=== PATIENT | female | born 1960 | race Caucasian/White ===

== ENCOUNTER → 2017-05-06 | Outpatient (CLI) | payer BC ==
[~2017-05-06] MED LIST: ACHD5005 PO; AGM875T PO; CEPH500C PO; [UNRECOGNIZED DRUG - OTHER]
--- NOTE | 2017-05-06 12:24 | Diagnostic Imaging Report ---
INDICATION: Digital mammogram bilateral screening. This study was compared to the prior exam of 08/07/15 and 08/09/12. At this time, there are no current complaints. The current study was also evaluated with a Computer Aided Detection (CAD) system. FINDINGS: There are scattered fibroglandular densities in both breasts which could obscure a lesion. Overall, there does not appear to have been any significant change when compared to the prior exam. No primary or secondary sign of malignancy is noted. IMPRESSION: There is no radiographic evidence for malignancy. ACR BI-RADS Category 1: Negative. Result letter will be mailed to the patient. Note: At least 10% of breast cancer is not imaged by mammography. Dictated by: Dictated on workstation # [id number]
== END ==
LOC: RAD 09:51
PROVIDERS: ATTEND Family Medicine
DX: Z12.31 Encounter for screening mammogram for malignant neoplasm of breast (principal)
CPT/HCPCS: 77067

== ENCOUNTER 2017-08-15 09:30 | Outpatient (CLI) | payer BC ==
[~2017-08-15] VITALS: Ht 160 cm; Wt 88.9 kg
[2017-08-15] MEDS ORDERED: PARO20TA5 PO (09:32)
[2017-08-15] MEDS ORDERED: NADO40TA PO (09:32)
[2017-08-15] MEDS ORDERED: HYDR25TA4 PO (09:32)
== END 2017-08-15 09:46 ==
LOC: PREOP 09:30
PROVIDERS: ATTEND Surgery
DX: Z01.818 Encounter for other preprocedural examination (principal); Z12.11 Encounter for screening for malignant neoplasm of colon

== ENCOUNTER 2017-08-17 11:49 | Day surgery (SDC) | payer BC ==
[~2017-08-17] VITALS: Ht 160 cm; Wt 88.9 kg
[~2017-08-17 11:49] MED LIST changes: +HYDR25TA4 PO; +NADO40TA PO; +PARO20TA5 PO
--- OUTSIDE RECORDS SUMMARY | 2017-08-17 11:52 | XMS REPORT ---
Author Author GINNA OLGUIN [facility] eClinicalWorks Address Unknown Phone Unavailable Care Team Providers Care Video Arcade Manager Name Role Phone GINNA OLGUIN CP Unavailable Allergies, Adverse Reactions, Alerts Substance Reaction Event Type N.K.D.A. Info Not Available Non Drug Allergy Problems Problem Type Condition Code Onset Dates Condition Status Problem Essential hypertension I10 Active Problem Postmenopausal HRT (hormone replacement therapy) Z79.890 Active Problem Major depressive disorder with single episode, remission status unspecified F32.9 Active Assessment Major depressive disorder with single episode, remission status unspecified F32.9 Active Assessment Essential hypertension I10 Active Assessment Postmenopausal HRT (hormone replacement therapy) Z79.890 Active Medications Medication Code System Code Instructions Start Date End Date Status Dosage Hydrochlorothiazide [facility] [address]-99 25 MG Orally Once a day 1 tablet Nadolol [facility] [address]-04 40 mg 1 tablet Once a day Orally Vagifem [facility] [address]-97 10 MCG Vaginal 1 tablet Paroxetine HCl [facility] [address]-84 20 mg 1 tablet in the morning Once a day Orally Procedures Procedure Coding System Code Date Office Visit, Est Pt., Level 4 CPT-4 30701 Feb 11, 2016 Vital Signs Date/Time: Feb 11, 2016 Cardiac Monitoring Heart Rate 70 bpm Weight 192.5 lbs Height 62 in BMI 35.20 Index Blood Pressure Diastolic 82 mmHg Blood Pressure Systolic 128 mmHg Results No Known Results Summary Purpose eClinicalWorks Submission
[2017-08-17] MEDS ORDERED: LACTATED RINGERS 1,000 ML IV ONE (11:53)
--- OUTSIDE RECORDS SUMMARY | 2017-08-17 11:53 | XMS REPORT ---
Author Author GINNA OLGUIN Organization [facility] Address [address] [place] [address] Care Team Providers Care Business Banking Officer Name Role Phone GINNA OLGUIN Unavailable PROBLEMS Type Condition ICD9-CM Code [id number] Code Onset Dates Condition Status SNOMED Code Problem Major depressive disorder with single episode, remission status unspecified F32.9 Active 78920804 Problem Essential hypertension I10 Active 87000064 Problem Postmenopausal HRT (hormone replacement therapy) Z79.890 Active 86160524 ALLERGIES No Known Allergies SOCIAL HISTORY Never Assessed PLAN OF CARE Activity Details Follow Up 3 Months, prn Reason: VITAL SIGNS Height 62 in 2016-06-09 Weight 189.4 lbs 2016-06-09 Temperature 97.9 degrees Fahrenheit 2016-06-09 Heart Rate 68 bpm 2016-06-09 Respiratory Rate 18 2016-06-09 BMI 34.64 kg/m2 2016-06-09 Blood pressure systolic 118 mmHg 2016-06-09 Blood pressure diastolic 70 mmHg 2016-06-09 MEDICATIONS Medication Instructions Dosage Frequency Start Date End Date Duration Status Paroxetine HCl 20 mg Orally Once a day 1 tablet in the morning Once a day Orally 24h 30 Active Vagifem 10 MCG 1 tablet Active Nadolol 40 mg 1 tablet Once a day Orally 30 Active Hydrochlorothiazide 25 MG Orally Once a day 1 tablet 24h Active RESULTS No Results PROCEDURES No Known procedures IMMUNIZATIONS No Known Immunizations MEDICAL (GENERAL) HISTORY Type Description Date Medical History Hypertension Medical History Depression Surgical History Cholecystectomy 2006 Surgical History tonsillectomy and adenoidectomy Surgical History Ear surgery to add a piece of tissue to ear drum Hospitalization History childbirth
--- OUTSIDE RECORDS SUMMARY | 2017-08-17 11:53 | XMS REPORT ---
Author Author ELAINE VANEGAS [facility] Address [address] [place] [address] Care Team Providers Care Distance Learning Program Coordinator Name Role Phone ROMINA ELAINE Unavailable PROBLEMS Type Condition ICD9-CM Code [id number] Code Onset Dates Condition Status SNOMED Code Problem Major depressive disorder with single episode, remission status unspecified F32.9 Active 64165992 Problem Essential hypertension I10 Active 62163143 Problem Postmenopausal HRT (hormone replacement therapy) Z79.890 Active 02063928 ALLERGIES No Known Allergies SOCIAL HISTORY Never Assessed PLAN OF CARE VITAL SIGNS Height 62 in 2016-09-29 Weight 187.8 lbs 2016-09-29 Temperature 97.6 degrees Fahrenheit 2016-09-29 Heart Rate 62 bpm 2016-09-29 Respiratory Rate 20 2016-09-29 BMI 34.35 kg/m2 2016-09-29 Blood pressure systolic 120 mmHg 2016-09-29 Blood pressure diastolic 80 mmHg 2016-09-29 MEDICATIONS Medication Instructions Dosage Frequency Start Date End Date Duration Status Hydrochlorothiazide 25 MG Orally Once a day 1 tablet 24h Active Vagifem 10 MCG 1 tablet Active Hydrochlorothiazide 25MG TAKE ONE TABLET BY MOUTH ONCE DAILY 30 Active Paroxetine HCl 20MG TAKE ONE TABLET BY MOUTH ONCE DAILY IN THE MORNING 30 Active Nadolol 40 mg 1 tablet Once a day Orally 30 Active Paroxetine HCl 20 mg Orally Once a day 1 tablet in the morning Once a day Orally 24h 30 Active RESULTS No Results PROCEDURES No Known procedures IMMUNIZATIONS No Known Immunizations MEDICAL (GENERAL) HISTORY Type Description Date Medical History Hypertension Medical History Depression Surgical History Cholecystectomy 2006 Surgical History tonsillectomy and adenoidectomy Surgical History Ear surgery to add a piece of tissue to ear drum Hospitalization History childbirth
--- OUTSIDE RECORDS SUMMARY | 2017-08-17 11:53 | XMS REPORT | Continuity of Care Document ---
Author Author [facility] Organization [facility] Address Unknown Phone Unavailable Allergies Active Description Code Type Severity Reaction Onset Reported/Identified Relationship to Patient Clinical Status Yes NKANo Known Allergies NKA Miscellaneous Allergy Mild N/A 11/12/2008 Medications There is no data. Problems Date Dx Coded Attending Type Code Diagnosis Diagnosed By 07/25/2013 ELI TORRES MD Ot 473.9 CHRONIC SINUSITIS NOS 07/25/2013 ELI TORRES MD Ot 910.0 ABRASION HEAD 07/25/2013 ELI TORRES MD Ot 959.09 INJURY OF FACE AND NECK 07/25/2013 ELI TORRES MD Ot E000.8 OTHER EXTERNAL CAUSE STATUS 07/25/2013 ELI TORRES MD Ot E849.0 ACCIDENT IN HOME 07/25/2013 ELI TORRES MD Ot E885.9 FALL FROM SLIPPING, TRIPPING, OR STUMBLI 07/25/2013 ELI TORRES MD Ot V06.1 GDOSASAQYN-ITUMNWO-GCLZNURGZ, COMBINED [ 08/07/2015 MULUGETA ANDREW Ot Z12.31 09/10/2015 MULUGETA ANDREW Ot Z12.31 ENCNTR SCREEN MAMMOGRAM FOR MALIGNANT NE 08/13/2016 MULUGETA ANDREW Ot Z12.31 ENCNTR SCREEN MAMMOGRAM FOR MALIGNANT NE 05/09/2017 ISABELL LOVE MD Ot Z12.31 ENCNTR SCREEN MAMMOGRAM FOR MALIGNANT NE 05/19/2017 ISABELL LOVE MD Ot Z12.31 ENCNTR SCREEN MAMMOGRAM FOR MALIGNANT NE 08/10/2017 MULUGETA ANDREW Ot Z12.31 ENCNTR SCREEN MAMMOGRAM FOR MALIGNANT NE 08/10/2017 ISABELL LOVE MD Ot Z12.31 ENCNTR SCREEN MAMMOGRAM FOR MALIGNANT NE 08/11/2017 JANETTE BECK DO Ot Z01.818 ENCOUNTER FOR OTHER PREPROCEDURAL EXAMIN 08/11/2017 JANETTE BECK DO Ot Z12.11 ENCOUNTER FOR SCREENING FOR MALIGNANT NE Procedures There is no data. Results Test Result Range CBC With Differential/Platelet - 10/08/16 08:35 WBC 5.5 x10E3/uL 3.4-10.8 RBC 4.66 x10E6/uL 3.77-5.28 Hemoglobin 13.2 g/dL 11.1-15.9 Hematocrit 39.6 % 34.0-46.6 MCV 85 fL 79-97 MCH 28.3 pg 26.6-33.0 MCHC 33.3 g/dL 31.5-35.7 RDW 14.1 % 12.3-15.4 Platelets 264 x10E3/uL 150-379 Neutrophils 63 % Lymphs 24 % Monocytes 10 % Eos 3 % Basos 0 % Neutrophils (Absolute) 3.5 x10E3/uL 1.4-7.0 Lymphs (Absolute) 1.3 x10E3/uL 0.7-3.1 Monocytes(Absolute) 0.5 x10E3/uL 0.1-0.9 Eos (Absolute) 0.1 x10E3/uL 0.0-0.4 Baso (Absolute) 0.0 x10E3/uL 0.0-0.2 Immature Granulocytes 0 % Immature Grans (Abs) 0.0 x10E3/uL 0.0-0.1 Comp. Metabolic Panel (14) - 10/08/16 08:35 Glucose, Serum 104 mg/dL 65-99 BUN 21 mg/dL 6-24 Creatinine, Serum 0.93 mg/dL 0.57-1.00 eGFR If NonAfricn Am 68 mL/min/1.73 >59 eGFR If Africn Am 78 mL/min/1.73 >59 BUN/Creatinine Ratio 23 9-23 Sodium, Serum 141 mmol/L 134-144 Potassium, Serum 3.7 mmol/L 3.5-5.2 Chloride, Serum 95 mmol/L 96-106 Carbon Dioxide, Total 27 mmol/L 18-29 Calcium, Serum 9.8 mg/dL 8.7-10.2 Protein, Total, Serum 7.1 g/dL 6.0-8.5 Albumin, Serum 4.3 g/dL 3.5-5.5 Globulin, Total 2.8 g/dL 1.5-4.5 A/G Ratio 1.5 1.2-2.2 Bilirubin, Total 0.4 mg/dL 0.0-1.2 Alkaline Phosphatase, S 77 IU/L 39-117 AST (SGOT) 17 IU/L 0-40 ALT (SGPT) 17 IU/L 0-32 Lipid Panel - 10/08/16 08:35 Cholesterol, Total 216 mg/dL 100-199 Triglycerides 100 mg/dL 0-149 HDL Cholesterol 61 mg/dL >39 VLDL Cholesterol Polo 20 mg/dL 5-40 LDL Cholesterol Calc 135 mg/dL 0-99 A1C - 07/12/17 09:55 HEMOGLOBIN A1c 5.8 % of total Hgb <5.7 Encounters ACCT No. Visit Date/Time Discharge Status Pt. Type Provider Facility Loc./Unit Complaint [id number] 08/10/2017 05:34:00 08/10/2017 23:59:59 CLS Outpatient JANETTE BECK DO [facility] PREOP COLONOSCOPY [id number] 05/06/2017 09:51:00 05/06/2017 23:59:59 CLS Outpatient ISABELL LOVE MD [facility] RAD SCREENING [id number] 08/07/2015 15:19:00 08/07/2015 23:59:59 CLS Outpatient MULUGETA ANDREW [facility] RAD SCREENING [id number] 07/24/2013 22:24:00 07/25/2013 00:13:00 DIS Emergency ELI TORRES MD [facility] ER FACIAL INJURY FROM FALL [id number] 08/17/2017 13:00:00 PEN Preadmit JANETTE BECK DO [facility] ENDO SCREENING [id number] 08/13/2016 08:40:00 Document Registration [id number] 08/13/2016 08:40:00 Document Registration [id number] 2017 09:40:00 2017 23:59:59 CLS Outpatient [facility] [id number] 2017 09:40:00 Document Registration [id number] 10/09/2016 08:36:00 Document Registration
--- OUTSIDE RECORDS SUMMARY | 2017-08-17 11:53 | XMS REPORT ---
Author Author GINNA King Organization [facility] Address [address] [place] [address] Care Team Providers Care Product Tester Name Role Phone eusebiaLELE GINNA Unavailable PROBLEMS Type Condition ICD9-CM Code [id number] Code Onset Dates Condition Status SNOMED Code Problem Major depressive disorder with single episode, remission status unspecified F32.9 Active 89184997 Problem Essential hypertension I10 Active 11714625 Problem Postmenopausal HRT (hormone replacement therapy) Z79.890 Active 50109195 ALLERGIES No Information ENCOUNTERS Encounter Location Date Diagnosis [place] [id number] [place] [id number] [place] [address] Jun, Essential hypertension I10 ; Screening for lipid disorders Z13.220 and Screening for diabetes mellitus (DM) Z13.1 [place] [address] [place] [id number] [place] [address] 97783- 6277 Jun, [facility] [address] [address] [id number] [place] [address] 90922- 5382 May, [place] [address] [address] [id number] [place] [address]16- 3030 May, [facility] [id number] [place] [address] 19497- 9662 Apr, Essential hypertension I10 ; Screening for diabetes mellitus (DM) Z13.1 ; Screening for lipid disorders Z13.220 ; Screening for breast cancer Z12.31 and Screening for colon cancer Z12.11 [place] [address] [place] [address] 93961- 3722 Jan, Essential hypertension I10 ; Major depressive disorder with single episode, remission status unspecified F32.9 and Postmenopausal HRT ( hormone replacement therapy) Z79.890 [place] [address] [address] Oct, Essential hypertension I10 ; Postmenopausal HRT (hormone replacement therapy) Z79.890 ; Major depressive disorder with single episode, remission status unspecified F32.9 and Contusion of right great toe with damage to nail, initial encounter S90.211A [place] [address] [address] [id number] [place] [address] 19261- 8679 15 Sep, 2016 Diabetes mellitus screening Z13.1 [place] [address] [address] [id number] [place] [address] 45135- 6662 14 Sep, 2016 Diabetes mellitus screening Z13.1 [place] [address] [address] [id number] [place] [address] 49188- 1451 14 Sep, 2016 [place] [address] [address] [id number] [place] [address] 75826- 8156 Sep, Essential hypertension I10 [facility]ALK [facility] [address] [id number] [place] [address]68 [address] August, Abrasion, face without infection S00.81XA ; Abrasion of palm of right hand, initial encounter S60.511A and Fall (on)(from) sidewalk curb , initial encounter W10.1XXA [place] [address] [place] [address] 69512- 1932 Jun, Essential hypertension I10 ; Postmenopausal HRT (hormone replacement therapy) Z79.890 ; Major depressive disorder with single episode, remission status unspecified F32.9 and Screening cholesterol level Z13.220 [place] [address] [place] [address] 63183- 6539 Jan, Essential hypertension I10 ; Postmenopausal HRT (hormone replacement therapy) Z79.890 and Major depressive disorder with single episode, remission status unspecified F32.9 [place] [address] [place] [address] 83254- 2793 17 Oct, 2015 Encounter for immunization Z23 [place] [address] [place] [address] [place] [address] 14 Oct, 2015 [facility] [address] [facility] [id number] [address] 08 Oct, 2015 Essential hypertension I10 and Postmenopausal HRT (hormone replacement therapy) Z79.890 [facility] [address] [facility] [id number] [address] August, Essential hypertension I10 [facility] [address] [facility] [id number] [address] August, Essential hypertension I10 ; Postmenopausal HRT (hormone replacement therapy) Z79.890 and Major depressive disorder with single episode, remission status unspecified F32.9 IMMUNIZATIONS No Known Immunizations SOCIAL HISTORY Never Assessed REASON FOR VISIT Lab (walk-in) PLAN OF CARE VITAL SIGNS MEDICATIONS Unknown Medications RESULTS Name Result Date Reference Range CBC 2016-10-08 WBC 5.5 3.4-10.8 RBC 4.66 3.77-5.28 Hemoglobin 13.2 11.1-15.9 Hematocrit 39.6 34.0-46.6 MCV 85 79-97 MCH 28.3 26.6-33.0 MCHC 33.3 31.5-35.7 RDW 14.1 12.3-15.4 Platelets 264 150-379 Neutrophils 63 Lymphs 24 Monocytes 10 Eos 3 Basos 0 Neutrophils (Absolute) 3.5 1.4-7.0 Lymphs (Absolute) 1.3 0.7-3.1 Monocytes(Absolute) 0.5 0.1-0.9 Eos (Absolute) 0.1 0.0-0.4 Baso (Absolute) 0.0 0.0-0.2 Immature Granulocytes 0 Immature Grans (Abs) 0.0 0.0-0.1 LIPID PANEL 2016-10-08 Cholesterol, Total 216 100-199 Triglycerides 100 0-149 HDL Cholesterol 61 >39 VLDL Cholesterol Polo 20 5-40 LDL Cholesterol Calc 135 0-99 Comment: CMP 2016-10-08 Glucose, Serum 104 65-99 BUN 21 6-24 Creatinine, Serum 0.93 0.57-1.00 eGFR If NonAfricn Am 68 >59 eGFR If Africn Am 78 >59 BUN/Creatinine Ratio 23 9-23 Sodium, Serum 141 134-144 Potassium, Serum 3.7 3.5-5.2 Chloride, Serum 95 96-106 Carbon Dioxide, Total 27 18-29 Calcium, Serum 9.8 8.7-10.2 Protein, Total, Serum 7.1 6.0-8.5 Albumin, Serum 4.3 3.5-5.5 Globulin, Total 2.8 1.5-4.5 A/G Ratio 1.5 1.2-2.2 Bilirubin, Total 0.4 0.0-1.2 Alkaline Phosphatase, S 77 39-117 AST (SGOT) 17 0-40 ALT (SGPT) 17 0-32 PROCEDURES Procedure Date Ordered Result Body Site COMPLETE CBC W/AUTO DIFF WBC October 08, 2016 LIPID PANEL October 08, 2016 VENIPUNCT, ROUTINE* October 08, 2016 COMPREHEN METABOLIC PANEL October 08, 2016 INSTRUCTIONS MEDICATIONS ADMINISTERED No Known Medications MEDICAL (GENERAL) HISTORY Type Description Date Medical History Hypertension Surgical History Cholecystectomy 2006 Surgical History tonsillectomy and adenoidectomy Surgical History Ear surgery to add a piece of tissue to ear drum Hospitalization History childbirth
--- OUTSIDE RECORDS SUMMARY | 2017-08-17 11:53 | XMS REPORT ---
Author Author GINNA King Organization [facility] Address [address] [place] [address] Care Team Providers Care Marketing Development Specialist Name Role Phone eusebiaLELE GINNA Unavailable PROBLEMS Type Condition ICD9-CM Code [id number] Code Onset Dates Condition Status SNOMED Code Problem Major depressive disorder with single episode, remission status unspecified F32.9 Active 91759899 Problem Essential hypertension I10 Active 86989388 Problem Postmenopausal HRT (hormone replacement therapy) Z79.890 Active 61555837 ALLERGIES No Known Allergies ENCOUNTERS Encounter Location Date Diagnosis [place] [address] [place] [id number] [place] [address] 14224- [address]258 Jun, [place] [address] [place] [id number] [place] [address] 04802- 3097 Jun, Essential hypertension I10 ; Screening for lipid disorders Z13.220 and Screening for diabetes mellitus (DM) Z13.1 [place] [address] [place] [id number] [place] [address] 96451- 2147 Jun, [place] [address] [place] [address] 81811- 0908 May, [place] [address] [place] [id number] [place] [address] 55684- 0907 May, [place] [address] [place] [id number] [place] [address] 74587- 3998 Apr, Essential hypertension I10 ; Screening for diabetes mellitus (DM) Z13.1 ; Screening for lipid disorders Z13.220 ; Screening for breast cancer Z12.31 and Screening for colon cancer Z12.11 [place] [address] [address] [id number] [place] [address] 93933- 7790 Jan, Essential hypertension I10 ; Major depressive disorder with single episode, remission status unspecified F32.9 and Postmenopausal HRT ( hormone replacement therapy) Z79.890 [place] [address] [place] [address] [id number] [place] [address] 41740- [address] Oct, Essential hypertension I10 ; Postmenopausal HRT (hormone replacement therapy) Z79.890 ; Major depressive disorder with single episode, remission status unspecified F32.9 and Contusion of right great toe with damage to nail, initial encounter S90.211A [place] [address] [address]- [address] 15 Sep, 2016 Diabetes mellitus screening Z13.1 [place] [address] 41499- 1746 14 Sep, 2016 Diabetes mellitus screening Z13.1 [place] [address] 57824- 3085 14 Sep, 2016 [place] [address] 5[address]84- [address]36 Sep, Essential hypertension I10 [facility] IN [facility] [address] [place] [id number] [place] [address]14 -[address] August, Abrasion, face without infection S00.81XA ; Abrasion of palm of right hand, initial encounter S60.511A and Fall (on)(from) sidewalk curb , initial encounter W10.1XXA [place] [address] [place] [id number] [place] [address] 25485- 7435 08 Jun, 2016 Essential hypertension I10 ; Postmenopausal HRT (hormone replacement therapy) Z79.890 ; Major depressive disorder with single episode, remission status unspecified F32.9 and Screening cholesterol level Z13.220 [place] [address] [place] [address] [id number] [place] [address] 69439- 3518 Jan, Essential hypertension I10 ; Postmenopausal HRT (hormone replacement therapy) Z79.890 and Major depressive disorder with single episode, remission status unspecified F32.9 [place] [address] [place] [address]- 6982 17 Oct, 2015 Encounter for immunization Z23 [facility] [address] [address] 14 Oct, 2015 [facility] [address] [place] [address] 4765 08 Oct, 2015 Essential hypertension I10 and Postmenopausal HRT (hormone replacement therapy) Z79.890 [facility] [address] [place] [address] 93362- 7076 13 Aug, 2015 Essential hypertension I10 [place] [address] [address]- [address] 11 Aug, 2015 Essential hypertension I10 ; Postmenopausal HRT (hormone replacement therapy) Z79.890 and Major depressive disorder with single episode, remission status unspecified F32.9 IMMUNIZATIONS No Known Immunizations SOCIAL HISTORY Never Assessed REASON FOR VISIT lab f/u - Pt states she is here for her 3 month check up. No concerns today. - Art RIDDLE, Right great toe she just wants it looked at she stubbed it yesterday. PLAN OF CARE Activity Details Follow Up 3 Months Reason:htn VITAL SIGNS Height 62 in 2016-11-18 Weight 187.0 lbs 2016-11-18 Temperature 98.3 degrees Fahrenheit 2016-11-18 Heart Rate 68 bpm 2016-11-18 Respiratory Rate 18 2016-11-18 BMI 34.20 kg/m2 2016-11-18 Blood pressure systolic 123 mmHg 2016-11-18 Blood pressure diastolic 85 mmHg 2016-11-18 MEDICATIONS Medication Instructions Dosage Frequency Start Date End Date Duration Status Hydrochlorothiazide 25 MG Orally Once a day 1 tablet 24h Active Cephalexin 500 mg Orally every 12 hrs 1 capsule 12h Oct, Oct, 10 day(s) Active Nadolol 40 mg 1 tablet Once a day Orally 30 Active Paroxetine HCl 20 mg Orally Once a day 1 tablet in the morning Once a day Orally 24h 30 Active Vagifem 10 MCG 1 tablet Active RESULTS No Results PROCEDURES No Known procedures INSTRUCTIONS MEDICATIONS ADMINISTERED No Known Medications MEDICAL (GENERAL) HISTORY Type Description Date Medical History Hypertension Surgical History Cholecystectomy 2006 Surgical History tonsillectomy and adenoidectomy Surgical History Ear surgery to add a piece of tissue to ear drum Hospitalization History childbirth
[2017-08-17] MEDS ORDERED: LACTATED RINGERS 1,000 ML IV STA (11:56)
[2017-08-17 12:10] VITALS: BP 131/73
[2017-08-17] MEDS ORDERED: MIDAZOLAM 2 MG/2 ML (VERSED) VIAL ONE (12:32)
[2017-08-17] MEDS ORDERED: PROPOFOL INJECTION 50 ML IV ONE (12:32)
--- NOTE | 2017-08-17 12:56 | Progress Note-Pre Operative ---
Pre-Operative Progress Note H&P Reviewed The H&P was reviewed, patient examined and no changes noted. Time Seen by Provider: 12:49 Date H&P Reviewed: Aug 17, 2017 Time H&P Reviewed: 12:50 Pre-Operative Diagnosis: screening colonoscopy JANETTE BECK DO Aug 17, 2017 12:56
--- NOTE | 2017-08-17 13:25 | Progress Note-Post Operative ---
Post-Operative Progess Note Surgeon (s)/Culinary Director (s) Surgeon JANETTE BECK DO Culinary Director: none Pre-Operative Diagnosis screening colonoscopy Post-Operative Diagnosis Polyps Diverticula Int Hemorrhoids Procedure & Operative Findings Date of Procedure 08/17/17 Procedure Performed/Findings Colon with snare Anesthesia Type IV sedation by CURB BUILDER Estimated Blood Loss Estimated blood loss (mL): scant Specimens/Packing Specimens Removed Ascending colon polyp Descending colon polyp JANETTE BECK DO Aug 17, 2017 13:25
--- NOTE | 2017-08-17 13:27 | Endoscopy Discharge Instruct ---
Endo Procedure/Findings Findings 1.: Polyp 2.: Diverticulosis 3.: Internal Hemorrhoids Discharge Instructions - Activity: You might feel a little sleepy until tomorrow. This is due to the medicine you received to relax you. Until tomorrow, you should: NOT drive a car, operate machinery or power tools. NOT drink any alcoholic beverages. NOT make any important decisions or sign importortant papers. Do not return to work until tomorrow, unless otherwise instructed. Resume previous activities tomorrow. Diet: Start by taking liquids. If you tolerate liquids, advance to solid food. Make appointment for one week. Notify Physician - If you experience excessive bleeding, unusual abdominal pain, fever, or chest pain, contact your doctor immediately. Follow-Up: - I have received and understand the above instructions and will call my doctor if I have any further questions. Patient Signature Date Nurse Signature Other (Relationship) JANETTE BECK DO Aug 17, 2017 13:27
[2017-08-17 13:55] VITALS: BP 148/89
[2017-08-17 14:25] VITALS: BP 123/69
[2017-08-17 14:30] VITALS: BP 123/69
--- NOTE | 2017-08-19 19:55 | OPERATIVE REPORT ---
DATE OF SERVICE: 08/17/2017 PREOPERATIVE DIAGNOSIS: Screening colonoscopy. POSTOPERATIVE DIAGNOSES: 1. Colon polyp. 2. Diverticula. 3. Internal hemorrhoids. PROCEDURE: Colonoscopy with snare polypectomy. SURGEON: Baljinder Lopez DO MORGUE LIBRARIAN: None. ANESTHESIA: IV sedation by the BOTTLE CLEANER. SPECIMEN: Polyp from ascending colon as well as descending colon. BLOOD LOSS: Scant. FLUIDS: Per anesthesia. POSTOPERATIVE CONDITION: Stable. INDICATION FOR PROCEDURE: The patient is a 57-year-old female, who never had a colonoscopy and needs one for screening. FINDINGS: The patient had some diverticula seen throughout the descending and sigmoid colon. She also had a polyp in the ascending colon, 1 polyp in the descending colon and she had some internal hemorrhoids. Pictures were taken. PROCEDURE NOTE: After informed consent was obtained, the patient was brought to the endoscopy suite, placed in the bed in left lateral decubitus position. She was administered IV sedation by the BOTTLE CLEANER, who then monitored her vitals the entire time heart rate, blood pressure and pulse ox and the scope was then inserted, pushing all the way into the cecum. On the way, I noted some diverticula, took a picture of this. Pushed in about 140 cm, able to get to the cecum, took a picture appendiceal orifice and then able to get into the terminal ileum, took a picture of the terminal ileum and then slowly withdrew the scope insufflating looked circumferentially caceres looking the cecum, up the ascending colon and then the ascending colon noted a polyp, did a snare polypectomy and then continued up to the hepatic flexure, then down the transverse colon, the splenic flexure, then down in the descending colon saw another polyp, did another snare polypectomy and then continued down into the rectum, retroflexed in the rectal vault, saw some internal hemorrhoids, took a picture of this and then removed the scope. The patient tolerated the procedure well and she was recovered in endoscopy suite. Job ID: [id number] DocumentID: [id number] Dictated Date: 08/19/2017 11:38:35 Credit Representative Date: 08/19/2017 19:55:00 Dictated By: BALJINDER LOPEZ DO
== END 2017-08-17 14:35 | disposition home or self-care (01) ==
LOC: ENDO 11:49
PROVIDERS: ATTEND Surgery
DX: Z12.11 Encounter for screening for malignant neoplasm of colon (principal); D12.2 Benign neoplasm of ascending colon; K63.5 Polyp of colon; I10 Essential (primary) hypertension; K21.9 Gastro-esophageal reflux disease without esophagitis; Z79.899 Other long term (current) drug therapy
CPT/HCPCS: 88305

== ENCOUNTER → 2021-08-06 | Outpatient (CLI) | payer BC ==
[~2021-08-06] VITALS: Ht 157.5 cm; Wt 59.9 kg
[~2021-08-06] MED LIST changes: -NADO40TA PO; +NADO40TA2 PO
== END | disposition home or self-care (01) ==
LOC: PREOP 05:43
PROVIDERS: ATTEND Surgery
DX: Z01.818 Encounter for other preprocedural examination (principal)

== ENCOUNTER 2021-08-17 10:21 | Day surgery (SDC) | payer BC ==
[~2021-08-17] VITALS: Ht 157.5 cm; Wt 60.2 kg
[2021-08-17] MEDS ORDERED: LACTATED RINGERS 1,000 ML IV ONE (10:40)
[2021-08-17 10:45] VITALS: BP 117/74
[2021-08-17] MEDS ORDERED: LACTATED RINGERS 1,000 ML IV STA (10:53)
[2021-08-17] MEDS ORDERED: HURRICAINE EXT TUBE (BENZOCAINE) XX PRN (11:00)
--- NOTE | 2021-08-17 11:19 | Progress Note-Pre Operative ---
Pre-Operative Progress Note H&P Reviewed The H&P was reviewed, patient examined and no changes noted. Time Seen by Provider: 11:18 Date H&P Reviewed: Aug 17, 2021 Time H&P Reviewed: 11:18 Pre-Operative Diagnosis: Dysphagia, Chronic Gastritis JANETTE BECK DO Aug 17, 2021 11:19
[2021-08-17] MEDS ORDERED: proPOfol 200 MG/20 ML (DIPRIVAN) VIAL IV ONE (11:30)
[2021-08-17] MEDS ORDERED: MIDAZOLAM 2 MG/2 ML (VERSED) VIAL ONE (11:30)
[2021-08-17 11:50] VITALS: BP 105/57
[2021-08-17 11:55] VITALS: BP 101/57
--- NOTE | 2021-08-17 11:55 | Progress Note-Post Operative ---
Post-Operative Progess Note Surgeon (s)/Clinical Operations Leader (s) Surgeon JANETTE BECK DO Clinical Operations Leader: none Pre-Operative Diagnosis Dysphagia, Chronic Gastritis Post-Operative Diagnosis Gastric and Pyloric ulcers Large hiatal hernia posterior mass, pushing into stomach esophagitis Procedure & Operative Findings Date of Procedure 08/17/21 Procedure Performed/Findings EGD with bx PROCEDURE NOTE: After informed consent was obtained, the patient was brought to the endoscopy suite, placed in bed in left lateral decubitus position. She was administered IV sedation by the FORMING MACHINE ADJUSTER who then monitored vitals the entire time, heart rate, blood pressure and pulse ox and the scope was inserted down the mouth through the esophagus into the stomach. On the way down, noted some mild esophagitis, took a picture, pushed into the stomach and into the antrum. Noted some gastritis and ulcers in the antrum as well as one in the pyloric channel. The duodenum appeared to have flattened villi, did not see inflammation or ulcers. Pulled back and did a biopsy of the antrum and the pyloric channel ulcer. Then retroflexed the scope and saw a large hiatal hernia, took a picture of this and then pulled the scope into the GE junction, took another picture of the hiatal hernia and then did a biopsy of the GE junction. Pushed the scope back into the stomach and noted a large protrusion into the stomach; which must be some retroperitoneal structure. I think she will need a CT to define this. Finally, suctioned all the air out of the stomach. At this point pulled the scope up the esophagus and out the mouth. The patient tolerated the procedure, and she recovered in endoscopy suite. Anesthesia Type IV sedation by anesthesia Estimated Blood Loss Estimated blood loss (mL): scant Specimens/Packing Specimens Removed antral bx duodenal bx pyloric channel bx GE jxn bx JANETTE BECK DO Aug 17, 2021 11:55
[2021-08-17 11:57] VITALS: BP 101/57
--- NOTE | 2021-08-17 11:57 | Endoscopy Discharge Instruct ---
Endo Procedure/Findings Findings 1.: Gastric Ulcer 2.: Hiatal Hernia 3.: Gastritis 4.: Other Findings (esophagitis) Discharge Instructions - Activity: You might feel a little sleepy until tomorrow. This is due to the medicine you received to relax you. Until tomorrow, you should: NOT drive a car, operate machinery or power tools. NOT drink any alcoholic beverages. NOT make any important decisions or sign importortant papers. Do not return to work until tomorrow, unless otherwise instructed. Resume previous activities tomorrow. Diet: Start by taking liquids. If you tolerate liquids, advance to solid food. 1.: EGD in 1 year Notify Physician - If you experience excessive bleeding, unusual abdominal pain, fever, or chest pain, contact your doctor immediately. JANETTE BECK DO Aug 17, 2021 11:56
[2021-08-17 12:27] VITALS: BP 117/76
--- NOTE | 2021-08-17 14:18 | Anesthesia-General Post-Op ---
MAC Patient Condition Mental Status/LOC: Same as Preop Cardiovascular: Satisfactory Nausea/Vomiting: Absent Respiratory: Satisfactory Pain: Controlled Complications: Absent Post Op Complications Complications None Follow Up Care/Instructions Patient Instructions None needed. Anesthesiology Discharge Order Discharge Order Patient was doing well after the procedure with no complaints, stable vital signs, no apparent adverse anesthesia problems. BRYCE SUH DO Aug 17, 2021 14:18
== END 2021-08-17 12:32 | disposition home or self-care (01) ==
LOC: ENDO 10:21
PROVIDERS: ATTEND Surgery
DX: K29.50 Unspecified chronic gastritis without bleeding (principal); K31.89 Other diseases of stomach and duodenum; K44.9 Diaphragmatic hernia without obstruction or gangrene; K20.90 Esophagitis, unspecified without bleeding; K25.9 Gastric ulcer, unspecified as acute or chronic, without hemorrhage or perforation; B96.81 Helicobacter pylori [H. pylori] as the cause of diseases classified elsewhere

== ENCOUNTER → 2021-08-28 | Outpatient (CLI) | payer BC ==
[2021-08-28 08:25] LABS: CREATININE SERUM 0.8 MG/DL (0.60-1.30)
--- NOTE | 2021-08-28 09:46 | Diagnostic Imaging Report ---
PROCEDURE: CT abdomen and pelvis with contrast. TECHNIQUE: Multiple contiguous axial images were obtained through the abdomen and pelvis after administration of intravenous contrast. Auto Exposure Controls were utilized during the CT exam to meet ALARA standards for radiation dose reduction. All CT scans use one or more of the following dose optimizing techniques: automated exposure control, MA and/or KvP adjustment based on patient size and exam type or iterative reconstruction. INDICATION: Abdominal mass and swelling. There is a 6 cm calcified splenic cyst in the left upper abdomen. There are 2 small simple cysts in the inferior aspect of the spleen. Adrenals appear normal. Kidneys appear normal. Small bowel is not dilated. There is a moderate amount of stool in the colon. Uterus is present. Adnexa unremarkable. There is no intraperitoneal free air or free fluid. IMPRESSION: Large calcified splenic cyst Dictated by: Dictated on workstation # [id number]
== END ==
LOC: RAD 07:46
PROVIDERS: ATTEND Nurse Practitioner
DX: D73.4 Cyst of spleen (principal)
CPT/HCPCS: 36415; 74177; 82565; 84520

== ENCOUNTER 2022-01-14 20:45 | Emergency (ER) | payer BC | END 2022-01-14 21:17 | disposition left against medical advice (07) | LOC: EDUNIT# 20:45 → ER 20:46 | DX: T18.128A Food in esophagus causing other injury, initial encounter (principal); X58.XXXA Exposure to other specified factors, initial encounter ==

== ENCOUNTER 2023-02-07 16:20 | Inpatient (IN) | payer BC ==
[~2023-02-07] VITALS: Ht 157.5 cm; Wt 68.6 kg
[2023-02-07] MEDS ORDERED: CEFEPIME INJECTION 1,000 MG in NS (IVPB) 50 ML 50 ML IV ONE (16:45)
[2023-02-07] MEDS ORDERED: ACETAMINOPHEN 500 MG TABLET PO PRN (16:45)
[2023-02-07] MEDS ORDERED: NS IV ONE (16:45)
[2023-02-07] MEDS ORDERED: LIDOCAINE UROJET 2% GEL 10 ML PKG TOP ONE (16:45)
[2023-02-07 16:47] LABS: BASOPHILS % (AUTO) 0 % (0-10); EOSINOPHILS # (AUTO) 0.1 10^3/uL (0.0-0.3); EOSINOPHILS % (AUTO) 1 % (0-10); HEMATOCRIT 31 % (35-52); HEMOGLOBIN 9.4 g/dL (11.5-16.0); LYMPHOCYTES # (AUTO) 0.5 10^3/uL (1.0-4.0); LYMPHOCYTES % (AUTO) 4 % (12-44); MEAN CORPUSCULAR HEMOGLOBIN 23 pg (25-34); MEAN CORPUSCULAR HGB CONC 30 g/dL (32-36); MEAN CORPUSCULAR VOLUME 76 fL (80-99); MEAN PLATELET VOLUME 8.8 fL (9.0-12.2); MONOCYTES # (AUTO) 0.1 10^3/uL (0.0-1.0); MONOCYTES % (AUTO) 1 % (0-12); NEUTROPHILS # (AUTO) 11.2 10^3/uL (1.8-7.8); NEUTROPHILS % (AUTO) 91 % (42-75); PLATELET COUNT 514 10^3/uL (130-400); WHITE BLOOD COUNT 12.3 10^3/uL (4.3-11.0)
--- NOTE | 2023-02-07 16:56 | ED General ---
General Chief Complaint: Fever-Adult/Adol Stated Complaint: WEAKNESS, DEHYDRATION Nursing Triage Note: PT ARRIVED PER EMS, PT HAS TEMP AND AMS. CALLED BY Source of Information: Patient Exam Limitations: Language Barrier (patient is in and out of being able to communicate and follow commands. ) (AUSTIN GUERRA) History of Present Illness Date Seen by Provider: Feb 07, 2023 Time Seen by Provider: 16:45 Initial Comments Patient presents from EMS. EMS states that they were called by her because she has not been able to get out of bed and has not been eating or drinking. They are unaware of how long she has been like this and she is unable to give more history at this time. She has had a temperature and AMS upon arrival. Timing/Duration: Other (unsure of timeframe at this time. ) Severity: Mild (AUSTIN GUERRA) Allergies and Home Medications Allergies Coded Allergies: NKANo Known Allergies (Verified Allergy, Mild, 08/17/17) mushroom (Unverified Allergy, Unknown, 08/06/21) Patient Home Medication List Home Medication List Reviewed: Yes (AUSTIN GUERRA) Home Medication List Reviewed: Yes (LEONIDES PRIETO MD) Hydrochlorothiazide (Hydrochlorothiazide) 25 Mg Tablet, 25 MG PO DAILY, (Reported) Entered as Reported by: KWASI SHAH on 08/15/17931 Nadolol (Nadolol) 40 Mg Tablet, 40 MG PO DAILY, (Reported) Entered as Reported by: KWASI SHAH on 08/15/17931 Paroxetine HCl (Paroxetine HCl) 20 Mg Tablet, 20 MG PO DAILY, (Reported) Entered as Reported by: KWASI SHAH on 08/15/17 0932 Review of Systems Review of Systems Constitutional: fever, weight loss EENTM: no symptoms reported Respiratory: no symptoms reported Cardiovascular: no symptoms reported (AUSTIN GUERRA) All Other Systems Reviewed Negative Unless Noted: Yes (AUSTIN GUERRA) Past Qmkeewj-Xfnrzv-Ykzqlz Hx Patient Social History Tobacco Use?: No Substance use?: No Alcohol Use?: No Pt feels they are or have been: No (AUSTIN GUERRA) Immunizations Up To Date Tetanus Booster (TDap): More than 5yrs First/Initial COVID19 Vaccinat: JULY 2020 Second COVID19 Vaccination [place]: AUGUST 2020 Third COVID19 Vaccination Date: NO (AUSTIN GUERRA) Seasonal Allergies Seasonal Allergies: Yes (mild) (AUSTIN GUERRA) Past Medical History Surgery/Hospitalization HX: HTN, ARTHRITIS Surgeries: Yes Ear Surgery, Gallbladder Respiratory: No Cardiac: Yes Hypertension Neurological: No Gastrointestinal: No Musculoskeletal: Yes Arthritis Endocrine: No Cancer: No Psychosocial: No Integumentary: No Blood Disorders: No (AUSTIN GUERRA) Physical Exam-Suspected Sepsis Physical Exam Vital Signs Vital Signs - First Documented 02/07/23 02/07/23 16:20 22:36 Temp 38.6 Pulse 111 Resp 18 B/P (MAP) 100/74 (83) Pulse Ox 92 O2 Delivery Nasal Cannula O2 Flow Rate 4.00 FiO2 92 (LEONIDES PRIETO MD) Vital Signs Capillary Refill : Less Than 3 Seconds (AUSTIN GUERRA) Blood Pressure Mean: 83 Height, Weight, BMI Height: 5'3.00" Weight: 196lbs. 0.0oz. 88.019339kg; 24.26 BMI Method: General Appearance: Cachetic, Mild Distress, Thin HEENT: Pale Conjunctivae (L), Pale Conjunctivae (R), Other (pale lips, and oral mucosa) Respiratory: Lungs Clear, Normal Breath Sounds, No Accessory Muscle Use, No Respiratory Distress Cardiovascular: Regular Rate, Rhythm, No Murmur Rectal: Other (stool sample was obtained on rectal exam, rectal vault was full, dried excrement on her bilateral legs. ) Extremity: Slow Capillary Refill Neurologic/Psychiatric: Disoriented (AUSTIN GUERRA) General Appearance: No Apparent Distress, Chronically ill, Cachetic, Thin Eyes: Bilateral Eye Other (significant conjunctival pallor - white) HEENT: Other (dry oral mucosa and teeth) Neck: Normal Inspection Respiratory: Other (diminished BS right base with crackles) Cardiovascular: Regular Rate, Rhythm Gastrointestinal: Non Tender, Soft Extremity: Normal Inspection, Normal Range of Motion, No Pedal Edema, Slow Capillary Refill Neurologic/Psychiatric: Alert, No Motor/Sensory Deficits, Depressed Affect (flat and depressed affect), Disoriented Skin: warm/dry, pallor, other (LE covered in fecal material bilaterally; poor skin turgor) (LEONIDES PRIETO MD) Focused Exam Sepsis Stage: Septic Shock Possible Source: Pulmonary Lactate Level 02/07/23 16:30: Lactic Acid Level 2.72*H 02/07/23 18:51: Lactic Acid Level 2.62*H 02/07/23 21:30: Lactic Acid Level 2.79*H (LEONIDES PRIETO MD) Time of Focused Exam: 18:35 Respiratory: No Accessory Muscle Use, No Respiratory Distress, Crackles (right posterior with diminished BS) Cardiovascular: Regular Rate, Rhythm Capillary Refill: Greater Than 3 Seconds Peripheral Pulses: 1+ Radial Pulses (R), 1+ Radial Pulses (L) Skin: warm/dry, pallor Lactic Acid Level Laboratory Tests Test 02/07/23 21:30 Lactic Acid Level 2.79 MMOL/L (0.50-2.00) *H (LEONIDES PRIETO MD) Within 3hrs of presentation: Admin 30ml/kg IBW due to BMI>30, Admin ABX, Blood cultures prior to ABX's, Focus exam, Lactate level (LEONIDES PRIETO MD) Procedures/Interventions Lumen: triple Central Line Procedure: betadine prep, sterile drapes applied, sterile dressing applied Position: internal jugular (R), femoral (R) Anesthesia: Lidocaine Volume Anesthetic (ccs): 4 Complications: initial right IJ failed x2 Post Position: sutured, good blood return initial attempt at right IJ failed x2; converted to right femoral, 2 attempts - 2nd successful. good blood return. sutured in place. (LEONIDES PRIETO MD) Progress/Results/Core Measures Suspected Sepsis Recent Fever Within 48 Hours: Yes SIRS Temperature: Pulse: 111 Respiratory Rate: 18 Laboratory Tests 02/07/23 16:30: White Blood Count 12.3H Blood Pressure 100 /74 Mean: 83 02/07/23 16:30: Laboratory Tests 02/07/23 16:30: Platelet Count 514H (AUSTIN GUERRA) Results/Orders Lab Results Laboratory Tests Test 02/07/23 16:30 02/07/23 16:33 02/07/23 16:50 02/07/23 17:57 Range/Units White Blood Count 12.3 H 4.3-11.0 10^3/uL Red Blood Count 4.09 3.80-5.11 10^6/uL Hemoglobin 9.4 L 11.5-16.0 g/dL Hematocrit 31 L 35-52 % Mean Corpuscular Volume 76 L 80-99 fL Mean Corpuscular Hemoglobin 23 L 25-34 pg Mean Corpuscular Hemoglobin Concent 30 L 32-36 g/dL Red Cell Distribution Width 26.0 H 10.0-14.5 % Platelet Count 514 H 130-400 10^3/uL Mean Platelet Volume 8.8 L 9.0-12.2 fL Immature Granulocyte % (Auto) 3 % Neutrophils (%) (Auto) 91 H 42-75 % Lymphocytes (%) (Auto) 4 L 12-44 % Monocytes (%) (Auto) 1 0-12 % Eosinophils (%) (Auto) 1 0-10 % Basophils (%) (Auto) 0 0-10 % Neutrophils # (Auto) 11.2 H 1.8-7.8 10^3/uL Lymphocytes # (Auto) 0.5 L 1.0-4.0 10^3/uL Monocytes # (Auto) 0.1 0.0-1.0 10^3/uL Eosinophils # (Auto) 0.1 0.0-0.3 10^3/uL Basophils # (Auto) 0.0 0.0-0.1 10^3/uL Immature Granulocyte # (Auto) 0.3 H 0.0-0.1 10^3/uL Neutrophils % (Manual) 21 % Lymphocytes % (Manual) 5 % Monocytes % (Manual) 1 % Band Neutrophils 23 % Hypochromasia SLIGHT Poikilocytosis MODERATE Anisocytosis SLIGHT Prothrombin Time 18.1 H 12.2-14.7 SEC INR Comment 1.5 H 0.8-1.4 Activated Partial Thromboplast Time 31 24-35 SEC Sodium Level 134 L 135-145 MMOL/L Potassium Level 3.0 L 3.6-5.0 MMOL/L Chloride Level 97 L 98-107 MMOL/L Carbon Dioxide Level 20 L 21-32 MMOL/L Anion Gap 17 H 5-14 MMOL/L Blood Urea Nitrogen 15 7-18 MG/DL Creatinine 0.70 0.60-1.30 MG/DL Estimat Glomerular Filtration Rate 97 BUN/Creatinine Ratio 21 Glucose Level 80 70-105 MG/DL Lactic Acid Level 2.72 *H 0.50-2.00 MMOL/L Calcium Level 8.6 8.5-10.1 MG/DL Corrected Calcium 9.5 8.5-10.1 MG/DL Total Bilirubin 1.8 H 0.1-1.0 MG/DL Aspartate Amino Transf (AST/SGOT) 24 5-34 U/L Alanine Aminotransferase (ALT/SGPT) 9 0-55 U/L Alkaline Phosphatase 75 40-136 U/L Troponin I < 0.028 <0.028 NG/ML Total Protein 6.0 L 6.4-8.2 GM/DL Albumin 2.9 L 3.2-4.5 GM/DL Glucometer 86 70-110 MG/DL Influenza Type A (RT-PCR) Not Detected Not Detecte Influenza Type B (RT-PCR) Not Detected Not Detecte SARS-CoV-2 RNA (RT-PCR) Not Detected Not Detecte Blood Gas Puncture Site LEFT WRIST Blood Gas Patient Temperature 37.1 Arterial Blood pH 7.37 7.37-7.43 Arterial Blood Partial Pressure CO2 37 35-45 MMHG Arterial Blood Partial Pressure O2 48 L 79-93 MMHG Arterial Blood HCO3 21 L 23-27 MMOL/L Arterial Blood Total CO2 22.0 21.0-31.0 MMOL/L Arterial Blood Oxygen Saturation 68 L 94-100 % Arterial Blood Base Excess -3.5 L -2.5-2.5 MMOL/L Berhane Test YES-POS Blood Gas Ventilator Setting NO Blood Gas Inspired Oxygen 4L Test 02/07/23 18:51 02/07/23 20:49 02/07/23 21:30 Range/Units Lactic Acid Level 2.62 *H 2.79 *H 0.50-2.00 MMOL/L Glucometer 58 *L 70-110 MG/DL (LEONIDES PRIETO MD) My Orders Orders - LEONIDES PRIETO MD Ns Iv 500 Ml (Ns Iv 500 Ml) (02/07/23 19:03) Ns Iv 500 Ml (Ns Iv 500 Ml) (02/07/23 19:08) Norepinephrine 8 Mg/250 Ml (Norepinephri (02/07/23 19:55) Vancomycin Injection (Vancomycin Injecti (02/07/23 20:00) Ekg Tracing (02/07/23 20:00) Red Cells Leukocytes Reduced (02/07/23 20:01) Accucheck Stat ONCE (02/07/23 20:50) (LEONIDES PRIETO MD) Medications Given in ED Current Medications Medications Dose Ordered Sig/Sae Route Start Time Stop Time Status Last Admin Dose Admin Acetaminophen 1,000 mg ONCE PRN PO 02/07/23 16:45 02/07/23 17:12 DC 02/07/23 16:52 1,000 MG Cefepime HCl 1000 mg/Sodium Chloride 50 ml @ 100 mls/hr ONCE ONCE IV 02/07/23 16:45 02/07/23 17:14 DC 02/07/23 16:52 100 MLS/HR Iohexol 100 ml ONCE ONCE IV 02/07/23 17:30 02/07/23 17:31 DC 02/07/23 17:38 58 ML Norepinephrine Bitartrate 250 ml @ ud STK-MED ONCE IV 02/07/23 19:55 02/07/23 19:59 DC 02/07/23 21:32 9.6 MLS/HR Sodium Chloride 100 ml ONCE ONCE IV 02/07/23 17:30 02/07/23 17:31 DC 02/07/23 17:38 80 ML Sodium Chloride 1,530 ml @ 1,530 mls/hr ONCE ONCE IV 02/07/23 16:45 02/07/23 17:44 DC 02/07/23 16:52 1,530 MLS/HR Vancomycin HCl 1000 mg/Sodium Chloride 250 ml @ 250 mls/hr ONCE ONCE IV 02/07/23 20:00 02/07/23 20:59 DC 02/07/23 21:37 250 MLS/HR (LEONIDES PRIETO MD) Vital Signs/I&O 02/07/23 02/07/23 02/07/23 02/07/23 16:20 16:20 18:16 21:32 Temp 38.6 Pulse 111 76 Resp 18 B/P (MAP) 100/74 (83) 80/59 Pulse Ox 92 O2 Delivery Nasal Cannula Nasal Cannula O2 Flow Rate 4.00 4.00 02/07/23 02/07/23 02/07/23 02/07/23 22:11 22:15 22:25 22:30 Pulse 74 72 74 68 Resp 19 29 18 B/P (MAP) 110/68 (80) 113/67 (82) 104/66 (75) Pulse Ox 92 92 91 O2 Delivery OxyMask OxyMask OxyMask O2 Flow Rate 6.00 6.00 6.00 10/9/23 10/9/23 10/9/23 10/9/23 22:36 22:45 23:00 23:15 Temp 38.6 Pulse 111 67 65 64 Resp 15 18 18 B/P (MAP) 110/68 (85) 113/66 (83) 115/69 (85) Pulse Ox 94 94 91 O2 Delivery OxyMask OxyMask OxyMask O2 Flow Rate 6.00 6.00 6.00 FiO2 92 02/07/23 02/07/23 02/08/23 23:30 23:45 00:00 Pulse 65 62 63 Resp 15 15 10 B/P (MAP) 108/70 (83) 114/73 (87) 116/77 (88) Pulse Ox 89 95 94 O2 Delivery OxyMask OxyMask OxyMask O2 Flow Rate 6.00 6.00 6.00 02/08/23 00:00 Intake Total 1680 ml Balance 1680 ml (LEONIDES PRIETO MD) Vital Signs/I&O Capillary Refill : Less Than 3 Seconds (AUSTIN GUERRA) Blood Pressure Mean: 83 Point of Care Testing Finger Stick Blood Glucose: 86 Blood Glucose Action Taken: REPORTED TO Fecal Occult: Positive (AUSTIN GUERRA) Progress Note : Time: 16:45 Progress Note Patient is noted to have very dry conjuctiva bilaterally as well as dry oral mucosa and crustiness around her lips. The patient appears very thin, EMS states that she seems to have been bedridden for an extended period of time. She does not currently have any ulcerations on her body that would speak to being stationary in bed for an extended time. A rectal exam was done and a sample was taken, her rectal vault was full of excrement, as well as noted in her pull up and on her legs bilaterally. A canales cathetor was placed with no urine output at this time. Lungs are clear at this point, she has a mildly elevated temperature at 101 Fahrenheit currently. Plan is to rehydrate her, give her Tyenol PO, and get septic workup labs at this point. (AUSTIN GUERRA) Progress Note : Time: 21:54 Progress Note Patient care assumed at shift change (1830) from Dr Kim. Patient resting comfortably. Hypotensive in the mid 80's with HR around 100. Low sats 89/90 on 3L. She is oriented to herself and children but not the year or day of the week. Her daughter provides independent history for me. Apparently she has been "ill" for 3-4 days, cough, poor appetite, not eating and drinking and not getting out of bed. The patient's found her confused and could not get her up this afternoon so finally call the ambulance. Apparently EMS says the house was filthy and is very poor condition. Patient was covered in urine and feces. She has a histoy of depression and Rheumatoid arthritis. She is not a smoker, but her is and they have been 45y - he smokes in the house. SHe is denying any complaints at this time. Seems pleasantly unaware of the seriousness of her medical condition. Per report of Dr Kim the patient had hemoccult positive stools. Daughter states up until about a week ago her mother took both Ibuprofen and aspirin 2-3 times daily for her pain due to rheumatoid. While assessing the patient and considering central line, the patient went into Afib with RVR. HR 130. Pressure to the 70's. I attempted a central line twice right IJ - unsuccessful. Transitioned to right femoral. This was placed successfully, all 3 ports aspirated and flushed. Repeat CBC ordered after 2500ml NS pending at this time. Suspect after fluid resuscitation her HGb will drop dramatically - as clinically she has white conjunctivae. Labs independently reviewed and interpreted by me - CBC shows a total white blood cell count of 12.3 with 91% segmented neutrophils. Hemoglobin is 9.4, hematocrit of 31 platelet count of 514. Her chemistry shows a sodium of 134 potassium of 3.0, chloride of 97 CO2 of 20, BUN of 15 creatinine 0.7 blood sugar 80. Her total bilirubin is elevated at 1.8. Coags a little elevated at 18.1 PT INR of 1.5, PTT of 31. ABG was ordered and obtained and shows a pH of 7.37, PaO2 is 48 I believe this was a venous specimen. Her lactic acid was elevated at 2.72. COVID and flu test were negative. Chest x-ray single view shows a large consolidative right lower lobe pneumonia. Her initial EKG was reviewed by me after shift change it was obtained at 1648. It does show atrial fibrillation rate of 107 occasional sinus beats are noted. Second EKG was obtained at 2005, she was definitely A-fib RVR at a rate of 130. The patient was noted at approximately 9 PM to spontaneously convert back into a normal sinus rhythm. After central line placement right femoral Levophed was started. She has had cefepime and vancomycin. Repeat CBC ordered. Case was discussed with Dr. Coles on for [facility], also [facility] as he will need to replace her central line to right IJ tomorrow. Consult also needed to eICU. family was updated on her condition and plan of care. (LEONIDES PRIETO MD) ECG EKG : EKG Time: 20:06 Rate: 130 Rhythm: A Fib/Flutter ECG Comparisson: Changed ECG Impression: Atrial Fibrillation w/RVR (LEONIDES PRIETO MD) Diagnostic Imaging Diagonstic Imaging: Xray Plain Films/CT/US/NM/MRI: chest Comments [facility], [place] NAME: JAMESPARESH [facility] REC#: [id number] PT STATUS: REG ER : 1960 PHYSICIAN: SEBASTIÁN KIM DO ADMIT DATE: 02/07/23/ER Signed Date of Exam:02/07/23 CHEST 1 VIEW, AP/PA ONLY EXAM: CHEST 1 VIEW, AP/PA ONLY INDICATION: Fever. Altered mental status. COMPARISON: None. FINDINGS: Normal heart size and central pulmonary vascularity. Dense consolidation in the right lung base. No pneumothorax. No definite pleural effusion. No acute osseous findings. IMPRESSION: Dense consolidation in the right lung base suspicious for pneumonitis. Recommend follow-up to resolution. Dictated by: Dictated on workstation # [id number] Dict: 02/07/23 1754 Trans: 02/07/232019 SKINNY [id number] Interpreted by: SOCORRO MCNEIL MD Electronically signed by: SOCORRO MCNEIL MD 02/07/232019 Diagonstic Imaging: CT Comments [facility], [place] NAME: JAMESPARESH [facility] REC#: [id number] PT STATUS: REG ER : 1960 PHYSICIAN: SEBASTIÁN KIM DO ADMIT DATE: 02/07/23/ER Signed Date of Exam:02/07/23 CT HEAD WO PROCEDURE: CT head without contrast. TECHNIQUE: Multiple contiguous axial images were obtained through the brain without the use of intravenous contrast. Auto Exposure Controls were utilized during the CT exam to meet ALARA standards for radiation dose reduction. INDICATION: Altered mental status. COMPARISON: CT head without contrast 07/24/2013. FINDINGS: Ohkgakat-bi-tymqwd generalized volume loss and leukoaraiosis. No intracranial hemorrhage, mass effect, hydrocephalus, or extra-axial fluid collections. No CT evidence of a territorial infarction. Complete opacification of the left maxillary sinus with mucosal thickening in the ethmoid and sphenoid. Bilateral mastoid effusions. IMPRESSION: 1. No acute intracranial CT findings. 2. Advanced paranasal sinus disease as above. 3. Nonspecific bilateral mastoid effusions. Dictated by: Dictated on workstation # [id number] Dict: 02/07/23 1737 Trans: 02/07/232018 [id number] Interpreted by: SOCORRO MCNEIL MD Electronically signed by: SOCORRO MCNEIL MD 02/07/232018 Diagonstic Imaging: CT Comments [facility] [place] NAME: PARESH RAMIREZ [facility] REC#: [id number] PT STATUS: REG ER : 1960 PHYSICIAN: SEBASTIÁN KIM DO ADMIT DATE: 02/07/23/ER Draft Date of Exam:02/07/23 CT ABDOMEN/PELVIS W CLINICAL INDICATION: Patient with history of gallbladder surgery. Patient has fever and altered mental status. EXAM: Axial CT scan of the abdomen and pelvis performed with 50 cc of Omnipaque 350 IV contrast. Sagittal and coronal reformatted images are created. Auto Exposure Controls were utilized during the CT exam to meet ALARA standards for radiation dose reduction. COMPARISON: CT scan of the abdomen and pelvis with contrast dated 08/28/2021. FINDINGS: There is a moderate-sized area of consolidation involving the right lower lobe which is incompletely imaged and concerning for pneumonia. There is no significant change to the 5.1 cm eggshell calcified hypodense lesion involving the medial upper aspect of the spleen. Spleen is otherwise unremarkable. The gallbladder is surgically absent which was also noted on the prior study. The liver is unremarkable. The pancreas is unremarkable. Adrenal glands are unremarkable. Both kidneys are unremarkable with no hydronephrosis, stone, or mass. The bladder is decompressed with wall thickening which is nonspecific. Canales catheter is seen within the decompressed bladder. There is a large amount of stool in the rectum. There is diverticulosis involving the sigmoid colon and descending colon. There is also moderate amount of stool involving the transverse colon and left colon. There is no evidence of intestinal obstruction. The stomach is decompressed. The small bowel showed no significant abnormality. There is no intra-abdominal free air or free fluid. There is no significant lymphadenopathy. The appendix is not definitively localized and may be surgically absent versus obscured by closely adjacent intestines. The abdominal aorta and common iliac arteries are nonaneurysmal without significant stenosis. The extra-abdominal and extrapelvic soft tissue structures show mild subcutaneous edema. IMPRESSION: 1: There is an incompletely visualized moderate amount of consolidation involving the right lower lobe concerning for pneumonia. 2: There is a large amount of stool in the rectum and moderate amount of stool involving the transverse colon and left colon which may be seen with constipation. There is no evidence of intestinal obstruction. 3: Stable eggshell calcified cystic structure involving the spleen. 4: Gallbladder is surgically absent. Dictated on workstation # [id number] Dict: 02/07/231745 Trans: 02/07/231757 AS6 [id number] Interpreted by: PIERCE KRUEGER MD Electronically signed by: (LEONIDES PRIETO MD) Departure Communication (Admissions) Time/Spoke to Admitting Phy: 19:[address] Coles ([facility] Hospitalist) Time/Spoke to Consulting Phy: 20:[address] Lopez (surgery re: afib) Discussed with eICU @ 2022 (LEONIDES PRIETO MD) Impression Primary Impression: Septic shock Additional Impressions: Pneumonia Qualified Codes: J18.9 - Pneumonia, unspecified organism Anemia Qualified Codes: D64.9 - Anemia, unspecified Atrial fibrillation with rapid ventricular response Disposition: ADMITTED INPATIENT Condition: Critical Admissions Decision to Admit Reason: Admit from ER (General) Decision to Admit/Date: Feb 07, 2023 Time/Decision to Admit Time: 20:17 (LEONIDES PRIETO MD) Departure-Patient Inst. Referrals: ISABELL LOVE MD (PCP/Family) Primary Care Physician Copy Copies To 1: ISABELL LOVE MDTORRESAUSTIN Feb 07, 2023 16:56 LEONIDES PRIETO MD Feb 07, 2023 20:22
[2023-02-07 16:59] LABS: ALBUMIN 2.9 GM/DL (3.2-4.5); CHLORIDE 97 MMOL/L (98-107); SODIUM 134 MMOL/L (135-145)
[2023-02-07 17:00] LABS: CALCIUM 8.6 MG/DL (8.5-10.1)
[2023-02-07 17:01] LABS: GLUCOSE 80 MG/DL (70-105); INR 1.5 (0.8-1.4); PROTHROMBIN TIME PATIENT 18.1 SEC (12.2-14.7)
[2023-02-07 17:02] LABS: CARBON DIOXIDE 20 MMOL/L (21-32)
[2023-02-07 17:03] LABS: BILIRUBIN,TOTAL 1.8 MG/DL (0.1-1.0)
[2023-02-07 17:05] LABS: ALKALINE PHOSPHATASE 75 U/L (40-136); GFR ESTIMATED 97
[2023-02-07 17:06] LABS: ANISOCYTOSIS SLIGHT; BAND NEUTROPHILS 23 %; BUN/CREATININE RATIO 21; HYPOCHROMASIA SLIGHT; LYMPHOCYTES % (MANUAL) 5 %; MONOCYTES % (MANUAL) 1 %; NEUTROPHILS % (MANUAL) 21 %; POIKILOCYTOSIS MODERATE
[2023-02-07 17:08] LABS: ALANINE AMINOTRANSFERASE 9 U/L (0-55)
[2023-02-07] MEDS ORDERED: NS 100 ML (IVPB) BAG IV ONE (17:30)
[2023-02-07] MEDS ORDERED: IOHEXOL 350 MG/ML 100 ML (OMNIPAQUE 350) VIAL IV ONE (17:30)
[2023-02-07] MEDS ORDERED: HOLD METFORMIN - RECEIVED CONTRAST 20 ML VIAL IV SCH (17:30)
--- NOTE | 2023-02-07 17:45 | Diagnostic Imaging Report ---
PROCEDURE: CT head without contrast. TECHNIQUE: Multiple contiguous axial images were obtained through the brain without the use of intravenous contrast. Auto Exposure Controls were utilized during the CT exam to meet ALARA standards for radiation dose reduction. INDICATION: Altered mental status. COMPARISON: CT head without contrast 07/24/2013. FINDINGS: Wbkmbrbl-yk-sqjywd generalized volume loss and leukoaraiosis. No intracranial hemorrhage, mass effect, hydrocephalus, or extra-axial fluid collections. No CT evidence of a territorial infarction. Complete opacification of the left maxillary sinus with mucosal thickening in the ethmoid and sphenoid. Bilateral mastoid effusions. IMPRESSION: 1. No acute intracranial CT findings. 2. Advanced paranasal sinus disease as above. 3. Nonspecific bilateral mastoid effusions. Dictated by: Dictated on workstation # [id number]
--- NOTE | 2023-02-07 17:58 | Diagnostic Imaging Report ---
EXAM: CHEST 1 VIEW, AP/PA ONLY INDICATION: Fever. Altered mental status. COMPARISON: None. FINDINGS: Normal heart size and central pulmonary vascularity. Dense consolidation in the right lung base. No pneumothorax. No definite pleural effusion. No acute osseous findings. IMPRESSION: Dense consolidation in the right lung base suspicious for pneumonitis. Recommend follow-up to resolution. Dictated by: Dictated on workstation # [id number]
--- NOTE | 2023-02-07 17:59 | Diagnostic Imaging Report ---
CLINICAL INDICATION: Patient with history of gallbladder surgery. Patient has fever and altered mental status. EXAM: Axial CT scan of the abdomen and pelvis performed with 50 cc of Omnipaque 350 IV contrast. Sagittal and coronal reformatted images are created. Auto Exposure Controls were utilized during the CT exam to meet ALARA standards for radiation dose reduction. COMPARISON: CT scan of the abdomen and pelvis with contrast dated 08/28/2021. FINDINGS: There is a moderate-sized area of consolidation involving the right lower lobe which is incompletely imaged and concerning for pneumonia. There is no significant change to the 5.1 cm eggshell calcified hypodense lesion involving the medial upper aspect of the spleen. Spleen is otherwise unremarkable. The gallbladder is surgically absent which was also noted on the prior study. The liver is unremarkable. The pancreas is unremarkable. Adrenal glands are unremarkable. Both kidneys are unremarkable with no hydronephrosis, stone, or mass. The bladder is decompressed with wall thickening which is nonspecific. Willard catheter is seen within the decompressed bladder. There is a large amount of stool in the rectum. There is diverticulosis involving the sigmoid colon and descending colon. There is also moderate amount of stool involving the transverse colon and left colon. There is no evidence of intestinal obstruction. The stomach is decompressed. The small bowel showed no significant abnormality. There is no intra-abdominal free air or free fluid. There is no significant lymphadenopathy. The appendix is not definitively localized and may be surgically absent versus obscured by closely adjacent intestines. The abdominal aorta and common iliac arteries are nonaneurysmal without significant stenosis. The extra-abdominal and extrapelvic soft tissue structures show mild subcutaneous edema. IMPRESSION: 1: There is an incompletely visualized moderate amount of consolidation involving the right lower lobe concerning for pneumonia. 2: There is a large amount of stool in the rectum and moderate amount of stool involving the transverse colon and left colon which may be seen with constipation. There is no evidence of intestinal obstruction. 3: Stable eggshell calcified cystic structure involving the spleen. 4: Gallbladder is surgically absent. Dictated by: Dictated on workstation # [id number]
[2023-02-07] MEDS: POTASSIUM CL 10MEQ/50ML IVPB 50 ML IV SCH ×2 (18:00→19:17)
[2023-02-07 18:08] LABS: ABG BASE EXCESS -3.5 MMOL/L (-2.5-2.5); ABG OXYGEN SATURATION 68 % (94-100); ABG PCO2 37 MMHG (35-45); ABG PH 7.37 (7.37-7.43); ABG PO2 48 MMHG (79-93)
[2023-02-07 18:09] LABS: ALLENS TEST YES-POS; INSPIRED O2 4L; VENTILATOR NO
[2023-02-07 18:10] LABS: PATIENT TEMP 37.1
[2023-02-07] MEDS ORDERED: NS IV 500 ML 500 ML IV STA (19:03)
[2023-02-07] MEDS ORDERED: NS IV 500 ML 500 ML ONE (19:08)
[2023-02-07] MEDS ORDERED: NOREPINEPHRINE 8 MG/250 ML 250 ML IV ONE (19:55)
[2023-02-07] MEDS ORDERED: VANCOMYCIN INJECTION 1,000 MG in NS (IVPB) 250 ML 250 ML IV ONE (20:00)
[2023-02-07 22:36] VITALS: BP 100/74
[2023-02-07] MEDS ORDERED: EPINEPHrine 1 MG INJECTION 4 MG in NS (IVPB) 250 ML 248 ML IV SCH (22:45)
[2023-02-07] MEDS ORDERED: RT-ALBUTEROL SULF 2.5 MG/3 ML PRE-MIX VIAL INH PRN (22:45)
[2023-02-07] MEDS ORDERED: ONDANSETRON INJECTION 4 MG/2 ML (SDV) IV PRN (22:45)
[2023-02-07] MEDS: NOREPINEPHRINE 8 MG/250 ML 250 ML IV SCH (22:45)
[2023-02-07] MEDS: VASOPRESSIN INJECTION 20 UNIT in NS (IVPB) 100 ML 100 ML IV SCH (22:45)
[2023-02-07] MEDS: LACTATED RINGERS 1,000 ML 1,000 ML IV SCH (23:16)
[2023-02-07] MEDS: CEFEPIME 1,000 MG/NS 50 ML IVPB IV SCH ×2 (23:17)
[2023-02-08] MEDS: LACTATED RINGERS 1,000 ML 1,000 ML IV SCH ×4 (05:25→22:40)
[2023-02-08 05:56] LABS: BASOPHILS # (AUTO) 0.1 10^3/uL (0.0-0.1); BASOPHILS % (AUTO) 1 % (0-10); EOSINOPHILS % (AUTO) 0 % (0-10); HEMATOCRIT 28 % (35-52); HEMOGLOBIN 8.6 g/dL (11.5-16.0); LYMPHOCYTES % (AUTO) 8 % (12-44); MEAN CORPUSCULAR HEMOGLOBIN 23 pg (25-34); MEAN CORPUSCULAR HGB CONC 31 g/dL (32-36); MEAN CORPUSCULAR VOLUME 75 fL (80-99); MEAN PLATELET VOLUME 8.9 fL (9.0-12.2); MONOCYTES # (AUTO) 0.1 10^3/uL (0.0-1.0); MONOCYTES % (AUTO) 1 % (0-12); NEUTROPHILS % (AUTO) 89 % (42-75); PLATELET COUNT 449 10^3/uL (130-400); WHITE BLOOD COUNT 13.6 10^3/uL (4.3-11.0)
[2023-02-08 06:17] LABS: ALBUMIN 2.6 GM/DL (3.2-4.5); POTASSIUM 2.9 MMOL/L (3.6-5.0)
[2023-02-08 06:19] LABS: CALCIUM 7.9 MG/DL (8.5-10.1)
[2023-02-08 06:20] LABS: TOTAL PROTEIN 5.3 GM/DL (6.4-8.2)
[2023-02-08 06:22] LABS: BILIRUBIN,TOTAL 1.7 MG/DL (0.1-1.0)
[2023-02-08 06:23] LABS: PHOSPHORUS 3.1 MG/DL (2.3-4.7)
[2023-02-08 06:24] LABS: CREATININE SERUM 0.74 MG/DL (0.60-1.30)
[2023-02-08 06:26] LABS: MAGNESIUM 1.2 MG/DL (1.6-2.4)
[2023-02-08] MEDS ORDERED: POTASSIUM CL 10MEQ/50ML IVPB 400 ML IV ONE (06:27)
[2023-02-08] MEDS: POTASSIUM CL 10MEQ/50ML IVPB 50 ML IV SCH ×7 (06:36→12:12)
[2023-02-08] MEDS: CEFEPIME 1,000 MG/NS 50 ML IVPB IV SCH ×8 (06:36→22:41)
[2023-02-08] MEDS ORDERED: MAGNESIUM 1 GM/100 ML IVPB 600 ML IV ONE (06:49)
[2023-02-08] MEDS: MAGNESIUM 1 GM/100 ML IVPB 100 ML IV SCH ×6 (06:53→12:11)
--- NOTE | 2023-02-08 08:07 | Tele-ICU Consult ---
History of Present Illness History of Present Illness Date Seen by Provider: Feb 08, 2023 Time Seen by Provider: 08:00 History of Present Illness (Tele-ICU Physician , Progress Note ) Service provided via interactive audio and video telecommunCartCrunch E-CARE system to a patient admitted to ICU bed in [facility]. Patient is seen today due to persistent need of ICU care Available chart/ vitals / labs / Images reviewed Video assessment done using teleICU camera, rest of exam as per RN 62 yo F admitted for AMS, not eating or drinking, In ED temp 38.6C, In ED pt was disoriented, looked cachetic and dehydrated. Has LA 2.7, now 2.14 WBC 13.6, T Bili 1.8, other LFT's normal, renal function normal. had right femoral central line inserted on 02/07, started on IV levo, Vancomycin and IV Cefepime, has 2/2 gnr in peripheral blood cultures. ABG in ED 7.37/37/48 On IV Levo @ 0.4, with BP 85/56, CT head showed no acute process, maxillary sinus opacification PMH HTN, arthritis Allergies and Home Medications Allergies Coded Allergies: NKANo Known Allergies (Verified Allergy, Mild, 08/17/17) mushroom (Unverified Allergy, Unknown, 08/06/21) Home Medications Buprenorphine 20 Mcg/Hour Patch.tdwk, 20 MCG TD WED, (Reported) Ergocalciferol (Vitamin D2) 1,250 Mcg (50752 Unit) Capsule, 1,250 MCG PO MON, (Reported) Folic Acid 1 Mg Tablet, 1 MG PO 1400, (Reported) Methotrexate Sodium 2.5 Mg Tablet, 17.5 MG PO SUN, (Reported) HAS BEEN TAKING 7 (2.5MG) TABS, BUT SHE IS TO INCREASE TO 8 TABS DAILY Nadolol 40 Mg Tablet, 40 MG PO 1400, (Reported) Paroxetine HCl 20 Mg Tablet, 20 MG PO DAILY, (Reported) Past Medical/Social/Family Hx Patient Social History Tobacco Use?: No Use of E-Cig and/or Vaping dev: No Substance use?: No Alcohol Use?: No Pt stated abuse/neglect: No Immunizations Up To Date Influenza Vaccine Up-to-Date: No; Not Current First/Initial COVID19 Vaccinat: JULY 2020 Second COVID19 Vaccination [place]: AUGUST 2020 Current Status status: No status: No Advance Directives: No Communicates: Verbally Primary Language: Cymro Preferred Spoken Language: Cymro Is interpretation needed?: No Sensory deficits: Vision impairment Implanted or Applied Medical D: None Review of Systems Constitutional: see HPI EENTM: see HPI Respiratory: see HPI Cardiovascular: see HPI Gastrointestinal: see HPI Genitourinary: see HPI Musculoskeletal: see HPI Skin: see HPI Psychiatric/Neurological: See HPI Focused Exam Lactate Level 02/08/23 01:00: Lactic Acid Level 2.37*H 02/08/23 05:30: Lactic Acid Level 2.36*H 02/08/23 07:32: Lactic Acid Level 2.14*H Height, Weight, BMI Height: 5'3.00" Weight: 196lbs. 0.0oz. 88.227235mc; 20.59 BMI Method: Time of Focused Exam: 18:35 Lactic Acid Level Laboratory Tests Test 02/08/23 05:30 02/08/23 07:32 Lactic Acid Level 2.36 MMOL/L (0.50-2.00) *H 2.14 MMOL/L (0.50-2.00) *H Exam Exam Patient acknowledged, consented, and participated in this virtual visit which was conducted using real time audio/video Vital Signs Date Time Temp Pulse Resp B/P (MAP) Pulse Ox O2 Delivery O2 Flow Rate FiO2 02/08/23 07:13 57 02/08/23 06:00 56 15 109/68 (82) 92 OxyMask 6.00 02/08/23 05:00 58 24 122/75 (91) 89 OxyMask 6.00 02/08/23 04:00 58 14 124/78 (93) 95 OxyMask 6.00 02/08/23 03:45 35.9 02/08/23 03:00 59 14 134/76 (95) 100 OxyMask 6.00 02/08/23 02:00 58 15 138/85 (102) 95 OxyMask 6.00 02/08/23 01:00 62 02/08/23 01:00 62 17 134/72 (92) 98 OxyMask 6.00 02/08/23 00:00 63 10 116/77 (88) 94 OxyMask 6.00 02/07/23 23:45 62 15 114/73 (87) 95 OxyMask 6.00 02/07/23 23:30 65 15 108/70 (83) 89 OxyMask 6.00 02/07/23 23:15 64 18 115/69 (85) 91 OxyMask 6.00 02/07/23 23:00 65 18 113/66 (83) 94 OxyMask 6.00 02/07/23 22:45 67 15 110/68 (85) 94 OxyMask 6.00 02/07/23 22:36 38.6 111 92 02/07/23 22:30 68 18 104/66 (75) 91 OxyMask 6.00 02/07/23 22:25 74 29 113/67 (82) 92 OxyMask 6.00 02/07/23 22:15 72 19 110/68 (80) 92 OxyMask 6.00 02/07/23 22:11 74 02/07/23 21:32 76 80/59 02/07/23 18:16 Nasal Cannula 4.00 02/07/23 16:20 38.6 111 18 100/74 (83) 02/07/23 16:20 92 Nasal Cannula 4.00 I & O 02/08/23 07:00 Intake Total 1680 ml Output Total 30 ml Balance 1650 ml Height & Weight Height: 5'3.00" Weight: 196lbs. 0.0oz. 88.685303yt; 20.59 BMI Method: General Appearance: No Apparent Distress, Chronically ill, Cachetic, Mild Distress, Thin, Other (mental status has improved) HEENT: Other (dry oral mucosa and teeth) Neck: Normal Inspection Respiratory: No Accessory Muscle Use, No Respiratory Distress, Crackles (right posterior with diminished BS) Cardiovascular: Regular Rate, Rhythm, Other (decreased BS on right, crackles on left) Capillary Refill: Greater Than 3 Seconds Peripheral Pulses: 1+ Radial Pulses (R), 1+ Radial Pulses (L) Gastrointestinal: normal bowel sounds, non tender, soft Extremity: Normal Inspection, Normal Range of Motion, No Pedal Edema, Pedal Edema (mild feet edema), Slow Capillary Refill, Other (right femoral central line site looks ok) Neurologic/Psychiatric: Alert, Oriented x3, No Motor/Sensory Deficits, Depressed Affect (flat and depressed affect), Disoriented Results Lab Laboratory Tests 02/07/23 16:30 10/10/23 05:30 Assessment/Plan Assessment/Plan Dehydration, possible septic shock, RLL PNA, has gnr in blood x 2, await ID Continue hydration and abx, try to wean off levophed, now on 0.04 mg/kg/min, not being tapered Critical Care: Critically Ill Patient Time spent with patient (mins): 25 MARIA DEL CARMEN JIANG MD Feb 08, 2023 08:07
[2023-02-08] MEDS ORDERED: VANCOMYCIN 1 GM/NS 250 ML IVPB IV SCH ×2 (09:30)
--- NOTE | 2023-02-08 09:41 | History & Physical ---
HPI History of Present Illness: 62 yo female brought to ER, she states because her called an ambulance because she couldn't get out of bed for 2-3 days. She reports just feeling weak in general, doesn't remember a lot. No known fever at home, denies coughing or feeling short of breath, denies chest pain. Denies nausea, vomiting, diarrhea. Admits occasional constipation. Source: patient Date seen by provider: Feb 08, 2023 Time Seen by Provider: 09:37 Attending Physician Lanette Vincent MD PCP Admitting Physician: Jenn Coles MD Attending Physician: Jenn Coles MD Consult Date of Admission Feb 07, 2023 at 22:01 Home Medications Home Medications Reviewed patient Home Medication Reconciliation performed by pharmacy medication reconciliations billing and quality technician and/or nursing. Patients Allergies have been reviewed. Allergies Coded Allergies: NKANo Known Allergies (Verified Allergy, Mild, 08/17/17) mushroom (Unverified Allergy, Unknown, 08/06/21) DEA-Hreawj-Uohbah Hx Patient Social History Smoking Status: Never a Smoker 2nd Hand Smoke Exposure: No Recent Hopitalizations: No Alcohol Use?: Yes (occasional, maybe once per year) Immunizations Up To Date Tetanus Booster (TDap): More than 5yrs Influenza Vaccine Up-to-Date: No; Not Current First/Initial COVID19 Vaccinat: JULY 2020 Second COVID19 Vaccination [place]: AUGUST 2020 Third COVID19 Vaccination Date: NO COVID19 Vaccine Marble Cleaner: UNKNOWN Past Medical History PMHx: HTN Rheumatoid arthritis Chronic pain SurgHx: Gall bladder resection Tonsillectomy Ear drum reconstruction Family Medical History Significant Family History: Cancer (father, stomach), Hypertension, Other Conditions/Hx (arthritis- mother) Review of Systems ([facility]) Constitutional: No fever Genitourinary: dysuria (sometimes) Skin: No rash Psychiatric/Neurological: Headache Reviewed Test Results Reviewed Test Results Lab Laboratory Tests Test 02/07/23 12:11 02/07/23 16:30 02/07/23 16:33 02/07/23 16:50 Range/Units White Blood Count 12.3 H 4.3-11.0 10^3/uL Red Blood Count 4.09 3.80-5.11 10^6/uL Hemoglobin 9.4 L 11.5-16.0 g/dL Hematocrit 31 L 35-52 % Mean Corpuscular Volume 76 L 80-99 fL Mean Corpuscular Hemoglobin 23 L 25-34 pg Mean Corpuscular Hemoglobin Concent 30 L 32-36 g/dL Red Cell Distribution Width 26.0 H 10.0-14.5 % Platelet Count 514 H 130-400 10^3/uL Mean Platelet Volume 8.8 L 9.0-12.2 fL Immature Granulocyte % (Auto) 3 % Neutrophils (%) (Auto) 91 H 42-75 % Lymphocytes (%) (Auto) 4 L 12-44 % Monocytes (%) (Auto) 1 0-12 % Eosinophils (%) (Auto) 1 0-10 % Basophils (%) (Auto) 0 0-10 % Neutrophils # (Auto) 11.2 H 1.8-7.8 10^3/uL Lymphocytes # (Auto) 0.5 L 1.0-4.0 10^3/uL Monocytes # (Auto) 0.1 0.0-1.0 10^3/uL Eosinophils # (Auto) 0.1 0.0-0.3 10^3/uL Basophils # (Auto) 0.0 0.0-0.1 10^3/uL Immature Granulocyte # (Auto) 0.3 H 0.0-0.1 10^3/uL Neutrophils % (Manual) 21 % Lymphocytes % (Manual) 5 % Monocytes % (Manual) 1 % Band Neutrophils 23 % Hypochromasia SLIGHT Poikilocytosis MODERATE Anisocytosis SLIGHT Prothrombin Time 18.1 H 12.2-14.7 SEC INR Comment 1.5 H 0.8-1.4 Activated Partial Thromboplast Time 31 24-35 SEC Sodium Level 134 L 135-145 MMOL/L Potassium Level 3.0 L 3.6-5.0 MMOL/L Chloride Level 97 L 98-107 MMOL/L Carbon Dioxide Level 20 L 21-32 MMOL/L Anion Gap 17 H 5-14 MMOL/L Blood Urea Nitrogen 15 7-18 MG/DL Creatinine 0.70 0.60-1.30 MG/DL Estimat Glomerular Filtration Rate 97 BUN/Creatinine Ratio 21 Glucose Level 80 70-105 MG/DL Lactic Acid Level 2.72 *H 0.50-2.00 MMOL/L Calcium Level 8.6 8.5-10.1 MG/DL Corrected Calcium 9.5 8.5-10.1 MG/DL Total Bilirubin 1.8 H 0.1-1.0 MG/DL Aspartate Amino Transf (AST/SGOT) 24 5-34 U/L Alanine Aminotransferase (ALT/SGPT) 9 0-55 U/L Alkaline Phosphatase 75 40-136 U/L Troponin I < 0.028 <0.028 NG/ML Total Protein 6.0 L 6.4-8.2 GM/DL Albumin 2.9 L 3.2-4.5 GM/DL Glucometer 86 70-110 MG/DL Influenza Type A (RT-PCR) Not Detected Not Detecte Influenza Type B (RT-PCR) Not Detected Not Detecte SARS-CoV-2 RNA (RT-PCR) Not Detected Not Detecte Test 02/07/23 17:57 02/07/23 18:51 02/07/23 20:49 02/07/23 21:30 Range/Units Blood Gas Puncture Site LEFT WRIST Blood Gas Patient Temperature 37.1 Arterial Blood pH 7.37 7.37-7.43 Arterial Blood Partial Pressure CO2 37 35-45 MMHG Arterial Blood Partial Pressure O2 48 L 79-93 MMHG Arterial Blood HCO3 21 L 23-27 MMOL/L Arterial Blood Total CO2 22.0 21.0-31.0 MMOL/L Arterial Blood Oxygen Saturation 68 L 94-100 % Arterial Blood Base Excess -3.5 L -2.5-2.5 MMOL/L Berhane Test YES-POS Blood Gas Ventilator Setting NO Blood Gas Inspired Oxygen 4L Lactic Acid Level 2.62 *H 2.79 *H 0.50-2.00 MMOL/L Glucometer 58 *L 70-110 MG/DL Test 02/08/23 01:00 02/08/23 05:30 02/08/23 07:32 02/08/23 09:53 Range/Units Lactic Acid Level 2.37 *H 2.36 *H 2.14 *H 2.15 *H 0.50-2.00 MMOL/L White Blood Count 13.6 H 4.3-11.0 10^3/uL Red Blood Count 3.71 L 3.80-5.11 10^6/uL Hemoglobin 8.6 L 11.5-16.0 g/dL Hematocrit 28 L 35-52 % Mean Corpuscular Volume 75 L 80-99 fL Mean Corpuscular Hemoglobin 23 L 25-34 pg Mean Corpuscular Hemoglobin Concent 31 L 32-36 g/dL Red Cell Distribution Width 25.6 H 10.0-14.5 % Platelet Count 449 H 130-400 10^3/uL Mean Platelet Volume 8.9 L 9.0-12.2 fL Immature Granulocyte % (Auto) 2 % Neutrophils (%) (Auto) 89 H 42-75 % Lymphocytes (%) (Auto) 8 L 12-44 % Monocytes (%) (Auto) 1 0-12 % Eosinophils (%) (Auto) 0 0-10 % Basophils (%) (Auto) 1 0-10 % Neutrophils # (Auto) 12.0 H 1.8-7.8 10^3/uL Lymphocytes # (Auto) 1.0 1.0-4.0 10^3/uL Monocytes # (Auto) 0.1 0.0-1.0 10^3/uL Eosinophils # (Auto) 0.0 0.0-0.3 10^3/uL Basophils # (Auto) 0.1 0.0-0.1 10^3/uL Immature Granulocyte # (Auto) 0.3 H 0.0-0.1 10^3/uL Sodium Level 135 135-145 MMOL/L Potassium Level 2.9 L 3.6-5.0 MMOL/L Chloride Level 104 98-107 MMOL/L Carbon Dioxide Level 19 L 21-32 MMOL/L Anion Gap 12 5-14 MMOL/L Blood Urea Nitrogen 19 H 7-18 MG/DL Creatinine 0.74 0.60-1.30 MG/DL Estimat Glomerular Filtration Rate 90 BUN/Creatinine Ratio 26 Glucose Level 99 70-105 MG/DL Calcium Level 7.9 L 8.5-10.1 MG/DL Corrected Calcium 9.0 8.5-10.1 MG/DL Phosphorus Level 3.1 2.3-4.7 MG/DL Magnesium Level 1.2 L 1.6-2.4 MG/DL Total Bilirubin 1.7 H 0.1-1.0 MG/DL Aspartate Amino Transf (AST/SGOT) 23 5-34 U/L Alanine Aminotransferase (ALT/SGPT) 9 0-55 U/L Alkaline Phosphatase 57 40-136 U/L Total Protein 5.3 L 6.4-8.2 GM/DL Albumin 2.6 L 3.2-4.5 GM/DL Test 02/08/23 11:22 Range/Units Glucometer 124 H 70-110 MG/DL Radiology CT abdomen/pelvis 02/07: IMPRESSION: 1: There is an incompletely visualized moderate amount of consolidation involving the right lower lobe concerning for pneumonia. 2: There is a large amount of stool in the rectum and moderate amount of stool involving the transverse colon and left colon which may be seen with constipation. There is no evidence of intestinal obstruction. 3: Stable eggshell calcified cystic structure involving the spleen. 4: Gallbladder is surgically absent. CT head 02/07: IMPRESSION: 1. No acute intracranial CT findings. 2. Advanced paranasal sinus disease as above. 3. Nonspecific bilateral mastoid effusions. CXR 02/07: IMPRESSION: Dense consolidation in the right lung base suspicious for pneumonitis. Recommend follow-up to resolution. Physical Exam-([facility]) Physical Exam Vital Signs VS - Last 72 Hours, by Label 02/07/23 02/07/23 02/07/23 02/07/23 16:20 16:20 18:16 21:32 Temp 38.6 Pulse 111 76 Resp 18 B/P (MAP) 100/74 (83) 80/59 Pulse Ox 92 O2 Delivery Nasal Cannula Nasal Cannula O2 Flow Rate 4.00 4.00 02/07/23 02/07/23 02/07/23 02/07/23 22:11 22:15 22:25 22:30 Pulse 74 72 74 68 Resp 19 29 18 B/P (MAP) 110/68 (80) 113/67 (82) 104/66 (75) Pulse Ox 92 92 91 O2 Delivery OxyMask OxyMask OxyMask O2 Flow Rate 6.00 6.00 6.00 02/07/23 02/07/23 02/07/23 02/07/23 22:30 22:36 22:45 23:00 Temp 38.6 Pulse 111 67 65 Resp 15 18 B/P (MAP) 110/68 (85) 113/66 (83) Pulse Ox 97 94 94 O2 Delivery OxyMask OxyMask OxyMask O2 Flow Rate 6.00 6.00 6.00 FiO2 92 02/07/23 02/07/23 02/07/23 02/08/23 23:15 23:30 23:45 00:00 Pulse 64 65 62 63 Resp 18 15 15 10 B/P (MAP) 115/69 (85) 108/70 (83) 114/73 (87) 116/77 (88) Pulse Ox 91 89 95 94 O2 Delivery OxyMask OxyMask OxyMask OxyMask O2 Flow Rate 6.00 6.00 6.00 6.00 02/08/23 02/08/23 02/08/23 02/08/23 00:00 01:00 01:00 02:00 Pulse 62 62 58 Resp 17 15 B/P (MAP) 134/72 (92) 138/85 (102) Pulse Ox 94 98 95 O2 Delivery OxyMask OxyMask OxyMask O2 Flow Rate 6.00 6.00 6.00 02/08/23 02/08/23 02/08/23 02/08/23 03:00 03:45 04:00 04:00 Temp 35.9 Pulse 59 58 Resp 14 14 B/P (MAP) 134/76 (95) 124/78 (93) Pulse Ox 100 98 95 O2 Delivery OxyMask OxyMask OxyMask O2 Flow Rate 6.00 6.00 6.00 02/08/23 02/08/23 02/08/23 02/08/23 05:00 06:00 07:00 07:13 Pulse 58 56 60 57 Resp 24 15 19 B/P (MAP) 122/75 (91) 109/68 (82) 115/69 (84) Pulse Ox 89 92 97 O2 Delivery OxyMask OxyMask OxyMask O2 Flow Rate 6.00 6.00 6.00 02/08/23 02/08/23 02/08/23 02/08/23 07:46 08:00 08:15 09:00 Temp 35.5 Pulse 54 54 Resp 15 19 B/P (MAP) 93/70 (78) 110/67 (81) Pulse Ox 99 99 O2 Delivery OxyMask OxyMask OxyMask O2 Flow Rate 6.00 6.00 6.00 02/08/23 02/08/23 02/08/23 02/08/23 10:00 10:06 10:45 11:00 Pulse 57 53 Resp 12 18 B/P (MAP) 85/56 (66) 92/60 (71) Pulse Ox 93 98 O2 Delivery OxyMask Nasal Cannula Nasal Cannula Nasal Cannula O2 Flow Rate 6.00 5.00 4.00 4.00 02/08/23 02/08/23 02/08/23 12:23 12:31 12:36 Temp 35.9 Pulse 53 B/P (MAP) O2 Delivery Nasal Cannula O2 Flow Rate 4.00 Capillary Refill : Greater Than 3 Seconds General Appearance: no apparent distress Respiratory: decreased breath sounds (right base to mid lung field) Cardiovascular: regular rate, rhythm, no murmur Gastrointestinal: normal bowel sounds, non tender, soft Extremities: no pedal edema Neurologic/Psychiatric: alert, normal mood/affect, other (oriented to self and location, year but not date, which she and state is typical for her) Skin: normal color, warm/dry Assessment/Plan Assessment/Plan Admission Status: Inpatient Order (span 2 midnights) Reason for Inpatient Admission: Septic shock (1) Septic shock Status: Resolved Assessment & Plan: Secondary to pneumonia. Did have low blood pressure and tachycardia, but was in a fib as well, so uncertain whether septic shock vs a fib related. This morning is not requiring norepinephrine. (2) Pneumonia Status: Acute Assessment & Plan: Started on cefepime and vancomycin on admit. New onset supplemental oxygen requirement. Qualifiers: Qualified Codes: J18.9 - Pneumonia, unspecified organism (3) Rheumatoid arthritis Status: Chronic Assessment & Plan: On methotrexate weekly at home and Butrans for chronic pain. (4) Atrial fibrillation with rapid ventricular response Status: Resolved Assessment & Plan: Had a fib with RVR in ER, converted and remains in sinus this morning. Suspect related to pneumonia. Check TSH and echo. Consult Cardiology. (5) Anemia Status: Acute Assessment & Plan: Hemoglobin in clinic October 2022 9.6 and she was referred for colonoscopy. Stable since then. Did have EGD 08/17/2021 with gastric and pyloric ulcers and 08/17/2017 colonoscopy with tubular adenoma and hyperplastic adenoma Qualifiers: Qualified Codes: D64.9 - Anemia, unspecified (6) Splenic cyst Status: Chronic Assessment & Plan: 07/2021 CT abdomen: There is a 6 cm calcified splenic cyst in the left upper abdomen. There are 2 small simple cysts in the inferior aspect of the spleen. 01/2023 CT abdomen: There is no significant change to the 5.1 cm eggshell calcified hypodense lesion involving the medial upper aspect of the spleen. Spleen is otherwise unremarkable. (7) DVT prophylaxis Status: Acute Assessment & Plan: Enoxaparin JENN COLES MD Feb 08, 2023 09:41
[2023-02-08] MEDS: VASOPRESSIN INJECTION 20 UNIT in NS (IVPB) 100 ML 100 ML IV SCH ×2 (10:03→20:42)
[2023-02-08] MEDS ORDERED: BUPR1PAT23 TD (11:09)
[2023-02-08] MEDS ORDERED: METH2.5T PO (11:09)
[2023-02-08] MEDS ORDERED: FOLI1TAB33 PO (11:09)
[2023-02-08] MEDS ORDERED: ERGO1250 PO (11:09)
[2023-02-08 13:03] LABS: BILIRUBIN,URINE 2+ (NEGATIVE); CLARITY,URINE SLIGHTLY CLOUDY; COLOR,URINE ORANGE; GLUCOSE, URINE (UA) TRACE (NEGATIVE); KETONES,URINE TRACE (NEGATIVE); NITRITE,URINE POSITIVE (NEGATIVE); PH,URINE 5.5 (5-9); PROTEIN,URINE 2+ (NEGATIVE)
[2023-02-08 13:04] LABS: LEUKOCYTE ESTERASE ,URINE NEGATIVE (NEGATIVE); WBC,URINE 0-2 /HPF
[2023-02-08 13:05] LABS: AMORPHOUS SEDIMENT,UR RARE AMOR URATES /LPF; BACTERIA,URINE FEW /HPF; GRANULAR CASTS,URINE RARE /LPF; SQUAMOUS EPITHELIAL CELL,UR RARE /HPF
[2023-02-08] MEDS ORDERED: ENOXAPARIN 40 MG/0.4 ML SYRINGE SQ SCH (13:30)
[2023-02-08] MEDS: FOLIC ACID 1 MG TAB PO SCH (14:28)
[2023-02-08] MEDS ORDERED: NS IV 500 ML 500 ML IV PRN (14:30)
--- NOTE | 2023-02-08 14:39 | Consultation - Surgery ---
History of Present Illness History of Present Illness Patient Consulted On(lashanda/time) 02/08/23 14:32 Time Seen by Provider: 08:29 History of Present Illness Surgery asked to consult regarding venous insufficiency. HPI per ED: Patient presents from EMS. EMS states that they were called by her because she has not been able to get out of bed and has not been eating or drinking. They are unaware of how long she has been like this and she is unable to give more history at this time. She has had a temperature and AMS upon arrival. Pt was admitted for sepsis and was on pressors. ED physician tried getting IJ, but could not and placed a femoral central line. When I spoke to the nurse this am, the pt was almost off pressor. In fact, pt was alert and able to answer questions. Allergies and Home Medications Allergies Coded Allergies: NKANo Known Allergies (Verified Allergy, Mild, 08/17/17) mushroom (Unverified Allergy, Unknown, 08/06/21) Patient Home Medication List Home Medication List Reviewed: Yes Buprenorphine (Buprenorphine) 20 Mcg/Hour Patch.tdwk, 20 MCG TD WED, (Reported) Entered as Reported by: REZA KRAFT on 02/08/231108 Last Action: Converted Ergocalciferol (Vitamin D2) (Vitamin D2) 1,250 Mcg ([id number] Unit) Capsule, 1,250 MCG PO MON, (Reported) Entered as Reported by: REZA KRAFT on 02/08/231108 Last Action: Held Folic Acid (Folic Acid) 1 Mg Tablet, 1 MG PO 1400, (Reported) Entered as Reported by: REZA KRAFT on 02/08/231108 Last Action: Continued Methotrexate Sodium (Methotrexate) 2.5 Mg Tablet, 17.5 MG PO SUN, (Reported) Entered as Reported by: REZA KRAFT on 02/08/231108 Last Action: Held Nadolol (Nadolol) 40 Mg Tablet, 40 MG PO 1400, (Reported) Entered as Reported by: KWASI SHAH on 08/15/17931 Last Action: Held Paroxetine HCl (Paroxetine HCl) 20 Mg Tablet, 20 MG PO DAILY, (Reported) Entered as Reported by: KWASI SHAH on 08/15/17931 Last Action: Continued Discontinued Medications Hydrochlorothiazide (Hydrochlorothiazide) 25 Mg Tablet, 25 MG PO DAILY, (Reported) Discontinued Reason: No Longer Taking Entered as Reported by: KWASI SHAH on 08/15/17 0932 Last Action: Discontinued Past Mbbtujo-Gvmdoo-Rtelfm Hx Patient Social History Smoking Status: Never a Smoker 2nd Hand Smoke Exposure: No Recent Hopitalizations: No Alcohol Use?: Yes (occasional, maybe once per year) Immunizations Up To Date Tetanus Booster (TDap): More than 5yrs Date of Influenza Vaccine: Feb 09, 2021 Seasonal Allergies Seasonal Allergies: Yes (mild) Surgeries History of Surgeries: Yes Surgeries: Ear Surgery, Gallbladder Respiratory History of Respiratory Disorde: No Cardiovascular History of Cardiac Disorders: Yes Cardiac Disorders: Hypertension Neurological History of Neurological Disord: No Gastrointestinal History of Gastrointestinal Di: No Musculoskeletal History of Musculoskeletal Dis: Yes Musculoskeletal Disorders: Arthritis Endocrine History of Endocrine Disorders: No Cancer History of Cancer: No Psychosocial History of Psychiatric Problem: No Integumentary History of Skin or Integumenta: No Blood Transfusions History of Blood Disorders: No Family Medical History Significant Family History: Cancer (father, stomach), Hypertension, Other Co nditions/Hx (arthritis- mother) Review of Systems-General Constitutional: malaise, weakness EENTM: No mouth pain, No mouth swelling, No epistaxis Respiratory: cough, dyspnea on exertion, short of breath Cardiovascular: No chest pain, No palpitations Gastrointestinal: No abdominal pain, No nausea, No vomiting Genitourinary: No dysuria, No frequency, No hematuria Psychiatric/Neurological: Denies Anxiety, Denies Depressed, Denies Seizure Physical Exam-General Problems Physical Exam Vital Signs Vital Signs - First Documented 02/07/23 02/07/23 16:20 22:36 Temp 38.6 Pulse 111 Resp 18 B/P (MAP) 100/74 (83) Pulse Ox 92 O2 Delivery Nasal Cannula O2 Flow Rate 4.00 FiO2 92 Capillary Refill : Greater Than 3 Seconds General Appearance: no apparent distress, thin Eyes: Bilateral Eye PERRL, Bilateral Eye EOMI HEENT: pharynx normal; No scleral icterus (R), No scleral icterus (L) Respiratory: no respiratory distress, no accessory muscle use, decreased breath sounds (right base with dullness to percussion) Cardiovascular: no murmur, tachycardia Gastrointestinal: non tender, soft, no organomegaly Extremities: no pedal edema, no calf tenderness, other (pt has contraction of right hand) Neurologic/Psychiatric: alert, normal mood/affect Data Review Labs Laboratory Tests 02/07/23 16:30: White Blood Count 12.3H, Red Blood Count 4.09, Hemoglobin 9.4L, Hematocrit 31L, Mean Corpuscular Volume 76L, Mean Corpuscular Hemoglobin 23L, Mean Corpuscular Hemoglobin Concent 30L, Red Cell Distribution Width 26.0H, Platelet Count 514H, Mean Platelet Volume 8.8L, Immature Granulocyte % (Auto) 3, Neutrophils (%) (Auto) 91H, Lymphocytes (%) (Auto) 4L, Monocytes (%) (Auto) 1, Eosinophils (%) (Auto) 1, Basophils (%) (Auto) 0, Neutrophils # (Auto) 11.2H, Lymphocytes # (Auto) 0.5L, Monocytes # (Auto) 0.1, Eosinophils # (Auto) 0.1, Basophils # (Auto) 0.0, Immature Granulocyte # (Auto) 0.3H, Neutrophils % (Manual) 21, Lymphocytes % (Manual) 5, Monocytes % (Manual) 1, Band Neutrophils 23, Hypochromasia SLIGHT, Poikilocytosis MODERATE, Anisocytosis SLIGHT, Prothrombin Time 18.1H, INR Comment 1.5H, Activated Partial Thromboplast Time 31, Sodium Level 134L, Potassium Level 3.0L, Chloride Level 97L, Carbon Dioxide Level 20L, Anion Gap 17H, Blood Urea Nitrogen 15, Creatinine 0.70, Estimat Glomerular Filtration Rate 97, BUN/Creatinine Ratio 21, Glucose Level 80, Lactic Acid Level 2.72*H, Calcium Level 8.6, Corrected Calcium 9.5, Total Bilirubin 1.8H, Aspartate Amino Transf (AST/SGOT) 24, Alanine Aminotransferase (ALT/SGPT) 9, Alkaline Phosphatase 75, Troponin I < 0.028, Total Protein 6.0L, Albumin 2.9L 02/07/23 16:33: Glucometer 86 02/07/23 16:50: Influenza Type A (RT-PCR) Not Detected, Influenza Type B (RT-PCR) Not Detected, SARS-CoV-2 RNA (RT-PCR) Not Detected 02/07/23 17:57: Blood Gas Puncture Site LEFT WRIST, Blood Gas Patient Temperature 37.1, Arterial Blood pH 7.37, Arterial Blood Partial Pressure CO2 37, Arterial Blood Partial Pressure O2 48L, Arterial Blood HCO3 21L, Arterial Blood Total CO2 22.0, Arterial Blood Oxygen Saturation 68L, Arterial Blood Base Excess -3.5L, Berhane Test YES-POS, Blood Gas Ventilator Setting NO, Blood Gas Inspired Oxygen 4L 02/07/23 18:51: Lactic Acid Level 2.62*H 02/07/23 20:49: Glucometer 58*L 02/07/23 21:30: Lactic Acid Level 2.79*H 02/08/23 01:00: Lactic Acid Level 2.37*H 02/08/23 05:30: White Blood Count 13.6H, Red Blood Count 3.71L, Hemoglobin 8.6L, Hematocrit 28L, Mean Corpuscular Volume 75L, Mean Corpuscular Hemoglobin 23L, Mean Corpuscular Hemoglobin Concent 31L, Red Cell Distribution Width 25.6H, Platelet Count 449H, Mean Platelet Volume 8.9L, Immature Granulocyte % (Auto) 2, Neutrophils (%) ( Auto) 89H, Lymphocytes (%) (Auto) 8L, Monocytes (%) (Auto) 1, Eosinophils (%) (Auto) 0, Basophils (%) (Auto) 1, Neutrophils # (Auto) 12.0H, Lymphocytes # (Auto) 1.0, Monocytes # (Auto) 0.1, Eosinophils # (Auto) 0.0, Basophils # (Auto) 0.1, Immature Granulocyte # (Auto) 0.3H, Sodium Level 135, Potassium Level 2.9L, Chloride Level 104, Carbon Dioxide Level 19L, Anion Gap 12, Blood Urea Nitrogen 19H, Creatinine 0.74, Estimat Glomerular Filtration Rate 90, BUN/Creatinine Ratio 26, Glucose Level 99, Lactic Acid Level 2.36*H, Calcium Level 7.9L, Corrected Calcium 9.0, Phosphorus Level 3.1, Magnesium Level 1.2L, Total Bilirubin 1.7H, Aspartate Amino Transf (AST/SGOT) 23, Alanine Aminotransferase (ALT/SGPT) 9, Alkaline Phosphatase 57, Total Protein 5.3L, Albumin 2.6L 02/08/23 07:32: Lactic Acid Level 2.14*H 02/08/23 09:53: Lactic Acid Level 2.15*H 02/08/23 11:22: Glucometer 124H 02/08/23 12:11: Urine Color ORANGE, Urine Clarity SLIGHTLY CLOUDY, Urine pH 5.5, Urine Specific [place] 1.010L, Urine Protein 2+H, Urine Glucose (UA) TRACEH, Urine Ketones TRACEH, Urine Nitrite POSITIVEH, Urine Bilirubin 2+H, Urine Urobilinogen 1.0, Urine Leukocyte Esterase NEGATIVE, Urine RBC (Auto) NEGATIVE, Urine RBC NONE, Urine WBC 0-2, Urine Squamous Epithelial Cells RARE, Urine Crystals PRESENTH, Urine Amorphous Sediment RARE SHAMAR URATESH, Urine Bacteria FEWH, Urine Casts PRESENT, Urine Hyaline Casts 2-5H, Urine Granular Casts RARE, Urine Mucus MODERATEH, Urine Culture Indicated CULTURE PENDING Microbiology 02/07/23 Blood Culture - Preliminary, Resulted Gram Negative Julio See Comments Radiology Date of Exam:02/07/23 CT ABDOMEN/PELVIS W CLINICAL INDICATION: Patient with history of gallbladder surgery. Patient has fever and altered mental status. EXAM: Axial CT scan of the abdomen and pelvis performed with 50 cc of Omnipaque 350 IV contrast. Sagittal and coronal reformatted images are created. Auto Exposure Controls were utilized during the CT exam to meet ALARA standards for radiation dose reduction. COMPARISON: CT scan of the abdomen and pelvis with contrast dated 08/28/2021. FINDINGS: There is a moderate-sized area of consolidation involving the right lower lobe which is incompletely imaged and concerning for pneumonia. There is no significant change to the 5.1 cm eggshell calcified hypodense lesion involving the medial upper aspect of the spleen. Spleen is otherwise unremarkable. The gallbladder is surgically absent which was also noted on the prior study. The liver is unremarkable. The pancreas is unremarkable. Adrenal glands are unremarkable. Both kidneys are unremarkable with no hydronephrosis, stone, or mass. The bladder is decompressed with wall thickening which is nonspecific. Willard catheter is seen within the decompressed bladder. There is a large amount of stool in the rectum. There is diverticulosis involving the sigmoid colon and descending colon. There is also moderate amount of stool involving the transverse colon and left colon. There is no evidence of intestinal obstruction. The stomach is decompressed. The small bowel showed no significant abnormality. There is no intra-abdominal free air or free fluid. There is no significant lymphadenopathy. The appendix is not definitively localized and may be surgically absent versus obscured by closely adjacent intestines. The abdominal aorta and common iliac arteries are nonaneurysmal without significant stenosis. The extra-abdominal and extrapelvic soft tissue structures show mild subcutaneous edema. IMPRESSION: 1: There is an incompletely visualized moderate amount of consolidation involving the right lower lobe concerning for pneumonia. 2: There is a large amount of stool in the rectum and moderate amount of stool involving the transverse colon and left colon which may be seen with constipation. There is no evidence of intestinal obstruction. 3: Stable eggshell calcified cystic structure involving the spleen. 4: Gallbladder is surgically absent. Dictated by: Dictated on workstation # [id number] Dict: 02/07/23 1746 Trans: 02/07/236 AS6 [id number] Interpreted by: PIERCE KRUEGER MD Electronically signed by: PIERCE KRUEGER MD 02/07/23 2216 Assessment/Plan Assessment/Plan Assessment/Plan Hypotension Venous Insufficiency Right Lower [place] Pneumonia with consolidation Pt appears improved, will probably do even better with treatment for pneumonia. I will hold off on IJ for now and would recommend PICC if needs something long- term. Pt can use femoral line for another 24 hours at least and may not need pressors; therefore, won't need central line. I am around if anything changes. JANETTE BECK DO Feb 08, 2023 14:39
[2023-02-08] MEDS ORDERED: PATIENT MAY USE OWN MED,SINGLE MED PO SCH (15:15)
--- NOTE | 2023-02-08 16:11 | Consultation-Cardiology ---
HPI-Cardiology Cardiology Consultation Date of Consultation 02/08/23 Date of Admission Time Seen by Provider: 16:06 Indication: Atrial fibrillation HPI 62-year-old lady with history of arthritis, maintained on methotrexate. Admitted for hypotension and sepsis with generalized weakness, has been in ICU receiving antibiotic and IV fluid. Had transient episode of atrial fibrillation converted back to sinus rhythm. On my evaluation she denied any previous history of atrial fibrillation, no palpitation, no chest pain. No syncope Home Medications & Allergies Allergies: Coded Allergies: NKANo Known Allergies (Verified Allergy, Mild, 08/17/17) mushroom (Unverified Allergy, Unknown, 08/06/21) Home Medication List Reviewed: Yes JGD-Yvgisx-Mwhqsv Hx Patient Social History Marital Status: Employed/Student: retired Smoking Status: Never a Smoker 2nd Hand Smoke Exposure: No Recent Hopitalizations: No Alcohol Use?: Yes (occasional, maybe once per year) Immunizations Up To Date Tetanus Booster (TDap): More than 5yrs Date of Influenza Vaccine: Feb 09, 2021 Past Medical History Discussed below Family Medical History Significant Family History: Cancer (father, stomach), Hypertension, Other Conditions/Hx (arthritis- mother) Review of Systems-General Review of Systems Constitutional: diaphoresis, malaise, weakness EENTM: No mouth pain, No mouth swelling, No epistaxis Respiratory: cough, dyspnea on exertion, short of breath Cardiovascular: No chest pain, No palpitations Gastrointestinal: see HPI; No abdominal pain, No nausea, No vomiting Genitourinary: see HPI; No dysuria, No frequency, No hematuria Musculoskeletal: see HPI Skin: No rash Psychiatric/Neurological: See HPI; Denies Anxiety, Denies Depressed, Denies Seizure All Other Systems Reviewed Negative Unless Noted: Yes Reviewed Test Results Reviewed Test Results Lab Laboratory Tests Test 02/07/23 16:30 02/07/23 16:33 02/07/23 16:50 02/07/23 17:57 Range/Units White Blood Count 12.3 H 4.3-11.0 10^3/uL Red Blood Count 4.09 3.80-5.11 10^6/uL Hemoglobin 9.4 L 11.5-16.0 g/dL Hematocrit 31 L 35-52 % Mean Corpuscular Volume 76 L 80-99 fL Mean Corpuscular Hemoglobin 23 L 25-34 pg Mean Corpuscular Hemoglobin Concent 30 L 32-36 g/dL Red Cell Distribution Width 26.0 H 10.0-14.5 % Platelet Count 514 H 130-400 10^3/uL Mean Platelet Volume 8.8 L 9.0-12.2 fL Immature Granulocyte % (Auto) 3 % Neutrophils (%) (Auto) 91 H 42-75 % Lymphocytes (%) (Auto) 4 L 12-44 % Monocytes (%) (Auto) 1 0-12 % Eosinophils (%) (Auto) 1 0-10 % Basophils (%) (Auto) 0 0-10 % Neutrophils # (Auto) 11.2 H 1.8-7.8 10^3/uL Lymphocytes # (Auto) 0.5 L 1.0-4.0 10^3/uL Monocytes # (Auto) 0.1 0.0-1.0 10^3/uL Eosinophils # (Auto) 0.1 0.0-0.3 10^3/uL Basophils # (Auto) 0.0 0.0-0.1 10^3/uL Immature Granulocyte # (Auto) 0.3 H 0.0-0.1 10^3/uL Neutrophils % (Manual) 21 % Lymphocytes % (Manual) 5 % Monocytes % (Manual) 1 % Band Neutrophils 23 % Hypochromasia SLIGHT Poikilocytosis MODERATE Anisocytosis SLIGHT Prothrombin Time 18.1 H 12.2-14.7 SEC INR Comment 1.5 H 0.8-1.4 Activated Partial Thromboplast Time 31 24-35 SEC Sodium Level 134 L 135-145 MMOL/L Potassium Level 3.0 L 3.6-5.0 MMOL/L Chloride Level 97 L 98-107 MMOL/L Carbon Dioxide Level 20 L 21-32 MMOL/L Anion Gap 17 H 5-14 MMOL/L Blood Urea Nitrogen 15 7-18 MG/DL Creatinine 0.70 0.60-1.30 MG/DL Estimat Glomerular Filtration Rate 97 BUN/Creatinine Ratio 21 Glucose Level 80 70-105 MG/DL Lactic Acid Level 2.72 *H 0.50-2.00 MMOL/L Calcium Level 8.6 8.5-10.1 MG/DL Corrected Calcium 9.5 8.5-10.1 MG/DL Total Bilirubin 1.8 H 0.1-1.0 MG/DL Aspartate Amino Transf (AST/SGOT) 24 5-34 U/L Alanine Aminotransferase (ALT/SGPT) 9 0-55 U/L Alkaline Phosphatase 75 40-136 U/L Troponin I < 0.028 <0.028 NG/ML Total Protein 6.0 L 6.4-8.2 GM/DL Albumin 2.9 L 3.2-4.5 GM/DL Glucometer 86 70-110 MG/DL Influenza Type A (RT-PCR) Not Detected Not Detecte Influenza Type B (RT-PCR) Not Detected Not Detecte SARS-CoV-2 RNA (RT-PCR) Not Detected Not Detecte Blood Gas Puncture Site LEFT WRIST Blood Gas Patient Temperature 37.1 Arterial Blood pH 7.37 7.37-7.43 Arterial Blood Partial Pressure CO2 37 35-45 MMHG Arterial Blood Partial Pressure O2 48 L 79-93 MMHG Arterial Blood HCO3 21 L 23-27 MMOL/L Arterial Blood Total CO2 22.0 21.0-31.0 MMOL/L Arterial Blood Oxygen Saturation 68 L 94-100 % Arterial Blood Base Excess -3.5 L -2.5-2.5 MMOL/L Berhane Test YES-POS Blood Gas Ventilator Setting NO Blood Gas Inspired Oxygen 4L Test 02/07/23 18:51 02/07/23 20:49 02/07/23 21:30 02/08/23 01:00 Range/Units Lactic Acid Level 2.62 *H 2.79 *H 2.37 *H 0.50-2.00 MMOL/L Glucometer 58 *L 70-110 MG/DL Test 02/08/23 05:30 02/08/23 07:32 02/08/23 09:53 02/08/23 11:22 Range/Units White Blood Count 13.6 H 4.3-11.0 10^3/uL Red Blood Count 3.71 L 3.80-5.11 10^6/uL Hemoglobin 8.6 L 11.5-16.0 g/dL Hematocrit 28 L 35-52 % Mean Corpuscular Volume 75 L 80-99 fL Mean Corpuscular Hemoglobin 23 L 25-34 pg Mean Corpuscular Hemoglobin Concent 31 L 32-36 g/dL Red Cell Distribution Width 25.6 H 10.0-14.5 % Platelet Count 449 H 130-400 10^3/uL Mean Platelet Volume 8.9 L 9.0-12.2 fL Immature Granulocyte % (Auto) 2 % Neutrophils (%) (Auto) 89 H 42-75 % Lymphocytes (%) (Auto) 8 L 12-44 % Monocytes (%) (Auto) 1 0-12 % Eosinophils (%) (Auto) 0 0-10 % Basophils (%) (Auto) 1 0-10 % Neutrophils # (Auto) 12.0 H 1.8-7.8 10^3/uL Lymphocytes # (Auto) 1.0 1.0-4.0 10^3/uL Monocytes # (Auto) 0.1 0.0-1.0 10^3/uL Eosinophils # (Auto) 0.0 0.0-0.3 10^3/uL Basophils # (Auto) 0.1 0.0-0.1 10^3/uL Immature Granulocyte # (Auto) 0.3 H 0.0-0.1 10^3/uL Sodium Level 135 135-145 MMOL/L Potassium Level 2.9 L 3.6-5.0 MMOL/L Chloride Level 104 98-107 MMOL/L Carbon Dioxide Level 19 L 21-32 MMOL/L Anion Gap 12 5-14 MMOL/L Blood Urea Nitrogen 19 H 7-18 MG/DL Creatinine 0.74 0.60-1.30 MG/DL Estimat Glomerular Filtration Rate 90 BUN/Creatinine Ratio 26 Glucose Level 99 70-105 MG/DL Lactic Acid Level 2.36 *H 2.14 *H 2.15 *H 0.50-2.00 MMOL/L Calcium Level 7.9 L 8.5-10.1 MG/DL Corrected Calcium 9.0 8.5-10.1 MG/DL Phosphorus Level 3.1 2.3-4.7 MG/DL Magnesium Level 1.2 L 1.6-2.4 MG/DL Total Bilirubin 1.7 H 0.1-1.0 MG/DL Aspartate Amino Transf (AST/SGOT) 23 5-34 U/L Alanine Aminotransferase (ALT/SGPT) 9 0-55 U/L Alkaline Phosphatase 57 40-136 U/L Total Protein 5.3 L 6.4-8.2 GM/DL Albumin 2.6 L 3.2-4.5 GM/DL Glucometer 124 H 70-110 MG/DL Test 02/08/23 12:11 Range/Units Urine Color ORANGE Urine Clarity SLIGHTLY CLOUDY Urine pH 5.5 5-9 Urine Specific [place] 1.010 L 1.016-1.022 Urine Protein 2+ H NEGATIVE Urine Glucose (UA) TRACE H NEGATIVE Urine Ketones TRACE H NEGATIVE Urine Nitrite POSITIVE H NEGATIVE Urine Bilirubin 2+ H NEGATIVE Urine Urobilinogen 1.0 < = 1.0 MG/DL Urine Leukocyte Esterase NEGATIVE NEGATIVE Urine RBC (Auto) NEGATIVE NEGATIVE Urine RBC NONE /HPF Urine WBC 0-2 /HPF Urine Squamous Epithelial Cells RARE /HPF Urine Crystals PRESENT H /LPF Urine Amorphous Sediment RARE SHAMAR URATES H /LPF Urine Bacteria FEW H /HPF Urine Casts PRESENT /LPF Urine Hyaline Casts 2-5 H /LPF Urine Granular Casts RARE /LPF Urine Mucus MODERATE H /LPF Urine Culture Indicated CULTURE PENDING Radiology Date of Exam:02/07/23 CT ABDOMEN/PELVIS W CLINICAL INDICATION: Patient with history of gallbladder surgery. Patient has fever and altered mental status. EXAM: Axial CT scan of the abdomen and pelvis performed with 50 cc of Omnipaque 350 IV contrast. Sagittal and coronal reformatted images are created. Auto Exposure Controls were utilized during the CT exam to meet ALARA standards for radiation dose reduction. COMPARISON: CT scan of the abdomen and pelvis with contrast dated 08/28/2021. FINDINGS: There is a moderate-sized area of consolidation involving the right lower lobe which is incompletely imaged and concerning for pneumonia. There is no significant change to the 5.1 cm eggshell calcified hypodense lesion involving the medial upper aspect of the spleen. Spleen is otherwise unremarkable. The gallbladder is surgically absent which was also noted on the prior study. The liver is unremarkable. The pancreas is unremarkable. Adrenal glands are unremarkable. Both kidneys are unremarkable with no hydronephrosis, stone, or mass. The bladder is decompressed with wall thickening which is nonspecific. Willard catheter is seen within the decompressed bladder. There is a large amount of stool in the rectum. There is diverticulosis involving the sigmoid colon and descending colon. There is also moderate amount of stool involving the transverse colon and left colon. There is no evidence of intestinal obstruction. The stomach is decompressed. The small bowel showed no significant abnormality. There is no intra-abdominal free air or free fluid. There is no significant lymphadenopathy. The appendix is not definitively localized and may be surgically absent versus obscured by closely adjacent intestines. The abdominal aorta and common iliac arteries are nonaneurysmal without significant stenosis. The extra-abdominal and extrapelvic soft tissue structures show mild subcutaneous edema. IMPRESSION: 1: There is an incompletely visualized moderate amount of consolidation involving the right lower lobe concerning for pneumonia. 2: There is a large amount of stool in the rectum and moderate amount of stool involving the transverse colon and left colon which may be seen with constipation. There is no evidence of intestinal obstruction. 3: Stable eggshell calcified cystic structure involving the spleen. 4: Gallbladder is surgically absent. Dictated by: Dictated on workstation # [id number] Dict: 02/07/23 1746 Trans: 02/07/232215 AS6 [id number] Interpreted by: PIERCE KRUEGER MD Electronically signed by: PIERCE KRUEGER MD 02/07/232215 Physical Exam Physical Exam Vital Signs Vital Signs - First Documented 02/07/23 02/07/23 16:20 22:36 Temp 38.6 Pulse 111 Resp 18 B/P (MAP) 100/74 (83) Pulse Ox 92 O2 Delivery Nasal Cannula O2 Flow Rate 4.00 FiO2 92 Capillary Refill : Greater Than 3 Seconds Height, Weight, BMI Height: 5'3.00" Weight: 196lbs. 0.0oz. 88.966569dm; 20.59 BMI Method: General Appearance: No Apparent Distress, Chronically ill, Cachetic, Mild Distress, Thin, Other (mental status has improved) Eyes: Bilateral Eye PERRL, Bilateral Eye EOMI, Bilateral Eye Other (significant conjunctival pallor - white) HEENT: Other (dry oral mucosa and teeth) Neck: Normal Inspection Respiratory: No Accessory Muscle Use, No Respiratory Distress, Crackles (right posterior with diminished BS) Cardiovascular: Regular Rate, Rhythm, Other (decreased BS on right, crackles on left) Gastrointestinal: Non Tender, Soft Rectal: Other (stool sample was obtained on rectal exam, rectal vault was full, dried excrement on her bilateral legs. ) Back: Normal Inspection, No CVA Tenderness, No Vertebral Tenderness Extremity: Normal Inspection, Normal Range of Motion, No Pedal Edema, Pedal Edema (mild feet edema), Slow Capillary Refill, Other (right femoral central line site looks ok) Neurologic/Psychiatric: Alert, Oriented x3, No Motor/Sensory Deficits, Depressed Affect (flat and depressed affect), Disoriented Skin: Normal Color, Warm/Dry Lymphatic: No Adenopathy A/P-Cardiology Admission Diagnosis Sepsis Septic shock Paroxysmal atrial fibrillation Hypotension Assessment/Plan Sepsis with septic shock Receiving IV fluid and antibiotics Managed by primary care physician Paroxysmal atrial fibrillation, transient episode of atrial fibrillation No previous history of atrial fibrillation 2D echo showed mild to moderate dilatation of the left atrium Continue to monitor telemetry and start anticoagulation Hypertension, currently borderline hypotensive. Holding antihypertensive medication and continue with IV fluid and pressors Lactic acidosis, secondary to sepsis, managed by medical team Generalized weakness, loss of energy secondary to above Rheumatoid arthritis, maintained on methotrexate Increasing risk of GI bleed, starting PPI OTILIO ESQUIVEL MD Feb 08, 2023 16:11
[2023-02-08] MEDS ORDERED: ENOXAPARIN 150 MG/ML SYRINGE SQ SCH (16:15)
[2023-02-08] MEDS ORDERED: ENOXAPARIN 300 MG/3 ML MULTI-DOSE VIAL SQ NR (16:45)
[2023-02-08] MEDS: PANTOPRAZOLE 40 MG TABLET PO SCH (17:51)
[2023-02-08] MEDS ORDERED: NS IV 1000 ML 1,000 ML ONE (22:23)
[2023-02-08] MEDS ORDERED: NS IV 1000 ML 1,000 ML IV SCH (22:30)
[2023-02-08] MEDS: NOREPINEPHRINE 8 MG/250 ML 250 ML IV SCH (22:50)
[2023-02-09] MEDS: ENOXAPARIN 60 MG/0.6 ML SYRINGE SC SCH ×2 (04:57→18:12)
[2023-02-09] MEDS: CEFEPIME 1,000 MG/NS 50 ML IVPB IV SCH ×2 (04:57)
[2023-02-09 05:01] LABS: BASOPHILS % (AUTO) 0 % (0-10); EOSINOPHILS % (AUTO) 0 % (0-10); HEMATOCRIT 30 % (35-52); HEMOGLOBIN 9.3 g/dL (11.5-16.0); LYMPHOCYTES % (AUTO) 6 % (12-44); MEAN CORPUSCULAR HEMOGLOBIN 23 pg (25-34); MEAN CORPUSCULAR HGB CONC 31 g/dL (32-36); MEAN CORPUSCULAR VOLUME 73 fL (80-99); MEAN PLATELET VOLUME 9.2 fL (9.0-12.2); MONOCYTES # (AUTO) 0.4 10^3/uL (0.0-1.0); MONOCYTES % (AUTO) 1 % (0-12); NEUTROPHILS # (AUTO) 28.2 10^3/uL (1.8-7.8); NEUTROPHILS % (AUTO) 92 % (42-75); PLATELET COUNT 548 10^3/uL (130-400)
[2023-02-09 05:10] LABS: ALBUMIN 2.2 GM/DL (3.2-4.5); POTASSIUM 4.3 MMOL/L (3.6-5.0)
[2023-02-09 05:12] LABS: CALCIUM 7.8 MG/DL (8.5-10.1)
[2023-02-09 05:13] LABS: TOTAL PROTEIN 4.5 GM/DL (6.4-8.2)
[2023-02-09 05:14] LABS: BILIRUBIN,TOTAL 0.9 MG/DL (0.1-1.0)
[2023-02-09 05:16] LABS: CREATININE SERUM 0.59 MG/DL (0.60-1.30); PHOSPHORUS 1.5 MG/DL (2.3-4.7)
[2023-02-09 05:17] LABS: WHITE BLOOD COUNT 30.8 10^3/uL (4.3-11.0)
[2023-02-09 05:19] LABS: MAGNESIUM 2.6 MG/DL (1.6-2.4)
[2023-02-09] MEDS: POTASSIUM CL 10MEQ/50ML IVPB 50 ML IV SCH (05:32)
[2023-02-09] MEDS: MAGNESIUM 1 GM/100 ML IVPB 100 ML IV SCH (05:32)
[2023-02-09] MEDS: POTASSIUM CHLORIDE 20 MEQ TABLET PO SCH (05:32)
[2023-02-09 05:41] LABS: ACANTHOCYTES SLIGHT; BAND NEUTROPHILS 8 %; BURR CELLS MARKED; ELLIPT/OVALOCYTES SLIGHT; LYMPHOCYTES % (MANUAL) 8 %; MICROCYTOSIS MODERATE; NEUTROPHILS % (MANUAL) 84 %
[2023-02-09] MEDS: LACTATED RINGERS 1,000 ML 1,000 ML IV SCH ×2 (06:19→18:04)
--- NOTE | 2023-02-09 07:51 | Progress Note ---
DEANDRE BARBOUR MD,RESIDENT 02/09/23 0750: Subjective Subjective/Events-last exam Pt was hypotensive overnight and was placed on levophed for BP support. This morning she is further altered from yesterday. She cannot say the date or where she is. She has no complaints today. Denies CP, SOB, chills, fever, headaches, N/V/D. Focused Exam Lactate Level 02/08/23 05:30: Lactic Acid Level 2.36*H 02/08/23 07:32: Lactic Acid Level 2.14*H 02/08/23 09:53: Lactic Acid Level 2.15*H Time of Focused Exam: 18:35 Objective Exam Last Set of Vital Signs Vital Signs Date Time Temp Pulse Resp B/P (MAP) Pulse Ox O2 Delivery O2 Flow Rate FiO2 02/09/23 07:44 36.4 02/09/23 07:32 50 02/09/23 06:00 20 98 Nasal Cannula 4.00 02/07/23 22:36 92 Capillary Refill : Less Than 3 Seconds I&O Intake and Output 02/09/23 00:00 Intake Total 5025 ml Output Total 415 ml Balance 4610 ml Intake Oral 625 ml IV Total 4400 ml Output Urine Total 415 ml # Urine Diapers 3 # Bowel Movements 3 General: Alert, Cooperative, No Acute Distress HEENT: Atraumatic Lungs: Clear to Auscultation Heart: Regular Rate Abdomen: Soft, No Tenderness Skin: Other (small healing circular wound on dorsum of R hand) Neuro: Normal Speech Psych/Mental Status: Mood NL, Other (AMS) Results/Procedures Lab Laboratory Tests 02/08/23 09:53: Lactic Acid Level 2.15*H 02/08/23 11:22: Glucometer 124H 02/08/23 12:11: Urine Color ORANGE, Urine Clarity SLIGHTLY CLOUDY, Urine pH 5.5, Urine Specific [place] 1.010L, Urine Protein 2+H, Urine Glucose (UA) TRACEH, Urine Ketones TRACEH, Urine Nitrite POSITIVEH, Urine Bilirubin 2+H, Urine Urobilinogen 1.0, Urine Leukocyte Esterase NEGATIVE, Urine RBC (Auto) NEGATIVE, Urine RBC NONE, Urine WBC 0-2, Urine Squamous Epithelial Cells RARE, Urine Crystals PRESENTH, Urine Amorphous Sediment RARE SHAMAR URATESH, Urine Bacteria FEWH, Urine Casts PRESENT, Urine Hyaline Casts 2-5H, Urine Granular Casts RARE, Urine Mucus MODERATEH, Urine Culture Indicated CULTURE PENDING 02/08/23 15:51: Potassium Level 4.2, Thyroid Stimulating Hormone (TSH) 4.90 02/09/23 04:50: White Blood Count 30.8*H, Red Blood Count 4.09, Hemoglobin 9.3L, Hematocrit 30L, Mean Corpuscular Volume 73L, Mean Corpuscular Hemoglobin 23L, Mean Corpuscular Hemoglobin Concent 31L, Red Cell Distribution Width 26.3H, Platelet Count 548H, Mean Platelet Volume 9.2, Immature Granulocyte % (Auto) 1, Neutrophils (%) (Auto) 92H, Lymphocytes (%) (Auto) 6L, Monocytes (%) (Auto) 1, Eosinophils (%) (Auto) 0, Basophils (%) (Auto) 0, Neutrophils # (Auto) 28.2H, Lymphocytes # (Auto) 2.0, Monocytes # (Auto) 0.4, Eosinophils # (Auto) 0.0, Basophils # (Auto) 0.0, Immature Granulocyte # (Auto) 0.2H, Neutrophils % (Manual) 84, Lymphocytes % (Manual) 8, Band Neutrophils 8, Microcytosis MODERATE, Momo Cells MARKED, Elliptocytes SLIGHT, Acanthocytes SLIGHT, Sodium Level 131L, Potassium Level 4.3, Chloride Level 105, Carbon Dioxide Level 19L, Anion Gap 7, Blood Urea Nitrogen 21H, Creatinine 0.59L, Estimat Glomerular Filtration Rate 101, BUN/Creatinine Ratio 36, Glucose Level 100, Calcium Level 7.8L, Corrected Calcium 9.2, Phosphorus Level 1.5L, Magnesium Level 2.6H, Total Bilirubin 0.9, Aspartate Amino Transf (AST/SGOT) 14, Alanine Aminotransferase (ALT/SGPT) 8, Alkaline Phosphatase 61, Total Protein 4.5L, Albumin 2.2L Microbiology 02/07/23 MRSA Screen - Final, Complete MRSA not isolated 02/07/23 Blood Culture - Preliminary, Resulted Pasteurella multocida See Comments Radiology Date of Exam:02/07/23 CT ABDOMEN/PELVIS W CLINICAL INDICATION: Patient with history of gallbladder surgery. Patient has fever and altered mental status. EXAM: Axial CT scan of the abdomen and pelvis performed with 50 cc of Omnipaque 350 IV contrast. Sagittal and coronal reformatted images are created. Auto Exposure Controls were utilized during the CT exam to meet ALARA standards for radiation dose reduction. COMPARISON: CT scan of the abdomen and pelvis with contrast dated 08/28/2021. FINDINGS: There is a moderate-sized area of consolidation involving the right lower lobe which is incompletely imaged and concerning for pneumonia. There is no significant change to the 5.1 cm eggshell calcified hypodense lesion involving the medial upper aspect of the spleen. Spleen is otherwise unremarkable. The gallbladder is surgically absent which was also noted on the prior study. The liver is unremarkable. The pancreas is unremarkable. Adrenal glands are unremarkable. Both kidneys are unremarkable with no hydronephrosis, stone, or mass. The bladder is decompressed with wall thickening which is nonspecific. Willard catheter is seen within the decompressed bladder. There is a large amount of stool in the rectum. There is diverticulosis involving the sigmoid colon and descending colon. There is also moderate amount of stool involving the transverse colon and left colon. There is no evidence of intestinal obstruction. The stomach is decompressed. The small bowel showed no significant abnormality. There is no intra-abdominal free air or free fluid. There is no significant lymphadenopathy. The appendix is not definitively localized and may be surgically absent versus obscured by closely adjacent intestines. The abdominal aorta and common iliac arteries are nonaneurysmal without significant stenosis. The extra-abdominal and extrapelvic soft tissue structures show mild subcutaneous edema. IMPRESSION: 1: There is an incompletely visualized moderate amount of consolidation involving the right lower lobe concerning for pneumonia. 2: There is a large amount of stool in the rectum and moderate amount of stool involving the transverse colon and left colon which may be seen with constipation. There is no evidence of intestinal obstruction. 3: Stable eggshell calcified cystic structure involving the spleen. 4: Gallbladder is surgically absent. Dictated by: Dictated on workstation # [id number] Dict: 02/07/23 1746 Trans: 02/07/232215 [id number] [id number] Interpreted by: PIERCE KRUEGER MD Electronically signed by: PIERCE KRUEGER MD 02/07/236 Assessment/Plan Assessment/Plan Admission Dx Sepsis Admission Status: Inpatient Order (span 2 midnights) Reason for Inpatient Admission: Sepsis (1) Septic shock Status: Resolved Assessment & Plan: Secondary to pneumonia. Did have low blood pressure and tachycardia, but was in a fib as well, so uncertain whether septic shock vs a fib related. BCx grew pastuerella multoxida. On further examination of Pt, a small healed wound on dorsum of R hand from a dog bite was found. (2) Pneumonia Status: Acute Assessment & Plan: Likely 2/2 bacteremia due to pastuerella species from dog bite. Started on cefepime and vancomycin on admit, discontinued, started on Unasyn. New onset supplemental oxygen requirement. Qualifiers: Qualified Codes: J18.9 - Pneumonia, unspecified organism (3) Rheumatoid arthritis Status: Chronic Assessment & Plan: On methotrexate weekly at home and Butrans for chronic pain. (4) Atrial fibrillation with rapid ventricular response Status: Resolved Assessment & Plan: Had a fib with RVR in ER, converted and remains in sinus this morning. Suspect related to pneumonia. Consult cardiology. TSH 4.9 Echo: LVEF 50-55%; no wall abnormalities (5) Anemia Status: Acute Assessment & Plan: Hemoglobin in clinic October 2022 9.6 and she was referred for colonoscopy. Stable since then. Did have EGD 08/17/2021 with gastric and pyloric ulcers and 08/17/2017 colonoscopy with tubular adenoma and hyperplastic adenoma Qualifiers: Qualified Codes: D64.9 - Anemia, unspecified (6) Splenic cyst Status: Chronic Assessment & Plan: 07/2021 CT abdomen: There is a 6 cm calcified splenic cyst in the left upper abdomen. There are 2 small simple cysts in the inferior aspect of the spleen. 01/2023 CT abdomen: There is no significant change to the 5.1 cm eggshell calcified hypodense lesion involving the medial upper aspect of the spleen. Spleen is otherwise unremarkable. (7) DVT prophylaxis Status: Acute Assessment & Plan: Enoxaparin GEORGINA HARRINGTON MD 02/09/23 1539: Supervisory-Addendum Brief Supervisory Addendum I personally performed the shah portions of the visit, discussed case with resident and concur with resident documentation of history, physical exam, assessment and treatment plan unless otherwise noted. DEANDRE BARBOUR MD,RESIDENT Feb 09, 2023 07:50 GEORGINA HARRINGTON MD Feb 09, 2023 15:39
--- NOTE | 2023-02-09 07:53 | Cardiology Progress Note ---
Subjective Date Seen by Provider: Feb 09, 2023 Time Seen by Provider: 07:51 Subjective/Events-last exam Patient was seen and evaluated, laying down in bed. Lethargic. No new complain Review of Systems General: No Chills, No Night Sweats, No Fatigue, No Malaise, No Appetite, No Other HEENT: No Head Aches, No Visual Changes, No Eye Pain, No Ear Pain, No Dysphasia, No Sinus Congestion, No Post Nasal Drip, No Sore Throat, No Other Pulmonary: No Dyspnea, No Cough, No Pleuritic Chest Pain, No Other Cardiovascular: No: Chest Pain, Palpitations, Orthopnea, Paroxysmal Noc. Dyspnea, Edema, Lt Headedness, Other Focused Exam Lactate Level 02/08/23 05:30: Lactic Acid Level 2.36*H 02/08/23 07:32: Lactic Acid Level 2.14*H 02/08/23 09:53: Lactic Acid Level 2.15*H Time of Focused Exam: 18:35 Objective-Cardiology Exam Last Set of Vital Signs Vital Signs 02/07/23 02/09/23 02/09/23 02/09/23 22:36 06:00 07:32 07:44 Temp 36.4 Pulse 50 Resp 20 B/P (MAP) 96/66 (76) Pulse Ox 98 O2 Delivery Nasal Cannula O2 Flow Rate 4.00 FiO2 92 I&O Intake and Output 02/09/23 00:00 Intake Total 5025 ml Output Total 415 ml Balance 4610 ml Intake Oral 625 ml IV Total 4400 ml Output Urine Total 415 ml # Urine Diapers 3 # Bowel Movements 3 General: Alert, Oriented X3, Cooperative HEENT: Atraumatic, PERRLA Neck: Supple, No JVD, No Thyromegaly Lungs: Normal Air Movement, Other (Bilateral rhonchi) Heart: Regular Rate, Normal S1, Normal S2, No Murmurs Abdomen: Normal Bowel Sounds, Soft, No Tenderness, No Hepatosplenomegaly, No Masses Extremities: No Clubbing, No Cyanosis, No Edema, Normal Pulses, No Tenderness/Swelling Skin: No Rashes, No Breakdown, No Significant Lesion Neuro: Normal Speech, Normal Tone, Sensation Intact Psych/Mental Status: Mental Status NL, Mood NL Results Lab Laboratory Tests 02/08/23 15:51 02/09/23 04:50 A/P-Cardiology Admission Diagnosis Sepsis Septic shock Paroxysmal atrial fibrillation Hypotension Assessment/Plan Sepsis with septic shock Receiving IV fluid and antibiotics Managed by primary care physician Leukocytosis, significant elevation in white count level. Will evaluate stool for C. difficile. Continue on cefepime Paroxysmal atrial fibrillation, transient episode of atrial fibrillation No previous history of atrial fibrillation 2D echo showed mild to moderate dilatation of the left atrium Maintained on Lovenox for now, monitor H&H Once clinically stable consider switching to Eliquis 2.5 mg twice daily Hypertension, currently borderline hypotensive. Holding antihypertensive medication and continue with IV fluid and pressors Lactic acidosis, secondary to sepsis, managed by medical team Generalized weakness, loss of energy secondary to above Rheumatoid arthritis, maintained on methotrexate Increasing risk of GI bleed, starting PPI OTILIO ESQUIVEL MD Feb 09, 2023 07:53
[2023-02-09] MEDS ORDERED: SODIUM PHOSPHATE INJ 30 MM in NS (IVPB) 250 ML 250 ML INJ ONE (08:00)
[2023-02-09] MEDS: PANTOPRAZOLE 40 MG TABLET PO SCH (08:29)
[2023-02-09] MEDS: PARoxetine 20 MG TABLET PO SCH (08:29)
[2023-02-09] MEDS ORDERED: TROUGH ORDER-PHARMACY XX NR (08:30)
[2023-02-09] MEDS ORDERED: [UNRECOGNIZED DRUG - REMARK] TP SCH (08:59)
[2023-02-09] MEDS ORDERED: BUPRENORPHINE 20 MCG/HR TOP SCH (09:00)
[2023-02-09] MEDS: NOREPINEPHRINE 8 MG/250 ML 250 ML IV SCH (09:13)
[2023-02-09] MEDS: VASOPRESSIN INJECTION 20 UNIT in NS (IVPB) 100 ML 100 ML IV SCH ×2 (10:15→20:50)
[2023-02-09] MEDS ORDERED: AMPICILLIN/Sulbactam INJECTION 3 GM in NS (IVPB) 100 ML 100 ML IV ONE (10:30)
--- NOTE | 2023-02-09 13:03 | Tele-ICU Progress Note ---
Subjective Date Seen by a Provider: Feb 09, 2023 Time Seen by a Provider: 13:02 Subjective/Events-last exam (Tele-ICU Physician , Progress Note ) Service provided via interactive audio and video telecommunications E-CARE system to a patient admitted to ICU bed in [facility]. Patient is seen today due to persistent need of ICU care Available chart/ vitals / labs / Images reviewed Video assessment done using teleICU camera, rest of exam as per RN She is a 62-year-old female with unknown past medical history admitted via emergency room as her called as the patient is very weak and unable to get out of the bed and she was not eating and drinking. She is found to have a fever in the emergency room and chest x-ray showed right middle and lower lobe pneumonia. She has a history of a dog scratch on her hand. She is admitted with a diagnosis of pneumonia and septic shock requiring vasopressors to the intensive care unit. Blood cultures are growing Pasteurella multocida. Impression 1. Gram-negative septic shock 2. Right-sided pneumonia 3. 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 Microcytic anemia appears to be chronic. Recommendations 1. Continue hydration with IV fluids 2. Wean Levophed as tolerated 3. We will stop cefepime and start on Unasyn which is the drug of choice for Pasteurella multocida 4. We will get serum iron studies. 5. Oxygen supplementation as needed. 6. DVT prophylaxis. Coordination of care with the bedside physicians. Discussed in MDR rounds. I am remotely monitoring this patient from Tele icu station in [place]. I am unable to do the bedside exam, and history/physical and pertinent information is taken from other notes in the computer and bedside staff. Certain portions of this document may have been dictated utilizing voice recognition technology such as Navmii. Inherent to this technology, typographical and grammatical errors may exist. As much as I am diligent to identify and correct to these mistakes, some errors may remain in the document. Critical care time devoted to this patient today is approximately is-35 minutes- Sepsis Event Evaluation Height, Weight, BMI Height: 5'3.00" Weight: 196lbs. 0.0oz. 88.511726hg; 24.83 BMI Method: Focused Exam Lactate Level 02/08/23 05:30: Lactic Acid Level 2.36*H 02/08/23 07:32: Lactic Acid Level 2.14*H 02/08/23 09:53: Lactic Acid Level 2.15*H Time of Focused Exam: 18:35 Exam Exam Patient acknowledged, consented, and participated in this virtual visit which was conducted using real time audio/video Vital Signs Date Time Temp Pulse Resp B/P (MAP) Pulse Ox O2 Delivery O2 Flow Rate FiO2 02/09/23 12:00 96 Nasal Cannula 3.00 02/09/23 11:44 36.4 02/09/23 11:00 52 13 114/59 (77) 99 Nasal Cannula 4.00 02/09/23 10:15 52 99/64 02/09/23 10:00 50 14 99/64 (76) 98 Nasal Cannula 4.00 02/09/23 09:13 52 103/62 02/09/23 09:00 51 12 89/64 (72) 97 Nasal Cannula 4.00 02/09/23 08:00 51 10 103/68 (80) 97 Nasal Cannula 4.00 02/09/23 08:00 98 Nasal Cannula 3.00 02/09/23 07:44 36.4 02/09/23 07:32 50 02/09/23 07:00 48 11 85/57 (66) 97 Nasal Cannula 4.00 02/09/23 06:00 50 20 96/66 (76) 98 Nasal Cannula 4.00 02/09/23 05:00 48 14 88/62 (71) 99 Nasal Cannula 4.00 02/09/23 04:00 50 15 107/72 (84) 97 Nasal Cannula 4.00 02/09/23 03:30 Nasal Cannula 3.00 02/09/23 03:00 50 19 100/59 (73) 99 Nasal Cannula 4.00 02/09/23 02:00 52 15 104/63 (77) 99 Nasal Cannula 4.00 02/09/23 01:00 51 02/09/23 01:00 57 17 95/58 (70) 96 Nasal Cannula 4.00 02/09/23 00:00 49 16 98/58 (71) 97 Nasal Cannula 4.00 02/08/23 23:30 35.7 02/08/23 23:16 Nasal Cannula 3.00 02/08/23 23:00 51 18 107/63 (78) 97 Nasal Cannula 4.00 02/08/23 22:50 52 104/71 02/08/23 22:21 95 Nasal Cannula 2.00 02/08/23 22:00 53 18 104/71 (82) 97 Nasal Cannula 4.00 02/08/23 21:00 54 18 99/57 (71) 97 Nasal Cannula 4.00 02/08/23 20:42 54 103/54 02/08/23 20:00 55 21 95/58 (70) 97 Nasal Cannula 4.00 02/08/23 20:00 Nasal Cannula 3.00 02/08/23 19:24 35.7 56 16 90/65 (73) 97 Nasal Cannula 2.00 02/08/23 19:23 35.8 02/08/23 19:00 56 22 75/53 (60) 97 Nasal Cannula 4.00 02/08/23 19:00 56 02/08/23 18:00 58 21 91/57 (68) 96 Nasal Cannula 4.00 02/08/23 17:00 53 18 96/61 (73) 96 Nasal Cannula 4.00 02/08/23 16:15 51 18 90/57 (69) 98 Nasal Cannula 4.00 02/08/23 16:02 36.0 02/08/23 16:00 58 15 83/52 (56) 96 Nasal Cannula 4.00 02/08/23 15:50 Nasal Cannula 4.00 02/08/23 15:45 53 18 86/51 (63) 96 Nasal Cannula 4.00 02/08/23 15:30 53 18 81/60 (68) 95 Nasal Cannula 4.00 02/08/23 15:15 56 22 99/69 (79) 92 Nasal Cannula 4.00 02/08/23 15:00 53 17 84/52 (70) 94 Nasal Cannula 4.00 02/08/23 14:45 53 22 102/64 (80) 97 Nasal Cannula 4.00 02/08/23 14:30 53 20 94/68 (79) 95 Nasal Cannula 4.00 02/08/23 14:15 53 19 88/54 (67) 96 Nasal Cannula 4.00 02/08/23 14:00 59 11 122/72 (79) 94 Nasal Cannula 4.00 02/08/23 14:00 59 21 122/72 (89) 94 Nasal Cannula 4.00 I & O 02/09/23 07:00 Intake Total 6125 ml Output Total 515 ml Balance 5610 ml Height & Weight Height: 5'3.00" Weight: 196lbs. 0.0oz. 88.322973wy; 24.83 BMI Method: General Appearance: No Apparent Distress, Chronically ill, Cachetic, Mild Distr ess, Thin, Other (mental status has improved) HEENT: Other (dry oral mucosa and teeth) Neck: Normal Inspection Respiratory: No Accessory Muscle Use, No Respiratory Distress, Crackles (right posterior with diminished BS) Cardiovascular: Regular Rate, Rhythm, Other (decreased BS on right, crackles on left) Capillary Refill: Less Than 3 Seconds Peripheral Pulses: 1+ Radial Pulses (R), 1+ Radial Pulses (L) Gastrointestinal: non tender, soft, no organomegaly Extremity: Normal Inspection, Normal Range of Motion, No Pedal Edema, Pedal Edema (mild feet edema), Slow Capillary Refill, Other (right femoral central line site looks ok) Neurologic/Psychiatric: Alert, Oriented x3, No Motor/Sensory Deficits, Depressed Affect (flat and depressed affect), Disoriented Skin: Normal Color, Warm/Dry Lymphatic: No Adenopathy Results Lab Laboratory Tests 02/07/23 16:30 02/08/23 05:30 02/08/23 15:51 02/09/23 04:50 Assessment/Plan Assessment/Plan -as above Critical Care: Critically Ill Patient Time spent with patient (mins): 35 EDWIN HOWE MD Feb 09, 2023 13:03
[2023-02-09] MEDS: FOLIC ACID 1 MG TAB PO SCH (14:22)
[2023-02-09] MEDS: AMPICILLIN/SULBACTAM INJECTION 1.5 GM in NS (IVPB) 100 ML 100 ML IV SCH ×2 (18:07→22:21)
[2023-02-10] MEDS: LACTATED RINGERS 1,000 ML 1,000 ML IV SCH ×5 (01:33→23:49)
[2023-02-10 04:19] LABS: BASOPHILS % (AUTO) 0 % (0-10); EOSINOPHILS % (AUTO) 0 % (0-10); HEMATOCRIT 24 % (35-52); HEMOGLOBIN 7.7 g/dL (11.5-16.0); LYMPHOCYTES # (AUTO) 1.8 10^3/uL (1.0-4.0); LYMPHOCYTES % (AUTO) 9 % (12-44); MEAN CORPUSCULAR HEMOGLOBIN 23 pg (25-34); MEAN CORPUSCULAR HGB CONC 32 g/dL (32-36); MEAN CORPUSCULAR VOLUME 73 fL (80-99); MEAN PLATELET VOLUME 8.8 fL (9.0-12.2); MONOCYTES # (AUTO) 0.3 10^3/uL (0.0-1.0); MONOCYTES % (AUTO) 1 % (0-12); NEUTROPHILS # (AUTO) 18.1 10^3/uL (1.8-7.8); NEUTROPHILS % (AUTO) 89 % (42-75); PLATELET COUNT 428 10^3/uL (130-400); WHITE BLOOD COUNT 20.4 10^3/uL (4.3-11.0)
[2023-02-10 04:43] LABS: POTASSIUM 3.6 MMOL/L (3.6-5.0)
[2023-02-10 04:44] LABS: CALCIUM 7.5 MG/DL (8.5-10.1)
[2023-02-10 04:46] LABS: TOTAL PROTEIN 4.1 GM/DL (6.4-8.2)
[2023-02-10 04:47] LABS: BILIRUBIN,TOTAL 0.5 MG/DL (0.1-1.0)
[2023-02-10 04:49] LABS: CREATININE SERUM 0.5 MG/DL (0.60-1.30)
[2023-02-10] MEDS: MAGNESIUM 1 GM/100 ML IVPB 100 ML IV SCH (04:59)
[2023-02-10] MEDS: POTASSIUM CHLORIDE 20 MEQ TABLET PO SCH (04:59)
[2023-02-10] MEDS: POTASSIUM CL 10MEQ/50ML IVPB 50 ML IV SCH ×5 (04:59→07:27)
[2023-02-10] MEDS ORDERED: POTASSIUM CL 10MEQ/50ML IVPB 200 ML IV ONE (05:08)
[2023-02-10] MEDS: ENOXAPARIN 60 MG/0.6 ML SYRINGE SC SCH ×2 (05:29→17:15)
[2023-02-10] MEDS: AMPICILLIN/SULBACTAM INJECTION 1.5 GM in NS (IVPB) 100 ML 100 ML IV SCH ×4 (05:30→22:12)
[2023-02-10] MEDS: VASOPRESSIN INJECTION 20 UNIT in NS (IVPB) 100 ML 100 ML IV SCH ×2 (07:02→17:27)
--- NOTE | 2023-02-10 07:47 | Progress Note ---
DEANDRE BARBOUR MD,RESIDENT 02/10/23 0747: Subjective Subjective/Events-last exam No acute events overnight. Pt more alert and oriented this morning. She was taken off norepi at 07:50 this morning, however her BP did not remain stabilized off pressors. She was place back on pressor support around 10am. She is tolerating PO and doing well on RA. Focused Exam Lactate Level 02/08/23 05:30: Lactic Acid Level 2.36*H 02/08/23 07:32: Lactic Acid Level 2.14*H 02/08/23 09:53: Lactic Acid Level 2.15*H Time of Focused Exam: 18:35 Objective Exam Last Set of Vital Signs Vital Signs Date Time Temp Pulse Resp B/P (MAP) Pulse Ox O2 Delivery O2 Flow Rate FiO2 02/10/23 07:41 58 02/10/23 06:00 13 117/69 (85) 100 Nasal Cannula 4.00 02/10/23 04:00 36.2 02/07/23 22:36 92 Capillary Refill : Less Than 3 Seconds I&O Intake and Output 02/10/23 00:00 Intake Total 2410 ml Output Total 800 ml Balance 1610 ml Intake Oral 750 ml IV Total 1660 ml Output Urine Total 800 ml General: Alert, Oriented X3, No Acute Distress HEENT: Atraumatic Lungs: Other (coarse breath sounds) Heart: Regular Rate Abdomen: Soft, No Tenderness Neuro: Normal Speech Psych/Mental Status: Mental Status NL, Mood NL Results/Procedures Lab Laboratory Tests 02/10/23 04:10: White Blood Count 20.4H, Red Blood Count 3.29L, Hemoglobin 7.7L, Hematocrit 24L, Mean Corpuscular Volume 73L, Mean Corpuscular Hemoglobin 23L, Mean Corpuscular Hemoglobin Concent 32, Red Cell Distribution Width 26.6H, Platelet Count 428H, Mean Platelet Volume 8.8L, Immature Granulocyte % (Auto) 1, Neutrophils (%) (Auto) 89H, Lymphocytes (%) (Auto) 9L, Monocytes (%) (Auto) 1, Eosinophils (%) (Auto) 0, Basophils (%) (Auto) 0, Neutrophils # (Auto) 18.1H, Lymphocytes # (Auto) 1.8, Monocytes # (Auto) 0.3, Eosinophils # (Auto) 0.0, Basophils # (Auto) 0.0, Immature Granulocyte # (Auto) 0.2H, Sodium Level 134L, Potassium Level 3.6, Chloride Level 107, Carbon Dioxide Level 18L, Anion Gap 9, Blood Urea Nitrogen 14, Creatinine 0.50L, Estimat Glomerular Filtration Rate 105, BUN/Creatinine Ratio 28, Glucose Level 102, Calcium Level 7.5L, Corrected Calcium 9.1, Phosphorus Level 3.0, Magnesium Level 2.0, Total Bilirubin 0.5, Aspartate Amino Transf (AST/SGOT) 13, Alanine Aminotransferase (ALT/SGPT) 7, Alkaline Phosphatase 70, Total Protein 4.1L, Albumin 2.0L Microbiology 02/08/23 Urine Culture - Final, Complete NO GROWTH 02/07/23 MRSA Screen - Final, Complete MRSA not isolated 02/07/23 Blood Culture - Preliminary, Resulted Pasteurella multocida See Comments Culture In Progress Radiology Date of Exam:02/07/23 CT ABDOMEN/PELVIS W CLINICAL INDICATION: Patient with history of gallbladder surgery. Patient has fever and altered mental status. EXAM: Axial CT scan of the abdomen and pelvis performed with 50 cc of Omnipaque 350 IV contrast. Sagittal and coronal reformatted images are created. Auto Exposure Controls were utilized during the CT exam to meet ALARA standards for radiation dose reduction. COMPARISON: CT scan of the abdomen and pelvis with contrast dated 08/28/2021. FINDINGS: There is a moderate-sized area of consolidation involving the right lower lobe which is incompletely imaged and concerning for pneumonia. There is no significant change to the 5.1 cm eggshell calcified hypodense lesion involving the medial upper aspect of the spleen. Spleen is otherwise unremarkable. The gallbladder is surgically absent which was also noted on the prior study. The liver is unremarkable. The pancreas is unremarkable. Adrenal glands are unremarkable. Both kidneys are unremarkable with no hydronephrosis, stone, or mass. The bladder is decompressed with wall thickening which is nonspecific. Willard catheter is seen within the decompressed bladder. There is a large amount of stool in the rectum. There is diverticulosis involving the sigmoid colon and descending colon. There is also moderate amount of stool involving the transverse colon and left colon. There is no evidence of intestinal obstruction. The stomach is decompressed. The small bowel showed no significant abnormality. There is no intra-abdominal free air or free fluid. There is no significant lymphadenopathy. The appendix is not definitively localized and may be surgically absent versus obscured by closely adjacent intestines. The abdominal aorta and common iliac arteries are nonaneurysmal without significant stenosis. The extra-abdominal and extrapelvic soft tissue structures show mild subcutaneous edema. IMPRESSION: 1: There is an incompletely visualized moderate amount of consolidation involving the right lower lobe concerning for pneumonia. 2: There is a large amount of stool in the rectum and moderate amount of stool involving the transverse colon and left colon which may be seen with constipation. There is no evidence of intestinal obstruction. 3: Stable eggshell calcified cystic structure involving the spleen. 4: Gallbladder is surgically absent. Dictated by: Dictated on workstation # [id number] Dict: 02/07/23 1746 Trans: 02/07/232215 [id number] [id number] Interpreted by: PIERCE KRUEGER MD Electronically signed by: PIERCE KRUEGER MD 02/07/232215 Assessment/Plan Assessment/Plan Reason for Inpatient Admission: Sepsis, PNA, bacteremia (1) Septic shock Status: Resolved Assessment & Plan: Secondary to pneumonia, bacteremia. Did have low blood pressure and tachycardia, but was in a fib as well, so uncertain whether septic shock vs a fib related. BCx grew pastuerella multoxida. On further examination of Pt, a small healed wound on dorsum of R hand from a dog bite was found. Currently patient on Unasyn for infections (2) Pneumonia Status: Acute Assessment & Plan: Likely 2/2 bacteremia due to pastuerella species from dog bite. Started on cefepime and vancomycin on admit, discontinued, started on Unasyn. New onset supplemental oxygen requirement, Pt weaned off to RA 02/10 Qualifiers: Qualified Codes: J18.9 - Pneumonia, unspecified organism (3) Rheumatoid arthritis Status: Chronic Assessment & Plan: On methotrexate weekly at home and Butrans for chronic pain. (4) Atrial fibrillation with rapid ventricular response Status: Resolved Assessment & Plan: Had a fib with RVR in ER, converted and remains in sinus. Suspect related to pneumonia. Consult cardiology. TSH 4.9 Echo: LVEF 50-55%; no wall abnormalities (5) Anemia Status: Acute Assessment & Plan: Hemoglobin in clinic October 2022 9.6 and she was referred for colonoscopy. Stable since then. Did have EGD 08/17/2021 with gastric and pyloric ulcers and 08/17/2017 colonoscopy with tubular adenoma and hyperplastic adenoma Qualifiers: Qualified Codes: D64.9 - Anemia, unspecified (6) Splenic cyst Status: Chronic Assessment & Plan: 07/2021 CT abdomen: There is a 6 cm calcified splenic cyst in the left upper abdomen. There are 2 small simple cysts in the inferior aspect of the spleen. 01/2023 CT abdomen: There is no significant change to the 5.1 cm eggshell calcified hypodense lesion involving the medial upper aspect of the spleen. S pleen is otherwise unremarkable. (7) DVT prophylaxis Status: Acute Assessment & Plan: Enoxaparin GEORGINA HARRINGTON MD 02/10/23 1709: Supervisory-Addendum Brief Supervisory Addendum I personally performed the shah portions of the visit, discussed case with reside nt and concur with resident documentation of history, physical exam, assessment and treatment plan unless otherwise noted. Hemoglobin down to 7.7 today, on treatment dose enoxaparin due to a fib, monitor closely, no clear signs of active bleeding. DEANDRE BARBOUR MD,RESIDENT Feb 10, 2023 07:47 GEORGINA HARRINGTON MD Feb 10, 2023 17:09
--- NOTE | 2023-02-10 08:10 | Cardiology Progress Note ---
Subjective Date Seen by Provider: Feb 10, 2023 Time Seen by Provider: 08:07 Subjective/Events-last exam Patient was seen at bedside, Laying down comfortably. No new complaint. Focused Exam Lactate Level 02/08/23 05:30: Lactic Acid Level 2.36*H 02/08/23 07:32: Lactic Acid Level 2.14*H 02/08/23 09:53: Lactic Acid Level 2.15*H Time of Focused Exam: 18:35 Objective-Cardiology Exam Last Set of Vital Signs Vital Signs 02/07/23 02/10/23 02/10/23 02/10/23 22:36 04:00 06:00 07:41 Temp 36.2 Pulse 58 Resp 13 B/P (MAP) 117/69 (85) Pulse Ox 100 O2 Delivery Nasal Cannula O2 Flow Rate 4.00 FiO2 92 I&O Intake and Output 02/10/23 00:00 Intake Total 2410 ml Output Total 800 ml Balance 1610 ml Intake Oral 750 ml IV Total 1660 ml Output Urine Total 800 ml General: Alert, Cooperative, No Acute Distress HEENT: Atraumatic Neck: Supple, No JVD, No Thyromegaly Lungs: Clear to Auscultation Heart: Regular Rate Abdomen: Soft, No Tenderness Extremities: No Clubbing, No Cyanosis, No Edema, Normal Pulses, No Tenderness/Swelling Skin: Other (small healing circular wound on dorsum of R hand) Neuro: Normal Speech Psych/Mental Status: Mood NL, Other (AMS) Results Lab Laboratory Tests 02/10/23 04:10 A/P-Cardiology Admission Diagnosis Sepsis Septic shock Paroxysmal atrial fibrillation Hypotension Assessment/Plan Gram negative sepsis with septic shock Receiving IV fluid and antibiotics Managed by primary care physician Paroxysmal atrial fibrillation, transient episode of atrial fibrillation No previous history of atrial fibrillation 2D echo showed mild to moderate dilatation of the left atrium Maintained on Lovenox for now, monitor H&H Once clinically stable consider switching to Eliquis 2.5 mg twice daily Hypertension, currently borderline hypotensive. Holding antihypertensive medication and continue with IV fluid and pressors Lactic acidosis, secondary to sepsis, managed by medical team Generalized weakness, loss of energy secondary to above Rheumatoid arthritis, maintained on methotrexate Increasing risk of GI bleed, starting PPI I will sign off at this point, please feel free to reconsult if needed. OTILIO ESQUIVEL MD Feb 10, 2023 08:09
[2023-02-10] MEDS: PARoxetine 20 MG TABLET PO SCH (09:25)
[2023-02-10] MEDS: PANTOPRAZOLE 40 MG TABLET PO SCH (09:25)
--- NOTE | 2023-02-10 11:19 | Physical Therapy Progress Note ---
Therapy Progress Note Patient on Hold per RN due to BP issues. Patient currently on pressors. Will attempt tomorrow KRYS Barrientos PT Feb 10, 2023 11:19
--- NOTE | 2023-02-10 11:47 | Tele-ICU Progress Note ---
Subjective Date Seen by a Provider: Feb 10, 2023 Time Seen by a Provider: 11:42 Subjective/Events-last exam (Tele-ICU Physician , Progress Note ) Service provided via interactive audio and video telecommunications E-CARE system to a patient admitted to ICU bed in [facility]. Patient is seen today due to persistent need of ICU care Available chart/ vitals / labs / Images reviewed Video assessment done using teleICU camera, rest of exam as per RN She is a 62-year-old female with unknown past medical history admitted via emergency room as her called as the patient is very weak and unable to get out of the bed and she was not eating and drinking. She is found to have a fever in the emergency room and chest x-ray showed right middle and lower lobe pneumonia. She has a history of a dog scratch on her hand. She is admitted with a diagnosis of pneumonia and septic shock requiring vasopressors to the intensive care unit. Blood cultures are growing Pasteurella multocida. 02/10/23 pt looks some better. earlier levophed was put on hold but bp went down. Levo restarted. urine out put satisfactory. pasturella multocida sensitive to ampicillin Impression 1. Gram-negative septic shock 2. Right-sided pneumonia 3. 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 Microcytic anemia appears to be chronic. Recommendations 1. Continue hydration with IV fluids 2. Wean Levophed as tolerated 3. Continue on Unasyn which is the drug of choice for Pasteurella multocida 4. We will get serum iron studies. 5. Oxygen supplementation as needed. 6. DVT prophylaxis. Coordination of care with the bedside physicians. Discussed in MDR rounds. I am remotely monitoring this patient from Tele icu station in [place]. I am unable to do the bedside exam, and history/physical and pertinent information is taken from other notes in the computer and bedside staff. Certain portions of this document may have been dictated utilizing voice recognition technology such as [employer]. Inherent to this technology, typographical and grammatical errors may exist. As much as I am diligent to identify and correct to these mistakes, some errors may remain in the document. Critical care time devoted to this patient today is approximately is-25 minutes- Sepsis Event - Inpatient/Obs Sepsis Event Evaluation Height, Weight, BMI Height: 5'3.00" Weight: 196lbs. 0.0oz. 88.531545mh; 24.83 BMI Method: Focused Exam Lactate Level 02/08/23 05:30: Lactic Acid Level 2.36*H 02/08/23 07:32: Lactic Acid Level 2.14*H 02/08/23 09:53: Lactic Acid Level 2.15*H Time of Focused Exam: 18:35 Exam Exam Patient acknowledged, consented, and participated in this virtual visit which was conducted using real time audio/video Vital Signs Date Time Temp Pulse Resp B/P (MAP) Pulse Ox O2 Delivery O2 Flow Rate FiO2 02/10/23 11:00 56 17 99/67 (78) 96 Room Air 02/10/23 10:00 62 20 83/53 (63) 92 Room Air 02/10/23 09:00 68 27 89/56 (67) 99 Room Air 02/10/23 08:00 36.0 02/10/23 08:00 98 Nasal Cannula 3.00 02/10/23 08:00 63 18 108/63 (78) 100 Nasal Cannula 2.00 02/10/23 07:41 58 02/10/23 07:00 53 19 144/80 (101) 100 Nasal Cannula 2.00 02/10/23 06:00 55 13 117/69 (85) 100 Nasal Cannula 4.00 02/10/23 05:00 59 17 119/66 (83) 100 Nasal Cannula 4.00 02/10/23 04:00 98 Nasal Cannula 3.00 02/10/23 04:00 54 17 118/77 (91) 99 Nasal Cannula 4.00 02/10/23 04:00 36.2 02/10/23 03:00 54 20 125/82 (96) 99 Nasal Cannula 4.00 02/10/23 02:00 63 15 115/67 (83) 98 Nasal Cannula 4.00 02/10/23 01:00 60 02/10/23 01:00 54 17 114/76 (89) 99 Nasal Cannula 4.00 02/10/23 00:00 61 14 114/67 (83) 98 Nasal Cannula 4.00 02/09/23 23:59 98 Nasal Cannula 3.00 02/09/23 23:00 56 13 114/69 (84) 98 Nasal Cannula 4.00 02/09/23 22:32 Nasal Cannula 3.00 02/09/23 22:00 60 17 103/84 (90) 99 Nasal Cannula 4.00 02/09/23 21:00 55 16 119/75 (90) 98 Nasal Cannula 4.00 02/09/23 20:00 56 17 115/69 (84) 98 Nasal Cannula 4.00 02/09/23 20:00 98 Nasal Cannula 3.00 02/09/23 19:45 36.1 02/09/23 19:00 60 02/09/23 19:00 55 18 103/63 (76) 98 Nasal Cannula 4.00 02/09/23 18:00 59 17 113/59 (77) 98 Nasal Cannula 4.00 02/09/23 17:00 56 10 115/86 (96) 97 Nasal Cannula 4.00 02/09/23 16:06 36.2 02/09/23 16:01 36.2 02/09/23 16:00 57 18 101/67 (78) 96 Nasal Cannula 4.00 02/09/23 16:00 98 Nasal Cannula 3.00 02/09/23 15:00 53 15 94/58 (70) 98 Nasal Cannula 4.00 02/09/23 14:00 53 16 89/63 (72) 97 Nasal Cannula 4.00 02/09/23 13:13 54 02/09/23 13:00 55 17 91/64 (73) 98 Nasal Cannula 4.00 02/09/23 12:00 54 12 87/59 (68) 99 Nasal Cannula 4.00 02/09/23 12:00 96 Nasal Cannula 3.00 02/09/23 11:44 36.4 I & O 02/10/23 07:00 Intake Total 1310 ml Output Total 1005 ml Balance 305 ml Height & Weight Height: 5'3.00" Weight: 196lbs. 0.0oz. 88.003336fc; 24.83 BMI Method: General Appearance: No Apparent Distress, Chronically ill, Cachetic, Mild Distress, Thin, Other (mental status has improved) HEENT: Other (dry oral mucosa and teeth) Neck: Normal Inspection Respiratory: No Accessory Muscle Use, No Respiratory Distress, Crackles (right posterior with diminished BS) Cardiovascular: Regular Rate, Rhythm, Other (decreased BS on right, crackles on left) Capillary Refill: Less Than 3 Seconds Peripheral Pulses: 1+ Radial Pulses (R), 1+ Radial Pulses (L) Gastrointestinal: non tender, soft, no organomegaly Extremity: Normal Inspection, Normal Range of Motion, No Pedal Edema, Pedal Edema (mild feet edema), Slow Capillary Refill, Other (right femoral central line site looks ok) Neurologic/Psychiatric: Alert, Oriented x3, No Motor/Sensory Deficits, D epressed Affect (flat and depressed affect), Disoriented Skin: Normal Color, Warm/Dry Lymphatic: No Adenopathy Results Lab Laboratory Tests 02/08/23 15:51 02/09/23 04:50 02/10/23 04:10 Assessment/Plan Assessment/Plan as above Critical Care: Critically Ill Patient Time spent with patient (mins): 25 EDWIN HOWE MD Feb 10, 2023 11:47
[2023-02-10] MEDS: FOLIC ACID 1 MG TAB PO SCH (13:09)
--- NOTE | 2023-02-10 17:43 | Physician Query-Final Dx ---
LEA CERVANTES 02/10/23 1743: Final Diagnosis Give Final Diagnosis Please give Final Diagnosis The medical record reflects the following clinical evidence: Clinical Indicators: Admission RR 18 has been as high as 29, Frequently 20 and above, O2 sat 92% on admission on 4L frequently 89 to 91% initially, on 4 L (P/M=[id number]) O2 increased to 6 L was on 6 L almost 24 hours then has been 3 to 5 L has since been able to titrate to RA, required 02 for approx 72 hours Risk Factor(s): Pneumonia with Sepsis and septic shock, No documentation of home 02 use, Treatment: Supplemental 02, Respiratory Monitoring, Acute respiratory failure, with hypoxia, present on admission now resolved Other explanation of clinical findings Unable to determine (no explanation for clinical findings) Please clarify and document your clinical opinion in the progress notes and discharge summary including the definitive and/or presumptive diagnosis, (suspected or probable), related to the above clinical findings. Please include clinical findings supporting your diagnosis. Lea Cervantes, MSN, RN Clinical Extracorporeal Technician [phone] [email or web address] GEORGINA HARRINGTON MD 02/11/23 0845: Final Diagnosis Give Final Diagnosis Acute respiratory failure with hypoxia present on admission, now resolved. LEA CERVANTES Feb 10, 2023 17:43 GEORGINA HARRINGTON MD Feb 11, 2023 08:45
[2023-02-10 19:13] VITALS: BP 117/69
[2023-02-10] MEDS: NOREPINEPHRINE 8 MG/250 ML 250 ML IV SCH (22:14)
[2023-02-11] MEDS: VASOPRESSIN INJECTION 20 UNIT in NS (IVPB) 100 ML 100 ML IV SCH (03:44)
[2023-02-11 04:18] LABS: ALBUMIN 1.8 GM/DL (3.2-4.5)
[2023-02-11] MEDS: AMPICILLIN/SULBACTAM INJECTION 1.5 GM in NS (IVPB) 100 ML 100 ML IV SCH ×4 (04:18→22:42)
[2023-02-11 04:19] LABS: CALCIUM 7.3 MG/DL (8.5-10.1)
[2023-02-11 04:21] LABS: TOTAL PROTEIN 3.7 GM/DL (6.4-8.2)
[2023-02-11 04:22] LABS: BILIRUBIN,TOTAL 0.4 MG/DL (0.1-1.0)
[2023-02-11 04:24] LABS: CREATININE SERUM 0.45 MG/DL (0.60-1.30); PHOSPHORUS 2.7 MG/DL (2.3-4.7)
[2023-02-11] MEDS: POTASSIUM CHLORIDE 20 MEQ TABLET PO SCH (04:26)
[2023-02-11] MEDS: POTASSIUM CL 10MEQ/50ML IVPB 50 ML IV SCH (04:26)
[2023-02-11 04:27] LABS: MAGNESIUM 1.6 MG/DL (1.6-2.4)
[2023-02-11] MEDS: MAGNESIUM 1 GM/100 ML IVPB 100 ML IV SCH ×3 (04:29→06:25)
[2023-02-11] MEDS: ENOXAPARIN 60 MG/0.6 ML SYRINGE SC SCH ×2 (04:45→16:50)
[2023-02-11 04:56] LABS: BASOPHILS % (AUTO) 0 % (0-10); EOSINOPHILS # (AUTO) 0.1 10^3/uL (0.0-0.3); EOSINOPHILS % (AUTO) 1 % (0-10); HEMATOCRIT 22 % (35-52); LYMPHOCYTES # (AUTO) 1.3 10^3/uL (1.0-4.0); LYMPHOCYTES % (AUTO) 13 % (12-44); MEAN CORPUSCULAR HEMOGLOBIN 23 pg (25-34); MEAN CORPUSCULAR HGB CONC 31 g/dL (32-36); MEAN CORPUSCULAR VOLUME 73 fL (80-99); MEAN PLATELET VOLUME 9.3 fL (9.0-12.2); MONOCYTES # (AUTO) 0.3 10^3/uL (0.0-1.0); MONOCYTES % (AUTO) 3 % (0-12); NEUTROPHILS # (AUTO) 8.7 10^3/uL (1.8-7.8); NEUTROPHILS % (AUTO) 82 % (42-75); PLATELET COUNT 317 10^3/uL (130-400); WHITE BLOOD COUNT 10.5 10^3/uL (4.3-11.0)
--- NOTE | 2023-02-11 06:20 | Progress Note ---
Progress Note Assessment/Plan Assessment/Plan Hypotension Venous Insufficiency Right Lower Love Pneumonia with consolidation Pt appears improved, will probably do even better with treatment for pneumonia. I will hold off on IJ for now and would recommend PICC if needs something long- term. Pt can use femoral line for another 24 hours at least and may not need pressors; therefore, won't need central line. I am around if anything changes. Vitals Last set of Vitals Signs Vital Signs Date Time Temp Pulse Resp B/P (MAP) Pulse Ox O2 Delivery O2 Flow Rate FiO2 02/11/23 05:00 67 24 102/68 (79) 96 Room Air 02/11/23 04:00 36.7 02/10/23 19:13 92 02/10/23 12:00 3.00 I&O I&O Intake and Output 02/11/23 00:00 Intake Total 2050 ml Output Total 1290 ml Balance 760 ml Intake Oral 950 ml IV Total 1100 ml Output Urine Total 1290 ml # Bowel Movements 2 Labs Laboratory Tests 02/11/23 04:00: Sodium Level 135, Potassium Level 4.0, Chloride Level 107, Carbon Dioxide Level 20L, Anion Gap 8, Blood Urea Nitrogen 9, Creatinine 0.45L, Estimat Glomerular Filtration Rate 107, BUN/Creatinine Ratio 20, Glucose Level 92, Calcium Level 7.3L, Corrected Calcium 9.1, Phosphorus Level 2.7, Magnesium Level 1.6, Total Bilirubin 0.4, Aspartate Amino Transf (AST/SGOT) 12, Alanine Aminotransferase (ALT/SGPT) 7, Alkaline Phosphatase 53, Total Protein 3.7L, Albumin 1.8L 02/11/23 04:43: White Blood Count 10.5, Red Blood Count 3.06L, Hemoglobin 7.0L, Hematocrit 22L, Mean Corpuscular Volume 73L, Mean Corpuscular Hemoglobin 23L, Mean Corpuscular Hemoglobin Concent 31L, Red Cell Distribution Width 26.8H, Platelet Count 317, Mean Platelet Volume 9.3, Immature Granulocyte % (Auto) 1, Neutrophils (%) (Auto) 82H, Lymphocytes (%) (Auto) 13, Monocytes (%) (Auto) 3, Eosinophils (%) (Auto) 1, Basophils (%) (Auto) 0, Neutrophils # (Auto) 8.7H, Lymphocytes # (Auto) 1.3, Monocytes # (Auto) 0.3, Eosinophils # (Auto) 0.1, Basophils # (Auto) 0.0, Immature Granulocyte # (Auto) 0.1 Microbiology 02/08/23 Urine Culture - Final, Complete NO GROWTH 02/07/23 MRSA Screen - Final, Complete MRSA not isolated 02/07/23 Blood Culture - Preliminary, Resulted Pasteurella multocida See Comments Culture In Progress Focused Exam Lactate Level 02/08/23 07:32: Lactic Acid Level 2.14*H 02/08/23 09:53: Lactic Acid Level 2.15*H Time of Focused Exam: 18:35 EDANDRE BARBOUR MD,RESIDENT Feb 11, 2023 06:20
[2023-02-11] MEDS: LACTATED RINGERS 1,000 ML 1,000 ML IV SCH (06:38)
[2023-02-11] MEDS: PANTOPRAZOLE 40 MG TABLET PO SCH (08:28)
[2023-02-11] MEDS: PARoxetine 20 MG TABLET PO SCH (08:28)
--- NOTE | 2023-02-11 09:14 | Physical Therapy Evaluation ---
PT Evaluation-General Medical Diagnosis Admission Date Feb 07, 2023 at 22:01 Medical Diagnosis: septic shock, pneumonia/anemia Onset Date: Feb 07, 2023 Therapy Diagnosis Therapy Diagnosis: generalized weakness/impaired mobility Height/Weight Height (Feet): 5 Height (Inches): 3.00 Weight (Pounds): 196 Weight (Ounces): 0.0 Precautions Precautions/Isolations: Fall Prevention, Standard Precautions Referral Physician: Sanket Reason for Referral: Evaluation/Treatment Medical History Pertinent Medical History: HTN, Rheumatoid Arthritis Current History EMS secondary to weakness/AMS/dehydration Reviewed History: Yes Social History Home: Single Level Current Living Status: Spouse Prior Prior Level of Function SCALE: Activities may be completed with or without assistive devices. 3-Nkjeychjpr-dhtymch completes the activity by him/herself with no assistance from a helper. 5-Set-up or Clean-up Assistance-helper sets up or cleans up; patient completes activity. [place] assists only prior to or following the activity. 4-Supervision or Touching Assistance-helper provides verbal cues and/or touching/steadying and/or contact guard assistance as patient completes activity. Assistance may be provided throughout the activity or intermittently. 3-Partial/Moderate Assistance-helper does LESS THAN HALF the effort. [place] lifts, holds or supports trunk or limbs, but provides less than half the effort. 2-Substantial/Maximal Assistance-helper does MORE THAN HALF the effort. [place] lifts or holds trunk or limbs and provides more than half the effort. 2-Mzttsbfxm-qxosxz does ALL the effort. Patient does none of the effort to complete the activity. Or, the assistance of 2 or more helpers is required for the patient to complete the activity. If activity was not attempted, code reason: 7-Patient Refused. 9-Not Applicable-not attempted and the patient did not perform the activity before the current illness, exacerbation or injury. 10-Not Attempted due to Environmental Limitations-(lack of equipment, weather restraints, etc.). 88-Not Attempted due to Medical Conditions or Safety Concerns. Bed Mobility: 3 Transfers (B,C,W/C): 3 Gait: 3 Indoor Mobility (Ambulation): Needed Some Help Prior Devices Use: Walker (4WW) per patient, spouse and family assist with all mobility and ADL's PT Evaluation-Current Subjective Patient agrees to therapy. Objective Patient Orientation: Confused Attachments: Willard Catheter, IV ROM/Strength ROM Lower Extremities bilateral LE WFL Strength Lower Extremities 3-/5 grossly bilateral LE all planes Integumentary/Posture Bowel Incontinence: Yes Bladder Incontinence: Willard Cath Posture slightly kyphotic Neuromuscular (Tone, Coordination, Reflexes) severely diminished with all Sensory Vision: Wears Glasses Hearing: Impaired Transfers Lying to Sitting/Side of Bed(Q: 2 Sit to Stand (QC): 2 Chair/Prk-by-Xmafp Xfer(QC): 2 Toilet Transfer (QC): 2 sit to stand x 4 sets to assist with cleansing patient due to incontinent BM Gait Does the Patient Walk?: No and Walking Goal IS indicated Balance Sitting Static: Fair Sitting Dynamic: Fair Standing Static: Poor Standing Dynamic: Poor Assessment/Needs Patient will benefit from skilled PT to address functional strength and mobility to improve current LOF. Patient is severely debilitated and tolerates minimal activity. Rehab Potential: Guarded PT Retirement Goals Gauge And Instrument Inspector Goals PT Retirement Goals Time Frame: Mar 12, 2023 Roll Left & Right (QC): 3 Sit to Lying (QC): 3 Lying-Sitting on Side/Bed(QC): 3 Sit to Stand (QC): 3 Chair/Hdp-jl-Yoqga Xfer(QC): 3 Toilet Transfer (QC): 3 Walk 10 feet (QC): 3 Walk 50ft with 2 Turns (QC): 3 PT Plan Problem List Problem List: Activity Tolerance, Functional Strength, Safety, Balance, Gait, Transfer, Bed Mobility Treatment/Plan Treatment Plan: Continue Plan of Care Treatment Plan: Bed Mobility, Education, Functional Activity Poppy, Functional Strength, Gait, Safety, Therapeutic Exercise, Transfers Treatment Duration: Mar 12, 2023 Frequency: 5 times per week Estimated Hrs Per Day: .25 hour per day Patient and/or Family Agrees t: Yes Time Time In: 801 Time Out: 827 DATE: Feb 11, 2023 Total Billed Treatment Time: 26 Total Billed Treatment 1 visit EVMod 10 min FA 16 min KYRS VELEZ PT Feb 11, 2023 09:14
--- NOTE | 2023-02-11 09:21 | Occupational Therapy Eval ---
OT Evaluation-General/PLF Medical Diagnosis Admission Date Feb 07, 2023 at 22:01 Medical Diagnosis: septic shock, pneumonia/anemia Onset Date: Feb 07, 2023 Therapy Diagnosis Therapy Diagnosis: weakness, confusion Height/Weight Height (Feet): 5 Height (Inches): 3.00 Weight (Pounds): 196 Weight (Ounces): 0.0 Precautions Precautions/Isolations: Fall Prevention, Standard Precautions Referral Physician: Sanket Referral Reason: Activity Tolerance, Self Care, Evaluation/Treatment, Strengthening/ROM Medical History Pertinent Medical History: HTN, Rheumatoid Arthritis Reviewed History: Yes Social History Home: Single Level Current Living Status: Spouse ADL-Prior Level of Function SCALE: Activities may be completed with or without assistive devices. 8-Qkugfwrops-tpamhiu completes the activity by him/herself with no assistance from a helper. 5-Set-up or Clean-up Assistance-helper sets up or cleans up; patient completes activity. [place] assists only prior to or following the activity. 4-Supervision or Touching Assistance-helper provides verbal cues and/or touching/steadying and/or contact guard assistance as patient completes activity. Assistance may be provided throughout the activity or intermittently. 3-Partial/Moderate Assistance-helper does LESS THAN HALF the effort. [place] lifts, holds or supports trunk or limbs, but provides less than half the effort. 2-Substantial/Maximal Assistance-helper does MORE THAN HALF the effort. [place] lifts or holds trunk or limbs and provides more than half the effort. 0-Ysztdizju-vszuih does ALL the effort. Patient does none of the effort to complete the activity. Or, the assistance of 2 or more helpers is required for the patient to complete the activity. If activity was not attempted, code reason: 7-Patient Refused. 9-Not Applicable-not attempted and the patient did not perform the activity before the current illness, exacerbation or injury. 10-Not Attempted due to Environmental Limitations-(lack of equipment, weather restraints, etc.). 88-Not Attempted due to Medical Conditions or Safety Concerns. ADL PLOF Comments RA hand deformity requires assistance from . Self Care: Needed Some Help Functional Cognition: Needed Some Help Drive Self: No OT Current Status Subjective Very hard of hearing. Agreeable to OT Mental Status/Objective Patient Orientation: Person, Confused Attachments: Willard Catheter, IV, Oxygen, Telemetry Current Glasses/Contacts: Yes Hearing Aids: No Dentures/Partials: No (needs hearing aid) Hand Dominance: Left Upper Extremity ROM limited ROM, adapted tray for meals Upper Extremity Coordination impaired Upper Extremity Sensation impaired, B/B incont and unaware Upper Extremity Strength -3/5 ADL-Treatment Eating (QC): 3 Oral Hygiene (QC): 3 Shower/Bathe Self (QC): 1 Upper Body Dressing (QC): 2 Lower Body Dressing (QC): 1 On/Off Footwear (QC): 1 Toileting Hygiene (QC): 1 Education OT Patient Education: Correct positioning, Modified ADL techniques, Progress toward Goal/Update tx plan, Purpose of tx/functional activities, Reviewed precautions, Rehab process, Safety issues, Transfer techniques, Use of adapted equipment, W/C management Teaching Recipient: Patient Teaching Methods: Demonstration, Discussion Response to Teaching: Reinforcement Needed OT Alum Mixer Goals Alum Mixer Goals Eating (QC): 4 Oral Hygiene (QC): 4 Toileting Hygiene (QC): 4 Shower/Bathe Self (QC): 3 Upper Body Dressing (QC): 4 Lower Body Dressing (QC): 4 On/Off Footwear (QC): 3 1=Demonstrate adherence to instructed precautions during ADL tasks. 2=Patient will verbalize/demonstrate understanding of assistive d evices/modifications for ADL. 3=Patient will improve strength/tolerance for activity to enable patient to perform ADL's. OT Education/Plan Problem List/Assessment Assessment: Decreased Activ Tolerance, Decreased Safety Aware, Decreased UE Strength, Dependent Transfers, Impaired Bed Mobility, Impaired Cognition, Impaired Coordination, Impaired Funct Balance, Impaired Self-Care Skills, Restricted Funct UE ROM Discharge Recommendations Plan/Recommendations: Continue POC Therapy Discharge Recommendati: Post Acute OT Treatment Plan/Plan of Care Treatment,Training & Education: Yes Patient would benefit from OT for education, treatment and training to promote independence in ADL's, mobility, safety and/or upper extremity function for ADL's. Plan of Care: ADL Retraining, Concurrent Therapy, Functional Mobility, Group Exercise/Act as Ind, UE Funct Exercise/Act, UE Neuromus Re-Ed/Coord Treatment Duration: Feb 14, 2023 Frequency: 3 times per week (3-5 times per week) Rehab Potential: Guarded Time Start Time: 08:05 Stop Time: 08:20 DATE: Feb 11, 2023 Total Time Billed (hr/min): 15 Billed Treatment Time EVM 15 min GERRI BAHENA OT Feb 11, 2023 09:21
[2023-02-11] MEDS ORDERED: NS IV 500 ML 500 ML IV SCH (10:00)
[2023-02-11 11:48] VITALS: BP 123/75
[2023-02-11 11:53] VITALS: BP 122/73
[2023-02-11 11:58] VITALS: BP 117/74
--- NOTE | 2023-02-11 11:58 | Progress Note - Hospitalist ---
BEATRIZ PARRISH 02/11/23 1158: Subjective HPI/CC On Admission Date Seen by Provider: Feb 11, 2023 Time Seen by Provider: 10:15 AMS Subjective/Events-last exam 02/11/2023: CC: Sepsis, AMS HPI: Dorothy, 62F, notes that she is feeling much better. Her at bedside endorses that she appears much better today compared to previously. Dorothy notes that she has no current pain and that she slept well. Dorothy was happy to be able to be seated for breakfast and get out of the bed. She notes that she still feels weak. She denies any other associated symptoms. The abx appear to be improving the sepsis due to improved cognition. Dorothy's notes that her mental presentation has improved from time at admission. Dorothy has no other concerns. She denies any N/V, dizziness, or confusion. Review of Systems General: No Chills, No Night Sweats; Fatigue, Appetite (incrased appetitie ) HEENT: No Head Aches, No Visual Changes, No Eye Pain, No Ear Pain Pulmonary: No Dyspnea; Cough; No Pleuritic Chest Pain Cardiovascular: No: Chest Pain, Palpitations, Edema, Lt Headedness Gastrointestinal: No: Nausea, Vomiting, Abdominal Pain Genitourinary: Other (canales in place ) Musculoskeletal: No: neck pain, back pain Neurological: Weakness (pt notes feeling weak); No: Numbness, Incoordination, Change in speech, Confusion Focused Exam Time of Focused Exam: 18:35 Objective Exam Vital Signs Vital Signs Date Time Temp Pulse Resp B/P (MAP) Pulse Ox O2 Delivery O2 Flow Rate FiO2 02/11/23 11:00 54 117/74 (93) 98 Room Air 02/11/23 10:00 10 02/11/23 04:00 36.7 02/10/23 19:13 92 02/10/23 12:00 3.00 Capillary Refill : Less Than 3 Seconds General Appearance: No Apparent Distress, WD/WN HEENT: PERRL/EOMI, Normal ENT Inspection, Moist Mucous Membranes, Pale Conjunctivae (L), Pale Conjunctivae (R) Neck: Normal Inspection, Non Tender, Supple Respiratory: Chest Non Tender, Normal Breath Sounds, No Accessory Muscle Use, No Respiratory Distress, Crackles Cardiovascular: Regular Rate, Rhythm, No Murmur, Normal Peripheral Pulses Gastrointestinal: Normal Bowel Sounds, Non Tender, Soft Rectal: Deferred Back: Normal Inspection, No CVA Tenderness Extremity: Normal Capillary Refill, Non Tender, No Calf Tenderness, Pedal Edema Neurologic/Psychiatric: Alert, Oriented x3, No Motor/Sensory Deficits, 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 Assessment/Plan Assessment and Plan Assess & Plan/Chief Complaint 02/11/2023: A/P -Septic Shock * Unasyn, culture grew pasturella multoxida * vasopressin and norepinephrine stopped 02/11 around 0300 per nurse * monitor BP -Anemia * type and cross-match * 1 Unit blood * recheck CBC in am -PNA * unasyn * monitor -Protein Malnutrition with 3rd spacing * encourage nutrition * albumin decreased, monitor lab * compression garments on extremities due to diminished oncotic pressure * decrease IV fluid -Move to 4th floor MED/SURG unit * transfuse blood prior * PT/OT * social science research assistant due to patient presentation, care, nutrition concerns at home SHASTA PATRICK DO 02/12/23 0646: Subjective Subjective/Events-last exam Improved overall Appears very debilitated Giving 1 unit of blood today Move to 4th floor Objective Exam General Appearance: No Apparent Distress, WD/WN Respiratory: No Accessory Muscle Use, No Respiratory Distress, Crackles Cardiovascular: Regular Rate, Rhythm Assessment/Plan Assessment and Plan Assess & Plan/Chief Complaint Give blood IV abx Move to 4ht floor Supervisory-Addendum Brief Verification & Attestation Participated in pt care: history, MDM, physical Personally performed: exam, history, MDM, supervision of care Care discussed with: Medical Student Procedures: n/a Results interpretation: Verified all documentation Verification and Attestation of Medical Student E/M Service A medical student performed and documented this service in my presence. I reviewed and verified all information documented by the medical student and made modifications to such information, when appropriate. I personally performed the physical exam and medical decision making. Shasta Patrick Feb 12, 2023,06:45 BEATRIZ PARRISH Feb 11, 2023 11:58 SHASTA PATRICK DO Feb 12, 2023 06:46
[2023-02-11 12:03] VITALS: BP 117/68
[2023-02-11] MEDS: FOLIC ACID 1 MG TAB PO SCH (16:50)
[2023-02-12] MEDS: AMPICILLIN/SULBACTAM INJECTION 1.5 GM in NS (IVPB) 100 ML 100 ML IV SCH ×4 (04:05→22:45)
[2023-02-12] MEDS: ENOXAPARIN 60 MG/0.6 ML SYRINGE SC SCH ×2 (04:05→16:54)
[2023-02-12 04:51] LABS: BASOPHILS % (AUTO) 0 % (0-10); EOSINOPHILS # (AUTO) 0.1 10^3/uL (0.0-0.3); EOSINOPHILS % (AUTO) 1 % (0-10); HEMATOCRIT 26 % (35-52); HEMOGLOBIN 8.6 g/dL (11.5-16.0); LYMPHOCYTES # (AUTO) 1.2 10^3/uL (1.0-4.0); LYMPHOCYTES % (AUTO) 13 % (12-44); MEAN CORPUSCULAR HEMOGLOBIN 25 pg (25-34); MEAN CORPUSCULAR HGB CONC 33 g/dL (32-36); MEAN CORPUSCULAR VOLUME 75 fL (80-99); MEAN PLATELET VOLUME 9.1 fL (9.0-12.2); MONOCYTES # (AUTO) 0.7 10^3/uL (0.0-1.0); MONOCYTES % (AUTO) 8 % (0-12); NEUTROPHILS % (AUTO) 76 % (42-75); PLATELET COUNT 284 10^3/uL (130-400); WHITE BLOOD COUNT 9.2 10^3/uL (4.3-11.0)
[2023-02-12 05:15] LABS: BILIRUBIN,TOTAL 0.6 MG/DL (0.1-1.0); CALCIUM 7.6 MG/DL (8.5-10.1); CREATININE SERUM 0.42 MG/DL (0.60-1.30); MAGNESIUM 1.9 MG/DL (1.6-2.4); PHOSPHORUS 2.9 MG/DL (2.3-4.7); POTASSIUM 3.6 MMOL/L (3.6-5.0); TOTAL PROTEIN 3.8 GM/DL (6.4-8.2)
--- NOTE | 2023-02-12 07:34 | Progress Note - Surgery ---
Subjective Date Seen by a Provider: Feb 12, 2023 Time Seen by a Provider: 07:30 Subjective/Events-last exam Patient is feeling well today and has no complaints. She is A&O x4 and denies any fever, N/V. Her abx seem to be working well and her vitals are still stable. She does feel weak but is able to eat and sit up without any issues. Review of Systems General: No Chills, No Night Sweats; Fatigue HEENT: No Head Aches, No Visual Changes Pulmonary: No Dyspnea, No Cough Cardiovascular: No: Chest Pain, Orthopnea Gastrointestinal: No: Nausea, Vomiting, Abdominal Pain Genitourinary: No Dysuria, No Frequency Musculoskeletal: No: neck pain, shoulder pain Neurological: No: Numbness, Confusion Focused Exam Time of Focused Exam: 18:35 Objective Exam Vital Signs Date Time Temp Pulse Resp B/P (MAP) Pulse Ox O2 Delivery O2 Flow Rate FiO2 02/12/23 03:33 36.0 65 16 115/60 (78) 96 Room Air 02/11/23 23:29 36.4 64 16 121/66 (84) 94 Room Air 02/11/23 20:00 92 Room Air 02/11/23 19:17 36.6 90 16 124/77 (93) 97 Room Air 02/11/23 16:38 36.1 02/11/23 16:00 60 133/78 (96) 99 Room Air 02/11/23 15:00 58 109/61 (77) 100 Room Air 02/11/23 14:00 64 114/76 (89) 100 Room Air 02/11/23 13:00 58 109/82 (91) 100 Room Air 02/11/23 12:03 36.1 56 18 117/68 100 Room Air 02/11/23 12:00 36.0 02/11/23 12:00 59 117/68 (80) 98 Room Air 02/11/23 11:58 36.1 55 18 117/74 99 Room Air 02/11/23 11:53 36.1 55 18 122/73 Room Air 02/11/23 11:48 36.1 56 18 123/75 100 Room Air 02/11/23 11:00 54 117/74 (93) 98 Room Air 02/11/23 10:00 57 10 120/71 (95) 98 Room Air 02/11/23 09:00 61 124/66 (84) 96 Room Air 02/11/23 08:00 36.2 02/11/23 08:00 97 Room Air 02/11/23 08:00 61 22 115/76 (92) 95 Room Air I & O 02/12/23 07:00 Intake Total 600 ml Output Total 525 ml Balance 75 ml Capillary Refill : Less Than 3 Seconds General Appearance: No Apparent Distress, WD/WN HEENT: PERRL/EOMI, Normal ENT Inspection, Moist Mucous Membranes, Pale Conjunctivae (L), Pale Conjunctivae (R) Neck: Normal Inspection, Non Tender, Supple Respiratory: No Accessory Muscle Use, No Respiratory Distress, Crackles Cardiovascular: Regular Rate, Rhythm Peripheral Pulses: 1+ Radial Pulses (R), 1+ Radial Pulses (L) Gastrointestinal: non tender, soft, no organomegaly Extremity: Normal Capillary Refill, Non Tender, No Calf Tenderness, Pedal Edema Neurologic/Psychiatric: Alert, Oriented x3, No Motor/Sensory Deficits, rn eligibility II- XII Norm as Tested Skin: Normal Color, Warm/Dry, Other (noted dog bite on hand ) Lymphatic: No Adenopathy Results Lab Laboratory Tests 02/12/23 04:44: White Blood Count 9.2, Red Blood Count 3.50L, Hemoglobin 8.6#L, Hematocrit 26L, Mean Corpuscular Volume 75L, Mean Corpuscular Hemoglobin 25, Mean Corpuscular Hemoglobin Concent 33, Red Cell Distribution Width 26.3H, Platelet Count 284, Mean Platelet Volume 9.1, Immature Granulocyte % (Auto) 1, Neutrophils (%) (Auto) 76H, Lymphocytes (%) (Auto) 13, Monocytes (%) (Auto) 8, Eosinophils (%) (Auto) 1, Basophils (%) (Auto) 0, Neutrophils # (Auto) 7.0, Lymphocytes # (Auto) 1.2, Monocytes # (Auto) 0.7, Eosinophils # (Auto) 0.1, Basophils # (Auto) 0.0, Immature Granulocyte # (Auto) 0.1, Sodium Level 138, Potassium Level 3.6, Chloride Level 108H, Carbon Dioxide Level 23, Anion Gap 7, Blood Urea Nitrogen 7, Creatinine 0.42L, Estimat Glomerular Filtration Rate 109, BUN/Creatinine Ratio 17, Glucose Level 88, Calcium Level 7.6L, Corrected Calcium 9.2, Phosphorus Level 2.9, Magnesium Level 1.9, Total Bilirubin 0.6, Aspartate Amino Transf (AST/SGOT) 21, Alanine Aminotransferase (ALT/SGPT) 11, Alkaline Phosphatase 54, Total Protein 3.8L, Albumin 2.0L Microbiology 02/08/23 Urine Culture - Final, Complete NO GROWTH 02/07/23 MRSA Screen - Final, Complete MRSA not isolated 02/07/23 Blood Culture - Preliminary, Resulted Pasteurella multocida See Comments Assessment/Plan Assessment/Plan Assessment/Plan Assessment: Septic shock anemia - given 1 unit of blood Plan: Continue abx monitor vitals and labs DAMICO Feb 12, 2023 07:34
[2023-02-12] MEDS: PANTOPRAZOLE 40 MG TABLET PO SCH (08:31)
[2023-02-12] MEDS: PARoxetine 20 MG TABLET PO SCH (08:31)
--- NOTE | 2023-02-12 08:51 | Progress Note ---
DEANDRE BARBOUR MD,RESIDENT 02/12/23 0851: Subjective Subjective/Events-last exam Pt feeling much better this morning, sitting up in bed eating breakfast. She is alert and oriented and has no acute concerns today. She is stable on RA. Focused Exam Time of Focused Exam: 18:35 Objective Exam Last Set of Vital Signs Vital Signs Date Time Temp Pulse Resp B/P (MAP) Pulse Ox O2 Delivery O2 Flow Rate FiO2 02/12/23 08:00 95 Room Air 02/12/23 07:44 36.7 70 16 135/80 (98) 02/10/23 19:13 92 02/10/23 12:00 3.00 Capillary Refill : Less Than 3 Seconds I&O Intake and Output 02/12/23 00:00 Intake Total 1895 ml Output Total 695 ml Balance 1200 ml Intake Oral 595 ml IV Total 1300 ml Output Urine Total 695 ml # Voids 1 # Bowel Movements 4 General: Alert, Oriented X3, Cooperative, No Acute Distress Lungs: Clear to Auscultation, Normal Air Movement Heart: Regular Rate, No Murmurs Abdomen: Soft, No Tenderness Neuro: Normal Speech Psych/Mental Status: Mental Status NL, Mood NL Results/Procedures Lab Laboratory Tests 02/12/23 04:44: White Blood Count 9.2, Red Blood Count 3.50L, Hemoglobin 8.6#L, Hematocrit 26L, Mean Corpuscular Volume 75L, Mean Corpuscular Hemoglobin 25, Mean Corpuscular Hemoglobin Concent 33, Red Cell Distribution Width 26.3H, Platelet Count 284, Mean Platelet Volume 9.1, Immature Granulocyte % (Auto) 1, Neutrophils (%) (Auto) 76H, Lymphocytes (%) (Auto) 13, Monocytes (%) (Auto) 8, Eosinophils (%) (Auto) 1, Basophils (%) (Auto) 0, Neutrophils # (Auto) 7.0, Lymphocytes # (Auto) 1.2, Monocytes # (Auto) 0.7, Eosinophils # (Auto) 0.1, Basophils # (Auto) 0.0, Immature Granulocyte # (Auto) 0.1, Sodium Level 138, Potassium Level 3.6, Chloride Level 108H, Carbon Dioxide Level 23, Anion Gap 7, Blood Urea Nitrogen 7, Creatinine 0.42L, Estimat Glomerular Filtration Rate 109, BUN/Creatinine Ratio 17, Glucose Level 88, Calcium Level 7.6L, Corrected Calcium 9.2, Phosphorus Level 2.9, Magnesium Level 1.9, Total Bilirubin 0.6, Aspartate Amino Transf (AST/SGOT) 21, Alanine Aminotransferase (ALT/SGPT) 11, Alkaline Phosphatase 54, Total Protein 3.8L, Albumin 2.0L 02/12/23 08:34: Stool Occult Blood Immunoassay NEGATIVE Microbiology 02/08/23 Urine Culture - Final, Complete NO GROWTH 02/07/23 MRSA Screen - Final, Complete MRSA not isolated 02/07/23 Blood Culture - Preliminary, Resulted Pasteurella multocida See Comments Radiology Date of Exam:02/07/23 CT ABDOMEN/PELVIS W CLINICAL INDICATION: Patient with history of gallbladder surgery. Patient has fever and altered mental status. EXAM: Axial CT scan of the abdomen and pelvis performed with 50 cc of Omnipaque 350 IV contrast. Sagittal and coronal reformatted images are created. Auto Exposure Controls were utilized during the CT exam to meet ALARA standards for radiation dose reduction. COMPARISON: CT scan of the abdomen and pelvis with contrast dated 08/28/2021. FINDINGS: There is a moderate-sized area of consolidation involving the right lower lobe which is incompletely imaged and concerning for pneumonia. There is no significant change to the 5.1 cm eggshell calcified hypodense lesion involving the medial upper aspect of the spleen. Spleen is otherwise unremarkable. The gallbladder is surgically absent which was also noted on the prior study. The liver is unremarkable. The pancreas is unremarkable. Adrenal glands are unremarkable. Both kidneys are unremarkable with no hydronephrosis, stone, or mass. The bladder is decompressed with wall thickening which is nonspecific. Willard catheter is seen within the decompressed bladder. There is a large amount of stool in the rectum. There is diverticulosis involving the sigmoid colon and descending colon. There is also moderate amount of stool involving the transverse colon and left colon. There is no evidence of intestinal obstruction. The stomach is decompressed. The small bowel showed no significant abnormality. There is no intra-abdominal free air or free fluid. There is no significant lymphadenopathy. The appendix is not definitively localized and may be surgically absent versus obscured by closely adjacent intestines. The abdominal aorta and common iliac arteries are nonaneurysmal without significant stenosis. The extra-abdominal and extrapelvic soft tissue structures show mild subcutaneous edema. IMPRESSION: 1: There is an incompletely visualized moderate amount of consolidation involving the right lower lobe concerning for pneumonia. 2: There is a large amount of stool in the rectum and moderate amount of stool involving the transverse colon and left colon which may be seen with constipation. There is no evidence of intestinal obstruction. 3: Stable eggshell calcified cystic structure involving the spleen. 4: Gallbladder is surgically absent. Dictated by: Dictated on workstation # [id number] Dict: 02/07/23 1746 Trans: 02/07/232215 AS6 [id number] Interpreted by: PIERCE KRUEGER MD Electronically signed by: PIERCE KRUEGER MD 02/07/236 Assessment/Plan Assessment/Plan Admission Status: Inpatient Order (span 2 midnights) (1) Septic shock Status: Resolved Assessment & Plan: Secondary to pneumonia, bacteremia. Did have low blood pressure and tachycardia, but was in a fib as well, so uncertain whether septic shock vs a fib related. BCx grew pastuerella multoxida. On further examination of Pt, a small healed wound on dorsum of R hand from a dog bite was found. Currently patient on Unasyn for infection Resolved 02/12, WBC WNL, HR 65, afebrile >24hrs (2) Pneumonia Status: Acute Assessment & Plan: Likely 2/2 bacteremia due to pastuerella species from dog bite. Started on cefepime and vancomycin on admit, discontinued, started on Unasyn. New onset supplemental oxygen requirement, Pt weaned off to RA 02/10 Qualifiers: Qualified Codes: J18.9 - Pneumonia, unspecified organism (3) Rheumatoid arthritis Status: Chronic Assessment & Plan: On methotrexate weekly at home and Butrans for chronic pain. (4) Atrial fibrillation with rapid ventricular response Status: Resolved Assessment & Plan: Had a fib with RVR in ER, converted and remains in sinus. Suspect related to pneumonia. Consult cardiology. TSH 4.9 Echo: LVEF 50-55%; no wall abnormalities Pt remains in NSR 02/12 (5) Anemia Status: Acute Assessment & Plan: Hemoglobin in clinic October 2022 9.6 and she was referred for colonoscopy. Stable since then. Did have EGD 08/17/2021 with gastric and pyloric ulcers and 08/17/2017 colonoscopy with tubular adenoma and hyperplastic adenoma Qualifiers: Qualified Codes: D64.9 - Anemia, unspecified (6) Splenic cyst Status: Chronic Assessment & Plan: 07/2021 CT abdomen: There is a 6 cm calcified splenic cyst in the left upper abdomen. There are 2 small simple cysts in the inferior aspect of the spleen. 01/2023 CT abdomen: There is no significant change to the 5.1 cm eggshell calcified hypodense lesion involving the medial upper aspect of the spleen. Spleen is otherwise unremarkable. (7) DVT prophylaxis Status: Acute Assessment & Plan: Enoxaparin CHRISTIANO CARABALLO MD 02/12/231958: Assessment/Plan Assessment/Plan Assessment & Plan Pt reports doing better today. Asking about discharge home but still not up and ambulating much and needs assistance. significant other was feeding her as well. She acknowledges she's not physically ready to DC home yet. PT ordered. SW consulted. Continue IV abx. Continues to improve. Spoke with Dr Pineda regarding anemia. Dr Lopez follows patient regularly and per [facility] seems to be due for a scope soon. Likely as an outpatient but if starts to bleed will reconsult over the weekend. FOBT negative. I personally have seen and evaluated the patient and performed the physical exam. I agree with the documented assessment and plan. DEANDRE BARBOUR MD,RESIDENT Feb 12, 2023 08:51 CHRISTIANO CARABALLO MD Feb 12, 2023 19:59
[2023-02-12] MEDS: FOLIC ACID 1 MG TAB PO SCH (13:50)
[2023-02-12 14:43] VITALS: BP 135/63
[2023-02-12 15:40] VITALS: BP 125/78
[2023-02-12 19:26] VITALS: BP 121/74
[2023-02-12 19:55] VITALS: BP 125/78
[2023-02-12 23:40] VITALS: BP 130/70
[2023-02-13 04:27] VITALS: BP 120/71
[2023-02-13] MEDS: ENOXAPARIN 60 MG/0.6 ML SYRINGE SC SCH ×2 (04:30→16:08)
[2023-02-13] MEDS: AMPICILLIN/SULBACTAM INJECTION 1.5 GM in NS (IVPB) 100 ML 100 ML IV SCH ×4 (04:30→22:26)
[2023-02-13 04:35] LABS: BASOPHILS % (AUTO) 0 % (0-10); EOSINOPHILS # (AUTO) 0.1 10^3/uL (0.0-0.3); EOSINOPHILS % (AUTO) 1 % (0-10); HEMATOCRIT 25 % (35-52); LYMPHOCYTES # (AUTO) 1.2 10^3/uL (1.0-4.0); LYMPHOCYTES % (AUTO) 12 % (12-44); MEAN CORPUSCULAR HEMOGLOBIN 24 pg (25-34); MEAN CORPUSCULAR HGB CONC 32 g/dL (32-36); MEAN CORPUSCULAR VOLUME 76 fL (80-99); MEAN PLATELET VOLUME 9.1 fL (9.0-12.2); MONOCYTES % (AUTO) 10 % (0-12); NEUTROPHILS # (AUTO) 7.4 10^3/uL (1.8-7.8); NEUTROPHILS % (AUTO) 75 % (42-75); PLATELET COUNT 245 10^3/uL (130-400); WHITE BLOOD COUNT 9.8 10^3/uL (4.3-11.0)
[2023-02-13 04:56] LABS: ALBUMIN 1.9 GM/DL (3.2-4.5); BILIRUBIN,TOTAL 0.5 MG/DL (0.1-1.0); CALCIUM 7.4 MG/DL (8.5-10.1); CREATININE SERUM 0.4 MG/DL (0.60-1.30); MAGNESIUM 1.6 MG/DL (1.6-2.4); PHOSPHORUS 2.8 MG/DL (2.3-4.7); POTASSIUM 3.5 MMOL/L (3.6-5.0); TOTAL PROTEIN 3.6 GM/DL (6.4-8.2)
[2023-02-13 07:33] VITALS: BP 120/77
[2023-02-13] MEDS: PANTOPRAZOLE 40 MG TABLET PO SCH (09:01)
[2023-02-13] MEDS: PARoxetine 20 MG TABLET PO SCH (09:01)
--- NOTE | 2023-02-13 12:21 | Progress Note - Hospitalist ---
Subjective HPI/CC On Admission Date Seen by Provider: Feb 13, 2023 AMS Subjective/Events-last exam Pt reports doing better today. No complaints. Rn with no concerns either. Focused Exam Time of Focused Exam: 18:35 Objective Exam Vital Signs Vital Signs Date Time Temp Pulse Resp B/P (MAP) Pulse Ox O2 Delivery O2 Flow Rate FiO2 02/13/23 08:15 95 Room Air 02/13/23 07:33 36.8 74 16 120/77 (91) 02/12/23 19:55 21 02/12/23 14:43 3.00 3.00 Capillary Refill : Less Than 3 Seconds General Appearance: No Apparent Distress, Chronically ill Respiratory: Lungs Clear, No Respiratory Distress Cardiovascular: Regular Rate, Rhythm, No Murmur Neurologic/Psychiatric: Alert, Oriented x3 Results/Procedures Lab Laboratory Tests 02/13/23 04:30 Patient resulted labs reviewed. Assessment/Plan Assessment and Plan Assess & Plan/Chief Complaint septic Shock Pneumonia Anemia Debility RA Plan Continue IV abx Hgb stable SW consulted PT/OT consulted Hopefully home tomorrow if doing well Critical Care Critically Ill Patient CHRISTIANO CARABALLO MD Feb 13, 2023 12:21
[2023-02-13 13:00] VITALS: BP 119/71
[2023-02-13] MEDS: FOLIC ACID 1 MG TAB PO SCH (13:41)
[2023-02-13 15:57] VITALS: BP 112/66
[2023-02-13 20:50] VITALS: BP 113/66
[2023-02-14] VITALS: BP 110/60
[2023-02-14 03:27] VITALS: BP 125/69
[2023-02-14] MEDS: ENOXAPARIN 60 MG/0.6 ML SYRINGE SC SCH (04:27)
[2023-02-14] MEDS: AMPICILLIN/SULBACTAM INJECTION 1.5 GM in NS (IVPB) 100 ML 100 ML IV SCH (04:27)
[2023-02-14 04:37] LABS: BASOPHILS % (AUTO) 0 % (0-10); EOSINOPHILS # (AUTO) 0.1 10^3/uL (0.0-0.3); EOSINOPHILS % (AUTO) 2 % (0-10); HEMATOCRIT 25 % (35-52); HEMOGLOBIN 8.1 g/dL (11.5-16.0); LYMPHOCYTES # (AUTO) 1.1 10^3/uL (1.0-4.0); LYMPHOCYTES % (AUTO) 17 % (12-44); MEAN CORPUSCULAR HEMOGLOBIN 25 pg (25-34); MEAN CORPUSCULAR HGB CONC 32 g/dL (32-36); MEAN CORPUSCULAR VOLUME 77 fL (80-99); MONOCYTES # (AUTO) 0.8 10^3/uL (0.0-1.0); MONOCYTES % (AUTO) 12 % (0-12); NEUTROPHILS # (AUTO) 4.5 10^3/uL (1.8-7.8); NEUTROPHILS % (AUTO) 68 % (42-75); PLATELET COUNT 239 10^3/uL (130-400); WHITE BLOOD COUNT 6.6 10^3/uL (4.3-11.0)
[2023-02-14 05:06] LABS: ALBUMIN 1.9 GM/DL (3.2-4.5); BILIRUBIN,TOTAL 0.5 MG/DL (0.1-1.0); CALCIUM 7.4 MG/DL (8.5-10.1); CREATININE SERUM 0.41 MG/DL (0.60-1.30); MAGNESIUM 1.5 MG/DL (1.6-2.4); PHOSPHORUS 2.7 MG/DL (2.3-4.7); POTASSIUM 3.4 MMOL/L (3.6-5.0); TOTAL PROTEIN 3.8 GM/DL (6.4-8.2)
[2023-02-14 07:27] VITALS: BP 135/77
[2023-02-14] MEDS: PARoxetine 20 MG TABLET PO SCH (09:38)
[2023-02-14] MEDS: PANTOPRAZOLE 40 MG TABLET PO SCH (09:38)
[2023-02-14] MEDS ORDERED: AMOX500T2 PO (10:01)
[2023-02-14] MEDS ORDERED: PANT40TA52 PO (10:01)
--- NOTE | 2023-02-14 10:03 | D/C HH Face to Face Order ---
D/C HH Face to Face Orders Reconcile Patient Problems Problems Reviewed?: Yes Instructions for Patient HH Patient Instructions/FollowUp: PCP 1 week Physician to follow Patient: [facility] Discharge Diet for Home: No Restrictions Patient Problems: Bacteremia Patient Data-Allergies,Ht & Wt Patient Allergies: Coded Allergies: NKANo Known Allergies (Verified Allergy, Mild, 08/17/17) mushroom (Unverified Allergy, Unknown, 08/06/21) Height (Feet): 5 Height (Inches): 3.00 Weight (Pounds): 196 Weight (Ounces): 0.0 Home Health Need/Face to Face Date of Face to Face: Feb 14, 2023 Clinical Findings: Generalized weakness and fatigue, Muscle weakness I have seen Pt [id number]: Yes Discharged To: Home Diagnosis/Conditions: Debility Patient is Homebound due to: Nicolette fall risk due to instabilty, Muscle weakness Homebound Status Due to the above stated illness, injury or surgical procedure (medical condition or diagnosis) and associated clinical findings, the patient is homebound because of his/her inability to leave home except with aid of a supportive device and/or person AND leaving the home requires a considerable and taxing effort or is medically contraindicated. Pt req the following assistanc: [facility] Nursing Orders Home Health Services Order: Nursing Services, Transportation Museum Helper-Evaluate & Treat, Physical Therapy-Evaluate & Treat Home Health Infusion Therapy Line Start Date: Feb 11, 2023 Certify Stmt I certify that this patient is under my care and that I, a nurse practitioner or a physician; a medical services assistant working with me, had a face to face encounter that -temi ts the physician face to face encounter requirements with this patient as dated. CAROLINE PATRICK DO Feb 14, 2023 10:03
--- NOTE | 2023-02-14 10:03 | Discharge Summary ---
Discharge Summary Hospital Course Was the Problem List Reviewed?: Yes Problems/Dx: (1) Septic shock Status: Resolved (2) Atrial fibrillation with rapid ventricular response Status: Resolved Hospital Course Date of Admission: Feb 07, 2023 at 22:01 Admission Diagnosis : Family Physician/Provider: Lanette Vincent MD Date of Discharge: 02/14/23 Discharge Diagnosis: [ ] Hospital Course: CC: Weakness, AMS Course: Dorothy is a 62 year old female that presented to the ED on 02/07 due to AMS and weakness. It was noted that she was unable to get out of bed and was not eating/drinking. Additionally, it was noted that she was hypotensive and tachycardic. This pointed to signs of sepsis. Her blood culture grew pasturella multoxida which likely came from a noted dog bite. She was started on unasyn for treatment. It was also discovered that she has lobular consolidation consistent with PNA. Her unasyn covered this issue. Due to her hypotension, Dorothy was placed in the ICU where she received vasopressin and norepinephrine through 02/11. She showed improvement and was given a unit of blood due to low hgb. This intervention improved her presentation. Furthermore, cardiology has been consulted for her history of Afib. Her medical conditions have been monitored by numerous physicians to ensure proper care, with the eICU supporting the medical team. Dorothy continued to improvement and was transferred to the 4th floor MED/SURG unit. Dorothy is to discharge to home with her . Social workers are coordinating home health to assist. Wojciech biggest barrier is that she came from her home in rough condition due debility and the status of her home. She was found with feces and urine on her person, so in the future support care should help decrease the incidence of this occurrence. She should have a close follow-up with her PCP and follow her medications per discharge orders. Labs show that her sepsis has resolved and that she has improved. No other concerns. BEATRIZ PARRISH Sent in OAC for CVA PPx-late entry and will reach out to patient to be sure she fills it Labs and Pending Lab Test: Laboratory Tests 02/14/23 04:33: White Blood Count 6.6, Red Blood Count 3.30L, Hemoglobin 8.1L, Hematocrit 25L, Mean Corpuscular Volume 77L, Mean Corpuscular Hemoglobin 25, Mean Corpuscular Hemoglobin Concent 32, Red Cell Distribution Width 26.5H, Platelet Count 239, Mean Platelet Volume 9.0, Immature Granulocyte % (Auto) 1, Neutrophils (%) (A uto) 68, Lymphocytes (%) (Auto) 17, Monocytes (%) (Auto) 12, Eosinophils (%) (Auto) 2, Basophils (%) (Auto) 0, Neutrophils # (Auto) 4.5, Lymphocytes # (Auto) 1.1, Monocytes # (Auto) 0.8, Eosinophils # (Auto) 0.1, Basophils # (Auto) 0.0, Immature Granulocyte # (Auto) 0.1, Sodium Level 136, Potassium Level 3.4L, Chloride Level 105, Carbon Dioxide Level 26, Anion Gap 5, Blood Urea Nitrogen 6L , Creatinine 0.41L, Estimat Glomerular Filtration Rate 110, BUN/Creatinine Ratio 15, Glucose Level 89, Calcium Level 7.4L, Corrected Calcium 9.1, Phosphorus Level 2.7, Magnesium Level 1.5L, Total Bilirubin 0.5, Aspartate Amino Transf (AST/SGOT) 9, Alanine Aminotransferase (ALT/SGPT) 8, Alkaline Phosphatase 57, Total Protein 3.8L, Albumin 1.9L Microbiology 02/08/23 Urine Culture - Final, Complete NO GROWTH 02/07/23 MRSA Screen - Final, Complete MRSA not isolated 02/07/23 Blood Culture - Final, Complete Pasteurella multocida See Comments Home Meds Active Amoxicillin 500 Mg Tablet 500 Mg PO TID Pantoprazole Sodium 40 Mg Tablet.dr 40 Mg PO DAILY Reported Vitamin D2 (Ergocalciferol (Vitamin D2)) 1,250 Mcg (73499 Unit) Capsule 1,250 Mcg PO MON Methotrexate (Methotrexate Sodium) 2.5 Mg Tablet 17.5 Mg PO SUN HAS BEEN TAKING 7 (2.5MG) TABS, BUT SHE IS TO INCREASE TO 8 TABS DAILY Buprenorphine 20 Mcg/Hour Patch.tdwk 20 Mcg TD WED Folic Acid 1 Mg Tablet 1 Mg PO 1400 Paroxetine HCl 20 Mg Tablet 20 Mg PO DAILY Nadolol 40 Mg Tablet 40 Mg PO 1400 Assessment/Pt Instructions PCP 1 week with HH Discharge Planning: <30 minutes discharge planning Discharge Instructions Discharge Diet: No Restrictions Discharge Physical Examination Vital Signs Vital Signs Date Time Temp Pulse Resp B/P (MAP) Pulse Ox O2 Delivery O2 Flow Rate FiO2 02/14/23 07:27 36.2 62 16 135/77 (96) 93 Room Air 02/12/23 19:55 21 02/12/23 14:43 3.00 3.00 General Appearance: No Apparent Distress, WD/WN, Chronically ill Allergies: Coded Allergies: NKANo Known Allergies (Verified Allergy, Mild, 08/17/17) mushroom (Unverified Allergy, Unknown, 08/06/21) Discharge Summary Date of Admission Feb 07, 2023 at 22:01 Date of Discharge Discharge Date: Feb 14, 2023 Discharge Diagnosis Give blood IV abx Move to 4ht floor CAROLINE PATRICK DO Feb 14, 2023 10:03
--- NOTE | 2023-02-14 10:56 | Progress Note ---
BEATRIZ PARRISH 02/14/23 1056: Progress Note 02/14/2023: CC: Weakness, AMS Course: Dorothy is a 62 year old female that presented to the ED on 02/07 due to AMS and weakness. It was noted that she was unable to get out of bed and was not eating/drinking. Additionally, it was noted that she was hypotensive and tachycardic. This pointed to signs of sepsis. Her blood culture grew pasturella multoxida which likely came from a noted dog bite. She was started on unasyn for treatment. It was also discovered that she has lobular consolidation consistent with PNA. Her unasyn covered this issue. Due to her hypotension, Dorothy was placed in the ICU where she received vasopressin and norepinephrine through 02/11. She showed improvement and was given a unit of blood due to low hgb. This intervention improved her presentation. Furthermore, cardiology has been consulted for her history of Afib. Her medical conditions have been monitored by numerous physicians to ensure proper care, with the eICU supporting the medical team. Dorothy continued to improvement and was transferred to the 4th floor MED/SURG unit. Dorothy is to discharge to home with her . Social workers are coordinating home health to assist. Wojciech biggest barrier is that she came from her home in rough condition due debility and the status of her home. She was found with feces and urine on her person, so in the future support care should help decrease the incidence of this occurrence. She should have a close follow-up with her PCP and follow her medications per discharge orders. Labs show that her sepsis has resolved and that she has improved. No other concerns. SHASTA PATRICK DO 02/15/23 0429: Supervisory-Addendum Brief Verification & Attestation Participated in pt care: history, MDM, physical Personally performed: exam, history, MDM, supervision of care Care discussed with: Medical Student Procedures: n/a Results interpretation: Verified all documentation Verification and Attestation of Medical Student E/M Service A medical student performed and documented this service in my presence. I reviewed and verified all information documented by the medical student and made modifications to such information, when appropriate. I personally performed the physical exam and medical decision making. Shasta Patrick Feb 15, 2023,04:29 BEATRIZ PARRISH Feb 14, 2023 10:56 SHASTA PATRICK DO Feb 15, 2023 04:29
[2023-02-14 12:07] VITALS: BP 128/80
[2023-02-14] MEDS ORDERED: ENOXAPARIN 60 MG/0.6 ML SYRINGE SC SCH (17:00)
[2023-02-15] MEDS ORDERED: APIX5TAB PO (04:24)
== END 2023-02-14 14:53 | disposition home or self-care (01) | DRG 871 ==
LOC: EDUNIT# 16:21 → ER 16:22 → ICU 22:01 → 4TH 02-11 17:45
PROVIDERS: ADMIT Family Medicine; ATTEND Internal Medicine
PROC: 06HY33Z Insertion of Infusion Device into Lower Vein, Percutaneous Approach (ICD-10-PCS; principal; 2023-02-07)
DX: A41.50 Gram-negative sepsis, unspecified (principal); J18.9 Pneumonia, unspecified organism; R65.21 Severe sepsis with septic shock; J96.01 Acute respiratory failure with hypoxia; E46 Unspecified protein-calorie malnutrition; E87.20 Acidosis, unspecified; I10 Essential (primary) hypertension; E86.0 Dehydration; M06.9 Rheumatoid arthritis, unspecified; G89.29 Other chronic pain; Z20.822 Contact with and (suspected) exposure to COVID-19; D73.4 Cyst of spleen; D50.9 Iron deficiency anemia, unspecified; R53.81 Other malaise; I87.2 Venous insufficiency (chronic) (peripheral); I48.0 Paroxysmal atrial fibrillation; Z68.27 Body mass index [BMI] 27.0-27.9, adult
CPT/HCPCS: 36415; 36556; 36569; 51702; 70450; 71045; 74177; 76937; 80053; 81000; 82274; 82607; 82728; 82746; 82805; 82947; 83540; 83550; 83605; 83735; 84100; 84132; 84443; 84484; 85007; 85025; 85027; 85610; 85730; 86850; 86900; 86901; 86920; 87040; 87077; 87081; 87088; 87185; 87186; 87636; 93005; 93306; 96361; 96365; 96375

== ENCOUNTER 2023-02-23 17:42 | Inpatient (IN) | payer BC ==
[~2023-02-23] VITALS: Ht 157.4 cm; Wt 57.5 kg
[~2023-02-23 17:42] MED LIST changes: +AMOX500T2 PO; +APIX5TAB PO; +BUPR1PAT23 TD; +ERGO1250 PO; +FOLI1TAB33 PO; +METH2.5T PO; +PANT40TA52 PO
[2023-02-23] MEDS ORDERED: NS IV 500 ML 500 ML IV STA (18:55)
--- NOTE | 2023-02-23 19:01 | ED General ---
General Chief Complaint: General Problems/Pain Stated Complaint: HEMOGLOBIN LV Nursing Triage Note: SENTO OVER BY PSYCHIATRIC FOR HGB OF 6.7 FROM BLOOD TAKEN TODAY. PATIENT HAS BEEN FEELING NOT WELL AND INCREASED FLUID ON HER LEGS. Source of Information: Patient, Caregiver Exam Limitations: No Limitations History of Present Illness Date Seen by Provider: Feb 23, 2023 Time Seen by Provider: 18:40 Initial Comments This is a 62 yo female with pmh of hypertension, RA, new-onset AFIB, and recent admission for septic shock on 02/07 that required multiple days of vasopressors t o maintain BP and was discharged on 02/15 presents with generalized malaise, swelling in the feet b/l, and reported Hgb of 6.7.When pt arrived to ED on 02/07, she was covered in urine and feces. The production hand on 02/07 stated that the pt's house was dirty, disorganized, and not suitable for living in. At the time, family stated that the pt's primary cared for patient. Upon discharge on 02/15, a social worker health services was consulted about home health. Today, pt woke up this morning with nausea and vomited as reported by the daughter although pt does not remember vomiting. strongly advised pt to come to ER this morning, but pt refused because she had an appointment with her primary care physician later today. Pt was examined by PCP and found to have "low blood pressure" and and Hgb of 6.7. PCP advised pt to be seen in ED. Since discharge on 02/15, patient has been eating normally, but has had decreased fluid intake and urination. Pt's daughter states that on discharge, patient had "leg swelling", discontinued her "BP medication", and was started on a beta mazin and eliquis. Pt was advised to elevate legs and walk around to decrease leg swelling, but refuses to elevate legs due to pain and has been bedridden since discharge. Pt's daughter mentions that is still primary caregiver for pt. Pt denies fever, chest pain, SOA, cough, abdominal pain, diarrhea, constipation, hematochezia, hematemesis, melena, dysuria, hematuria, headache, nasal discharge. Daughter states that pt had colonoscopy in 2017 that revealed colon polyps and surgeon decided to not remove them. Hemoccult test is positive while in ER. Allergies and Home Medications Allergies Coded Allergies: NKANo Known Allergies (Verified Allergy, Mild, 02/23/23) mushroom (Unverified Allergy, Unknown, 02/23/23) Patient Home Medication List Amoxicillin (Amoxicillin) 500 Mg Tablet, 500 MG PO TID Prescribed by: CAROLINE PATRICK on 02/14/23 1001 Apixaban (Eliquis) 5 Mg Tablet, 5 MG PO BID Prescribed by: CAROLINE PATRICK on 02/15/23 0424 Buprenorphine (Buprenorphine) 20 Mcg/Hour Patch.tdwk, 20 MCG TD WED, (Reported) Entered as Reported by: REZA KRAFT on 02/08/23 1109 Ergocalciferol (Vitamin D2) (Vitamin D2) 1,250 Mcg (06690 Unit) Capsule, 1,250 MCG PO MON, (Reported) Entered as Reported by: REZA KRAFT on 02/08/23 1109 Folic Acid (Folic Acid) 1 Mg Tablet, 1 MG PO 1400, (Reported) Entered as Reported by: REZA KRAFT on 02/08/23 1109 Nadolol (Nadolol) 40 Mg Tablet, 40 MG PO 1400, (Reported) Entered as Reported by: KWASI SHAH on 08/15/17 0932 Pantoprazole Sodium (Pantoprazole Sodium) 40 Mg Tablet.dr, 40 MG PO DAILY Prescribed by: CAROLINE PATRCIK on 02/14/23 1001 Paroxetine HCl (Paroxetine HCl) 20 Mg Tablet, 20 MG PO DAILY, (Reported) Entered as Reported by: KWASI SHAH on 08/15/17 0932 Review of Systems Review of Systems Constitutional: see HPI EENTM: see HPI Respiratory: see HPI Cardiovascular: see HPI Gastrointestinal: see HPI Genitourinary: see HPI, decreased output, incontinence Musculoskeletal: see HPI Skin: see HPI Psychiatric/Neurological: See HPI Past Njtzito-Leuhra-Fjxjwu Hx Patient Social History Tobacco Use?: No Use of E-Cig and/or Vaping dev: No Substance use?: No Alcohol Use?: No Pt feels they are or have been: No Immunizations Up To Date Tetanus Booster (TDap): More than 5yrs Influenza Vaccine Up-to-Date: No; Not Current First/Initial COVID19 Vaccinat: JULY 2020 Second COVID19 Vaccination [place]: AUGUST 2020 Third COVID19 Vaccination Date: NO Seasonal Allergies Seasonal Allergies: Yes (mild) Past Medical History Surgery/Hospitalization HX: HTN, ARTHRITIS, LOW HGB Surgeries: Yes Ear Surgery, Gallbladder Respiratory: No Cardiac: Yes Hypertension Neurological: No Gastrointestinal: No Musculoskeletal: Yes Arthritis Endocrine: No Cancer: No Psychosocial: No Integumentary: No Blood Disorders: No Family Medical History Cancer, Hypertension, Other Conditions/Hx Physical Exam Vital Signs Vital Signs - First Documented 02/23/23 18:07 Temp 36.4 Pulse 60 Resp 16 B/P (MAP) 97/62 (74) Pulse Ox 100 Capillary Refill : Height, Weight, BMI Height: 5'3.00" Weight: 196lbs. 0.0oz. [id number]; 27.00 BMI Method: General Appearance: No Apparent Distress, WD/WN HEENT: PERRL/EOMI, Pharynx Normal Neck: Full Range of Motion, Non Tender, Supple Respiratory: Chest Non Tender, Lungs Clear, Normal Breath Sounds, No Accessory Muscle Use, No Respiratory Distress Cardiovascular: Regular Rate, Rhythm, No Gallop, No Murmur, Normal Peripheral Pulses (radialis and posterior tibialis pulses 2+ b/l) Gastrointestinal: Normal Bowel Sounds, No Organomegaly, No Pulsatile Mass, Non Tender, Soft Rectal: Normal Rectal Tone, Heme Positive Stool Extremity: Normal Capillary Refill, No Calf Tenderness, Pedal Edema (Grade 2 pitting edema of feet b/l up to ankles), Swelling (Edema of b/l LE from feet proximally to hips) Neurologic/Psychiatric: Alert, Oriented x3, No Motor/Sensory Deficits, Normal Mood/Affect, shot polisher II-XII Norm as Tested Skin: Warm/Dry, Ecchymosis (left posterior-medial thigh), Other (Hematoma present on right posterior-medial thigh. Stage 2 pressure ulcers on perianal region (1 on midline posterior rectal region, 1 on left buttock region, 1 on right buttock region) ) Lymphatic: No Adenopathy Progress/Results/Core Measures Suspected Sepsis SIRS Temperature: Pulse: 60 Respiratory Rate: 16 Laboratory Tests 02/23/23 18:30: White Blood Count 9.1 Blood Pressure 97 /62 Mean: 74 Laboratory Tests 02/23/23 18:30: Creatinine 0.59L, Platelet Count 546H Results/Orders Lab Results Laboratory Tests Test 02/23/23 18:30 02/23/23 19:50 Range/Units White Blood Count 9.1 4.3-11.0 10^3/uL Red Blood Count 2.67 L 3.80-5.11 10^6/uL Hemoglobin 6.7 *L 11.5-16.0 g/dL Hematocrit 22 L 35-52 % Mean Corpuscular Volume 81 80-99 fL Mean Corpuscular Hemoglobin 25 25-34 pg Mean Corpuscular Hemoglobin Concent 31 L 32-36 g/dL Red Cell Distribution Width 25.2 H 10.0-14.5 % Platelet Count 546 H 130-400 10^3/uL Mean Platelet Volume 9.0 9.0-12.2 fL Immature Granulocyte % (Auto) 0 % Neutrophils (%) (Auto) 85 H 42-75 % Lymphocytes (%) (Auto) 12 12-44 % Monocytes (%) (Auto) 1 0-12 % Eosinophils (%) (Auto) 1 0-10 % Basophils (%) (Auto) 0 0-10 % Neutrophils # (Auto) 7.7 1.8-7.8 10^3/uL Lymphocytes # (Auto) 1.1 1.0-4.0 10^3/uL Monocytes # (Auto) 0.1 0.0-1.0 10^3/uL Eosinophils # (Auto) 0.1 0.0-0.3 10^3/uL Basophils # (Auto) 0.0 0.0-0.1 10^3/uL Immature Granulocyte # (Auto) 0.0 0.0-0.1 10^3/uL Sodium Level 131 L 135-145 MMOL/L Potassium Level 2.6 L 3.6-5.0 MMOL/L Chloride Level 90 L 98-107 MMOL/L Carbon Dioxide Level 30 21-32 MMOL/L Anion Gap 11 5-14 MMOL/L Blood Urea Nitrogen 26 H 7-18 MG/DL Creatinine 0.59 L 0.60-1.30 MG/DL Estimat Glomerular Filtration Rate 101 BUN/Creatinine Ratio 44 Glucose Level 116 H 70-105 MG/DL Calcium Level 8.7 8.5-10.1 MG/DL Smear Scan YES Vital Signs/I&O 02/23/23 18:07 Temp 36.4 Pulse 60 Resp 16 B/P (MAP) 97/62 (74) Pulse Ox 100 Capillary Refill : Blood Pressure Mean: 74 Departure Departure-Patient Inst. Referrals: ISABELL LOVE MD (PCP/Family) Primary Care Physician FLACO BENEDICT Feb 23, 2023 19:01
[2023-02-23 19:03] LABS: BASOPHILS % (AUTO) 0 % (0-10); EOSINOPHILS # (AUTO) 0.1 10^3/uL (0.0-0.3); EOSINOPHILS % (AUTO) 1 % (0-10); HEMATOCRIT 22 % (35-52); LYMPHOCYTES # (AUTO) 1.1 10^3/uL (1.0-4.0); LYMPHOCYTES % (AUTO) 12 % (12-44); MEAN CORPUSCULAR HEMOGLOBIN 25 pg (25-34); MEAN CORPUSCULAR HGB CONC 31 g/dL (32-36); MEAN CORPUSCULAR VOLUME 81 fL (80-99); MONOCYTES # (AUTO) 0.1 10^3/uL (0.0-1.0); MONOCYTES % (AUTO) 1 % (0-12); NEUTROPHILS # (AUTO) 7.7 10^3/uL (1.8-7.8); NEUTROPHILS % (AUTO) 85 % (42-75); PLATELET COUNT 546 10^3/uL (130-400); WHITE BLOOD COUNT 9.1 10^3/uL (4.3-11.0)
[2023-02-23 19:08] LABS: HEMOGLOBIN 6.7 g/dL (11.5-16.0)
[2023-02-23 19:09] LABS: POTASSIUM 2.6 MMOL/L (3.6-5.0); SMEAR SCAN COMMENT YES
[2023-02-23 19:10] LABS: CALCIUM 8.7 MG/DL (8.5-10.1)
[2023-02-23 19:15] LABS: CREATININE SERUM 0.59 MG/DL (0.60-1.30)
[2023-02-23 20:05] LABS: INR 1.6 (0.8-1.4); PROTHROMBIN TIME PATIENT 19.8 SEC (12.2-14.7)
[2023-02-23] MEDS ORDERED: POTASSIUM CHLORIDE 20 MEQ TABLET PO ONE (20:15)
[2023-02-23 20:16] LABS: CLARITY,URINE CLOUDY; COLOR,URINE YELLOW
[2023-02-23 20:17] LABS: BACTERIA,URINE LARGE /HPF; GLUCOSE, URINE (UA) TRACE (NEGATIVE); KETONES,URINE NEGATIVE (NEGATIVE); LEUKOCYTE ESTERASE ,URINE TRACE (NEGATIVE); NITRITE,URINE NEGATIVE (NEGATIVE); PH,URINE 5.5 (5-9); PROTEIN,URINE 2+ (NEGATIVE); SQUAMOUS EPITHELIAL CELL,UR TNTC /HPF
[2023-02-23 20:24] LABS: BILIRUBIN,URINE 1+ (NEGATIVE)
[2023-02-23 22:03] VITALS: BP 133/50
[2023-02-23] MEDS ORDERED: NS IV 500 ML 500 ML ONE (22:47)
[2023-02-23] MEDS: NS IV 500 ML 500 ML IV PRN (23:04)
[2023-02-23 23:11] VITALS: BP 110/52
[2023-02-24] VITALS (7 sets, daily range): BP systolic 100–157; BP diastolic 52–69
[2023-02-24] MEDS ORDERED: RT-Ipratropium/Albuterol NEB 3 ML VIAL INH PRN (01:15)
[2023-02-24] MEDS ORDERED: D5 1/2 NS 1,000 ML IV 1,000 ML IV SCH (01:45)
--- NOTE | 2023-02-24 06:27 | History & Physical ---
GLENN PASCUAL MD, RESIDENT 02/24/23 0627: HPI History of Present Illness: Patient presents to the ED due to anemia and LE swelling. She was recently admitted to the hospital on 02/07 due to AMS and weakness secondary to sepsis. Blood culture grew pasturella multoxida from a dog bite. She was also noted to have lobular consolidation consistent with pneumonia. Patient was treated with unasyn for both infections. Patient was noted to be hypotensive during that admission requiring ICU placement for pressor need. She was also noted to have low hgb requiring a unit of blood. Cardiology was consulted for atrial fibrillation history. After discharge, patient was noted to have worsening BLE swelling. Patient had woken up yesterday morning with nausea and vomiting. She was examined by her PCP who noted that patient had low blood pressure with a hemoglobin of 6.7. Patient has also been bedridden since discharge. In the ED, patient was noted to have low pressure and anemia of 6.7, was ultimately admitted for further management. Hemoccult stool test was positive. Last colonoscopy was 2016 where patient was noted to have a few polyps but was otherwise normal per family's report. Source: patient, family Exam Limitations: no limitations Date seen by provider: Feb 24, 2023 Time Seen by Provider: 07:47 Attending Physician Isabell Love MD PCP Admitting Physician: Isabell Love MD Attending Physician: Isabell Love MD Consult Date of Admission Feb 23, 2023 at 21:28 Home Medications Home Medications Reviewed patient Home Medication Reconciliation performed by pharmacy medication reconciliations patient services technician and/or nursing. Patients Allergies have been reviewed. Allergies Coded Allergies: NKANo Known Allergies (Verified Allergy, Mild, 02/23/23) mushroom (Unverified Allergy, Unknown, 02/23/23) RYP-Yolout-Jaztpy Hx Patient Social History 2nd Hand Smoke Exposure: No Recent Hopitalizations: No Alcohol Use?: No Immunizations Up To Date Tetanus Booster (TDap): More than 5yrs Influenza Vaccine Up-to-Date: No; Not Current First/Initial COVID19 Vaccinat: JULY 2020 Second COVID19 Vaccination [place]: AUGUST 2020 Third COVID19 Vaccination Date: NO Past Medical History PMHx: HTN Rheumatoid arthritis Chronic pain SurgHx: Gall bladder resection Tonsillectomy Ear drum reconstruction cholecystectomy Family Medical History Significant Family History: Cancer, Hypertension, Other Conditions/Hx Review of Systems ([facility]) Constitutional: chills, fever, weakness EENTM: no symptoms reported Respiratory: no symptoms reported Cardiovascular: No chest pain; edema; No palpitations Gastrointestinal: No abdominal pain, No constipation, No diarrhea; nausea; No vomiting Genitourinary: No dysuria Musculoskeletal: no symptoms reported Psychiatric/Neurological: No Symptoms Reported Reviewed Test Results Reviewed Test Results Lab Laboratory Tests 02/23/23 18:30: White Blood Count 9.1, Red Blood Count 2.67L, Hemoglobin 6.7*L, Hematocrit 22L, Mean Corpuscular Volume 81, Mean Corpuscular Hemoglobin 25, Mean Corpuscular Hemoglobin Concent 31L, Red Cell Distribution Width 25.2H, Platelet Count 546H, Mean Platelet Volume 9.0, Immature Granulocyte % (Auto) 0, Neutrophils (%) (Auto) 85H, Lymphocytes (%) (Auto) 12, Monocytes (%) (Auto) 1, Eosinophils (%) (Auto) 1, Basophils (%) (Auto) 0, Neutrophils # (Auto) 7.7, Lymphocytes # (Auto) 1.1, Monocytes # (Auto) 0.1, Eosinophils # (Auto) 0.1, Basophils # (Auto) 0.0, Immature Granulocyte # (Auto) 0.0, Prothrombin Time 19.8H, INR Comment 1.6H, Activated Partial Thromboplast Time 40H, Sodium Level 131L, Potassium Level 2.6L , Chloride Level 90L, Carbon Dioxide Level 30, Anion Gap 11, Blood Urea Nitrogen 26H, Creatinine 0.59L, Estimat Glomerular Filtration Rate 101, BUN/Creatinine Ratio 44, Glucose Level 116H, Calcium Level 8.7, Smear Scan YES 02/23/23 19:50: Urine Color YELLOW, Urine Clarity CLOUDY, Urine pH 5.5, Urine Specific [place] >=1.030, Urine Protein 2+H, Urine Glucose (UA) TRACEH, Urine Ketones NEGATIVE, Urine Nitrite NEGATIVE, Urine Bilirubin 1+H, Urine Urobilinogen 1.0, Urine Leukocyte Esterase TRACEH, Urine RBC (Auto) 1+H, Urine RBC 2-5H, Urine WBC 5-10H , Urine Squamous Epithelial Cells TNTCH, Urine Crystals NONE, Urine Bacteria LARGEH, Urine Casts NONE, Urine Mucus SMALLH, Urine Other , Urine Culture Indicated YES 02/24/23 08:20: White Blood Count 5.0, Red Blood Count 3.04L, Hemoglobin 7.9L, Hematocrit 24L, Mean Corpuscular Volume 78L, Mean Corpuscular Hemoglobin 26, Mean Corpuscular Hemoglobin Concent 33, Red Cell Distribution Width 21.8H, Platelet Count 383, Mean Platelet Volume 8.8L, Immature Granulocyte % (Auto) 0, Neutrophils (%) (Auto) 69, Lymphocytes (%) (Auto) 24, Monocytes (%) (Auto) 2, Eosinophils (%) (Auto) 3, Basophils (%) (Auto) 0, Neutrophils # (Auto) 3.5, Lymphocytes # (Auto) 1.2, Monocytes # (Auto) 0.1, Eosinophils # (Auto) 0.2, Basophils # (Auto) 0.0, Immature Granulocyte # (Auto) 0.0, Sodium Level 131L, Potassium Level 2.8L, Chloride Level 93L, Carbon Dioxide Level 31, Anion Gap 7, Blood Urea Nitrogen 18, Creatinine 0.48L, Estimat Glomerular Filtration Rate 106, BUN/Creatinine Ratio 38, Glucose Level 113H, Calcium Level 8.1L Microbiology 02/23/23 Urine Culture - Preliminary, Resulted Escherichia coli Physical Exam-(CHC) Physical Exam Vital Signs VS - Last 72 Hours, by Label 02/23/23 02/23/23 02/23/23 02/23/23 18:07 22:03 22:05 23:11 Temp 36.4 36.3 36.1 Pulse 60 71 66 Resp 16 18 18 B/P (MAP) 97/62 (74) 133/50 (77) 110/52 Pulse Ox 100 100 99 95 O2 Delivery Room Air Room Air Room Air 02/24/23 02/24/23 02/24/23 02/24/23 00:00 01:07 01:40 03:19 Temp 36.0 36.1 36.1 Pulse 70 66 60 77 Resp 18 18 B/P (MAP) 111/69 (83) 100/56 (71) Pulse Ox 99 96 98 O2 Delivery Room Air Room Air FiO2 21 02/24/23 02/24/23 02/24/23 02/24/23 07:06 08:27 09:34 10:09 Temp 35.7 Pulse 65 62 Resp 15 B/P (MAP) 121/58 (79) Pulse Ox 100 97 O2 Delivery Room Air Room Air Room Air O2 Flow Rate 0.00 02/24/23 02/24/23 11:45 12:10 Temp 36.0 Pulse 65 73 Resp 16 B/P (MAP) 123/57 (79) Pulse Ox 99 O2 Delivery Room Air Capillary Refill : General Appearance: WD/WN, no apparent distress, thin HEENT: PERRL/EOMI Neck: full range of motion Respiratory: chest non-tender, lungs clear, normal breath sounds, no respiratory distress, no accessory muscle use Cardiovascular: regular rate, rhythm, other (bilateral lower extremity edema up to thighs) Gastrointestinal: normal bowel sounds, non tender Neurologic/Psychiatric: alert, oriented x 3, motor weakness Skin: normal color, other (bruising and peeling skin noted on inside of thighs, noting superficial decubitus ulcer with some yellow drainage) Assessment/Plan Assessment/Plan Admission Status: Inpatient Order (span 2 midnights) Reason for Inpatient Admission: Anemia, hypokalemia (1) Anemia Status: Acute Assessment & Plan: Patient noted to have positive hemoccult stool testing in the ED. Hemoglobin 6.7 improved to 7.9 after 1 unit PRBC. Per last ho spitalization, patient appears to be chronically anemic with baseline around 7- 8. Iron panel from last admission was normal. Plan: -Consider colonoscopy in the outpatient -Monitor daily CBCs, replete if Hgb <7 Qualifiers: Qualified Codes: D64.9 - Anemia, unspecified (2) Atrial fibrillation Status: Chronic Assessment & Plan: History of atrial fibrillation on eliquis. Rate and rhythm controlled for now. Plan: -Consulting cardiology due to atrial fibrillation history and anticoagulation in the setting of GI bleed (3) Hypokalemia Status: Acute Assessment & Plan: Patient noted to have hypokalemia to 2.6, improving to 2.8. Plan: -Repletion with IV potassium -Monitor daily CMP (4) Rheumatoid arthritis Status: Chronic Assessment & Plan: On methotrexate. Will hold for now due to clinical condition. (5) DVT prophylaxis Status: Acute Assessment & Plan: Continue eliquis pending cardiology consult. (6) Decubitus skin ulcer Status: Acute Assessment & Plan: Likely secondary to debility. Plan: -Will have wound team evaluate, appreciate recs (7) Bilateral lower extremity edema Status: Acute Assessment & Plan: Bilateral LE edema up to thighs. Appears echo was done last admission but no report in chart. Plan: -Follow up cards recs -Discontinued fluids (8) Pain Status: Chronic Assessment & Plan: Patient noted to have buprenoprhine patch replaced weekly. Ok to use own med. (9) Debility Status: Chronic Assessment & Plan: Will likely need skilled placement post discharge. Plan: -f/u PT/OT ISABELL LOVE MD 02/24/23 1601: Home Medications Allergies Coded Allergies: NKANo Known Allergies (Verified Allergy, Mild, 02/23/23) mushroom (Unverified Allergy, Unknown, 02/23/23) Supervisory-Addendum Brief Supervisory Addendum I personally performed the shah portions of the visit, discussed case with resident and concur with resident documentation of history, physical exam, assessment and treatment plan unless otherwise noted. Discussed with patient and that she is going to need SNF facilility after this admission 2/2 to severe decompensation. They were both in agreement and SW was notified to start working on placement once medically stable. Additional Dx Ecoli UTI: starting GLENN PAGE MD, RESIDENT Feb 24, 2023 06:27 ISABELL LOVE MD Feb 24, 2023 16:01
[2023-02-24] MEDS ORDERED: FLU QUADRIvalent (6 months+) 60 mcg/0.5 ml 2023-2024 (FLUARIX) IM ONE (07:00)
[2023-02-24 08:30] LABS: BASOPHILS % (AUTO) 0 % (0-10); EOSINOPHILS # (AUTO) 0.2 10^3/uL (0.0-0.3); EOSINOPHILS % (AUTO) 3 % (0-10); HEMATOCRIT 24 % (35-52); HEMOGLOBIN 7.9 g/dL (11.5-16.0); LYMPHOCYTES # (AUTO) 1.2 10^3/uL (1.0-4.0); LYMPHOCYTES % (AUTO) 24 % (12-44); MEAN CORPUSCULAR HEMOGLOBIN 26 pg (25-34); MEAN CORPUSCULAR HGB CONC 33 g/dL (32-36); MEAN CORPUSCULAR VOLUME 78 fL (80-99); MEAN PLATELET VOLUME 8.8 fL (9.0-12.2); MONOCYTES # (AUTO) 0.1 10^3/uL (0.0-1.0); MONOCYTES % (AUTO) 2 % (0-12); NEUTROPHILS # (AUTO) 3.5 10^3/uL (1.8-7.8); NEUTROPHILS % (AUTO) 69 % (42-75); PLATELET COUNT 383 10^3/uL (130-400)
[2023-02-24] MEDS ORDERED: PANT40TA52 PO (08:35)
[2023-02-24] MEDS ORDERED: HYDR25TA4 PO (08:35)
[2023-02-24] MEDS ORDERED: AMOX500C2 PO (08:35)
[2023-02-24] MEDS ORDERED: METH2.5T PO (08:35)
[2023-02-24] MEDS ORDERED: APIX5TAB PO (08:35)
[2023-02-24 08:40] LABS: POTASSIUM 2.8 MMOL/L (3.6-5.0)
[2023-02-24 08:42] LABS: CALCIUM 8.1 MG/DL (8.5-10.1)
[2023-02-24 08:46] LABS: CREATININE SERUM 0.48 MG/DL (0.60-1.30)
[2023-02-24] MEDS: PANTOPRAZOLE INJECTION 40 MG VIAL IV SCH (08:54)
[2023-02-24] MEDS: POTASSIUM CHLORIDE 20 MEQ TABLET PO SCH ×2 (08:54→17:54)
[2023-02-24] MEDS ORDERED: APIXABAN 5 MG TABLET PO SCH (09:00)
[2023-02-24] MEDS ORDERED: PATIENT MAY USE OWN MED,SINGLE MED PO SCH (09:15)
[2023-02-24] MEDS: POTASSIUM CL 10MEQ/50ML IVPB 50 ML IV SCH ×4 (11:59→15:40)
[2023-02-24] MEDS ORDERED: HYPOCHLOROUS ACID/NaCl WOUND SOLN 250 ML IR SCH (12:00)
--- NOTE | 2023-02-24 12:16 | Wound Care Assessment ---
Wound Care Assessment Date Seen by Provider: Feb 24, 2023 Time Seen by Provider: 11:20 Chief Complaint Bilateral decubitus ischial and sacral ulcers HPI Our patient is a pleasant 62 yo F with a previous medical history of HTN, RA, and chronic pain that presents with bilateral decubitus ulcers on her buttocks as well as an ulcer on the surface of her sacrum. She was recently admitted to the hospital on 02/07 for septic shock requiring vasopressors, as well as a culture positive for Pasteurella Multocida following a dog bite. She was disch arged on 02/15 and has since experienced increased swelling in her legs as well as worsening pain as a result. For the past few weeks, she has been mostly bed- ridden and notes that her ulcers arose around one week ago. She was instructed to elevate her legs but has not been faithful in doing so due to the pain she experiences with her RA. She denies a history of diabetes and was recently placed on eliquis for new-onset atrial fibrillation and has since noticed increased bruising on her posterior thighs. She denies nausea or vomiting at this point. Her hemoglobin on arrival was 6.7 and she received a unit of blood for this, bringing her hemoglobin to 7.9. She denies catarina blood in her stool or dark tarry stools. Past Medical History: Admits Heart Disease; Denies Diabetes Type II Smoking Status: Unknown if Ever Smoked (Not a current smoker) Recreational Drug Use: No Alcohol Use: Denies Use Review of Systems General: Fatigue Cardiovascular: Edema Gastrointestinal: No: Nausea, Vomiting, Melena, Hematochezia Musculoskeletal: back pain (At the site of her decubitus ulcers), leg pain (Posterior thighs) Neurological: Weakness; No: Confusion Exam Vital Signs Date Time Temp Pulse Resp B/P (MAP) Pulse Ox O2 Delivery O2 Flow Rate FiO2 02/24/23 11:45 36.0 65 16 123/57 (79) 99 Room Air 02/24/23 10:09 0.00 02/24/23 01:07 21 Capillary Refill : General Appearance: no apparent distress HEENT: PERRL/EOMI; No scleral icterus (R), No scleral icterus (L); other (Very hard of hearing) Cardiovascular: regular rate, rhythm, no gallop, no JVD, no murmur Respiratory: chest non-tender, lungs clear, normal breath sounds, no respiratory distress, no accessory muscle use Back: other (Ulcers noted on sacrum and bilateral ischial surfaces) Extremities: No calf tenderness; pedal edema, swelling (Edema present from the feet to the upper thighs) Neurologic/Psychiatric: alert, normal mood/affect, oriented x 3, sensory deficit ([id number]) Skin: ecchymosis (Significant, on bilateral posterior thighs) Skin Problem Location: torso (Sacrum), lower extremities (Bilateral ischial surfaces) Multiple shallow wounds noted on bilateral ischial surfaces as well as on the sacrum with a large area of irritation and mild erosion connecting the separate lesions. Primary etiology is pressure, secondary etiology is MASD. The sacral wound site measures 5 x 2.5 x 0.1 cm. The left ischial wound measures 6 x 4.5 x 0.1 cm. The right ischial wound measures 1.9 x 2.4 x 0.1 cm and is only partial thickness in character. There is no undermining or tunneling noted. Exudate is large and serosanguineous, no odor is noted. Wound margins are flat. Granulation is small and pink. Necrotic is medium and slough. Epithelialization is small on the ischial wounds. Results Laboratory Tests 02/23/23 18:30: White Blood Count 9.1, Red Blood Count 2.67L, Hemoglobin 6.7*L, Hematocrit 22L, Mean Corpuscular Volume 81, Mean Corpuscular Hemoglobin 25, Mean Corpuscular Hemoglobin Concent 31L, Red Cell Distribution Width 25.2H, Platelet Count 546H, Mean Platelet Volume 9.0, Immature Granulocyte % (Auto) 0, Neutrophils (%) (Auto) 85H, Lymphocytes (%) (Auto) 12, Monocytes (%) (Auto) 1, Eosinophils (%) (Auto) 1, Basophils (%) (Auto) 0, Neutrophils # (Auto) 7.7, Lymphocytes # (Auto) 1.1, Monocytes # (Auto) 0.1, Eosinophils # (Auto) 0.1, Basophils # (Auto) 0.0, Immature Granulocyte # (Auto) 0.0, Prothrombin Time 19.8H, INR Comment 1.6H, Activated Partial Thromboplast Time 40H, Sodium Level 131L, Potassium Level 2.6L , Chloride Level 90L, Carbon Dioxide Level 30, Anion Gap 11, Blood Urea Nitrogen 26H, Creatinine 0.59L, Estimat Glomerular Filtration Rate 101, BUN/Creatinine Ratio 44, Glucose Level 116H, Calcium Level 8.7, Smear Scan YES 02/23/23 19:50: Urine Color YELLOW, Urine Clarity CLOUDY, Urine pH 5.5, Urine Specific [place] >=1.030, Urine Protein 2+H, Urine Glucose (UA) TRACEH, Urine Ketones NEGATIVE, Urine Nitrite NEGATIVE, Urine Bilirubin 1+H, Urine Urobilinogen 1.0, Urine Leukocyte Esterase TRACEH, Urine RBC (Auto) 1+H, Urine RBC 2-5H, Urine WBC 5-10H , Urine Squamous Epithelial Cells TNTCH, Urine Crystals NONE, Urine Bacteria LARGEH, Urine Casts NONE, Urine Mucus SMALLH, Urine Other , Urine Culture Indicated YES 02/24/23 08:20: White Blood Count 5.0, Red Blood Count 3.04L, Hemoglobin 7.9L, Hematocrit 24L, Mean Corpuscular Volume 78L, Mean Corpuscular Hemoglobin 26, Mean Corpuscular Hemoglobin Concent 33, Red Cell Distribution Width 21.8H, Platelet Count 383, Mean Platelet Volume 8.8L, Immature Granulocyte % (Auto) 0, Neutrophils (%) (A uto) 69, Lymphocytes (%) (Auto) 24, Monocytes (%) (Auto) 2, Eosinophils (%) (Auto) 3, Basophils (%) (Auto) 0, Neutrophils # (Auto) 3.5, Lymphocytes # (Auto) 1.2, Monocytes # (Auto) 0.1, Eosinophils # (Auto) 0.2, Basophils # (Auto) 0.0, Immature Granulocyte # (Auto) 0.0, Sodium Level 131L, Potassium Level 2.8L, Chloride Level 93L, Carbon Dioxide Level 31, Anion Gap 7, Blood Urea Nitrogen 18, Creatinine 0.48L, Estimat Glomerular Filtration Rate 106, BUN/Creatinine Ratio 38, Glucose Level 113H, Calcium Level 8.1L, Magnesium Level 1.6 Microbiology 02/23/23 Urine Culture - Preliminary, Resulted Escherichia coli Microbiology 02/23/23 Urine Culture - Preliminary, Resulted Escherichia coli Assessment/Plan/Dx Bilateral ischial decubitus ulcers and sacral decubitus ulcer -Ulcers have been present for around 1 week and are pressure-related, secondary etiology is MASD. -Apply silver alginate wound dressings with border foam -Apply miconazole in the bernard-wound -Barrier cream for other areas of erosion present -Placement in acute inpatient rehab or a short stay in an acute rehab facility may be helpful on discharge due to patient debility and 's difficulty in providing complete care Supervisory-Addendum Brief Verification & Attestation Participated in pt care: history, MDM, physical Personally performed: exam, history, MDM, supervision of care Care discussed with: Medical Student Procedures: n/a Results interpretation: Verified all documentation MARIA DEL CARMEN Argueta Feb 24, 2023 12:16 ALONDRA MCCALLUM MD Feb 24, 2023 12:47
--- NOTE | 2023-02-24 12:35 | Consultation-Cardiology ---
HPI-Cardiology Cardiology Consultation Date of Consultation 02/24/23 Date of Admission Time Seen by Provider: 12:31 Indication: Anemia HPI 62-year-old lady with a history of paroxysmal atrial fibrillation, hypertension and rheumatoid arthritis. Patient has bilateral decubitus ulcers on the buttocks. Has been having worsening pedal edema and generalized weakness, seen by her primary care physician and noted to have severe anemia. Patient has been maintained on Eliquis due to atrial fibrillation. She denied any chest pain, no palpitation. No syncope Home Medications & Allergies Allergies: Coded Allergies: NKANo Known Allergies (Verified Allergy, Mild, 02/23/23) mushroom (Unverified Allergy, Unknown, 02/23/23) Home Medication List Reviewed: Yes PYU-[id number]-Rhbqjf Hx Patient Social History Employed/Student: retired 2[employer] Smoke Exposure: No Recent Hopitalizations: No Alcohol Use?: No Immunizations Up To Date Tetanus Booster (TDap): More than 5yrs Date of Influenza Vaccine: Feb 09, 2021 Past Medical History Discussed below Family Medical History Significant Family History: Cancer, Hypertension, Other Conditions/Hx Review of Systems-General Review of Systems Constitutional: chills, fever, weakness EENTM: no symptoms reported Respiratory: no symptoms reported Cardiovascular: see HPI; No chest pain; edema; No palpitations Gastrointestinal: No abdominal pain, No constipation, No diarrhea; nausea; No vomiting Genitourinary: No dysuria Musculoskeletal: no symptoms reported Skin: see HPI Psychiatric/Neurological: No Symptoms Reported Reviewed Test Results Reviewed Test Results Lab Laboratory Tests Test 02/23/23 18:30 02/23/23 19:50 02/24/23 08:20 Range/Units White Blood Count 9.1 5.0 4.3-11.0 10^3/uL Red Blood Count 2.67 L 3.04 L 3.80-5.11 10^6/uL Hemoglobin 6.7 *L 7.9 L 11.5-16.0 g/dL Hematocrit 22 L 24 L 35-52 % Mean Corpuscular Volume 81 78 L 80-99 fL Mean Corpuscular Hemoglobin 25 26 25-34 pg Mean Corpuscular Hemoglobin Concent 31 L 33 32-36 g/dL Red Cell Distribution Width 25.2 H 21.8 H 10.0-14.5 % Platelet Count 546 H 383 130-400 10^3/uL Mean Platelet Volume 9.0 8.8 L 9.0-12.2 fL Immature Granulocyte % (Auto) 0 0 % Neutrophils (%) (Auto) 85 H 69 42-75 % Lymphocytes (%) (Auto) 12 24 12-44 % Monocytes (%) (Auto) 1 2 0-12 % Eosinophils (%) (Auto) 1 3 0-10 % Basophils (%) (Auto) 0 0 0-10 % Neutrophils # (Auto) 7.7 3.5 1.8-7.8 10^3/uL Lymphocytes # (Auto) 1.1 1.2 1.0-4.0 10^3/uL Monocytes # (Auto) 0.1 0.1 0.0-1.0 10^3/uL Eosinophils # (Auto) 0.1 0.2 0.0-0.3 10^3/uL Basophils # (Auto) 0.0 0.0 0.0-0.1 10^3/uL Immature Granulocyte # (Auto) 0.0 0.0 0.0-0.1 10^3/uL Prothrombin Time 19.8 H 12.2-14.7 SEC INR Comment 1.6 H 0.8-1.4 Activated Partial Thromboplast Time 40 H 24-35 SEC Sodium Level 131 L 131 L 135-145 MMOL/L Potassium Level 2.6 L 2.8 L 3.6-5.0 MMOL/L Chloride Level 90 L 93 L 98-107 MMOL/L Carbon Dioxide Level 30 31 21-32 MMOL/L Anion Gap 11 7 5-14 MMOL/L Blood Urea Nitrogen 26 H 18 7-18 MG/DL Creatinine 0.59 L 0.48 L 0.60-1.30 MG/DL Estimat Glomerular Filtration Rate 101 106 BUN/Creatinine Ratio 44 38 Glucose Level 116 H 113 H 70-105 MG/DL Calcium Level 8.7 8.1 L 8.5-10.1 MG/DL Smear Scan YES Urine Color YELLOW Urine Clarity CLOUDY Urine pH 5.5 5-9 Urine Specific [place] >=1.030 1.016-1.022 Urine Protein 2+ H NEGATIVE Urine Glucose (UA) TRACE H NEGATIVE Urine Ketones NEGATIVE NEGATIVE Urine Nitrite NEGATIVE NEGATIVE Urine Bilirubin 1+ H NEGATIVE Urine Urobilinogen 1.0 < = 1.0 MG/DL Urine Leukocyte Esterase TRACE H NEGATIVE Urine RBC (Auto) 1+ H NEGATIVE Urine RBC 2-5 H /HPF Urine WBC 5-10 H /HPF Urine Squamous Epithelial Cells TNTC H /HPF Urine Crystals NONE /LPF Urine Bacteria LARGE H /HPF Urine Casts NONE /LPF Urine Mucus SMALL H /LPF Urine Other /HPF Urine Culture Indicated YES Magnesium Level 1.6 1.6-2.4 MG/DL Physical Exam Physical Exam Vital Signs Vital Signs - First Documented 02/23/23 02/23/23 02/24/23 02/24/23 18:07 22:03 01:07 10:09 Temp 36.4 Pulse 60 Resp 16 B/P (MAP) 97/62 (74) Pulse Ox 100 O2 Delivery Room Air O2 Flow Rate 0.00 FiO2 21 Capillary Refill : Height, Weight, BMI Height: 5'3.00" Weight: 196lbs. 0.0oz. 88.792002zx; 23.20 BMI Method: General Appearance: No Apparent Distress, WD/WN HEENT: PERRL/EOMI, Pharynx Normal Neck: Full Range of Motion, Non Tender, Supple Respiratory: Chest Non Tender, Lungs Clear, Normal Breath Sounds, No Accessory Muscle Use, No Respiratory Distress Cardiovascular: Regular Rate, Rhythm, No Gallop, No Murmur, Normal Peripheral Pulses (radialis and posterior tibialis pulses 2+ b/l) Gastrointestinal: Normal Bowel Sounds, No Organomegaly, No Pulsatile Mass, Non Tender, Soft Rectal: Normal Rectal Tone, Heme Positive Stool Extremity: Normal Capillary Refill, No Calf Tenderness, Pedal Edema (Grade 2 pitting edema of feet b/l up to ankles), Swelling (Edema of b/l LE from feet proximally to hips) Neurologic/Psychiatric: Alert, Oriented x3, No Motor/Sensory Deficits, Normal Mood/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 Stage 2 pressure ulcers on perianal region (1 on midline posterior rectal region, 1 on left buttock region, 1 on right buttock region) ) Lymphatic: No Adenopathy A/P-Cardiology Admission Diagnosis Anemia GI bleed Paroxysmal atrial fibrillation Debility Assessment/Plan GI bleed, severe anemia Has been on Eliquis which will be stopped Defer management to primary care team Paroxysmal atrial fibrillation, had transient episode of atrial fibrillation Currently in sinus rhythm. Continue to monitor Peripheral edema, worsening recently Probably due to Hypoalbuminemia 2D echo was done earlier in January 2023 with normal LV size, ejection fraction 50 to 55%, PA pressure 35 mmHg moderate mitral regurgitation and dilated left atrium Hypokalemia, replace and monitor electrolytes Labile blood pressure, hypertension, monitor blood pressure Status post recent hospitalization for Gram negative sepsis with lactic acidosis Generalized weakness, debility Rheumatoid arthritis maintained on methotrexate OTILIO ESQUIVEL MD Feb 24, 2023 12:35
[2023-02-24] MEDS: NS IV 500 ML 500 ML IV PRN (13:58)
--- NOTE | 2023-02-24 14:00 | Physical Therapy Evaluation ---
PT Evaluation-General Medical Diagnosis Admission Date Feb 23, 2023 at 21:28 Medical Diagnosis: anemia/hypokalemia/GI bleed Onset Date: Feb 23, 2023 Therapy Diagnosis Therapy Diagnosis: generalized weakness/impaired mobility Height/Weight Height (Feet): 5 Height (Inches): 3.00 Weight (Pounds): 196 Weight (Ounces): 0.0 Precautions Precautions/Isolations: Standard Precautions Referral Physician: Carlton Reason for Referral: Evaluation/Treatment Medical History Pertinent Medical History: Atrial Fib, HTN, Rheumatoid Arthritis Current History ER secondary to decreased Hgb Reviewed History: Yes Social History Home: Single Level Current Living Status: Spouse Prior Prior Level of Function SCALE: Activities may be completed with or without assistive devices. 0-Rwglyzqjzj-eptacyt completes the activity by him/herself with no assistance from a helper. 5-Set-up or Clean-up Assistance-helper sets up or cleans up; patient completes activity. [place] assists only prior to or following the activity. 4-Supervision or Touching Assistance-helper provides verbal cues and/or touching/steadying and/or contact guard assistance as patient completes activity. Assistance may be provided throughout the activity or intermittently. 3-Partial/Moderate Assistance-helper does LESS THAN HALF the effort. [place] lifts, holds or supports trunk or limbs, but provides less than half the effort. 2-Substantial/Maximal Assistance-helper does MORE THAN HALF the effort. [place] lifts or holds trunk or limbs and provides more than half the effort. 1-Nzzwbadbg-koxabc does ALL the effort. Patient does none of the effort to complete the activity. Or, the assistance of 2 or more helpers is required for the patient to complete the activity. If activity was not attempted, code reason: 7-Patient Refused. 9-Not Applicable-not attempted and the patient did not perform the activity before the current illness, exacerbation or injury. 10-Not Attempted due to Environmental Limitations-(lack of equipment, weather restraints, etc.). 88-Not Attempted due to Medical Conditions or Safety Concerns. Bed Mobility: 3 Transfers (B,C,W/C): 3 Gait: 3 Stairs: 9 Wheelchair Mobility: 3 Indoor Mobility (Ambulation): Needed Some Help Prior Devices Use: Manual wheelchair, Walker PT Evaluation-Current Subjective Patient agrees to PT. Objective Patient Orientation: Normal For Age Attachments: IV ROM/Strength ROM Lower Extremities right knee flexion contracture/left LE WFL Strength Lower Extremities 2+/5 grossly bilateral LE Integumentary/Posture Integumentary multiple gluteal wounds (decubitus ulcers) Bowel Incontinence: Yes Bladder Incontinence: Yes Posture kyphotic/arthritic Neuromuscular (Tone, Coordination, Reflexes) diminished with all Sensory Vision: Wears Glasses Hearing: Impaired Transfers Roll Left to Right (QC): 2 Sit to Lying (QC): 1 Lying to Sitting/Side of Bed(Q: 1 Sit to Stand (QC): 1 (x 2) Gait Does the Patient Walk?: No and Walking Goal IS indicated Mode of Locomotion: Both Anticipated Mode of Locomotion: Both Balance Sitting Static: Fair Sitting Dynamic: Fair Standing Static: Poor Standing Dynamic: Poor Assessment/Needs Patient will benefit from skilled PT to address functional strength and mobility. Patient is currently at max assist of 2 with all mobility and is incontinent urine during session. Patient appears to self limit. 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 Goals Jail Goals PT Jail Goals Time Frame: Mar 19, 2023 Roll Left & Right (QC): 3 Sit to Lying (QC): 3 Lying-Sitting on Side/Bed(QC): 3 Sit to Stand (QC): 3 Chair/Pkj-qu-Arqnx Xfer(QC): 3 Toilet Transfer (QC): 3 Walk 10 feet (QC): 2 PT Plan Problem List Problem List: Activity Tolerance, Functional Strength, Safety, Balance, Gait, Transfer, Bed Mobility, ROM Treatment/Plan Treatment Plan: Continue Plan of Care Treatment Plan: Bed Mobility, Education, Functional Activity Poppy, Functional Strength, Gait, Safety, Therapeutic Exercise, Transfers Treatment Duration: Mar 19, 2023 Frequency: 5 times per week Estimated Hrs Per Day: .25 hour per day Time Time In: 1335 Time Out: 1348 DATE: Feb 24, 2023 Total Billed Treatment Time: 13 Total Billed Treatment 1 visit [facility] 13 min KRYS VELEZ PT Feb 24, 2023 14:00
--- NOTE | 2023-02-24 14:00 | Occupational Therapy Eval ---
OT Evaluation-General/PLF Medical Diagnosis Admission Date Feb 23, 2023 at 21:28 Medical Diagnosis: anemia, GI bleed, hypokalemia Onset Date: Feb 23, 2023 Therapy Diagnosis Therapy Diagnosis: weakness Height/Weight Height (Feet): 5 Height (Inches): 3.00 Weight (Pounds): 196 Weight (Ounces): 0.0 Precautions Precautions/Isolations: Standard Precautions Weight Bear Status Weight Bearing Restriction: Weight Bearing/Tolerated (R LE contracture) Referral Referral Reason: Evaluation/Treatment Medical History Pertinent Medical History: HTN, Rheumatoid Arthritis Additional Medical History Patient presents to the ED due to anemia and LE swelling. She was recently admitted to the hospital on 02/07 due to AMS and weakness secondary to sepsis. Blood culture grew pasturella multoxida from a dog bite. She was also noted to have lobular consolidation consistent with pneumonia. Patient was treated with unasyn for both infections. Patient was noted to be hypotensive during that admission requiring ICU placement for pressor need. She was also noted to have low hgb requiring a unit of blood. Cardiology was consulted for atrial fibrillation history. After discharge, patient was noted to have worsening BLE swelling. Patient had woken up yesterday morning with nausea and vomiting. She was examined by her PCP who noted that patient had low blood pressure with a hemoglobin of 6.7. Patient has also been bedridden since discharge. In the ED, patient was noted to have low pressure and anemia of 6.7, was ultimately admitted for further management. Hemoccult stool test was positive Current History Patient cognition level is baseline per herself Reviewed History: Yes Social History Home: Single Level Current Living Status: Spouse Entry Into Home: Ramp ADL-Prior Level of Function SCALE: Activities may be completed with or without assistive devices. 3-Ikhbocswsy-binoaee completes the activity by him/herself with no assistance from a helper. 5-Set-up or Clean-up Assistance-helper sets up or cleans up; patient completes activity. [place] assists only prior to or following the activity. 4-Supervision or Touching Assistance-helper provides verbal cues and/or touching/steadying and/or contact guard assistance as patient completes activity. Assistance may be provided throughout the activity or intermittently. 3-Partial/Moderate Assistance-helper does LESS THAN HALF the effort. [place] lifts, holds or supports trunk or limbs, but provides less than half the effort. 2-Substantial/Maximal Assistance-helper does MORE THAN HALF the effort. [place] lifts or holds trunk or limbs and provides more than half the effort. 6-Wvvbzhfbo-ylgyep does ALL the effort. Patient does none of the effort to complete the activity. Or, the assistance of 2 or more helpers is required for the patient to complete the activity. If activity was not attempted, code reason: 7-Patient Refused. 9-Not Applicable-not attempted and the patient did not perform the activity before the current illness, exacerbation or injury. 10-Not Attempted due to Environmental Limitations-(lack of equipment, weather restraints, etc.). 88-Not Attempted due to Medical Conditions or Safety Concerns. Self Care: Needed Some Help Functional Cognition: Needed Some Help Drive Self: No OT Current Status Subjective Agreeable for evaluation, has many questions as to why she needs therapy, Reports she is weak and would like to try another time. Mental Status/Objective Patient Orientation: Person, Place, Time, Situation Attachments: Other-See Comments (PUR WICK) Current Glasses/Contacts: Yes Hearing Aids: No (needs them) Upper Extremity ROM hand contracture,limited shoulder ROM , limited elbow extension-requires 2 hands to manage cups, mugs and utensils Upper Extremity Coordination poor FMC, FAIR-GMC Upper Extremity Strength +2/5 ADL-Treatment ADL-Current Skin urine hickey on posterior body from Low back to mid thigh. Seeping in areas. Patient is able to stand with 2 persons 45 seconds. Able to stand with one person however second person required for ADLs and frequent sit/stand to complete tasks. Unable to lift BLES into bed. Eating (QC): 5 (clears) Oral Hygiene (QC): 4 (poor oral care) Shower/Bathe Self (QC): 88 Upper Body Dressing (QC): 2 Lower Body Dressing (QC): 1 On/Off Footwear (QC): 1 Toileting Hygiene (QC): 1 Education OT Patient Education: Correct positioning, Exercise program (offloading wounds), Instructions to caregiver, Modified ADL techniques, Progress toward Goal/Update tx plan, Purpose of tx/functional activities, Reviewed precautions, Rehab process, Safety issues, Transfer techniques Teaching Recipient: Patient Teaching Methods: Demonstration, Discussion Response to Teaching: Reinforcement Needed OT Residential Goals Vein Pumper Goals Eating (QC): 5 Oral Hygiene (QC): 5 Toileting Hygiene (QC): 3 Shower/Bathe Self (QC): 3 Upper Body Dressing (QC): 3 Lower Body Dressing (QC): 2 (Patient will stand at GB/FWW while one person manages garments) On/Off Footwear (QC): 1 1=Demonstrate adherence to instructed precautions during ADL tasks. 2=Patient will verbalize/demonstrate understanding of assistive devices/modifi cations for ADL. 3=Patient will improve strength/tolerance for activity to enable patient to perform ADL's. OT Education/Plan Problem List/Assessment Assessment: Decreased Activ Tolerance, Decreased Safety Aware, Decreased UE Strength, Dependent Transfers, Edema, Impaired Bed Mobility, Impaired Cognition, Impaired Coordination, Impaired Funct Balance, Impaired Self-Care Skills, Restricted Funct UE ROM Discharge Recommendations Plan/Recommendations: Continue POC Therapy Discharge Recommendati: Post Acute OT (patient is not able to care for patient at home in current state of being) Treatment Plan/Plan of Care Treatment,Training & Education: Yes Patient would benefit from OT for education, treatment and training to promote independence in ADL's, mobility, safety and/or upper extremity function for ADL's. Plan of Care: ADL Retraining, Caregiver Training, Concurrent Therapy, Functional Mobility, Group Exercise/Act as Ind, UE Funct Exercise/Act, UE Neuromus Re-Ed/Coord, W/C Management Training Treatment Duration: Feb 24, 2023 Frequency: 3 times per week Estimated Hrs Per Day: .25 hour per day Agreement: Yes Rehab Potential: Guarded Time Start Time: 13:30 Stop Time: 13:50 DATE: Feb 24, 2023 Total Time Billed (hr/min): 20 Billed Treatment Time EV 20 min GERRI BAHENA OT Feb 24, 2023 14:00
[2023-02-24] MEDS: cefTRIAXone IV/IM 1,000 MG in NS (IVPB) 50 ML 50 ML IV SCH (16:50)
[2023-02-24] MEDS: MICONAZOLE 2% POWDER 90 GM TOP SCH (20:06)
[2023-02-25] VITALS (7 sets, daily range): BP systolic 90–121; BP diastolic 49–77
[2023-02-25 06:14] LABS: BASOPHILS % (AUTO) 1 % (0-10); EOSINOPHILS # (AUTO) 0.2 10^3/uL (0.0-0.3); EOSINOPHILS % (AUTO) 3 % (0-10); HEMATOCRIT 22 % (35-52); LYMPHOCYTES # (AUTO) 1.5 10^3/uL (1.0-4.0); LYMPHOCYTES % (AUTO) 29 % (12-44); MEAN CORPUSCULAR HEMOGLOBIN 26 pg (25-34); MEAN CORPUSCULAR HGB CONC 32 g/dL (32-36); MEAN CORPUSCULAR VOLUME 80 fL (80-99); MEAN PLATELET VOLUME 8.8 fL (9.0-12.2); MONOCYTES # (AUTO) 0.2 10^3/uL (0.0-1.0); MONOCYTES % (AUTO) 4 % (0-12); NEUTROPHILS # (AUTO) 3.1 10^3/uL (1.8-7.8); NEUTROPHILS % (AUTO) 62 % (42-75); PLATELET COUNT 345 10^3/uL (130-400)
--- NOTE | 2023-02-25 06:19 | Progress Note ---
GLENN PASCUAL MD, RESIDENT 02/25/23 0619: Subjective Subjective/Events-last exam Patient states she is doing a little bit better today. Was able to stand up with physical therapy yesterday. She is still feeling quite weak and is still having lower extremity edema but feels that she is on the right track. Review of Systems General: Fatigue Pulmonary: No Dyspnea, No Cough Cardiovascular: Edema; No: Chest Pain, Palpitations Gastrointestinal: No: Nausea, Vomiting, Abdominal Pain, Diarrhea, Constipation, Hematochezia Genitourinary: No Dysuria, No Frequency Musculoskeletal: No: back pain Neurological: Weakness Objective Exam Last Set of Vital Signs Vital Signs Date Time Temp Pulse Resp B/P (MAP) Pulse Ox O2 Delivery O2 Flow Rate FiO2 02/25/23 04:35 36.1 69 20 100/64 (76) 97 Room Air 02/24/23 10:09 0.00 02/24/23 01:07 21 Capillary Refill : I&O Intake and Output 02/25/23 00:00 Intake Total 2390 ml Output Total 1950 ml Balance 440 ml Intake Oral 890 ml IV Total 1500 ml Output Urine Total 1950 ml # Voids 2 # Bowel Movements 1 General: Alert, Oriented X3 HEENT: Atraumatic, Mucous Memb Moist/Council Neck: Supple Lungs: Clear to Auscultation Heart: Regular Rate, No Murmurs Abdomen: Normal Bowel Sounds, Soft, No Tenderness Extremities: Other (Continues to have peripheral edema [place] thighs, mildly improved compared to yesterday) Skin: No Rashes Neuro: Normal Speech Psych/Mental Status: Mental Status NL Results/Procedures Lab Laboratory Tests 02/24/23 08:20: White Blood Count 5.0, Red Blood Count 3.04L, Hemoglobin 7.9L, Hematocrit 24L, Mean Corpuscular Volume 78L, Mean Corpuscular Hemoglobin 26, Mean Corpuscular Hemoglobin Concent 33, Red Cell Distribution Width 21.8H, Platelet Count 383, Mean Platelet Volume 8.8L, Immature Granulocyte % (Auto) 0, Neutrophils (%) (Auto) 69, Lymphocytes (%) (Auto) 24, Monocytes (%) (Auto) 2, Eosinophils (%) (Auto) 3, Basophils (%) (Auto) 0, Neutrophils # (Auto) 3.5, Lymphocytes # (Auto) 1.2, Monocytes # (Auto) 0.1, Eosinophils # (Auto) 0.2, Basophils # (Auto) 0.0, Immature Granulocyte # (Auto) 0.0, Sodium Level 131L, Potassium Level 2.8L, Chloride Level 93L, Carbon Dioxide Level 31, Anion Gap 7, Blood Urea Nitrogen 18, Creatinine 0.48L, Estimat Glomerular Filtration Rate 106, BUN/Creatinine Ratio 38, Glucose Level 113H, Calcium Level 8.1L, Magnesium Level 1.6 02/25/23 05:50: Microbiology 02/23/23 Urine Culture - Preliminary, Resulted Escherichia coli Assessment/Plan Assessment/Plan Admission Status: Inpatient Order (span 2 midnights) (1) Anemia Status: Acute Assessment & Plan: Patient noted to have positive hemoccult stool testing in the ED. Hemoglobin 6.7 improved to 7.9 after 1 unit PRBC. Per last hospital ization, patient appears to be chronically anemic with baseline around 7-8. Iron panel from last admission was normal. Hemoglobin today was 7. Plan: -We will repeat CBC at 1600 today -We will transfuse 1 unit PRBC if hemoglobin less than 7 -Consulted surgery for evaluation for colonoscopy while inpatient Qualifiers: Qualified Codes: D64.9 - Anemia, unspecified (2) Atrial fibrillation Status: Chronic Assessment & Plan: History of atrial fibrillation on eliquis. Rate and rhythm controlled for now. Plan: -Consulting cardiology due to atrial fibrillation history and anticoagulation in the setting of GI bleed -Cardiology, holding home Eliquis for now (3) Hypokalemia Status: Resolved Assessment & Plan: Potassium 3.8 today. Plan: -Monitor daily CMP (4) Rheumatoid arthritis Status: Chronic Assessment & Plan: On methotrexate. Will hold for now due to clinical condition. (5) DVT prophylaxis Status: Acute Assessment & Plan: Holding Eliquis per cardiology recommendations. No other blood thinners due to GI bleed concerns. (6) Decubitus skin ulcer Status: Acute Assessment & Plan: Likely secondary to debility. Plan: -Continue wound team recommendations (7) Bilateral lower extremity edema Status: Acute Assessment & Plan: Bilateral LE edema up to thighs. Appears echo was done last admission but no report in chart. Plan: -Continue to follow lower extremity edema Encourage movement out of bed as tolerated to help decrease swelling (8) Pain Status: Chronic Assessment & Plan: Patient noted to have buprenoprhine patch replaced weekly. Ok to use own med. (9) Debility Status: Chronic Assessment & Plan: Will likely need skilled placement post discharge. Plan: -Continue PT/OT, recommend skilled placement ISABELL LOVE MD 02/25/23 1120: Supervisory-Addendum Brief Supervisory Addendum I personally performed the shah portions of the visit, discussed case with resident and concur with resident documentation of history, physical exam, assessment and treatment plan unless otherwise noted. GLENN PASCUAL MD, RESIDENT Feb 25, 2023 06:19 ISABELL LOVE MD Feb 25, 2023 11:20
[2023-02-25 06:28] LABS: ALBUMIN 2.3 GM/DL (3.2-4.5); BILIRUBIN,TOTAL 1.8 MG/DL (0.1-1.0); CREATININE SERUM 0.46 MG/DL (0.60-1.30); POTASSIUM 3.8 MMOL/L (3.6-5.0); TOTAL PROTEIN 4.5 GM/DL (6.4-8.2)
[2023-02-25] MEDS: PANTOPRAZOLE INJECTION 40 MG VIAL IV SCH (08:54)
[2023-02-25] MEDS: POTASSIUM CHLORIDE 20 MEQ TABLET PO SCH ×2 (08:54→16:28)
[2023-02-25] MEDS: MICONAZOLE 2% POWDER 90 GM TOP SCH ×2 (08:55→19:45)
--- NOTE | 2023-02-25 09:49 | Consultation - Surgery ---
TOMMY ORELLANA 02/25/23 0949: History of Present Illness History of Present Illness Patient Consulted On(lashanda/time) 02/25/23 09:30 Date Seen by Provider: Feb 25, 2023 Time Seen by Provider: 09:15 Reason for Visit: Anemia History of Present Illness Dorothy Miller was seen today on consultation for anemia, she was lying in bed with her Ed at the bedside. Today Ms. Miller feels okay, she does not report any heartburn, nausea, vomiting or diarrhea. She is not ambulating, and is on a liquid diet, but was able to tolerate solid foods before the liquid diet was started. Her reports that her swelling has gone down since being admitted but is not her baseline. She had weakness and lower extremity edema 02/18- 02/20/23 which prompted a visit to her primary doctor this week. At the visit labs were drawn and her hemoglobin was found to be 6.7 so she was admitted to the hospital 02/23. She had a previous admission 02/07 - 02/14 for treatment sepsis and pneumonia. She presented with altered mental status and weakness after not getting out of bed for an unknown number of days and was found to be tachycardic and hypot ensive. She was treated with vasopressin and norepinephrine through 02/11. On 02/11 she was given a unit of blood for hemoglobin of 7.0. On discharge she went home with her . She was weak and not able to stand at home due to pain. Before the days leading up to that admission she would dress with the help of her and walk independently to the front room to spend the day. From her chair she was able to get up and ambulate to and from the bathroom on her own. After leaving the hospital 02/14 she was unable to move to the living room or restroom, which she says was due to her arthritic pain, and was using a bedpan. In 2021 she had an unintentional 60 pound weight loss and dysphagia. In the workup there was an EGD done that revealed a hiatal hernia. In 2016 she had her first colonoscopy that revealed "a few polyps". Allergies and Home Medications Allergies Coded Allergies: NKANo Known Allergies (Verified Allergy, Mild, 02/23/23) mushroom (Unverified Allergy, Unknown, 02/23/23) Patient Home Medication List Amoxicillin (Amoxicillin) 500 Mg Capsule, 500 MG PO TID, (Reported) Entered as Reported by: SERGIO COLLADO on 02/24/23834 Last Action: Reviewed Apixaban (Eliquis) 5 Mg Tablet, 5 MG PO BID, (Reported) Entered as Reported by: SERGIO COLLADO on 02/24/23834 Last Action: Reviewed Buprenorphine (Buprenorphine) 20 Mcg/Hour Patch.tdwk, 20 MCG TD WED, (Reported) Entered as Reported by: REZA KRAFT on 02/08/231108 Last Action: Reviewed Folic Acid (Folic Acid) 1 Mg Tablet, 1 MG PO 1900, (Reported) Entered as Reported by: REZA KRAFT on 02/08/231108 Last Action: Reviewed Hydrochlorothiazide (Hydrochlorothiazide) 25 Mg Tablet, 25 MG PO 1900, (Reported) Entered as Reported by: SERGIO COLLADO on 02/24/23834 Last Action: Reviewed Methotrexate Sodium (Methotrexate) 2.5 Mg Tablet, 20 MG PO TUESDAY, (Reported) Entered as Reported by: SERGIO COLLADO on 02/24/23834 Last Action: Reviewed Nadolol (Nadolol) 40 Mg Tablet, 40 MG PO 1900, (Reported) Entered as Reported by: KWASI SHAH on 08/15/17931 Last Action: Reviewed Pantoprazole Sodium (Pantoprazole Sodium) 40 Mg Tablet.dr, 40 MG PO 1900, (Reported) Entered as Reported by: SERGIO COLLADO on 02/24/23834 Last Action: Reviewed Paroxetine HCl (Paroxetine HCl) 20 Mg Tablet, 20 MG PO 1900, (Reported) Entered as Reported by: KWASI SHAH on 08/15/17931 Last Action: Reviewed Discontinued Medications Amoxicillin (Amoxicillin) 500 Mg Tablet, 500 MG PO TID Discontinued Reason: Duplicate Order Prescribed by: CAROLINE PATRICK on 02/14/23 1001 Last Action: Discontinued Apixaban (Eliquis) 5 Mg Tablet, 5 MG PO BID Discontinued Reason: Duplicate Order Prescribed by: CAROLINE PATRICK on 02/15/23 1574 Last Action: Discontinued Ergocalciferol (Vitamin D2) (Vitamin D2) 1,250 Mcg (75976 Unit) Capsule, 1,250 MCG PO MON, (Reported) Discontinued Reason: No Longer Taking Entered as Reported by: REZA KRAFT on 02/08/23 1109 Last Action: Discontinued Pantoprazole Sodium (Pantoprazole Sodium) 40 Mg Tablet.dr, 40 MG PO DAILY Discontinued Reason: Duplicate Order Prescribed by: CAROLINE PATRICK on 02/14/23 1001 Last Action: Discontinued Past Owctalz-Xohtrs-Ibgukh Hx Patient Social History Smoking Status: Never a Smoker 2nd Hand Smoke Exposure: No Recent Hopitalizations: Yes (02/07 - 02/14 for dog bite, Pasturella infection, sepsis and pneumonia) Alcohol Use?: No Immunizations Up To Date Tetanus Booster (TDap): More than 5yrs Date of Influenza Vaccine: Feb 09, 2021 Seasonal Allergies Seasonal Allergies: Yes (mild) Surgeries History of Surgeries: Yes Surgeries: Ear Surgery, Gallbladder Respiratory History of Respiratory Disorde: No Cardiovascular History of Cardiac Disorders: Yes Cardiac Disorders: Atrial Fibrillation, Hypertension Neurological History of Neurological Disord: No Gastrointestinal History of Gastrointestinal Di: Yes Gastrointestinal Disorders: Hiatal Hernia Musculoskeletal History of Musculoskeletal Dis: Yes Musculoskeletal Disorders: Arthritis Endocrine History of Endocrine Disorders: No Cancer History of Cancer: No Psychosocial History of Psychiatric Problem: No Integumentary History of Skin or Integumenta: No Blood Transfusions History of Blood Disorders: Yes Hx of Blood Transfusion Blood transfusion 02/23 for hemoglobin 6.7. Blood transfusion during previous hospital admission. Family Medical History Significant Family History: Cancer (father, stomach cancer, >60 years old), Other Conditions/Hx (mother - arthritis) Review of Systems-General Constitutional: No chills, No diaphoresis, No dizziness; weakness Respiratory: No cough, No short of breath Cardiovascular: No chest pain; edema Gastrointestinal: No abdominal pain, No constipation, No diarrhea, No hematemesis, No heartburn, No melena, No nausea, No vomiting Musculoskeletal: joint pain (history of arthritis) Psychiatric/Neurological: Denies Headache; Weakness Physical Exam-General Problems Physical Exam Vital Signs Vital Signs - First Documented 02/23/23 02/23/23 02/24/23 02/24/23 18:07 22:03 01:07 10:09 Temp 36.4 Pulse 60 Resp 16 B/P (MAP) 97/62 (74) Pulse Ox 100 O2 Delivery Room Air O2 Flow Rate 0.00 FiO2 21 Capillary Refill : General Appearance: no apparent distress, cachetic HEENT: pale conjunctivae (R), pale conjunctivae (L) Respiratory: chest non-tender, lungs clear, normal breath sounds, no respiratory distress, no accessory muscle use Cardiovascular: regular rate, rhythm, no murmur Gastrointestinal: non tender, soft, no organomegaly Extremities: pedal edema Neurologic/Psychiatric: alert, normal mood/affect, oriented x 3, sensory deficit (hard of hearing, hears best in left ear) Data Review Labs Laboratory Tests 02/25/23 05:50: White Blood Count 5.0, Red Blood Count 2.71L, Hemoglobin 7.0L, Hematocrit 22L, Mean Corpuscular Volume 80, Mean Corpuscular Hemoglobin 26, Mean Corpuscular Hemoglobin Concent 32, Red Cell Distribution Width 22.2H, Platelet Count 345, Mean Platelet Volume 8.8L, Immature Granulocyte % (Auto) 1, Neutrophils (%) (Auto) 62, Lymphocytes (%) (Auto) 29, Monocytes (%) (Auto) 4, Eosinophils (%) (Auto) 3, Basophils (%) (Auto) 1, Neutrophils # (Auto) 3.1, Lymphocytes # (Auto) 1.5, Monocytes # (Auto) 0.2, Eosinophils # (Auto) 0.2, Basophils # (Auto) 0.0, Immature Granulocyte # (Auto) 0.0, Sodium Level 136, Potassium Level 3.8, Chloride Level 100, Carbon Dioxide Level 30, Anion Gap 6, Blood Urea Nitrogen 11, Creatinine 0.46L, Estimat Glomerular Filtration Rate 107, BUN/Creatinine Ratio 24, Glucose Level 90, Calcium Level 8.0L, Corrected Calcium 9.4, Total Bilirubin 1.8H, Aspartate Amino Transf (AST/SGOT) 21, Alanine Aminotransferase (ALT/SGPT) 16, Alkaline Phosphatase 59, Total Protein 4.5L, Albumin 2.3L Microbiology 02/23/23 Urine Culture - Preliminary, Resulted Escherichia coli Assessment/Plan Assessment/Plan Assessment/Plan Anemia Hemoglobin was 6.7 on admission, and increased to 7.9 after transfusion; today it is back down to 7.0. She had anemia on prior admission and was given a blood transfusion 02/11 for Hgb 7.0. She had a screening colonoscopy in July 2017 and two polyps were removed. She had an EGD July 2021 that revealed a hiatal hernia and esophagitis. Since her anemia is chronic and she is not iron deficient, a GI bleed is unlikely the source of her anemia. Because the screening colonoscopy in 2017 and EGD in July did not show cancer or other signs of bleeding, an EGD and colonoscopy would not be likely to show a source of bleeding. She would need to stop her Apixaban for the procedure which would put her at risk due to history of AFib. Other causes of anemia could be ruled out, such as recent antibiotic use, rheumatoid arthritis or bone marrow disorders. Referral to hematology could be considered. An outpatient EGD/colonoscopy could be performed if no other cause of anemia is found. JANETTE BECK DO 02/25/23 1248: History of Present Illness History of Present Illness Time Seen by Provider: : History of Present Illness Surgery asked to consult regarding Anemia. HPI per ED: This is a 62 yo female with pmh of hypertension, RA, new-onset AFIB, and recent admission for septic shock on 02/07 that required multiple days of vasopressors to maintain BP and was discharged on 02/15 presents with generalized malaise, swelling in the feet b/l, and reported Hgb of 6.7.When pt arrived to ED on 02/07, she was covered in urine and feces. The md allergy immunology on 02/07 stated that the pt's house was dirty, disorganized, and not suitable for living in. At the time, family stated that the pt's primary cared for patient. Upon discharge on 02/15, a social work therapist was consulted about home health. Today, pt woke up this morning with nausea and vomited as reported by the daughter although pt does not remember vomiting. strongly advised pt to come to ER this morning, but pt refused because she had an appointment with her primary care physician later today. Pt was examined by PCP and found to have "low blood pressure" and and Hgb of 6.7. PCP advised pt to be seen in ED. Since discharge on 02/15, patient has been eating normally, but has had decreased fluid intake and urination. Pt's daughter states that on discharge, patient had "leg swelling", discontinued her "BP medication", and was started on a beta mazin and eliquis. Pt was advised to elevate legs and walk around to decrease leg swelling, but refuses to elevate legs due to pain and has been bedridden since discharge. Pt's daughter mentions that is still primary caregiver for pt. Pt denies fever, chest pain, SOA, cough, abdominal pain, diarrhea, constipation, hematochezia, hematemesis, melena, dysuria, hematuria, headache, nasal discharge. Daughter states that pt had colonoscopy in 2017 that revealed colon polyps and surgeon decided to not remove them. Hemoccult test is positive while in ER. When I spoke to the pt this am, she denied abdominal pain and denied N/V. Pt is hard of hearing. States she feels weak. Allergies and Home Medications Allergies Coded Allergies: NKANo Known Allergies (Verified Allergy, Mild, 02/23/23) mushroom (Unverified Allergy, Unknown, 02/23/23) Patient Home Medication List Home Medication List Reviewed: Yes Amoxicillin (Amoxicillin) 500 Mg Capsule, 500 MG PO TID, (Reported) Entered as Reported by: SERGIO COLLADO on 02/24/23834 Last Action: Reviewed Apixaban (Eliquis) 5 Mg Tablet, 5 MG PO BID, (Reported) Entered as Reported by: SERGIO COLLADO on 02/24/23834 Last Action: Reviewed Buprenorphine (Buprenorphine) 20 Mcg/Hour Patch.tdwk, 20 MCG TD TUE, (Reported) Entered as Reported by: REZA KRAFT on 02/08/231108 Last Action: Reviewed Folic Acid (Folic Acid) 1 Mg Tablet, 1 MG PO 1899, (Reported) Entered as Reported by: REZA KRAFT on 02/08/231108 Last Action: Reviewed Hydrochlorothiazide (Hydrochlorothiazide) 25 Mg Tablet, 25 MG PO 1900, (Reported) Entered as Reported by: SERGIO COLLADO on 02/24/23834 Last Action: Reviewed Methotrexate Sodium (Methotrexate) 2.5 Mg Tablet, 20 MG PO TUESDAY, (Reported) Entered as Reported by: SERGIO COLLADO on 02/24/23834 Last Action: Reviewed Nadolol (Nadolol) 40 Mg Tablet, 40 MG PO 1900, (Reported) Entered as Reported by: KWASI SHAH on 08/15/17 0932 Last Action: Reviewed Pantoprazole Sodium (Pantoprazole Sodium) 40 Mg Tablet.dr, 40 MG PO 1900, (Reported) Entered as Reported by: SERGIO COLLADO on 02/24/2335 Last Action: Reviewed Paroxetine HCl (Paroxetine HCl) 20 Mg Tablet, 20 MG PO 1900, (Reported) Entered as Reported by: KWASI SHAH on 08/15/17 0932 Last Action: Reviewed Discontinued Medications Amoxicillin (Amoxicillin) 500 Mg Tablet, 500 MG PO TID Discontinued Reason: Duplicate Order Prescribed by: CAROLINE PATRICK on 02/14/23 1001 Last Action: Discontinued Apixaban (Eliquis) 5 Mg Tablet, 5 MG PO BID Discontinued Reason: Duplicate Order Prescribed by: CAROLINE PATRICK on 02/15/23 0424 Last Action: Discontinued Ergocalciferol (Vitamin D2) (Vitamin D2) 1,250 Mcg (53112 Unit) Capsule, 1,250 MCG PO MON, (Reported) Discontinued Reason: No Longer Taking Entered as Reported by: REZA KRAFT on 02/08/23 1109 Last Action: Discontinued Pantoprazole Sodium (Pantoprazole Sodium) 40 Mg Tablet.dr, 40 MG PO DAILY Discontinued Reason: Duplicate Order Prescribed by: CAROLINE PATRICK on 02/14/23 1001 Last Action: Discontinued Past Ucxpogk-Lrpgyh-Qhweqc Hx Patient Social History Smoking Status: Never a Smoker Recent Hopitalizations: Yes (02/07 - 02/14 for dog bite, Pasturella infection, sepsis and pneumonia) Surgeries History of Surgeries: Yes (colonoscopy and EGD) Respiratory History of Respiratory Disorde: No Cardiovascular History of Cardiac Disorders: Yes Cardiac Disorders: Atrial Fibrillation, Hypertension Gastrointestinal History of Gastrointestinal Di: Yes Gastrointestinal Disorders: Gastroesophageal Reflux, Hiatal Hernia Musculoskeletal History of Musculoskeletal Dis: Yes Musculoskeletal Disorders: Arthritis, Chronic Back Pain, Contracture Endocrine History of Endocrine Disorders: No HEENT Loss of Vision: Bilateral Hearing Impairment: Hard of Hearing Cancer History of Cancer: No Blood Transfusions History of Blood Disorders: Yes Family Medical History Significant Family History: Cancer (father, stomach cancer, >60 years old), Other Conditions/Hx (mother - arthritis) Review of Systems-General Constitutional: No chills, No diaphoresis, No dizziness; weakness EENTM: No blurred vision, No epistaxis Respiratory: No cough, No short of breath Cardiovascular: No chest pain; edema Gastrointestinal: No abdominal pain, No constipation, No melena, No nausea, No vomiting Genitourinary: No hematuria; hesitancy, incontinence Musculoskeletal: joint pain (history of arthritis), joint swelling Skin: other (decubitis ulcers) Psychiatric/Neurological: Denies Headache; Weakness Physical Exam-General Problems Physical Exam General Appearance: no apparent distress, cachetic Eyes: Bilateral Eye PERRL, Bilateral Eye EOMI HEENT: pharynx normal; No scleral icterus (R), No scleral icterus (L); pale conjunctivae (R), pale conjunctivae (L), other (poor dentition) Neck: non-tender, supple Respiratory: lungs clear, normal breath sounds, no respiratory distress, no accessory muscle use Cardiovascular: regular rate, rhythm, no murmur Gastrointestinal: non tender, soft, no organomegaly Extremities: pedal edema Neurologic/Psychiatric: alert, normal mood/affect, sensory deficit (hard of hearing, hears best in left ear) Data Review Radiology Date of Exam:02/07/23 CT ABDOMEN/PELVIS W CLINICAL INDICATION: Patient with history of gallbladder surgery. Patient has fever and altered mental status. EXAM: Axial CT scan of the abdomen and pelvis performed with 50 cc of Omnipaque 350 IV contrast. Sagittal and coronal reformatted images are created. Auto Exposure Controls were utilized during the CT exam to meet ALARA standards for radiation dose reduction. COMPARISON: CT scan of the abdomen and pelvis with contrast dated 08/28/2021. FINDINGS: There is a moderate-sized area of consolidation involving the right lower lobe which is incompletely imaged and concerning for pneumonia. There is no significant change to the 5.1 cm eggshell calcified hypodense lesion involving the medial upper aspect of the spleen. Spleen is otherwise unremarkable. The gallbladder is surgically absent which was also noted on the prior study. The liver is unremarkable. The pancreas is unremarkable. Adrenal glands are unremarkable. Both kidneys are unremarkable with no hydronephrosis, stone, or mass. The bladder is decompressed with wall thickening which is nonspecific. Willard catheter is seen within the decompressed bladder. There is a large amount of stool in the rectum. There is diverticulosis involving the sigmoid colon and descending colon. There is also moderate amount of stool involving the transverse colon and left colon. There is no evidence of intestinal obstruction. The stomach is decompressed. The small bowel showed no significant abnormality. There is no intra-abdominal free air or free fluid. There is no significant lymphadenopathy. The appendix is not definitively localized and may be surgically absent versus obscured by closely adjacent intestines. The abdominal aorta and common iliac arteries are nonaneurysmal without significant stenosis. The extra-abdominal and extrapelvic soft tissue structures show mild subcutaneous edema. IMPRESSION: 1: There is an incompletely visualized moderate amount of consolidation involving the right lower lobe concerning for pneumonia. 2: There is a large amount of stool in the rectum and moderate amount of stool involving the transverse colon and left colon which may be seen with constipation. There is no evidence of intestinal obstruction. 3: Stable eggshell calcified cystic structure involving the spleen. 4: Gallbladder is surgically absent. Dictated by: Dictated on workstation # [id number] Dict: 02/07/23 1746 Trans: 02/07/232215 AS6 [id number] Interpreted by: PIERCE KRUEGER MD Electronically signed by: PIERCE KRUEGER MD 02/07/232215 Assessment/Plan Assessment/Plan Assessment/Plan Anemia Hemoccult positive Pt does not have Fe deficiency Anemia, so most likely she is not making RBCs or her body is chewing them up. If she needs scopes could do as an outpt; she is on bloodthinner. Supervisory-Addendum Brief Verification & Attestation Participated in pt care: history, MDM, physical Personally performed: exam, history, MDM, supervision of care Care discussed with: Medical Student Procedures: n/a Verification and Attestation of Medical Student E/M Service A medical student performed and documented this service. I then reviewed and verified all information documented by the medical student and made modifications to such information, when appropriate. I personally performed a physical exam, medical decision making and then discussed any differences between the notes and made revisions as necessary to create one note. Janette Beck , 02/25/23 , 13:25 TOMMY ORELLANA Feb 25, 2023 09:49 JANETTE BECK DO Feb 25, 2023 12:48
--- NOTE | 2023-02-25 10:51 | Cardiology Progress Note ---
Subjective Date Seen by Provider: Feb 25, 2023 Time Seen by Provider: 10:49 Subjective/Events-last exam Patient was seen at bedside, laying down comfortably. No new complaint Objective-Cardiology Exam Last Set of Vital Signs Vital Signs 02/24/23 02/25/23 02/25/23 01:07 07:48 08:28 Temp 37.0 Pulse 73 Resp 16 B/P (MAP) 115/67 (83) Pulse Ox 98 O2 Delivery Room Air O2 Flow Rate 0.00 FiO2 21 I&O Intake and Output 02/25/23 00:00 Intake Total 2390 ml Output Total 1950 ml Balance 440 ml Intake Oral 890 ml IV Total 1500 ml Output Urine Total 1950 ml # Voids 2 # Bowel Movements 1 General: Alert, Oriented X3, Cooperative HEENT: Atraumatic, PERRLA Neck: Supple, No JVD, No Thyromegaly Lungs: Clear to Auscultation, Normal Air Movement Heart: Normal S1, Normal S2, No Murmurs, Other (Atrial fibrillation) Abdomen: Normal Bowel Sounds, Soft, No Tenderness, No Hepatosplenomegaly, No Masses Extremities: No Clubbing, No Cyanosis, No Edema, Normal Pulses, No Tenderness/Swelling Skin: No Rashes, No Breakdown, No Significant Lesion Neuro: Normal Speech, Normal Tone, Sensation Intact Psych/Mental Status: Mental Status NL, Mood NL Results Lab Laboratory Tests 02/25/23 05:50 A/P-Cardiology Admission Diagnosis Anemia GI bleed Paroxysmal atrial fibrillation Debility Assessment/Plan GI bleed, severe anemia Patient has history of chronic anemia which has been having episodes of drop in H&H Status post blood transfusion Patient had endoscopy done earlier this year, will require another extensive work-up for GI loss in addition I recommended hematology evaluation due to her chronic anemia Paroxysmal atrial fibrillation, had transient episode of atrial fibrillation Currently in sinus rhythm. Continue to monitor Peripheral edema, worsening recently Probably due to Hypoalbuminemia 2D echo was done earlier in January 2023 with normal LV size, ejection fraction 50 to 55%, PA pressure 35 mmHg moderate mitral regurgitation and dilated left atrium Hypokalemia, better today Managed by primary care team Labile blood pressure, hypertension, monitor blood pressure Status post recent hospitalization for Gram negative sepsis with lactic acidosis Generalized weakness, debility Rheumatoid arthritis maintained on methotrexate OTILIO ESQUIVEL MD Feb 25, 2023 10:51
--- NOTE | 2023-02-25 10:53 | Physical Therapy Daily Note ---
PT Daily Note-Current Subjective Patient agrees to therapy. Pain Section J - Health Conditions 1. Rarely or not at all 2. Occasionally 3. Frequently 4. Almost constantly 8. Unable to answer Pain Effect on Sleep: 3 Pain Interference with Therapy: 3 Pain Interference w/Day-to-Day: 3 Transfers SCALE: Activities may be completed with or without assistive devices. 8-Zfkqpgmklr-lpevsfj completes the activity by him/herself with no assistance from a helper. 5-Set-up or Clean-up Assistance-helper sets up or cleans up; patient completes activity. [place] assists only prior to or following the activity. 4-Supervision or Touching Assistance-helper provides verbal cues and/or touching/steadying and/or contact guard assistance as patient completes activity. Assistance may be provided throughout the activity or intermittently. 3-Partial/Moderate Assistance-helper does LESS THAN HALF the effort. [place] lifts, holds or supports trunk or limbs, but provides less than half the effort. 2-Substantial/Maximal Assistance-helper does MORE THAN HALF the effort. [place] lifts or holds trunk or limbs and provides more than half the effort. 8-Hctltpfci-ampiya does ALL the effort. Patient does none of the effort to complete the activity. Or, the assistance of 2 or more helpers is required for the patient to complete the activity. If activity was not attempted, code reason: 7-Patient Refused. 9-Not Applicable-not attempted and the patient did not perform the activity before the current illness, exacerbation or injury. 10-Not Attempted due to Environmental Limitations-(lack of equipment, weather restraints, etc.). 88-Not Attempted due to Medical Conditions or Safety Concerns. Lying to Sitting/Side of Bed(Q: 2 Sit to Stand (QC): 2 Chair/Jds-ti-Fqhve Xfer(QC): 2 Toilet Transfer (QC): 2 Treatments Patient incontinent BM during session and while RN is changing wound dressings. Patient requires max assist due to patient will panic and begin to impulsively attempt to sit with PT/OT giving continuous VC's to stand. Assessment Patient improved with standing duration on this date. Patient appears to self limit and demonstrates ability to perform sit to stand to FWW. Patient up in recliner with needs met. Spouse present. PT Bacteriology Professor Goals Mcc Goals PT Bacteriology Professor Goals Time Frame: Mar 19, 2023 Roll Left & Right (QC): 3 Sit to Lying (QC): 3 Lying-Sitting on Side/Bed(QC): 3 Sit to Stand (QC): 3 Chair/Mzm-di-Ksqjo Xfer(QC): 3 Toilet Transfer (QC): 3 Walk 10 feet (QC): 2 PT Plan Treatment/Plan Treatment Plan: Continue Plan of Care Treatment Plan: Bed Mobility, Education, Functional Activity Poppy, Functional Strength, Gait, Safety, Therapeutic Exercise, Transfers Treatment Duration: Mar 19, 2023 Frequency: 5 times per week Estimated Hrs Per Day: .25 hour per day Time Time In: 1011 Time Out: 1035 DATE: Feb 25, 2023 Total Billed Treatment Time: 24 Total Billed Treatment 1 visit FA x 2 24 min KRYS VELEZ PT Feb 25, 2023 10:53
--- NOTE | 2023-02-25 11:01 | Occupational Ther Daily Note ---
OT Current Status-Daily Note Subjective Patient demonstrated occasional hearing commands w/o difficulty, present for initial session Mental Status/Objective Patient Orientation: Person, Place ADL-Treatment B/B incont. transfers to stand form bed to BSC and BSC to recliner max assist of one. Second person required for garment and hygiene management. intermittent following commands w/ normal voice volume Therapy Code Descriptions/Definitions Functional [place] Measure: 0=Not Assessed/NA 4=Minimal Assistance 1=Total Assistance 5=Supervision or Setup 2=Maximal Assistance 6=Modified [place] 3=Moderate Assistance 7=Complete IndependenceSCALE: Activities may be completed with or without assistive devices. 9-Qkivjilymp-rjaulvx completes the activity by him/herself with no assistance from a helper. 5-Set-up or Clean-up Assistance-helper sets up or cleans up; patient completes activity. [place] assists only prior to or following the activity. 4-Supervision or Touching Assistance-helper provides verbal cues and/or touching/steadying and/or contact guard assistance as patient completes activity. Assistance may be provided throughout the activity or intermittently. 3-Partial/Moderate Assistance-helper does LESS THAN HALF the effort. [place] lifts, holds or supports trunk or limbs, but provides less than half the effort. 2-Substantial/Maximal Assistance-helper does MORE THAN HALF the effort. [place] lifts or holds trunk or limbs and provides more than half the effort. 4-Razudkvef-yucwse does ALL the effort. Patient does none of the effort to complete the activity. Or, the assistance of 2 or more helpers is required for the patient to complete the activity. If activity was not attempted, code reason: 7-Patient Refused. 9-Not Applicable-not attempted and the patient did not perform the activity before the current illness, exacerbation or injury. 10-Not Attempted due to Environmental Limitations-(lack of equipment, weather restraints, etc.). 88-Not Attempted due to Medical Conditions or Safety Concerns. Eating (QC): 5 (clears) Oral Hygiene (QC): 4 Upper Body Dressing (QC): 3 Lower Body Dressing (QC): 1 On/Off Footwear: 1 Toileting Hygiene (QC): 1 Toilet Transfer (QC): 2 Education OT Patient Education: Correct positioning, Modified ADL techniques, Progress toward Goal/Update tx plan, Purpose of tx/functional activities, Reviewed precautions, Rehab process, Safety issues, Transfer techniques, Use of adapted equipment Teaching Recipient: Patient Teaching Methods: Demonstration, Discussion Response to Teaching: Reinforcement Needed OT Caustics Loader Goals Group Home Goals Eating (QC): 5 Oral Hygiene (QC): 5 Toileting Hygiene (QC): 3 Shower/Bathe Self (QC): 3 Upper Body Dressing (QC): 3 Lower Body Dressing (QC): 2 (Patient will stand at GB/FWW while one person manages garments) On/Off Footwear (QC): 1 1=Demonstrate adherence to instructed precautions during ADL tasks. 2=Patient will verbalize/demonstrate understanding of assistive devices/modifications for ADL. 3=Patient will improve strength/tolerance for activity to enable patient to perform ADL's. OT Education/Plan Problem List/Assessment Assessment: Decreased Activ Tolerance, Decreased Safety Aware, Decreased UE Strength, Dependent Transfers, Impaired Bed Mobility, Impaired Coordination, Impaired Funct Balance, Impaired Self-Care Skills, Restricted Funct UE ROM Discharge Recommendations Plan/Recommendations: Continue POC Therapy Discharge Recommendati: 24 Hour Supervision, Post Acute OT Treatment Plan/Plan of Care Treatment,Training & Education: Yes Patient would benefit from OT for education, treatment and training to promote independence in ADL's, mobility, safety and/or upper extremity function for ADL's. Plan of Care: ADL Retraining, Caregiver Training, Concurrent Therapy, Functional Mobility, Group Exercise/Act as Ind, UE Funct Exercise/Act, UE Neuromus Re-Ed/Coord, W/C Management Training Treatment Duration: Feb 24, 2023 Frequency: 3 times per week Estimated Hrs Per Day: .25 hour per day Agreement: Yes Rehab Potential: Guarded Time Start Time: 10:11 Stop Time: 10:35 DATE: Feb 25, 2023 Total Time Billed (hr/min): 24 Billed Treatment Time ADL 24 min GERRI BAHENA OT Feb 25, 2023 11:01
[2023-02-25] MEDS: cefTRIAXone IV/IM 1,000 MG in NS (IVPB) 50 ML 50 ML IV SCH (16:27)
[2023-02-25 17:15] LABS: BASOPHILS # (AUTO) 0.1 10^3/uL (0.0-0.1); BASOPHILS % (AUTO) 1 % (0-10); EOSINOPHILS # (AUTO) 0.2 10^3/uL (0.0-0.3); EOSINOPHILS % (AUTO) 3 % (0-10); HEMATOCRIT 23 % (35-52); HEMOGLOBIN 7.5 g/dL (11.5-16.0); LYMPHOCYTES # (AUTO) 1.6 10^3/uL (1.0-4.0); LYMPHOCYTES % (AUTO) 31 % (12-44); MEAN CORPUSCULAR HEMOGLOBIN 26 pg (25-34); MEAN CORPUSCULAR HGB CONC 33 g/dL (32-36); MEAN CORPUSCULAR VOLUME 80 fL (80-99); MEAN PLATELET VOLUME 8.8 fL (9.0-12.2); MONOCYTES # (AUTO) 0.2 10^3/uL (0.0-1.0); MONOCYTES % (AUTO) 5 % (0-12); NEUTROPHILS # (AUTO) 3.1 10^3/uL (1.8-7.8); NEUTROPHILS % (AUTO) 59 % (42-75); PLATELET COUNT 364 10^3/uL (130-400); WHITE BLOOD COUNT 5.3 10^3/uL (4.3-11.0)
[2023-02-26 04:18] VITALS: BP 120/75
[2023-02-26 05:21] LABS: BASOPHILS % (AUTO) 1 % (0-10); EOSINOPHILS # (AUTO) 0.2 10^3/uL (0.0-0.3); EOSINOPHILS % (AUTO) 6 % (0-10); HEMATOCRIT 22 % (35-52); LYMPHOCYTES # (AUTO) 1.4 10^3/uL (1.0-4.0); LYMPHOCYTES % (AUTO) 40 % (12-44); MEAN CORPUSCULAR HEMOGLOBIN 26 pg (25-34); MEAN CORPUSCULAR HGB CONC 32 g/dL (32-36); MEAN CORPUSCULAR VOLUME 80 fL (80-99); MEAN PLATELET VOLUME 8.4 fL (9.0-12.2); MONOCYTES # (AUTO) 0.3 10^3/uL (0.0-1.0); MONOCYTES % (AUTO) 8 % (0-12); NEUTROPHILS # (AUTO) 1.5 10^3/uL (1.8-7.8); NEUTROPHILS % (AUTO) 45 % (42-75); PLATELET COUNT 264 10^3/uL (130-400); WHITE BLOOD COUNT 3.5 10^3/uL (4.3-11.0)
--- NOTE | 2023-02-26 05:24 | Progress Note ---
Subjective Subjective/Events-last exam Patient doing well this morning has no concerns today. Was able to work with physical therapy a little bit more yesterday. She is denying any pain at this time. Review of Systems General: No Fatigue, No Appetite HEENT: No Head Aches Pulmonary: No Dyspnea, No Cough Cardiovascular: Edema; No: Chest Pain, Palpitations Gastrointestinal: No: Nausea, Vomiting, Abdominal Pain, Diarrhea, Constipation Genitourinary: No Dysuria Neurological: No: Weakness Objective Exam Last Set of Vital Signs Vital Signs Date Time Temp Pulse Resp B/P (MAP) Pulse Ox O2 Delivery O2 Flow Rate FiO2 02/26/23 04:18 36.2 65 20 120/75 (90) 99 Room Air 02/25/23 16:30 0.00 0.00 02/24/23 01:07 21 Capillary Refill : I&O Intake and Output 02/26/23 00:00 Intake Total 1680 ml Output Total 400 ml Balance 1280 ml Intake Oral 1680 ml Output Urine Total 400 ml # Voids 6 # Bowel Movements 2 General: Alert, Oriented X3 HEENT: Atraumatic Neck: Supple Lungs: Clear to Auscultation, Normal Air Movement Heart: Regular Rate, No Murmurs Abdomen: Normal Bowel Sounds, Soft, No Tenderness Extremities: Other (Edema to the bilateral lower extremities up to the thighs, continues to improve today) Skin: Other (Pressure ulcers on back and feet) Neuro: Normal Speech Psych/Mental Status: Mental Status NL Results/Procedures Lab Laboratory Tests 02/25/23 05:50: White Blood Count 5.0, Red Blood Count 2.71L, Hemoglobin 7.0L, Hematocrit 22L, Mean Corpuscular Volume 80, Mean Corpuscular Hemoglobin 26, Mean Corpuscular Hemoglobin Concent 32, Red Cell Distribution Width 22.2H, Platelet Count 345, Mean Platelet Volume 8.8L, Immature Granulocyte % (Auto) 1, Neutrophils (%) (Auto) 62, Lymphocytes (%) (Auto) 29, Monocytes (%) (Auto) 4, Eosinophils (%) (Auto) 3, Basophils (%) (Auto) 1, Neutrophils # (Auto) 3.1, Lymphocytes # (Auto) 1.5, Monocytes # (Auto) 0.2, Eosinophils # (Auto) 0.2, Basophils # (Auto) 0.0, Immature Granulocyte # (Auto) 0.0, Sodium Level 136, Potassium Level 3.8, Chloride Level 100, Carbon Dioxide Level 30, Anion Gap 6, Blood Urea Nitrogen 11, Creatinine 0.46L, Estimat Glomerular Filtration Rate 107, BUN/Creatinine Ratio 24, Glucose Level 90, Calcium Level 8.0L, Corrected Calcium 9.4, Total Bilirubin 1.8H, Aspartate Amino Transf (AST/SGOT) 21, Alanine Aminotransferase (ALT/SGPT) 16, Alkaline Phosphatase 59, Total Protein 4.5L, Albumin 2.3L 02/25/23 16:52: White Blood Count 5.3, Red Blood Count 2.89L, Hemoglobin 7.5L, Hematocrit 23L, Mean Corpuscular Volume 80, Mean Corpuscular Hemoglobin 26, Mean Corpuscular Hemoglobin Concent 33, Red Cell Distribution Width 22.2H, Platelet Count 364, Mean Platelet Volume 8.8L, Immature Granulocyte % (Auto) 2, Neutrophils (%) (Auto) 59, Lymphocytes (%) (Auto) 31, Monocytes (%) (Auto) 5, Eosinophils (%) (Auto) 3, Basophils (%) (Auto) 1, Neutrophils # (Auto) 3.1, Lymphocytes # (Auto) 1.6, Monocytes # (Auto) 0.2, Eosinophils # (Auto) 0.2, Basophils # (Auto) 0.1, Immature Granulocyte # (Auto) 0.1, Percent Immature Platelet Fraction 1.0 02/26/23 05:08: Microbiology 02/23/23 Urine Culture - Preliminary, Resulted Escherichia coli Radiology Date of Exam:02/07/23 CT ABDOMEN/PELVIS W CLINICAL INDICATION: Patient with history of gallbladder surgery. Patient has fever and altered mental status. EXAM: Axial CT scan of the abdomen and pelvis performed with 50 cc of Omnipaque 350 IV contrast. Sagittal and coronal reformatted images are created. Auto Exposure Controls were utilized during the CT exam to meet ALARA standards for radiation dose reduction. COMPARISON: CT scan of the abdomen and pelvis with contrast dated 08/28/2021. FINDINGS: There is a moderate-sized area of consolidation involving the right lower lobe which is incompletely imaged and concerning for pneumonia. There is no significant change to the 5.1 cm eggshell calcified hypodense lesion involving the medial upper aspect of the spleen. Spleen is otherwise unremarkable. The gallbladder is surgically absent which was also noted on the prior study. The liver is unremarkable. The pancreas is unremarkable. Adrenal glands are unremarkable. Both kidneys are unremarkable with no hydronephrosis, stone, or mass. The bladder is decompressed with wall thickening which is nonspecific. [place] catheter is seen within the decompressed bladder. There is a large amount of stool in the rectum. There is diverticulosis involving the sigmoid colon and descending colon. There is also moderate amount of stool involving the transverse colon and left colon. There is no evidence of intestinal obstruction. The stomach is decompressed. The small bowel showed no significant abnormality. There is no intra-abdominal free air or free fluid. There is no significant lymphadenopathy. The appendix is not definitively localized and may be surgically absent versus obscured by closely adjacent intestines. The abdominal aorta and common iliac arteries are nonaneurysmal without significant stenosis. The extra-abdominal and extrapelvic soft tissue structures show mild subcutaneous edema. IMPRESSION: 1: There is an incompletely visualized moderate amount of consolidation involving the right lower lobe concerning for pneumonia. 2: There is a large amount of stool in the rectum and moderate amount of stool involving the transverse colon and left colon which may be seen with constipation. There is no evidence of intestinal obstruction. 3: Stable eggshell calcified cystic structure involving the spleen. 4: Gallbladder is surgically absent. Dictated by: Dictated on workstation # [id number] Dict: 02/07/23 1746 Trans: 02/07/232215 [id number] [id number] Interpreted by: PIERCE KRUEGER MD Electronically signed by: PIERCE KRUEGER MD 02/07/236 Assessment/Plan Assessment/Plan (1) Anemia Status: Acute Assessment & Plan: Patient noted to have positive hemoccult stool testing in the ED. Hemoglobin 6.7 improved to 7.9 after 1 unit PRBC. Per last hospitalization, patient appears to be chronically anemic with baseline around 7-8. Iron panel from last admission was normal. Hemoglobin today 6.9. Plan: -Transfusing 1 unit today -We will recheck CBC in the a.m. -Per surgery, plan for scopes in the outpatient Qualifiers: Qualified Codes: D64.9 - Anemia, unspecified (2) Atrial fibrillation Status: Chronic Assessment & Plan: History of atrial fibrillation on eliquis. Rate and rhythm controlled for now. Plan: -Consulting cardiology due to atrial fibrillation history and anticoagulation in the setting of GI bleed -Cardiology, holding home Eliquis for now (3) Rheumatoid arthritis Status: Chronic Assessment & Plan: On methotrexate. Will hold for now due to clinical condition. (4) DVT prophylaxis Status: Acute Assessment & Plan: Holding Eliquis per cardiology recommendations. No other blood thinners due to GI bleed concerns. (5) Decubitus skin ulcer Status: Acute Assessment & Plan: Likely secondary to debility. Plan: -Continue wound team recommendations (6) Bilateral lower extremity edema Status: Acute Assessment & Plan: Bilateral LE edema up to thighs. Appears echo was done last admission but no report in chart. Plan: -Continue to follow lower extremity edema Encourage movement out of bed as tolerated to help decrease swelling (7) Pain Status: Chronic Assessment & Plan: Patient noted to have buprenoprhine patch replaced weekly. Ok to use own med. (8) Debility Status: Chronic Assessment & Plan: Will likely need skilled placement post discharge. Plan: -Continue PT/OT, recommend skilled placement GLENN PASCUAL MD, RESIDENT Feb 26, 2023 05:24
[2023-02-26 05:40] LABS: ALBUMIN 2.4 GM/DL (3.2-4.5); BILIRUBIN,TOTAL 1.7 MG/DL (0.1-1.0); CALCIUM 8.1 MG/DL (8.5-10.1); CREATININE SERUM 0.46 MG/DL (0.60-1.30); POTASSIUM 4.2 MMOL/L (3.6-5.0); TOTAL PROTEIN 4.6 GM/DL (6.4-8.2)
[2023-02-26 06:15] LABS: HEMOGLOBIN 6.9 g/dL (11.5-16.0)
[2023-02-26 07:16] VITALS: BP 132/77
--- NOTE | 2023-02-26 07:25 | Progress Note - Surgery ---
Subjective Date Seen by a Provider: Feb 26, 2023 Time Seen by a Provider: 07:20 Subjective/Events-last exam Patient states she was feeling well today and is comfortable. She denies any chest pain, nausea,vomiting, or dizziness, and reports no bowel movements overnight. Her Hgb is trending downwards, yesterday was 7.5 today it is 6.9. She is able to ambulate short distances to the bathroom without much problems and still has LE edema present. Patient is very hard of hearing Review of Systems General: No Chills, No Night Sweats; Fatigue HEENT: No Head Aches, No Visual Changes Pulmonary: No Dyspnea, No Cough Cardiovascular: No: Chest Pain, Palpitations Gastrointestinal: No: Abdominal Pain, Melena Genitourinary: No Dysuria, No Hematuria Musculoskeletal: No: neck pain, shoulder pain Neurological: No: Numbness, Confusion Objective Exam Vital Signs Date Time Temp Pulse Resp B/P (MAP) Pulse Ox O2 Delivery O2 Flow Rate FiO2 02/26/23 07:16 36.6 62 15 132/77 (95) 100 Room Air 02/26/23 04:18 36.2 65 20 120/75 (90) 99 Room Air 02/26/23 00:58 75 02/25/23 23:20 36.7 66 18 121/77 (92) 100 Room Air 02/25/23 19:40 Room Air 02/25/23 19:39 36.6 69 18 98/49 (65) 99 Room Air 02/25/23 19:25 98 Room Air 02/25/23 19:00 71 02/25/23 16:30 36.3 67 16 90/49 (63) 100 Room Air 0.00 0.00 02/25/23 12:16 78 02/25/23 12:08 37.1 74 16 108/71 (83) 98 Room Air 02/25/23 08:28 98 Room Air 0.00 02/25/23 08:00 98 Room Air 02/25/23 07:48 37.0 73 16 115/67 (83) 98 Room Air I & O 02/26/23 07:00 Intake Total 1830 ml Output Total 1725 ml Balance 105 ml Capillary Refill : General Appearance: No Apparent Distress, WD/WN HEENT: PERRL/EOMI, Pharynx Normal Neck: Full Range of Motion, Non Tender, Supple Respiratory: Chest Non Tender, Lungs Clear, Normal Breath Sounds, No Accessory Muscle Use, No Respiratory Distress Cardiovascular: Regular Rate, Rhythm, No Gallop, No Murmur, Normal Peripheral Pulses Gastrointestinal: non tender, soft, no organomegaly Extremity: Normal Capillary Refill, No Calf Tenderness, Pedal Edema (Grade 2 pitting edema of feet b/l up to ankles), Swelling (Edema of b/l LE from feet proximally to hips) Neurologic/Psychiatric: Alert, Oriented x3, Normal Mood/Affect Skin: Warm/Dry, Ecchymosis (left posterior-medial thigh), Other (Hematoma present on right posterior-medial thigh. Stage 2 pressure ulcers on perianal region (1 on midline posterior rectal region, 1 on left buttock region, 1 on rig ht buttock region) ) Lymphatic: No Adenopathy Results Lab Laboratory Tests 02/25/23 16:52: White Blood Count 5.3, Red Blood Count 2.89L, Hemoglobin 7.5L, Hematocrit 23L, Mean Corpuscular Volume 80, Mean Corpuscular Hemoglobin 26, Mean Corpuscular Hemoglobin Concent 33, Red Cell Distribution Width 22.2H, Platelet Count 364, Mean Platelet Volume 8.8L, Immature Granulocyte % (Auto) 2, Neutrophils (%) (Auto) 59, Lymphocytes (%) (Auto) 31, Monocytes (%) (Auto) 5, Eosinophils (%) (Auto) 3, Basophils (%) (Auto) 1, Neutrophils # (Auto) 3.1, Lymphocytes # (Auto) 1.6, Monocytes # (Auto) 0.2, Eosinophils # (Auto) 0.2, Basophils # (Auto) 0.1, Immature Granulocyte # (Auto) 0.1, Percent Immature Platelet Fraction 1.0 02/26/23 05:08: White Blood Count 3.5L, Red Blood Count 2.69L, Hemoglobin 6.9*L, Hematocrit 22L, Mean Corpuscular Volume 80, Mean Corpuscular Hemoglobin 26, Mean Corpuscular Hemoglobin Concent 32, Red Cell Distribution Width 22.0H, Platelet Count 264, Mean Platelet Volume 8.4L, Immature Granulocyte % (Auto) 0, Neutrophils (%) (Auto) 45, Lymphocytes (%) (Auto) 40, Monocytes (%) (Auto) 8, Eosinophils (%) ( Auto) 6, Basophils (%) (Auto) 1, Neutrophils # (Auto) 1.5L, Lymphocytes # (Auto) 1.4, Monocytes # (Auto) 0.3, Eosinophils # (Auto) 0.2, Basophils # (Auto) 0.0, Immature Granulocyte # (Auto) 0.0, Sodium Level 135, Potassium Level 4.2, C hloride Level 101, Carbon Dioxide Level 29, Anion Gap 5, Blood Urea Nitrogen 8, Creatinine 0.46L, Estimat Glomerular Filtration Rate 107, BUN/Creatinine Ratio 17, Glucose Level 86, Calcium Level 8.1L, Corrected Calcium 9.4, Total Bilirubin 1.7H, Aspartate Amino Transf (AST/SGOT) 20, Alanine Aminotransferase (ALT/SGPT) 16, Alkaline Phosphatase 61, Total Protein 4.6L, Albumin 2.4L Microbiology 02/23/23 Urine Culture - Preliminary, Resulted Escherichia coli Assessment/Plan Assessment/Plan Assessment/Plan Assessment: Anemia Hemoccult positive on arrival to ED UTI- -02/23 E.coli Afib RA Plan: colonoscopy- hx of polyps unit of blood continue abx continue holding her eliquis and methotrexate DAMICO Feb 26, 2023 07:25
[2023-02-26] MEDS ORDERED: NS IV 500 ML 500 ML IV SCH (07:30)
[2023-02-26] MEDS: POTASSIUM CHLORIDE 20 MEQ TABLET PO SCH (08:10)
[2023-02-26] MEDS: PANTOPRAZOLE INJECTION 40 MG VIAL IV SCH (08:10)
[2023-02-26] MEDS: MICONAZOLE 2% POWDER 90 GM TOP SCH (08:11)
--- NOTE | 2023-02-26 08:49 | Discharge Summary ---
GLENN PASCUAL MD, RESIDENT 02/26/23 0849: Diagnosis/Chief Complaint Date of Admission Feb 23, 2023 at 21:28 Date of Discharge 02/26/23 Admission Diagnosis Admission Diagnosis Anemia, hypokalemia, GI bleed Discharge Diagnosis UTI, Anemia Discharge Summary Hospital Course Was the Problem List Reviewed?: Yes Hospital Course Patient is a 62-year-old female with a past medical history of rheumatoid arthritis who presented due to hypotension and anemia that was noted by PCP. Of note she was recently admitted to the hospital on 02/07 and was found to have sepsis secondary to pneumonia. It appears that she had not recovered since being discharged from the hospital and was essentially bedridden. In the ED she was noted to have a hemoglobin of 6.7 and low blood pressure thus was a admitted for further management. Hemoccult stool test was positive in the ED. She received 1 unit PRBC with improvement in her hemoglobin. We also held her anticoagulation for her atrial fibrillation due to concerns for GI bleed. Urine culture in the ED was not a clean sample however grew E. coli thus we treated with ceftriaxone while patient was in the hospital. Prior to discharge she was otherwise stable, worked with physical therapy however evaluated to benefit from additional rehab services. She will thus be discharged to inpatient rehab. We will continue ceftriaxone treatment. Patient will also receive 1 more unit of blood prior to discharge given she had a hemoglobin of 6.9 this a.m. She is otherwise stable at this time. Would recommend doing scopes in the outpatient. Labs Laboratory Tests 02/23/23 18:30: Red Blood Count 2.67L, Hemoglobin 6.7*L, Hematocrit 22L, Mean Corpuscular Hemoglobin Concent 31L, Red Cell Distribution Width 25.2H, Platelet Count 546H, Neutrophils (%) (Auto) 85H, Prothrombin Time 19.8H, INR Comment 1.6H, Activated Partial Thromboplast Time 40H, Sodium Level 131L, Potassium Level 2.6L, Chloride Level 90L, Blood Urea Nitrogen 26H, Creatinine 0.59L, Glucose Level 116H 02/23/23 19:50: Urine Protein 2+H, Urine Glucose (UA) TRACEH, Urine Bilirubin 1+H, Urine Leukocyte Esterase TRACEH, Urine RBC (Auto) 1+H, Urine RBC 2-5H, Urine WBC 5-10H , Urine Squamous Epithelial Cells TNTCH, Urine Bacteria LARGEH, Urine Mucus SMALLH 02/24/23 08:20: Red Blood Count 3.04L, Hemoglobin 7.9L, Hematocrit 24L, Red Cell Distribution Width 21.8H, Sodium Level 131L, Potassium Level 2.8L, Chloride Level 93L, Creatinine 0.48L, Glucose Level 113H, Mean Corpuscular Volume 78L, Mean Platelet Volume 8.8L, Calcium Level 8.1L 02/25/23 05:50: Red Blood Count 2.71L, Hemoglobin 7.0L, Hematocrit 22L, Red Cell Distribution Width 22.2H, Creatinine 0.46L, Mean Platelet Volume 8.8L, Calcium Level 8.0L, Total Bilirubin 1.8H, Total Protein 4.5L, Albumin 2.3L 02/25/23 16:52: Red Blood Count 2.89L, Hemoglobin 7.5L, Hematocrit 23L, Red Cell Distribution Width 22.2H, Mean Platelet Volume 8.8L 02/26/23 05:08: Red Blood Count 2.69L, Hemoglobin 6.9*L, Hematocrit 22L, Red Cell Distribution Width 22.0H, Mean Platelet Volume 8.4L, White Blood Count 3.5L, Neutrophils # (Auto) 1.5L, Creatinine 0.46L, Calcium Level 8.1L, Total Bilirubin 1.7H, Total Protein 4.6L, Albumin 2.4L Procedures None. Consultations Cardiology, general surgery Discharge Physical Examination Allergies: Coded Allergies: NKANo Known Allergies (Verified Allergy, Mild, 02/23/23) mushroom (Unverified Allergy, Unknown, 02/23/23) Vitals & I&Os Vital Signs Date Time Temp Pulse Resp B/P (MAP) Pulse Ox O2 Delivery O2 Flow Rate FiO2 02/26/23 08:20 Room Air 02/26/23 07:16 36.6 62 15 132/77 (95) 100 02/25/23 16:30 0.00 0.00 02/24/23 01:07 21 General Appearance: Alert, Oriented X3 HEENT: PERRLA Respiratory: Clear to Auscultation, Normal Air Movement Cardiovascular: Regular Rate, No Murmurs Abdominal: Normal Bowel Sounds, Soft, No Tenderness Extremities: Other (Bilateral edema up to the thighs, mildly improved from yesterday) Skin: Other (Decubitus ulcers on back and pressure ulcer on feet) Neuro: Normal Speech Psych/Mental Status: Mental Status NL Discussion & Recommendations Recommend continued inpatient rehab to work on patient's strength. Consider scopes in the outpatient to look at causes of GI bleed. Discharge Home Medications Reviewed and agree with Discharge Medication list on patient's Discharge Instruction sheet Condition at Discharge Stable Instructions to Patient/Family Please see electronic discharge instructions given to patient. CAROLINE PATRICK DO 02/26/23 1659: Discharge Summary Hospital Course Was the Problem List Reviewed?: Yes Discharge Physical Examination Allergies: Coded Allergies: NKANo Known Allergies (Verified Allergy, Mild, 02/23/23) mushroom (Unverified Allergy, Unknown, 02/23/23) General Appearance: Alert, Oriented X3 GLENN PASCUAL MD, RESIDENT Feb 26, 2023 08:49 CAROLINE PATRICK DO Feb 26, 2023 16:59
[2023-02-26 10:04] VITALS: BP 132/77
[2023-02-26 10:25] VITALS: BP 130/75
[2023-02-26 12:45] VITALS: BP 109/58
[2023-03-02] MEDS ORDERED: [UNRECOGNIZED DRUG - REMARK] TP SCH (08:59)
[2023-03-02] MEDS ORDERED: [UNRECOGNIZED DRUG - REMARK] TOP SCH (09:00)
== END 2023-02-26 11:20 | DRG 812 ==
LOC: EDUNIT# 17:42 → ER 17:43 → 4TH 21:28
PROVIDERS: ADMIT Family Medicine; ATTEND Family Medicine
DX: D64.9 Anemia, unspecified (principal); I48.20 Chronic atrial fibrillation, unspecified; K92.2 Gastrointestinal hemorrhage, unspecified; E87.6 Hypokalemia; M06.9 Rheumatoid arthritis, unspecified; R53.81 Other malaise; I10 Essential (primary) hypertension; G89.29 Other chronic pain; M54.9 Dorsalgia, unspecified
CPT/HCPCS: 36415; 51701; 80048; 80053; 81000; 82274; 83735; 85025; 85610; 85730; 86850; 86900; 86901; 86920; 87077; 87088; 87186; 93005; 94760

== ENCOUNTER 2023-02-26 09:00 | Inpatient (IN) | payer BC ==
[~2023-02-26] VITALS: Ht 160 cm; Wt 48.2 kg
[~2023-02-26 09:00] MED LIST changes: +AMOX500C2 PO
[2023-02-26 11:20] VITALS: BP 122/61
--- OUTSIDE RECORDS SUMMARY | 2023-02-26 11:33 | XMS REPORT ---
Author Author [facility] ter [facility] ter of [facility] Address Unknown Phone Unavailable Care Team Providers Care Database Software Technician Name Role Phone ISABELL LOVE Unavailable PROBLEMS Type Condition ICD9-CM Code [id number] Code Onset Dates Condition Status W/U Status Risk SNOMED Code Notes Problem Primary osteoarthriti s of both knees M17.0 confirmed 175671561 Problem Essential hypertension I10 confirmed 23921886 Problem Unilateral primary osteoarthriti s, right knee M17.11 confirmed 381567126 Problem Gastroesophag eal reflux disease without esophagitis K21.9 confirmed 012914565 Problem Seasonal allergies J30.2 confirmed 005317067 Problem Hyperlipidemi a, unspecified hyperlipidemi a type E78.5 confirmed 48984789 Problem Rheumatoid arthritis involving both hands, unspecified whether rheumatoid factor present M06.9 confirmed [id number] 2316531 Problem Major depressive disorder with single episode, remission status unspecified F32.9 confirmed 71538217 Problem Rheumatoid arthritis involving multiple sites with positive rheumatoid factor M05.79 confirmed 055844372 Problem Postmenopausa l HRT (hormone replacement therapy) Z79.890 confirmed 38698079 Problem Hyperlipidemi a, unspecified hyperlipidemi a type E78.5 confirmed 20943358 Problem Major depressive disorder with single episode, in full remission F32.5 confirmed 24146227 Problem Osteoarthriti s M19.90 confirmed 064372009 Problem Dysphagia R13.10 confirmed 00366956 ALLERGIES No Known Allergies ENCOUNTERS from 1960 to 2022-11-08 Encounter Location Date Provider Diagnosis [facility] [id number] [place] [address] Nov, ISABELL LOVE IMMUNIZATIONS Vaccine Route Administration Date Status Influenza IIV3 ADJ (history) Unknown Feb 09, 2018 Administered Influenza IIV3 ADJ (history) Unknown Feb 03, 2017 Administered COVID-19 Moderna (history) Unknown August 08, 2020 Administered COVID-19 Moderna (history) Unknown July 03, 2020 Administered tdap (history) Unknown July 24, 2013 Administere d influenza IIV4 (history) Unknown Feb 13, 2021 Adm inistered PRIVATE FLU 22-23 (FLULAVAL) AGE 6MO AND UP IM Intramuscular Feb 02, 2022 Administered influenza IIV3 (history) IM Intramuscular Jan 25 9 Administered influenza (history) Unknown Feb 06, 2020 Administ ered influenza IIV3 (history) IM Intramuscular Feb 09, 2018 Administered PRIVATE FLULAVAL QUAD 0.5ML (6 MO AND UP) 2018 Unknown Feb 20, 2018 Administered PRIVATE ZOSTAVAX (HERPES ZOSTER) SC Subcutaneous October 17, 2015 Administered SOCIAL HISTORY Sex Assigned At : Social History Observation Description Sex Assigned At Unknown Alcohol Screen (Audit-C) Question Answer Notes Did you have a drink containing alcohol in the p ast year? No Points 0 Interpretation Negative Sexual History Question Answer Notes Had sex in the past 12 months (vaginal, oral, or anal)? Yes Have you ever had a Sexually transmitted disease ? No with Men only Use protection? No PHQ2 Question Answer Notes In the last 2 weeks, how oft en have you had little interest or pleasure in doing things? Not at all In the last 2 weeks, how oft en have you been feeling down, depressed, or hopeless? Not at all Total PHQ2 Score 0 Tobacco use other than smoking: Question Answer Notes Are you an other tobacco user? No REASON FOR REFERRAL No Information MEDICATIONS Medication SIG (Take, Route, Frequency, Duration) Notes Start Date End Date Status PARoxetine HCl 20 MG TAKE 1 TABLET BY MO UTH ONCE DAILY IN THE MORNING for 90 Active Nadolol 40 MG Take 1 tablet by nilesh th once daily for 30 Active Voltaren 1 % as directed External ly PRN q day Sep, Active hydroCHLOROthiazide 25 MG Take 1 tablet by mouth once daily for 30 days Active REASON FOR VISIT Medication refill request MEDICAL (GENERAL) HISTORY Type Description Date Medical History Hypertension Surgical History Cholecystectomy 2006 Surgical History tonsillectomy and adenoidectomy Surgical History Ear surgery to add a piece of t issue to ear drum Hospitalization History childbirth MENTAL STATUS No Information PLAN OF TREATMENT No Information Insurance Providers Payer Name Payer Address Payer Phone Insured Name Patient Relationship to Insured Coverage Start Date Coverage End Date Subscriber Number Group Number [employer] OF [place] [address] [place] [phone] Magy Miller Self - patient is the insured [id number]
--- OUTSIDE RECORDS SUMMARY | 2023-02-26 11:33 | XMS REPORT ---
Author Author [facility] ter [facility] ter of [facility] Address Unknown Phone Unavailable Care Team Providers Care Fire Inspector Name Role Phone ISABELL LOVE Unavailable PROBLEMS Type Condition ICD9-CM Code [id number] Code Onset Dates Condition Status W/U Status Risk SNOMED Code Notes Problem Unilateral primary osteoarthriti s, right knee M17.11 confirmed 462546165 Problem Primary osteoarthriti s of both knees M17.0 confirmed 691364738 Problem Major depressive disorder with single episode, remission status unspecified F32.9 confirmed 22126145 Problem Gastroesophag eal reflux disease without esophagitis K21.9 confirmed 335892059 Problem Seasonal allergies J30.2 confirmed 404131547 Problem Dysphagia R13.10 confirmed 54929184 Problem Postmenopausa l HRT (hormone replacement therapy) Z79.890 confirmed 89647206 Problem Rheumatoid arthritis involving both hands, unspecified whether rheumatoid factor present M06.9 confirmed [id number] 0540308 Problem Essential hypertension I10 confirmed 32863326 Problem Hyperlipidemi a, unspecified hyperlipidemi a type E78.5 confirmed 00794928 Problem Hyperlipidemi a, unspecified hyperlipidemi a type E78.5 confirmed 85099075 Problem Major depressive disorder with single episode, in full remission F32.5 confirmed 77143138 Problem Osteoarthriti s M19.90 confirmed 861752447 ALLERGIES No Known Allergies ENCOUNTERS from 1960 to 2022-11-05 Encounter Location Date Provider Diagnosis [facility] [address] [facility] [id number] [address] Oct, ISABELL LOVE IMMUNIZATIONS Vaccine Route Administration Date Status PRIVATE FLULAVAL QUAD 0.5ML (6 MO AND UP) 2018 Unknown Feb 20, 2018 Administered influenza IIV4 (history) Unknown Feb 13, 2021 Adm inistered tdap (history) Unknown July 24, 2013 Administere d COVID-19 Moderna (history) Unknown July 03, 2020 Administered COVID-19 Moderna (history) Unknown August 08, 2020 Administered Influenza IIV3 ADJ (history) Unknown Feb 03, 2017 Administered influenza IIV3 (history) IM Intramuscular Feb 09, 2018 Administered Influenza IIV3 ADJ (history) Unknown Feb 09, 2018 Administered PRIVATE ZOSTAVAX (HERPES ZOSTER) SC Subcutaneous October 17, 2015 Administered influenza (history) Unknown Feb 06, 2020 Administ thu PRIVATE FLU 22-23 (FLULAVAL) AGE 6MO AND UP IM Intramuscular Feb 02, 2022 Administered influenza IIV3 (history) IM Intramuscular Jan 25 9 Administered SOCIAL HISTORY Sex Assigned At : [...] Duration) Notes Start Date End Date Status Voltaren 1 % as directed External ly PRN q day Sep, Active hydroCHLOROthiazide 25 MG Take 1 tablet by mouth once daily for 30 days Active PARoxetine HCl 20 MG TAKE 1 TABLET BY MO UTH ONCE DAILY IN THE MORNING for 90 Active Nadolol 40 MG Take 1 tablet by nilesh th once daily for 30 Active predniSONE 20 MG 1 tablet Orally Once a day for 7 days Sep, Active REASON FOR VISIT Medication refill request MEDICAL (GENERAL) HISTORY Type Description Date Medical History Hypertension Surgical History Cholecystectomy 2006 Surgical History tonsillectomy and adenoidectomy Surgical History Ear surgery to add a piece of t issue to ear drum Hospitalization History childbirth MENTAL STATUS No Information PLAN OF TREATMENT Medication Medication Name Sig Start Date Stop Date PARoxetine HCl 20 MG TAKE 1 TABLET BY [facility] ONCE DAILY IN THE MORNING for 90 Voltaren 1 % as directed Externally PRN q day Sep, predniSONE 20 MG 1 tablet Orally Once a day for 7 days Sep, Next Appt Details Provider Name:CAIT STEW MCCAMEY, 2022-11-08 02:20:00 PM, [address] [facility], [id number], [place], [address], Insurance Providers Payer Name Payer Address Payer Phone Insured Name Patient Relationship to Insured Coverage Start Date Coverage End Date Subscriber Number Group Number [employer] OF [place] [address] [facility] [id number] Magy Miller Self - patient is the insured [id number]
--- OUTSIDE RECORDS SUMMARY | 2023-02-26 11:33 | XMS REPORT ---
Author Author [facility] ter [facility] ter [facility] Address Unknown Phone Unavailable Care Team Providers Care Network Systems Engineer Name Role Phone ISABELL LOVE Unavailable PROBLEMS Type Condition ICD9-CM Code [id number] Code Onset Dates Condition Status W/U Status Risk SNOMED Code Notes Problem Postmenopausa l HRT (hormone replacement therapy) Z79.890 confirmed 98952698 Problem Major depressive disorder with single episode, remission status unspecified F32.9 confirmed 60448777 Problem Gastroesophag eal reflux disease without esophagitis K21.9 confirmed 773568562 Problem Primary osteoarthriti s of both knees M17.0 confirmed 135590771 Problem Osteoarthriti s M19.90 confirmed 898601599 Problem Essential hypertension I10 confirmed 31873955 Problem Dysphagia R13.10 confirmed 68115475 Problem Unilateral primary osteoarthriti s, right knee M17.11 confirmed 012230245 Problem Seasonal allergies J30.2 confirmed 255980482 Problem Hyperlipidemi a, unspecified hyperlipidemi a type E78.5 confirmed 80176050 Problem Hyperlipidemi a, unspecified hyperlipidemi a type E78.5 confirmed 36134388 Problem Major depressive disorder with single episode, in full remission F32.5 confirmed 83931136 ALLERGIES No Known Allergies ENCOUNTERS from 1960 to 2022-09-07 Encounter Location Date Provider Diagnosis [facility] [address] [facility] [id number] [place] [address] August, ISABELL LOVE IMMUNIZATIONS Vaccine Route Administration Date Status influenza IIV3 (history) IM Intramuscular Feb 09, 2018 Administered Influenza IIV3 ADJ (history) Unknown Feb 09, 2018 Administered Influenza IIV3 ADJ (history) Unknown Feb 03, 2017 Administered COVID-19 Moderna (history) Unknown August 08, 2020 Administered COVID-19 Moderna (history) Unknown July 03, 2020 Administered tdap (history) Unknown July 24, 2013 Administere d PRIVATE ZOSTAVAX (HERPES ZOSTER) SC Subcutaneous October 17, 2015 Administered influenza IIV4 (history) Unknown Feb 13, 2021 Adm inistered PRIVATE FLU 22-23 (FLULAVAL) AGE 6MO AND UP IM Intramuscular Feb 02, 2022 Administered PRIVATE FLULAVAL QUAD 0.5ML (6 MO AND UP) 2018 Unknown Feb 20, 2018 Administered influenza (history) Unknown Feb 06, 2020 Administ thu influenza IIV3 (history) IM Intramuscular Jan 25 [...] Duration) Notes Start Date End Date Status hydroCHLOROthiazide 25 MG Take 1 tablet by mouth once daily for 30 days Active PARoxetine HCl 20 MG TAKE 1 TABLET BY MO UTH ONCE DAILY IN THE MORNING for 90 Active Nadolol 40 MG Take 1 tablet by nilesh th once daily for 30 Active REASON FOR VISIT Requests return call MEDICAL (GENERAL) HISTORY Type Description Date Medical History Hypertension Surgical History Cholecystectomy 2006 Surgical History tonsillectomy and adenoidectomy Surgical History Ear surgery to add a piece of t issue to ear drum Hospitalization History childbirth MENTAL STATUS No Information PLAN OF TREATMENT Medication Medication Name Sig Start Date Stop Date hydroCHLOROthiazide 25 MG Take 1 tablet by mouth once daily for 30 days Nadolol 40 MG Take 1 tablet by nilesh th once daily for 30 Next Appt Details Provider Name:ISABELL LOVE, 2 023-06-01 03:40:00 PM, [address], [place], [address], Insurance Providers Payer Name Payer Address Payer Phone Insured Name Patient Relationship to Insured Coverage Start Date Coverage End Date Subscriber Number Group Number [employer] OF [place] [address] [facility] [id number] Magy Miller Self - patient is the insured [id number]
--- OUTSIDE RECORDS SUMMARY | 2023-02-26 11:33 | XMS REPORT ---
Author Author [facility] ter [facility] ter of [facility] Address Unknown Phone Unavailable Care Team Providers Care Leasing Director Name Role Phone ISABELL LOVE Unavailable PROBLEMS Type Condition ICD9-CM Code [id number] Code Onset Dates Condition Status W/U Status Risk SNOMED Code Notes Problem Unilateral primary osteoarthriti s, right knee M17.11 confirmed 632692865 Problem Postmenopausa l HRT (hormone replacement therapy) Z79.890 confirmed 61610737 Problem Primary osteoarthriti s of both knees M17.0 confirmed 286662231 Problem Major depressive disorder with single episode, remission status unspecified F32.9 confirmed 99491140 Problem Essential hypertension I10 confirmed 28474294 Problem Hyperlipidemi a, unspecified hyperlipidemi a type E78.5 confirmed 51061869 Problem Hyperlipidemi a, unspecified hyperlipidemi a type E78.5 confirmed 39308942 Problem Major depressive disorder with single episode, in full remission F32.5 confirmed 63228799 Problem Vitamin D deficiency E55.9 confirmed 65008233 Problem Gastroesophag eal reflux disease without esophagitis K21.9 confirmed 686082823 Problem Iron deficiency anemia due to chronic blood loss D50.0 confirmed 456762459 Problem Seasonal allergies J30.2 confirmed 417230618 Problem Osteoarthriti s M19.90 confirmed 323516149 Problem Dysphagia R13.10 confirmed 90566743 Problem Rheumatoid arthritis involving both hands, unspecified whether rheumatoid factor present M06.9 confirmed 8646997032 5077465 Problem Rheumatoid arthritis involving multiple sites with positive rheumatoid factor M05.79 confirmed 180133331 ALLERGIES No Known Allergies ENCOUNTERS from 1960 to 2023-02-02 Encounter Location Date [facility] [address] [id number] [address] 13 Jan, 2021 ISABELL LOVE IMMUNIZATIONS Vaccine Route Administration Date Status PRIVATE ZOSTAVAX (HERPES ZOSTER) SC Subcutaneous October 17, 2015 Administered PRIVATE FLU 22-23 (FLULAVAL) AGE 6MO AND UP IM Intramuscular Feb 02, 2022 Administered PRIVATE FLULAVAL QUAD 0.5ML (6 MO AND UP) 2018 Unknown Feb 20, 2018 Administered influenza IIV3 (history) IM Intramuscular Feb 09, 2018 Administered influenza IIV3 (history) IM Intramuscular Jan 25 9 Administered PRIVATE PCV20 ([id number]) IM Intramuscular Dec 22 3 Administered Influenza IIV3 ADJ (history) Unknown Feb 09, 2018 Administered Influenza IIV3 ADJ (history) Unknown Feb 03, 2017 Administered COVID-19 Moderna (history) Unknown August 08, 2020 Administered COVID-19 Moderna (history) Unknown July 03, 2020 Administered tdap (history) Unknown July 24, 2013 Administere d influenza (history) Unknown Feb 06, 2020 Administ ered influenza IIV4 (history) Unknown Feb 13, 2021 Adm inistered SOCIAL HISTORY Sex Assigned At : Social [...] HCl 20 MG TAKE 1 TABLET BY MOUTH ONCE DAILY IN THE MORNING for 90 Active Nadolol 40 MG Take 1 tablet by mouth once daily for 30 Active Voltaren 1 % as directed Externally PRN q day Sep, Active Methotrexate 2.5 MG as directed Orally 4 tablets on week 1; 5 tablets on week 2; 6 tablets weekly; 7 tablets weekly; then 8 tablets weekly (goal) Nov, Active Folic Acid 1 MG 1 tablet Orally Once a day for 90 days Nov, Active Butrans 20 MCG/HR 1 patch to skin Transdermal weekly for 28 days please fill on 01/18Dec, Active Vitamin D (Ergocalciferol) 1.25 MG (02248 UT) 1 capsule Orally once a week for 30 days recheck lab in 12 weeks Oct, Active REASON FOR VISIT med refill MEDICAL (GENERAL) HISTORY Type Description Date Medical History Hypertension Surgical History Cholecystectomy 2005 Surgical History tonsillectomy and adenoidectomy Surgical History Ear surgery to add a piece of t issue to ear drum Hospitalization History childbirth MENTAL STATUS No Information PLAN OF TREATMENT Medication Medication Name Sig Start Date Stop Date Methotrexate 2.5 MG as directed Orally 4 tablets on week 1; 5 tablets on week 2; 6 tablets weekly; 7 tablets weekly; then 8 tablets weekly (goal) Nov, Folic Acid 1 MG 1 tablet Orally Once a day for 90 days Nov, Butrans 20 MCG/HR 1 patch to skin Aranda sdermal weekly for 28 days Dec, Next Appt Details Provider Name:ISABELL LOVE, 2 023-11-02 02:20:00 PM, [address] [facility], [place], [address], Insurance Providers Payer Name Payer Address Payer Phone Insured Name Patient Relationship to Insured Coverage Start Date Coverage End Date Subscriber Number Group Number [employer] OF [place] [address] [facility] [id number] Magy Miller Self - patient is the insured [id number]
[2023-02-26] MEDS ORDERED: FLU QUADRIvalent (6 months+) 60 mcg/0.5 ml 2023-2024 (FLUARIX) IM ONE (12:45)
[2023-02-26] MEDS ORDERED: LACTULOSE SYRUP 10GM/15ML 30ML UDC PO PRN (14:30)
[2023-02-26] MEDS ORDERED: Sodium Phosphate/Sodium Biphosphate ADULT enema PR PRN (14:30)
[2023-02-26] MEDS ORDERED: ONDANSETRON 4 MG ORAL DISSOLVE TABLET PO PRN (14:30)
[2023-02-26] MEDS ORDERED: CALCIUM CARBONATE 500 MG CHEW TABLET PO PRN (14:30)
[2023-02-26] MEDS ORDERED: BISACODYL 10 MG SUPPOSITORY PR PRN (14:30)
[2023-02-26] MEDS ORDERED: diphenhydrAMINE 25 MG TABLET PO PRN (14:30)
[2023-02-26] MEDS ORDERED: LOPERAMIDE 2 MG CAPSULE PO PRN (14:30)
[2023-02-26] MEDS ORDERED: ALPRAZolam 0.25 MG TABLET PO PRN (14:30)
[2023-02-26] MEDS ORDERED: DOCUSATE SODIUM 100 MG CAPSULE PO PRN (14:30)
[2023-02-26] MEDS ORDERED: MELATONIN 3 MG TABLET PO PRN (14:30)
[2023-02-26] MEDS ORDERED: guaiFENesin/CODEINE 10ML UDC PO PRN (14:30)
--- NOTE | 2023-02-26 14:33 | PM&R Post Admission Assessment ---
PM&R HP Date of Visit: Feb 26, 2023 Time of Visit: 11:30 History of Present Illness CC: Anemia HPI: DC summary from acute care: Patient is a 62-year-old female with a past medical history of rheumatoid arthritis who presented due to hypotension and anemia that was noted by PCP. Of note she was recently admitted to the hospital on 02/07 and was found to have sepsis secondary to pneumonia. It appears that she had not recovered since being discharged from the hospital and was essentially bedridden. In the ED she was noted to have a hemoglobin of 6.7 and low blood pressure thus was a admitted for further management. Hemoccult stool test was positive in the ED. She received 1 unit PRBC with improvement in her hemoglobin. We also held her anticoagulation for her atrial fibrillation due to concerns for GI bleed. Urine culture in the ED was not a clean sample however grew E. coli thus we treated with ceftriaxone while patient was in the hospital but that was changed to Meropenem upon arrival to ARU due to ESBL. Prior to discharge she was otherwise stable, worked with physical therapy however evaluated to benefit from additional rehab services. She will thus be discharged to inpatient rehab. Patient will also receive 1 more unit of blood prior to discharge given she had a hemoglobin of 6.9 this a.m. She is otherwise stable at this time. Would recommend doing scopes in the outpatient. PLOF: partial/mod with manual w/c and walker CLOF max bed mobility. Past Thbohki-Wuavsk-Ownwrs Hx Past Med/Social Hx: Reviewed Nursing Past Med/Soc Hx, Reviewed and Corrections made Patient Social History Marrital Status: Employed/Student: unemployed Alcohol Use: Denies Use Smoking Status: Never a Smoker 2nd Hand Smoke Exposure: No Recent Hopitalizations: Yes (02/07 - 02/14 for dog bite, Pasturella infection, sepsis and pneumonia) Immunizations Up To Date Tetanus Booster (TDap): More than 5yrs Date of Influenza Vaccine: Feb 09, 2021 Seasonal Allergies Seasonal Allergies: Yes (mild) Past Medical History Surgeries: Ear Surgery, Gallbladder Cardiac: Atrial Fibrillation, Hypertension Gastrointestinal: Gastroesophageal Reflux, Hiatal Hernia Musculoskeletal: Arthritis, Rheumatoid Arthritis, Chronic Back Pain, Contractu re Loss of Vision: Bilateral Hearing Impairment: Hard of Hearing History of Blood Disorders: Yes Family History Cancer, Other Conditions/Hx PM&R Allergy/Meds/Data Review Allergies Coded Allergies: NKANo Known Allergies (Verified Allergy, Mild, 02/23/23) mushroom (Unverified Allergy, Unknown, 02/23/23) Home Medications Scheduled Apixaban (Eliquis), 5 MG PO BID, (Reported) Buprenorphine (Buprenorphine), 20 MCG TD TUE, (Reported) Folic Acid (Folic Acid), 1 MG PO 1900, (Reported) Hydrochlorothiazide (Hydrochlorothiazide), 25 MG PO 1900, (Reported) Methotrexate Sodium (Methotrexate), 20 MG PO TUESDAY, (Reported) Nadolol (Nadolol), 40 MG PO 1900, (Reported) Pantoprazole Sodium (Pantoprazole Sodium), 40 MG PO 1900, (Reported) Paroxetine HCl (Paroxetine HCl), 20 MG PO 1900, (Reported) Discontinued Medications Amoxicillin (Amoxicillin), 500 MG PO TID Discontinued Reason: Duplicate Order Amoxicillin (Amoxicillin), 500 MG PO TID, (Reported) Apixaban (Eliquis), 5 MG PO BID Discontinued Reason: Duplicate Order Ergocalciferol (Vitamin D2) (Vitamin D2), 1,250 MCG PO MON, (Reported) Discontinued Reason: No Longer Taking Pantoprazole Sodium (Pantoprazole Sodium), 40 MG PO DAILY Discontinued Reason: Duplicate Order Current Medications Current Medications Reviewed Review of Systems Constitutional: see HPI, dizziness, malaise, weakness EENTM: no symptoms reported Respiratory: no symptoms reported Cardiovascular: no symptoms reported Gastrointestinal: no symptoms reported Genitourinary: no symptoms reported Musculoskeletal: back pain, joint pain, muscle pain, muscle stiffness, muscle cramps Skin: no symptoms reported Psychiatric/Neurological: Anxiety, Depressed All Other Systems Reviewed Negative Unless Noted: Yes Physical Exam Physical Exam Vital Signs Vital Signs - First Documented 02/26/23 12:25 Pulse 72 Capillary Refill : Height, Weight, BMI Height: 5'3.00" Weight: 196lbs. 0.0oz. [id number]; 20.46 BMI Method: General Appearance: No Apparent Distress, WD/WN, Chronically ill, Thin Eyes: Bilateral Eye Normal Inspection, Bilateral Eye PERRL HEENT: PERRL/EOMI, Normal ENT Inspection, Pharynx Normal Neck: Full Range of Motion, Normal Inspection, Non Tender, Supple, Carotid Bruit Respiratory: Chest Non Tender, Lungs Clear, Normal Breath Sounds, No Accessory Muscle Use, No Respiratory Distress Cardiovascular: Regular Rate, Rhythm, No Edema, No Gallop, No JVD, No Murmur, Normal Peripheral Pulses Gastrointestinal: Normal Bowel Sounds, No Organomegaly, No Pulsatile Mass, Non Tender, Soft Back: Normal Inspection, No CVA Tenderness, No Vertebral Tenderness Extremity: Normal Capillary Refill, Normal Inspection, Normal Range of Motion, Non Tender, No Calf Tenderness, No Pedal Edema Neurologic/Psychiatric: Alert, Oriented x3, No Motor/Sensory Deficits, Depressed Affect, Motor Weakness (generalized) Skin: Normal Color, Warm/Dry Lymphatic: No Adenopathy PM&R Medical Assessment & Plan REHAB/MEDICAL ASSESSMENT AND PLAN: REHAB IMPAIRMENT GROUP: Debility ETIOLOGIC DIAGNOSIS: Anemia severe and RA The comorbidities that impact the patients function and/or functional outcome by: RA, chronic debility, w/c and walker usage at home, OAC REHAB PLAN: The patient is being admitted to our comprehensive inpatient rehabilitation facility and can tolerate the intensity of service consisting of at least: 180 minutes of therapy a day, 5 out of 7 days a week Rehab treatment will consist of: PT OT will focus on regaining function with the use of AD in order to increase strength and help increase ADL's to decrease collections director burden The patient/family has a good understanding of our discharge process and will benefit from an interdisciplinary inpatient rehabilitation program. The patient has potential to make improvement and is in need of at least two of the following multidisciplinary therapies including but not limited to physical, occupational, speech, and prosthetics and orthotics. Additionally the patient will need services from respiratory, nutritional services, wound care, psychology, etc. (Customize this to each patient). Given the patients complex condition and risk of further medical complications, rehabilitation services cannot be safely or effectively provided at a lower level of care such as a retirement facility. BARRIERS TO DISCHARGE: Severe debility acute on chronic ESTIMATED LOS: 7 days DISPOSITION: home RELEVANT CHANGES SINCE PREADMISSION SCREENING: I have compared the patients medical and functional status at the time of the preadmission screening and there are: no changes PROGNOSIS: Good REHABILITATION GOALS: 1. PT OT will focus on regaining function with the use of AD in order to increase strength and help increase ADL's to decrease collections director burden All the above goals were reviewed with the patient and he/she is in agreement. By signing this document, I acknowledge that I have personally performed a full physical examination on this patient within 24 hours of admission to this inpatient rehabilitation facility and have determined the patient to be able to tolerate the above course of treatment at an intensive level for a reasonable period of time. I will be completing a detailed individualized Plan of Care for this patient by day #4 of the patients stay based upon the Preadmission Screen, the Post-Admission Evaluation, and the therapy evaluations. Admission Dx/Comorbidities: (1) Debility Status: Chronic ICD Codes: R53.81 - Other malaise Assessment/Plan Assessment and Plan Assess & Plan/Chief Complaint Assessment: Debility Severe anemia RA on MTX PAF Holding OAC due to anemia ESBL UTI Recent PNA gram negative sepsis Edema Hypokalemia Plan: Monitor labs PT OT Transfuse as necessary Scopes as outpatient CAROLINE PATRICK DO Feb 26, 2023 14:33
[2023-02-26] MEDS ORDERED: PATIENT MAY USE OWN MED,SINGLE MED PO SCH (14:45)
[2023-02-26] MEDS ORDERED: RT-Ipratropium/Albuterol NEB 3 ML VIAL INH PRN (14:45)
[2023-02-26] MEDS: MEROPENEM INJECTION 1,000 MG in NS (IVPB) 100 ML 100 ML IV SCH ×2 (15:27→22:46)
[2023-02-26] MEDS: POTASSIUM CHLORIDE 20 MEQ TABLET PO SCH (18:44)
[2023-02-26 20:00] VITALS: BP 104/63
[2023-02-26] MEDS: SENNA W/DOCUSATE TABLET PO SCH (20:44)
[2023-02-26] MEDS: PANTOPRAZOLE 40 MG TABLET PO SCH (20:44)
[2023-02-26] MEDS: MICONAZOLE 2% POWDER 90 GM TOP SCH (20:44)
[2023-02-26] MEDS: DOCUSATE SODIUM 100 MG CAPSULE PO SCH (20:44)
[2023-02-26] MEDS ORDERED: NS (IVPB) 100 ML 100 ML ONE (22:37)
[2023-02-27 05:29] LABS: BASOPHILS % (AUTO) 1 % (0-10); EOSINOPHILS # (AUTO) 0.2 10^3/uL (0.0-0.3); EOSINOPHILS % (AUTO) 5 % (0-10); HEMATOCRIT 26 % (35-52); HEMOGLOBIN 8.3 g/dL (11.5-16.0); LYMPHOCYTES # (AUTO) 1.4 10^3/uL (1.0-4.0); LYMPHOCYTES % (AUTO) 31 % (12-44); MEAN CORPUSCULAR HEMOGLOBIN 27 pg (25-34); MEAN CORPUSCULAR HGB CONC 32 g/dL (32-36); MEAN CORPUSCULAR VOLUME 82 fL (80-99); MEAN PLATELET VOLUME 8.8 fL (9.0-12.2); MONOCYTES # (AUTO) 0.5 10^3/uL (0.0-1.0); MONOCYTES % (AUTO) 12 % (0-12); NEUTROPHILS # (AUTO) 2.3 10^3/uL (1.8-7.8); NEUTROPHILS % (AUTO) 51 % (42-75); PLATELET COUNT 239 10^3/uL (130-400); WHITE BLOOD COUNT 4.5 10^3/uL (4.3-11.0)
[2023-02-27 05:44] LABS: BILIRUBIN,TOTAL 1.5 MG/DL (0.1-1.0); CALCIUM 7.9 MG/DL (8.5-10.1); CREATININE SERUM 0.47 MG/DL (0.60-1.30); POTASSIUM 4.3 MMOL/L (3.6-5.0); TOTAL PROTEIN 4.5 GM/DL (6.4-8.2)
[2023-02-27] MEDS: MEROPENEM INJECTION 1,000 MG in NS (IVPB) 100 ML 100 ML IV SCH ×3 (06:02→22:15)
[2023-02-27 07:31] VITALS: BP 108/56
[2023-02-27] MEDS: DOCUSATE SODIUM 100 MG CAPSULE PO SCH ×2 (08:29→21:06)
[2023-02-27] MEDS: PANTOPRAZOLE 40 MG TABLET PO SCH ×2 (08:29→20:51)
[2023-02-27] MEDS: POTASSIUM CHLORIDE 20 MEQ TABLET PO SCH ×2 (08:29→18:07)
[2023-02-27] MEDS: MICONAZOLE 2% POWDER 90 GM TOP SCH ×2 (08:44→20:58)
[2023-02-27] MEDS: SENNA W/DOCUSATE TABLET PO SCH ×2 (08:44→21:07)
--- NOTE | 2023-02-27 10:13 | PM&R Progress Note ---
Subjective HPI/CC On Admission Date Seen by Provider: Feb 27, 2023 Time Seen by Provider: 12:00 Subjective/Events-last exam 02/27/2023: Patient remains stable nut very frail at bedside will bring the topical spray for pain of her RA Excoriation will requiring canales catheter until healed Meropenem tolerated Review of Systems General: Fatigue, Malaise Musculoskeletal: leg pain Objective Exam Vital Signs Vital Signs Date Time Temp Pulse Resp B/P (MAP) Pulse Ox O2 Delivery O2 Flow Rate FiO2 02/27/23 08:30 Room Air 02/27/23 07:31 36.4 69 16 108/56 (73) 98 Capillary Refill : General Appearance: No Apparent Distress, WD/WN, Chronically ill, Thin HEENT: PERRL/EOMI, Normal ENT Inspection, Pharynx Normal Neck: Full Range of Motion, Normal Inspection, Non Tender, Supple, Carotid Bruit Respiratory: Chest Non Tender, Lungs Clear, Normal Breath Sounds, No Accessory Muscle Use, No Respiratory Distress Cardiovascular: Regular Rate, Rhythm, No Edema, No Gallop, No JVD, No Murmur, Normal Peripheral Pulses Gastrointestinal: Normal Bowel Sounds, No Organomegaly, No Pulsatile Mass, Non Tender, Soft Back: Normal Inspection, No CVA Tenderness, No Vertebral Tenderness Extremity: Normal Capillary Refill, Normal Inspection, Normal Range of Motion, Non Tender, No Calf Tenderness, No Pedal Edema Neurologic/Psychiatric: Alert, Oriented x3, No Motor/Sensory Deficits, Depressed Affect, Motor Weakness (generalized) Skin: Normal Color, Warm/Dry Lymphatic: No Adenopathy Results/Procedures Lab Laboratory Tests 02/27/23 05:15 Patient resulted labs reviewed. FIM Transfers Therapy Code Descriptions/Definitions Functional [place] Measure: 0=Not Assessed/NA 4=Minimal Assistance 1=Total Assistance 5=Supervision or Setup 2=Maximal Assistance 6=Modified [place] 3=Moderate Assistance 7=Complete IndependenceSCALE: Activities may be completed with or without assistive devices. 5-Chqckvfyho-jdfucet completes the activity by him/herself with no assistance from a helper. 5-Set-up or Clean-up Assistance-helper sets up or cleans up; patient completes activity. [place] assists only prior to or following the activity. 4-Supervision or Touching Assistance-helper provides verbal cues and/or touching/steadying and/or contact guard assistance as patient completes activity. Assistance may be provided throughout the activity or intermittently. 3-Partial/Moderate Assistance-helper does LESS THAN HALF the effort. [place] lifts, holds or supports trunk or limbs, but provides less than half the effort. 2-Substantial/Maximal Assistance-helper does MORE THAN HALF the effort. [place] lifts or holds trunk or limbs and provides more than half the effort. 5-Aujjcqtge-thttwv does ALL the effort. Patient does none of the effort to complete the activity. Or, the assistance of 2 or more helpers is required for the patient to complete the activity. If activity was not attempted, code reason: 7-Patient Refused. 9-Not Applicable-not attempted and the patient did not perform the activity before the current illness, exacerbation or injury. 10-Not Attempted due to Environmental Limitations-(lack of equipment, weather restraints, etc.). 88-Not Attempted due to Medical Conditions or Safety Concerns. Assessment/Plan Assessment and Plan Assess & Plan/Chief Complaint Assessment: Debility Severe anemia RA on MTX PAF Holding OAC due to anemia ESBL UTI Recent PNA gram negative sepsis Edema Hypokalemia Plan: Monitor labs PT OT Transfuse as necessary Scopes as outpatient 02/27/2023: Monitor hgb PPI Canales cath due to excoriation (1) Debility Status: Chronic CAROLINE PATRICK DO Feb 27, 2023 10:13
[2023-02-27] MEDS ORDERED: LIDOCAINE UROJET 2% GEL 10 ML PKG TOP ONE (11:45)
[2023-02-27] MEDS ORDERED: PATIENT MAY USE OWN MED,SINGLE MED PO SCH (19:00)
[2023-02-27 19:36] VITALS: BP 107/57
--- NOTE | 2023-02-28 05:03 | PM&R Progress Note ---
Subjective HPI/CC On Admission Date Seen by Provider: Feb 28, 2023 Time Seen by Provider: 08:30 Subjective/Events-last exam 02/28/2023: Doing much better Took a shower Pain is controlled Labs reviewed 02/27/2023: Patient remains stable nut very frail at bedside will bring the topical spray for pain of her RA Excoriation will requiring canales catheter until healed Meropenem tolerated Review of Systems General: Fatigue, Malaise Objective Exam Vital Signs Vital Signs Date Time Temp Pulse Resp B/P (MAP) Pulse Ox O2 Delivery O2 Flow Rate FiO2 02/28/23 21:00 35.8 80 16 112/61 (78) 99 Room Air Capillary Refill : General Appearance: No Apparent Distress, WD/WN, Chronically ill, Thin HEENT: PERRL/EOMI, Normal ENT Inspection, Pharynx Normal Neck: Full Range of Motion, Normal Inspection, Non Tender, Supple, Carotid Bruit Respiratory: Chest Non Tender, Lungs Clear, Normal Breath Sounds, No Accessory Muscle Use, No Respiratory Distress Cardiovascular: Regular Rate, Rhythm, No Edema, No Gallop, No JVD, No Murmur, Normal Peripheral Pulses Gastrointestinal: Normal Bowel Sounds, No Organomegaly, No Pulsatile Mass, Non Tender, Soft Back: Normal Inspection, No CVA Tenderness, No Vertebral Tenderness Extremity: Normal Capillary Refill, Normal Inspection, Normal Range of Motion, Non Tender, No Calf Tenderness, No Pedal Edema Neurologic/Psychiatric: Alert, Oriented x3, No Motor/Sensory Deficits, Depressed Affect, Motor Weakness (generalized) Skin: Normal Color, Warm/Dry Lymphatic: No Adenopathy Results/Procedures Lab Patient resulted labs reviewed. FIM Transfers Therapy Code Descriptions/Definitions Functional [place] Measure: 0=Not Assessed/NA 4=Minimal Assistance 1=Total Assistance 5=Supervision or Setup 2=Maximal Assistance 6=Modified [place] 3=Moderate Assistance 7=Complete IndependenceSCALE: Activities may be completed with or without assistive devices. 9-Zwfzktlcao-ovcpgti completes the activity by him/herself with no assistance from a helper. 5-Set-up or Clean-up Assistance-helper sets up or cleans up; patient completes activity. [place] assists only prior to or following the activity. 4-Supervision or Touching Assistance-helper provides verbal cues and/or touching/steadying and/or contact guard assistance as patient completes activity. Assistance may be provided throughout the activity or intermittently. 3-Partial/Moderate Assistance-helper does LESS THAN HALF the effort. [place] lifts, holds or supports trunk or limbs, but provides less than half the effort. 2-Substantial/Maximal Assistance-helper does MORE THAN HALF the effort. [place] lifts or holds trunk or limbs and provides more than half the effort. 9-Lljajudei-awmhij does ALL the effort. Patient does none of the effort to complete the activity. Or, the assistance of 2 or more helpers is required for the patient to complete the activity. If activity was not attempted, code reason: 7-Patient Refused. 9-Not Applicable-not attempted and the patient did not perform the activity before the current illness, exacerbation or injury. 10-Not Attempted due to Environmental Limitations-(lack of equipment, weather restraints, etc.). 88-Not Attempted due to Medical Conditions or Safety Concerns. Assessment/Plan Assessment and Plan Assess & Plan/Chief Complaint Assessment: Debility Severe anemia RA on MTX PAF Holding OAC due to anemia ESBL UTI Recent PNA gram negative sepsis Edema Hypokalemia Plan: Monitor labs PT OT Transfuse as necessary Scopes as outpatient 02/27/2023: Monitor hgb PPI Canales cath due to excoriation 02/28/2023: Supportive care Maintain Canales catheter Complete IV antibiotics (1) Debility Status: Chronic CAROLINE PATRICK DO Feb 28, 2023 05:03
[2023-02-28] MEDS: MEROPENEM INJECTION 1,000 MG in NS (IVPB) 100 ML 100 ML IV SCH ×3 (06:12→22:44)
[2023-02-28 08:00] VITALS: BP 118/65
[2023-02-28] MEDS: POTASSIUM CHLORIDE 20 MEQ TABLET PO SCH ×2 (09:45→18:13)
[2023-02-28] MEDS: SENNA W/DOCUSATE TABLET PO SCH ×2 (09:45→20:08)
[2023-02-28] MEDS: PANTOPRAZOLE 40 MG TABLET PO SCH ×2 (09:45→20:07)
[2023-02-28] MEDS: DOCUSATE SODIUM 100 MG CAPSULE PO SCH ×2 (09:45→20:08)
[2023-02-28] MEDS: MICONAZOLE 2% POWDER 90 GM TOP SCH ×2 (09:47→20:07)
[2023-02-28] MEDS: ACETAMINOPHEN 325 MG TABLET PO PRN (09:52)
--- NOTE | 2023-02-28 09:59 | Cardiology Progress Note ---
Subjective Date Seen by Provider: Feb 28, 2023 Time Seen by Provider: 08:50 Subjective/Events-last exam Patient is with OT, no new complaints. Objective-Cardiology Exam Last Set of Vital Signs Vital Signs 02/28/23 08:00 Temp 36.8 Pulse 73 Resp 16 B/P (MAP) 118/65 (82) Pulse Ox 98 O2 Delivery Room Air I&O Intake and Output 02/28/23 00:00 Intake Total 500 ml Output Total 900 ml Balance -400 ml Intake Oral 400 ml IV Total 100 ml Output Urine Total 900 ml # Urine Diapers 4 General: Alert, Oriented X3 HEENT: Atraumatic, PERRLA Lungs: Clear to Auscultation, Normal Air Movement Heart: Regular Rate Abdomen: Normal Bowel Sounds, Soft Extremities: No Clubbing, No Cyanosis Skin: No Significant Lesion Psych/Mental Status: Mental Status NL, Mood NL A/P-Cardiology Admission Diagnosis Anemia, GIB PAF Peripheral edema ESBL UTI Assessment/Plan GI bleed, severe anemia Patient has history of chronic anemia which has been having episodes of drop in H&H Status post blood transfusion Patient had endoscopy done earlier this year, will require another extensive work-up for GI loss in addition I recommended hematology evaluation due to her chronic anemia Continue to monitor H/H Paroxysmal atrial fibrillation, had transient episode of atrial fibrillation Currently in sinus rhythm. Continue to monitor Currently off OAC Peripheral edema, some improvement Probably due to Hypoalbuminemia 2D echo was done earlier in January 2023 with normal LV size, ejection fraction 50 to 55%, PA pressure 35 mmHg moderate mitral regurgitation and dilated left atrium ESBL UTI, management per medical services Hypokalemia, replaced, continue to monitor Labile blood pressure, hypertension, monitor blood pressure Status post recent hospitalization for Gram negative sepsis with lactic acidosis Generalized weakness, debility Rheumatoid arthritis maintained on methotrexate Supervisory-Addendum Brief Supervisory Addendum Participated in pt care: history, MDM, physical Personally performed: exam, history, MDM Care discussed with: EULA Results interpretation: Verified all documentation Notes: Patient was seen and evaluated with Vickie, examination performed, management plan was discussed, agree with the current scribed note, I made few changes to the note using Italic font Patient was seen at bedside, laying down comfortably, feeling well Monitor H&H, no changes are recommended Continue with PT/OT VICKIE NICOLE PA-C Feb 28, 2023 09:59 OTILIO ESQUIVEL MD Feb 28, 2023 11:20
[2023-02-28] MEDS ORDERED: [UNRECOGNIZED DRUG - OTHER] TOP PRN (10:15)
--- NOTE | 2023-02-28 10:55 | ST Cognitive Linguistic Eval ---
Speech Evaluation-General Medical Diagnosis Anemia Onset Date: Feb 23, 2023 Therapy Diagnosis Therapy Diagnosis: Anemia Precautions Precautions: Fall Precautions/Isolations: Standard Precautions, Contact/Enteric Isolation, Pressure Ulcer Referral Referring Physician: Dr. Blanca Reason for Referral: Consult Medical History Pertinent Medical History: Atrial Fib, HTN, Rheumatoid Arthritis HTN, RA, a-fib, eardrum reconstruction, cholecystectomy, hiatal hernia (inoperable) Current History Initial admission 02/07/23 with sepsis d/t dog bite, RLL pneumonia, hypotensive with ICU admission treated with pressors. Discharged to home, bedbound after discharge, readmit 02/23/23 wit BLE swelling, hypotension, severe anemia, GI bleed. Social History Current Living Status: Spouse Speech PLF-Current Status Prior Level of Function Indpendent with help of spouse Subjective The pt was awake, alert, able to convey history. Language Eval: Auditory Follows Complex Directions: Functional Follows General Conversations: Functional Language Eval: Verbal Language Requests Basic Needs: Functional States Basic Personal Info: Functional Expresses Complex Ideas: Functional Objective Formal/Standardized Tests MMSE Results The pt scored 28/28 on the MMSE (written portions not administered due to arthritis in hands, difficulty holding pen/writing). The pt had 3/3 registration and recall, was able to complete serial 7's with min extra time needed. Discussed hiatal hernia management: the pt was able to list precautions for eating including small meals, monitoring for symptoms of reflux, remaining upright after eating. Swallowing was screened with thin liquid and soft solid, no difficulties noted, no s/s aspiration. Oral Motor/Speech Production WFL Impression Cognitive, language, and swallow functions are WF Speech-Plan Treatment Plan Speech Therapy Treatment Plan: Discontinue ST Frequency: Modified Program (IRF) (no treatment recommended) Estimated Hrs Per Day: Other (no treatment recommended) Rehab Potential: Good Discharge Recommendations Home & Family Time Speech Therapy Time In: 10:15 Speech Therapy Time Out: 10:45 DATE: Feb 28, 2023 Total Billed Time: 30 Billed Treatment Time 1 SPSNDCOMP (30 min) VERÓNICA OLSEN Feb 28, 2023 10:55
--- NOTE | 2023-02-28 11:29 | Physical Therapy Evaluation ---
PT Evaluation-General Medical Diagnosis Admission Date Feb 26, 2023 at 11:20 Medical Diagnosis: Debility, anemia Onset Date: Feb 23, 2023 Therapy Diagnosis Therapy Diagnosis: impaired mobility, weakness, decreased activity tolerance. Height/Weight Height (Feet): 5 Height (Inches): 3.00 Weight (Pounds): 196 Weight (Ounces): 0.0 Precautions Precautions/Isolations: Contact Isolation, Standard Precautions, Contact/Enteric Isolation, Pressure Ulcer urine klebsiella Weight Bear Status Weight Bearing/Tolerated Weight Bearing/Tolerated Referral Physician: Rianna Reason for Referral: Evaluation/Treatment Medical History Pertinent Medical History: Atrial Fib, HTN, Rheumatoid Arthritis Additional Medical History RA -diagnosed 3-4 years ago. Current severe anemia due to GI bleed, UTI, recent PNA sepsis, edema, hypocalemia. Current has a canales catheter due to excoriation. Reviewed History: Yes Social History Home: Single Level Current Living Status: Spouse Entry Into Home: Stairs With Railing PT Steps Into Home: 6 (4 big steps, 2 1/2 steps) Other Obstacles: 1 dog - Rosanne Has 2 children who also live with patient. Prior Prior Level of Function SCALE: Activities may be completed with or without assistive devices. 2-Tybjpogofs-dmcsili completes the activity by him/herself with no assistance from a helper. 5-Set-up or Clean-up Assistance-helper sets up or cleans up; patient completes activity. [place] assists only prior to or following the activity. 4-Supervision or Touching Assistance-helper provides verbal cues and/or touching/steadying and/or contact guard assistance as patient completes activity. Assistance may be provided throughout the activity or intermittently. 3-Partial/Moderate Assistance-helper does LESS THAN HALF the effort. [place] lifts, holds or supports trunk or limbs, but provides less than half the effort. 2-Substantial/Maximal Assistance-helper does MORE THAN HALF the effort. [place] lifts or holds trunk or limbs and provides more than half the effort. 0-Rjscigikz-fwezuv does ALL the effort. Patient does none of the effort to complete the activity. Or, the assistance of 2 or more helpers is required for the patient to complete the activity. If activity was not attempted, code reason: 7-Patient Refused. 9-Not Applicable-not attempted and the patient did not perform the activity before the current illness, exacerbation or injury. 10-Not Attempted due to Environmental Limitations-(lack of equipment, weather restraints, etc.). 88-Not Attempted due to Medical Conditions or Safety Concerns. Bed Mobility: 3 (help /c legs. Has regular bed with a bed rail at home. ) Transfers (B,C,W/C): 3 (at times) Gait: 3 ( walked with patient to make sure she kept her balance. states her max distance at home is ~ 30'.) Stairs: 3 (assist of ) Wheelchair Mobility: 9 (Had not been using w/c for mobility at home.) Indoor Mobility (Ambulation): Needed Some Help Stairs: Needed Some Help Prior Devices Use: Other-see list below (Hurrycane or walker. UpLift Seat Assist to aid sit>stand (portable lift)) Lives /c in 1LH. 4 steps and then 2 1/2 steps to enter. Railings on 4 steps, but not on 2 1/2 steps into door. She was using a cane prior to admit. Has a standard walker and a 4WW available. Tub/shower combination with a shower bench. Does have a hand held shower. Does have a switch adjuster at home. and children took care of cooking/cleaning/laundry. Patient does not drive. Does not have a w/c available. PT Evaluation-Current Subjective States she has pain on her buttocks from sores. Rates all over RA pain as a 9/10. Pain Comment: Generalized 9/10 pain in joints - RA Section J - Health Conditions 1. Rarely or not at all 2. Occasionally 3. Frequently 4. Almost constantly 8. Unable to answer Pain Effect on Sleep: 2 Pain Interference with Therapy: 4 Pain Interference w/Day-to-Day: 4 Pt/Family Goals Patient wishes to return home with family. Daughters vocalized SNF care when patient was on acute. Objective Patient Orientation: Person, Place Attachments: Canales Catheter ROM/Strength ROM Upper Extremities Defer to OT. ROM Lower Extremities ~60 knee (R) knee flexion contracture in sitting. ~20 degree (L) knee flexion contracture. Tight heel cords (B). Hip flexor tightness (B). Strength Upper Extremities Defer to OT. Strength Lower Extremities Ankle PF 3/5, DF 3+/5 (B). Knee extension 3+/5 (B) within limited ROM. Knee flexion 3/5. Hip flexion 3+/5 (B). Hip adduction 3+/5 (B). Hip abduction 3+/5 (B). Integumentary/Posture Bladder Incontinence: Canales Cath Posture Signficantly forward flexed posture in standing. Wants to lean (R) forearm on walker vs.standing up with hand on epic director. Sensory Vision: Wears Glasses Hearing: Hearing Aid/Aides Sensation Lower Extremities States no numbness in LE's. Transfers Roll Left & Right (QC): 5 (/c bed rail) Sit to Lying (QC): 3 (min (A) with LE's) Lying to Sitting/Side of Bed(Q: 4 (CGA with cues for bed rail use) Sit to Stand (QC): 3 (mod (A) /c multiple attempts and v.c. from bed, w/c, toilet.) Chair/Esz-xx-Yomae Xfer(QC): 3 (min-mod (A) /c v.c. for safety using FWW. As patient fatigues, requires more (A).) Toilet Transfer (QC): 3 (Mod (A) for toilet) Car Transfer (QC): 3 (Mod (A) to lift legs in/out and to ensure safe sitting position) Gait Does the Patient Walk?: Yes Mode of Locomotion: Both Anticipated Mode of Locomotion: Both Walk 10 feet (QC): 88 (unable to walk 10' due to c/o (R) leg pain and fatigue) Walk 50 ft with 2 Turns(QC): 88 Walk 150 ft (QC): 88 Walking 10ft/uneven surface-QC: 88 Distance: 2' Gait Assistive Device: FWW (/c w/c backup) Comments/Gait Description Mod (A) of 1 using FWW with max cues for posture and walker use, w/c back up. Wheelchair Training Does the Pt Use a Wheelchair?: Yes Distance: 35' Wheel 50 ft with 2 turns (QC): 88 (unable to cover distance due to fatigue.) Wheel 150 ft (QC): 88 Type of Wheelchair: Manual Min (A) to propel manual w/c 35', assist to avoid (R) obstacles. Severe RA - may benefit from power w/c Stairs 1 Step (curb) (QC): 88 (unsafe - unable to walk further than 2' due to pain/fatigue) 4 Steps (QC): 88 12 Steps (QC): 88 Balance Sitting Static: Fair Sitting Dynamic: Fair Standing Static: Fair Standing Dynamic: Poor Picking up an Object (QC): 88 (Poor standing balance - needs (B) UE for support with FWW) Special Test Comments Elderly Mobility Index: 07/19 Assessment/Needs Exceptionally frail 62 y/o female with recent GI bleed, PNA and hx of RA. Has significant joint deformities/pain that limit mobility at this time, as well as significant weakness, endurance deficits. Will provide ROM/strengthening, bed mobility/transfer training, gait training and w/c mobility training to maximize patient's functional (I) so that she can return home, which is her goal. Rehab Potential: Fair Post Rehab Potential-Barriers: severity of RA/joint deformities Equipment Needs W/C - possibly power w/c due to severity of RA PT Fci Goals Fci Goals PT System Architect Goals Time Frame: Mar 14, 2023 Roll Left to Right (QC): 6 (using bed rail) Sit to Lying (QC): 6 (with bed rail) Lying-Sitting on Side/Bed(QC): 6 (/c bed rail) Sit to Stand (QC): 3 (min (A) -- uses U[place]ift Seat Assist at home) Chair/Qrh-vy-Aanrh Xfer(QC): 3 (min (A) consistently /c FWW) Toilet/Commode Transfer (QC): 3 (min (A) /c FWW consistently) Car Transfer (QC): 3 (Min (A) /c FWW consistenly.) Does the Patient Walk: Yes Walk 10 feet (QC): 3 (min (A)) Walk 10ft-Uneven Surface(QC): 3 (min (A) /c FWW) Walk 50ft with 2 Turns (QC): 3 (min (A) /c FWW) Walk 150 ft (QC): 9 Does the Pt use WC or Scooter?: Yes Wheel 50 feet with 2 turns (QC: 6 (Recommend motorized w/c due to extent of RA) Type: Motorized Wheel 150 feet: 6 Type: Motorized 1 Step (curb) (QC): 3 (Min (A)) 4 Steps (QC): 3 (mod (A) with railings) 12 Steps (QC): 9 Picking up an Object (QC): 3 (min (A) /c switch adjuster) GILLIAN Score: 620 PT Plan Problem List Problem List: Activity Tolerance, Functional Strength, Balance, Gait, Transfer, Bed Mobility, ROM Treatment/Plan Treatment Plan: Continue Plan of Care Treatment Plan: Bed Mobility, Education, Functional Activity Poppy, Functional Strength, Group Therapy, Gait, Safety, Therapeutic Exercise, Transfers, Other (w/c mobility) Treatment Duration: Mar 14, 2023 Frequency: At least 5 of 7 days/Wk (IRF) Estimated Hrs Per Day: 1.5 hours per day Patient and/or Family Agrees t: Yes Safety Risks/Education Patient Education: Transfer Techniques Teaching Recipient: Patient, Significant Other Teaching Methods: Demonstration, Discussion, Audiovisual Response to Teaching: Verbalize Understanding Discharge Recommendations Therapy Discharge Recommendati: 24 Hour Supervision, Meals on Wheels, Bath Aide, Homemaker Support, Home & Family, Post Acute PT Equpiment Recommendations-D/C: Wheelchair Cushion, Front Wheeled Walker, Wheelchair Ramp, Railings, Electric Wheelchair Time Time In: 1115 Time Out: 1210 DATE: Feb 28, 2023 Total Billed Treatment Time: 55 Total Billed Treatment EVM = 55' Simona Faria PT Feb 28, 2023 11:29
--- NOTE | 2023-02-28 13:43 | Occupational Therapy Eval ---
OT Evaluation-General/PLF Medical Diagnosis Admission Date Feb 26, 2023 at 11:20 Medical Diagnosis: Debility, anemia Onset Date: Feb 23, 2023 Therapy Diagnosis Therapy Diagnosis: Decreased independence with ADLs, generalized weakness Height/Weight Height (Feet): 5 Height (Inches): 3.00 Weight (Pounds): 196 Weight (Ounces): 0.0 Precautions Precautions/Isolations: Contact Isolation, Standard Precautions, Contact/Enteric Isolation, Pressure Ulcer Referral Physician: Shasta Blanca DO Medical History Pertinent Medical History: Atrial Fib, HTN, Rheumatoid Arthritis Social History Home: Single Level Current Living Status: Spouse (+2 adult children ) Entry Into Home: Stairs With Railing Steps Into Home: 6 (4 big steps, 2 1/2 steps) Steps Inside Home: 0 Other Obstacles: 1 dog - Corgie ADL-Prior Level of Function SCALE: Activities may be completed with or without assistive devices. 5-Wjggsikgxo-rhmlurw completes the activity by him/herself with no assistance from a helper. 5-Set-up or Clean-up Assistance-helper sets up or cleans up; patient completes activity. [place] assists only prior to or following the activity. 4-Supervision or Touching Assistance-helper provides verbal cues and/or touching/steadying and/or contact guard assistance as patient completes activity. Assistance may be provided throughout the activity or intermittently. 3-Partial/Moderate Assistance-helper does LESS THAN HALF the effort. [place] lifts, holds or supports trunk or limbs, but provides less than half the effort. 2-Substantial/Maximal Assistance-helper does MORE THAN HALF the effort. [place] lifts or holds trunk or limbs and provides more than half the effort. 2-Mqpsxccrv-dpepqf does ALL the effort. Patient does none of the effort to complete the activity. Or, the assistance of 2 or more helpers is required for the patient to complete the activity. If activity was not attempted, code reason: 7-Patient Refused. 9-Not Applicable-not attempted and the patient did not perform the activity before the current illness, exacerbation or injury. 10-Not Attempted due to Environmental Limitations-(lack of equipment, weather restraints, etc.). 88-Not Attempted due to Medical Conditions or Safety Concerns. ADL PLOF Comments Pt reports that she uses her quad cane and 4WW to ambulate at baseline. Pt has significant rheumatoid arthritis and has minimal use of her hands; therefor pt requires assistance with all ADLs and IADLs at baseline. Self Care: Needed Some Help Functional Cognition: Independent DME/Equipment: Bath Chair, Shower Hose Paintings Conservator, Tub/Shower DME/Equipment Comments has a quad cane and 4WW Occupation: retired Drive Self: No Leisure Interests: Likes to watch television OT Current Status Subjective Pt received lying supine in bed with spouse at bedside. Pt agreeable to therapy evaluation at this time. Pain Numeric Pain Scale: 4 Location: Posterior Location Body Site: Sacrum Pain Description: Dull, Pressure Mental Status/Objective Patient Orientation: Person, Place, Time, Situation Attachments: Willard Catheter, IV Current Glasses/Contacts: Yes Hearing Aids: Yes Dentures/Partials: No Hand Dominance: Right Upper Extremity ROM Severely limited in bilateral shoulders and hand ROM, though pt reports this is baseline due to her RA; minimally limited in bilateral elbows, though is able to reach full ROM passively. Upper Extremity Coordination Moderately limited due to advanced RA Upper Extremity Sensation WFL Upper Extremity Strength Bilateral UE strength measurements: Shoulders;2/5 Elbows:3-/5 Entrepreneurial Finance Professor:2/5 ADL-Treatment Eating (QC): 5 (Requiring set up and assistance opening small packages) Oral Hygiene (QC): 4 (in sitting ) Shower/Bathe Self (QC): 2 Upper Body Dressing (QC): 3 (to don/doff tshirt) Lower Body Dressing (QC): 2 (To don/doff pants) On/Off Footwear (QC): 1 (to don/doff socks) Toileting Hygiene (QC): 2 (completed in standing ) Other Treatments Pt completed functional mobility for f ~15ft with FWW and min A with bouts of mod A for balance, requiring mod verbal cues for postre, hand placement on walker and safety. Education OT Patient Education: Correct positioning, Energy conservation, Instructions to caregiver, Modified ADL techniques, Progress toward Goal/Update tx plan, Purpose of tx/functional activities, Rehab process, Safety issues, Transfer techniques, W/C management Teaching Recipient: Patient, Significant Other Teaching Methods: Demonstration, Discussion Response to Teaching: Verbalize Understanding, Return Demonstration BIMS CAM BIMS Expression of Ideas and Wants: Without Difficulty Understanding Verbal Content: Understands Brief Interview/Mental Status: Yes IRF KARISSA BIMS: IRF KARISSA BIMS Response (Comments) Value Repitition of Three Words Three 3 Recalls Socks Yes, No Cue Required 2 Recalls Blue Yes, No Cue Required 2 Recalls Bed Yes, No Cue Required 2 Year Correct 3 Month Accurate Within 5 Days 2 Day Correct 1 Total 15 Patient Normally Able to Recal: Current Session, Location of own room, Staff Names and faces, That he/she in a hsp Should Staff Asses. Mental St.: No Memory/Recall Ability: Current Season, Location of Own Room, Staff Names and Faces, That He/She in Hospit[facility] CAM Mental Status Change/Baseline: 0 Inattention: 0 Disorganized thinkin Altered level of consciousness: 0 OT Short Term Goals Short Term Goals Time Frame: Mar 07, 2023 Eatin Oral hygiene: 4 Toileting hygiene: 4 Shower/bathe self: 3 Upper body dressin Lower body dressin Putting on/taking off footwear: 2 OT Manager Real Estate Goals Manager Real Estate Goals Time Frame: Mar 18, 2023 Acute change in mental status: 0 Inattention: 0 Disorganized thinkin Altered level of consciousness: 0 Eating (QC): 5 Oral Hygiene (QC): 4 Toileting Hygiene (QC): 4 Shower/Bathe Self (QC): 4 Upper Body Dressing (QC): 6 Lower Body Dressing (QC): 4 (With use of AE) On/Off Footwear (QC): 3 1=Demonstrate adherence to instructed precautions during ADL tasks. 2=Patient will verbalize/demonstrate understanding of assistive devices/modifications for ADL. 3=Patient will improve strength/tolerance for activity to enable patient to perform ADL's. OT Education/Plan Problem List/Assessment Assessment: Decreased Activ Tolerance, Decreased Safety Aware, Decreased UE Strength, Impaired Bed Mobility, Impaired Coordination, Impaired Funct Balance, Impaired I ADL's, Impaired Self-Care Skills, Restricted Funct UE ROM Discharge Recommendations Plan/Recommendations: Continue POC Comment Will make additional recommendations closer to d/c date Barriers to Progress RA, pain around buttocks Treatment Plan/Plan of Care Treatment,Training & Education: Yes Patient would benefit from OT for education, treatment and training to promote independence in ADL's, mobility, safety and/or upper extremity function for ADL's. Plan of Care: ADL Retraining, Caregiver Training, Concurrent Therapy, Functional Mobility, Group Exercise/Act as Ind, UE Funct Exercise/Act, UE Neuromus Re-Ed/Coord, W/C Management Training Treatment Duration: Mar 18, 2023 Frequency: At least 5 of 7 days/Wk (IRF) Estimated Hrs Per Day: 1.5 hours per day Agreement: Yes Rehab Potential: Good Time Start Time: 08:10 Stop Time: 09:45 DATE: Feb 28, 2023 Total Time Billed (hr/min): 95 Billed Treatment Time 1, EVM, 5 ADL Caitie Hall OTR/L Feb 28, 2023 13:43
--- NOTE | 2023-02-28 15:33 | Wound Care Assessment ---
Wound Care Assessment Date Seen by Provider: Feb 28, 2023 Time Seen by Provider: 15:29 Chief Complaint MASD sacrum HPI Our patient is a pleasant 62 yo F with a previous medical history of HTN, RA, and chronic pain that presents with bilateral decubitus ulcers on her buttocks as well as an ulcer on the surface of her sacrum. She was recently admitted to the hospital on 02/07 for septic shock requiring vasopressors, as well as a culture positive for Pasteurella Multocida following a dog bite. She was discharged on 02/15. For the past few weeks, she has been mostly bed-ridden and notes that her ulcers arose around one week ago. She denies a history of diabetes and was recently placed on eliquis for new-onset atrial fibrillation and has since noticed increased bruising on her posterior thighs. She denies nausea or vomiting at this point. Anemia also delaying wound healing and activity. She appears greatly improved today with more mobility. She is able to roll to side for wound assessment. Wounds improving with current dressings. Past Medical History: Admits Heart Disease Smoking Status: Never a Smoker Alcohol Use: Denies Use Review of Systems Neurological: Weakness Exam Vital Signs Date Time Temp Pulse Resp B/P (MAP) Pulse Ox O2 Delivery O2 Flow Rate FiO2 02/28/23 09:00 Room Air 02/28/23 08:00 36.8 73 16 118/65 (82) 98 Capillary Refill : General Appearance: no apparent distress, thin HEENT: other (hard of hearing) Neck: full range of motion Cardiovascular: no edema Respiratory: no respiratory distress, no accessory muscle use Extremities: no calf tenderness, other (numerous joint deformities from severe RA) Neurologic/Psychiatric: alert, normal mood/affect, oriented x 3 Skin Character: erythema Wound assessment: 1. Sacrum: 5x2.5x0.1cm. The epithelialization is none. There is no tunneling or undermining. Drainage is large and serous. Granulation is small and pink. Necrotic is medium and slough. Margins flat. 2. L. Buttock: 6x4.5x0.1cm. The epithelialization is none. There is no tunneling or undermining. Drainage is large and serous. Granulation is small and pink. Necrotic is medium and slough. Margins flat. 3. R. buttock: 1.9x2.4x0.1cm. The epithelialization is none. There is no tunneling or undermining. Drainage is large and serous. Granulation is small and pink. Necrotic is medium and slough. Margins flat. Assessment/Plan/Dx Bilateral ischial decubitus ulcers and sacral decubitus ulcer -Ulcers are pressure-related, secondary etiology is MASD. -Apply silver alginate wound dressings with border foam -Apply miconazole in the bernard-wound -Barrier cream for other areas of erosion present -Continue acute inpatient rehab for increased mobility ALONDRA MCCALLUM MD Feb 28, 2023 15:33
[2023-02-28 21:00] VITALS: BP 112/61
[2023-03-01] MEDS: MEROPENEM INJECTION 1,000 MG in NS (IVPB) 100 ML 100 ML IV SCH ×3 (06:05→22:48)
[2023-03-01] MEDS: POTASSIUM CHLORIDE 20 MEQ TABLET PO SCH ×2 (07:32→17:12)
[2023-03-01] MEDS: ACETAMINOPHEN 325 MG TABLET PO PRN ×2 (07:32→18:02)
[2023-03-01 08:00] VITALS: BP 112/68
[2023-03-01] MEDS: PANTOPRAZOLE 40 MG TABLET PO SCH ×2 (08:34→20:20)
[2023-03-01] MEDS: SENNA W/DOCUSATE TABLET PO SCH ×2 (08:35→19:41)
[2023-03-01] MEDS: MICONAZOLE 2% POWDER 90 GM TOP SCH ×2 (08:35→20:20)
--- NOTE | 2023-03-01 08:44 | Cardiology Progress Note ---
Subjective Date Seen by Provider: Mar 01, 2023 Time Seen by Provider: 08:20 Subjective/Events-last exam Patient is on commode, no new complaints. Objective-Cardiology Exam Last Set of Vital Signs Vital Signs 03/01/23 08:00 Temp 36.5 Pulse 78 Resp 16 B/P (MAP) 112/68 (83) Pulse Ox 94 O2 Delivery Room Air I&O Intake and Output 03/01/23 00:00 Intake Total 1960 ml Output Total 2400 ml Balance -440 ml Intake Oral 1560 ml IV Total 400 ml Output Urine Total 2400 ml # Bowel Movements 1 General: Alert, Oriented X3 HEENT: Atraumatic, PERRLA Lungs: Clear to Auscultation, Normal Air Movement Heart: Regular Rate Abdomen: Normal Bowel Sounds, Soft Extremities: No Clubbing, No Cyanosis Skin: No Significant Lesion Psych/Mental Status: Mental Status NL, Mood NL A/P-Cardiology Admission Diagnosis Anemia, GIB PAF Peripheral edema ESBL UTI Assessment/Plan GI bleed, severe anemia Patient has history of chronic anemia which has been having episodes of drop in H&H Status post blood transfusion Patient had endoscopy done earlier this year, will require another extensive wor k-up for GI loss in addition I recommended hematology evaluation due to her chronic anemia Continue to monitor H/H Paroxysmal atrial fibrillation, had transient episode of atrial fibrillation Currently in sinus rhythm. Continue to monitor Currently off OAC Peripheral edema, some improvement Probably due to Hypoalbuminemia 2D echo was done earlier in January 2023 with normal LV size, ejection fraction 50 to 55%, PA pressure 35 mmHg moderate mitral regurgitation and dilated left atrium ESBL UTI, management per medical services Hypokalemia, replaced, continue to monitor Labile blood pressure, hypertension, monitor blood pressure Status post recent hospitalization for Gram negative sepsis with lactic acidosis Generalized weakness, debility Rheumatoid arthritis maintained on methotrexate Supervisory-Addendum Brief Supervisory Addendum Participated in pt care: history, MDM, physical Personally performed: exam, history, MDM Care discussed with: EULA Results interpretation: Verified all documentation Notes: Patient was seen and evaluated with Vickie, examination performed, management plan was discussed, agree with the current scribed note, I made few changes to the note using Italic font Patient was seen at bedside, sitting comfortably, no new complaint Continue to monitor, no changes are recommended, monitor blood pressure and H&H VICKIE NICOLE PA-C Mar 01, 2023 08:44 OTILIO ESQUIVEL MD Mar 01, 2023 12:02
[2023-03-01] MEDS: DOCUSATE SODIUM 100 MG CAPSULE PO SCH ×2 (09:00→19:41)
--- NOTE | 2023-03-01 09:51 | Occupational Ther Daily Note ---
OT Current Status-Daily Note Subjective Pt agreeable to OT tx. States she has arthritis pain, but no new pain. Mental Status/Objective Patient Orientation: Normal For Age Attachments: Willard Catheter ADL-Treatment Therapy Code Descriptions/Definitions Functional Gravity Measure: 0=Not Assessed/NA 4=Minimal Assistance 1=Total Assistance 5=Supervision or Setup 2=Maximal Assistance 6=Modified Gravity 3=Moderate Assistance 7=Complete IndependenceSCALE: Activities may be completed with or without assistive devices. 5-Ivbgfgrxnk-wetbecb completes the activity by him/herself with no assistance from a helper. 5-Set-up or Clean-up Assistance-helper sets up or cleans up; patient completes activity. [place] assists only prior to or following the activity. 4-Supervision or Touching Assistance-helper provides verbal cues and/or touching/steadying and/or contact guard assistance as patient completes activity. Assistance may be provided throughout the activity or intermittently. 3-Partial/Moderate Assistance-helper does LESS THAN HALF the effort. [place] lif ts, holds or supports trunk or limbs, but provides less than half the effort. 2-Substantial/Maximal Assistance-helper does MORE THAN HALF the effort. [place] lifts or holds trunk or limbs and provides more than half the effort. 7-Snszotbst-jhlrod does ALL the effort. Patient does none of the effort to complete the activity. Or, the assistance of 2 or more helpers is required for the patient to complete the activity. If activity was not attempted, code reason: 7-Patient Refused. 9-Not Applicable-not attempted and the patient did not perform the activity before the current illness, exacerbation or injury. 10-Not Attempted due to Environmental Limitations-(lack of equipment, weather restraints, etc.). 88-Not Attempted due to Medical Conditions or Safety Concerns. Eating (QC): 5 (Per RN report) Upper Body Dressing (QC): 3 (assist overhead. Pt able to thread arms and pull down chest.) Lower Body Dressing (QC): 1 (assist all parts.) Other Treatment Pt agreeable to OT tx, donned shirt and pants at recliner. total assist with donning pants. Min-mod A sit to stand from recliner, then min A transfer to w/c using FWW. Pt taken to [facility], completing UE reaching task. Pt c ompleted large piece puzzle, attempting to reach in various planes on table top, taking rest breaks as needed. Pt limited with reaching due to arthritis and decreased UE ROM. Pt able to drink coffee from coffee mug with handle when provided to her. She indicates she has increased success with the secretary to the vice president weight mug in her room, coffee switched to other cup for increased independence. Pt taken back to her room via w/c. Post tx, pt in w/c, call light in reach and all needs met. Education OT Patient Education: Correct positioning, Energy conservation, Modified ADL techniques, Progress toward Goal/Update tx plan, Purpose of tx/functional activities, Rehab process Teaching Recipient: Patient Teaching Methods: Discussion Response to Teaching: Verbalize Understanding OT Short Term Goals Short Term Goals Time Frame: Mar 07, 2023 Eatin Oral hygiene: 4 Toileting hygiene: 4 Shower/bathe self: 3 Upper body dressin Lower body dressin Putting on/taking off footwear: 2 OT Prison Goals Economics Consultant Goals Time Frame: Mar 18, 2023 Acute change in mental status: 0 Inattention: 0 Disorganized thinkin Altered level of consciousness: 0 Eating (QC): 5 Oral Hygiene (QC): 4 Toileting Hygiene (QC): 4 Shower/Bathe Self (QC): 4 Upper Body Dressing (QC): 6 Lower Body Dressing (QC): 4 (With use of AE) On/Off Footwear (QC): 3 1=Demonstrate adherence to instructed precautions during ADL tasks. 2=Patient will verbalize/demonstrate understanding of assistive devices/modifications for ADL. 3=Patient will improve strength/tolerance for activity to enable patient to perform ADL's. OT Education/Plan Problem List/Assessment Assessment: Decreased Activ Tolerance, Decreased UE Strength, Impaired Funct Balance, Impaired I ADL's, Impaired Self-Care Skills Discharge Recommendations Plan/Recommendations: Continue POC Treatment Plan/Plan of Care Patient would benefit from OT for education, treatment and training to promote independence in ADL's, mobility, safety and/or upper extremity function for ADL's. Plan of Care: ADL Retraining, Caregiver Training, Concurrent Therapy, Functional Mobility, Group Exercise/Act as Ind, UE Funct Exercise/Act, UE Neuromus Re-Ed/Coord, W/C Management Training Treatment Duration: Mar 18, 2023 Frequency: At least 5 of 7 days/Wk (IRF) Estimated Hrs Per Day: 1.5 hours per day Agreement: Yes Rehab Potential: Fair Time Start Time: 08:30 Stop Time: :30 DATE: Mar 01, 2023 Total Time Billed (hr/min): 60 Billed Treatment Time 1, ADL 2 (25'), FA 2 (35') AIYANA MILES OT Mar 01, 2023 09:51
--- NOTE | 2023-03-01 10:24 | Individualized Plan of Care ---
Individualized Plan of Care Rehab Nursing IPOC Order Admission Date Feb 26, 2023 at 11:20 Current Orders Orders Admission Arrival Bed Request (02/26/23 11:25) Flu Quad (6 Months+)[id number] (Flu Luis Miguel (02/26/23 12:45) Contact Isolation (02/26/23 14:29) Admission Order(Inpt,Obs,Sdc) (02/26/23 14:29) Vital Signs: Per Unit Policy ( 08,16,00 (02/26/23 14:29) Octavio Chris 09,21 (02/26/23 14:29) Sequential Compression Device [id number] (02/26/23 14:29) Service Counselor-Inpt Rehab Con (02/26/23 14:29) Rehab Nursing Orders-Ipoc (02/26/23 14:29) Physical Therapy Rehab Orders (02/26/23 14:29) Occupational Therapy Rehab Ord (02/26/23 14:29) Speech Therapy Rehab Orders (02/26/23 14:29) Cbc And Automated Diff (02/27/23 06:00) Comprehensive Metabolic Panel (02/27/23 06:00) Precautions (Aru) (02/26/23 14:29) Weekly Weight WEEK (02/26/23 14:29) Rehab-Intensity Of Therapy (02/26/23 14:29) Initiate Admission Nursing Pro .admission (02/26/23 14:29) Alprazolam Tablet (Alprazolam Tablet) (02/26/23 14:30) Calcium Carbonate Chew Tablet (Calcium C (02/26/23 14:30) Diphenhydramine Tablet (Diphenhydramine (02/26/23 14:30) Docusate Sodium Capsule (Docusate Sodium (02/26/23 21:00) Docusate Sodium Capsule (Docusate Sodium (02/26/23 14:30) Bisacodyl Suppository (Bisacodyl Supposi (02/26/23 14:30) Lactulose Oral Solution (Enulose Oral So (02/26/23 14:30) Na Phos/Na Biphos Adult Enema (Na Phos/N (02/26/23 14:30) Guaifenesin/Codeine Syrup (Guaifenesin/C (02/26/23 14:30) Loperamide Capsule (Loperamide Capsule) (02/26/23 14:30) Melatonin Tablet (Melatonin Tablet) (02/26/23 14:30) Polyethylene Glycol Powder (Polyethylen (02/26/23 21:00) Ondansetron Oral Dissolve Tab (Ondanset (02/26/23 14:30) Senna W/Docusate Tablet (Senna W/Docusat (02/26/23 21:00) Acetaminophen Tablet (Acetaminophen Ta (02/26/23 14:30) Initiate Admission Nursing Pro .admission (02/26/23 14:29) Code/Resuscitation (02/26/23 14:31) Dressing Order (Intervention) DAILY (02/26/23 14:31) General/Regular (02/26/23 Lunch) Ipratropium/Albuterol Inh Soln (Ipratrop (02/26/23 14:45) Miconazole 2% Powder (Miconazole 2% Powd (02/26/23 21:00) Patient May Use Own Med,Single (Patient (02/26/23 14:45) Potassium Chloride (Tablet) (Potassium C (02/26/23 18:00) Consult Cardiology (02/26/23 14:31) Consult Wound Care Physician (02/26/23 14:31) Mat Initiate Protocol (02/26/23 14:31) Svn Small Volume Nebulizer (02/26/23 14:31) Svn Small Volume Nebulizer (02/26/23 14:31) Pantoprazole Tablet (Pantoprazole Tablet (02/26/23 21:00) Meropenem Injection (Meropenem Injection (02/26/23 15:00) (Nf) Buprenorphine Transdermal (03/02/23 09:00) Patch Removal (Patch Removal) (03/02/23 09:00) Ns (Ivpb) 100 Ml (Sodium Chloride 0.9% 1 (02/26/23 22:37) Catheter(Urinary) Insert & Ass 03,15 (02/27/23 11:44) Lidocaine 2% (Urojet) (Lidocaine 2% (Uro (02/27/23 11:45) Patient May Use Own Med,Single (Patient (02/27/23 19:00) Non-Formulary Medication (Non-Formulary (02/28/23 10:15) Patient Visit (02/28/23 ) Pt Eval Moderate Complexity (02/28/23 ) Patient Visit (02/28/23 ) Speech Sound Lang Comp (02/28/23 ) Rehab Nursing Orders: Ongoing Assess. of Cognitive Status, Ongoing Assess. of Function Status, Bladder Management, Bladder Scan, Bladder Training, Bowel Management, Bowel Training, Disease Management & Educaiton, DVT Prophylaxis, Fall Prevention, Fluid/Electrolyte/Nutrition Mgmt, Infection Prevention, Medication Management & Education, Management of Risks & Complications, Management of Skin Intergrity, Nutrition Management, Pain Management, Patient/Family Support, Safety Management, Wound Management Intensity of Therapy to be met Patient to be seen: Min.3h per day/5 of 7d PT IPOC Problem List: Activity Tolerance, Functional Strength, Balance, Gait, Transfer, Bed Mobility, ROM Treatment Plan: Continue Plan of Care Bed Mobility, Education, Functional Activity Poppy, Functional Strength, Group Therapy, Gait, Safety, Therapeutic Exercise, Transfers, Other (w/c mobility) Treatment Duration: Mar 14, 2023 Frequency: At least 5 of 7 days/Wk (IRF) Estimated Hrs Per Day: 1.5 hours per day OT IPOC Problems: Decreased Activ Tolerance, Decreased Safety Aware, Decreased UE Strength, Impaired Bed Mobility, Impaired Coordination, Impaired Funct Balance, Impaired I ADL's, Impaired Self-Care Skills, Restricted Funct UE ROM OT Treatment, Training and Edu: Yes Plan of Care: ADL Retraining, Caregiver Training, Concurrent Therapy, Functional Mobility, Group Exercise/Act as Ind, UE Funct Exercise/Act, UE Neuromus Re-Ed/Coord, W/C Management Training Treatment Duration: Mar 18, 2023 Frequency: At least 5 of 7 days/Wk (IRF) Estimated Hrs Per Day: 1.[address] IPOC Speech Therapy Treatment Plan: Discontinue ST Treatment Duration: Feb 28, 2023 Frequency: Modified Program (IRF) (no treatment recommended) Estimated Hrs Per Day: Other (no treatment recommended) Service Counselor/Case Mgmt Service Counselor/Case Managemen: Discharge Planning Dietitian/Rate Engineer Dietitian/Rate Engineer to monitor nutritional status and make changes and/or recommendations as needed and work with speech pathology on dietary upgrades as the occur. Physician IPOC Medical Issues being managed closely and that require the 24 hour availability of a physician: Recent severe anemia with need of scopes since heme + stools but no catarina blood along with severe RA and ESBL UTI requiring canales catheter due to excoriation in need of healing will be at high risk for decompensation Medical Issues: Bowel/Bladder Function, DVT Prophylaxis, Falls Precautions, Fluid/Electrolyte/Nutrition Balance, Weight Bearing Precautions, Wound Care Brief Synthesis of Preadmission Screen, Post-Admission Evaluation, and Therapy Evaluations: PT OT will focus on regaining function along with use of AD in order to return home to independent living along with ADL's Medical Prognosis: Good to fair Anticipated Length of Stay: 10 days CAROLINE PATRICK DO Mar 01, 2023 10:24
--- NOTE | 2023-03-01 10:25 | PM&R Progress Note ---
Subjective HPI/CC On Admission Date Seen by Provider: Mar 01, 2023 Time Seen by Provider: 09:00 Subjective/Events-last exam 03/01/2023: Much improved Working with therapy Canales cath still in place due to breakdown in periarea ABx maintained 02/28/2023: Doing much better Took a shower Pain is controlled Labs reviewed 02/27/2023: Patient remains stable nut very frail at bedside will bring the topical spray for pain of her RA Excoriation will requiring canales catheter until healed Meropenem tolerated Objective Exam Vital Signs Vital Signs Date Time Temp Pulse Resp B/P (MAP) Pulse Ox O2 Delivery O2 Flow Rate FiO2 03/01/23 20:24 Room Air 03/01/23 19:33 36.7 77 16 99/56 (70) 99 Capillary Refill : General Appearance: No Apparent Distress, WD/WN, Chronically ill, Thin HEENT: PERRL/EOMI, Normal ENT Inspection, Pharynx Normal Neck: Full Range of Motion, Normal Inspection, Non Tender, Supple, Carotid Bruit Respiratory: Chest Non Tender, Lungs Clear, Normal Breath Sounds, No Accessory Muscle Use, No Respiratory Distress Cardiovascular: Regular Rate, Rhythm, No Edema, No Gallop, No JVD, No Murmur, Normal Peripheral Pulses Gastrointestinal: Normal Bowel Sounds, No Organomegaly, No Pulsatile Mass, Non Tender, Soft Back: Normal Inspection, No CVA Tenderness, No Vertebral Tenderness Extremity: Normal Capillary Refill, Normal Inspection, Normal Range of Motion, Non Tender, No Calf Tenderness, No Pedal Edema Neurologic/Psychiatric: Alert, Oriented x3, No Motor/Sensory Deficits, Depressed Affect, Motor Weakness (generalized) Skin: Normal Color, Warm/Dry Lymphatic: No Adenopathy Results/Procedures Lab Patient resulted labs reviewed. FIM Transfers Therapy Code Descriptions/Definitions Functional O'[place] Measure: 0=Not Assessed/NA 4=Minimal Assistance 1=Total Assistance 5=Supervision or Setup 2=Maximal Assistance 6=Modified [place] 3=Moderate Assistance 7=Complete IndependenceSCALE: Activities may be completed with or without assistive devices. 6-Erhuuzuzle-roudjsc completes the activity by him/herself with no assistance from a helper. 5-Set-up or Clean-up Assistance-helper sets up or cleans up; patient completes activity. [place] assists only prior to or following the activity. 4-Supervision or Touching Assistance-helper provides verbal cues and/or touching/steadying and/or contact guard assistance as patient completes activity. Assistance may be provided throughout the activity or intermittently. 3-Partial/Moderate Assistance-helper does LESS THAN HALF the effort. [place] lifts, holds or supports trunk or limbs, but provides less than half the effort. 2-Substantial/Maximal Assistance-helper does MORE THAN HALF the effort. [place] lifts or holds trunk or limbs and provides more than half the effort. 4-Wqgbalpxk-kuxqwq does ALL the effort. Patient does none of the effort to complete the activity. Or, the assistance of 2 or more helpers is required for the patient to complete the activity. If activity was not attempted, code reason: 7-Patient Refused. 9-Not Applicable-not attempted and the patient did not perform the activity before the current illness, exacerbation or injury. 10-Not Attempted due to Environmental Limitations-(lack of equipment, weather restraints, etc.). 88-Not Attempted due to Medical Conditions or Safety Concerns. Roll Left to Right (QC): 5 (/c bed rail) Sit to Lying (QC): 3 (min (A) with LE's) Sit to Stand (QC): 3 (mod (A) /c multiple attempts and v.c. from bed, w/c, toilet.) Chair/Eem-wy-Wdush Xfer(QC): 3 (min-mod (A) /c v.c. for safety using FWW. As patient fatigues, requires more (A).) Car Transfer (QC): 3 (Mod (A) to lift legs in/out and to ensure safe sitting position) Gait Training Does the Patient Walk?: Yes Walk 10 feet (QC): 88 (unable to walk 10' due to c/o (R) leg pain and fatigue) Walk 50 ft with 2 Turns(QC): 88 Walk 150 ft (QC): 88 Walking 10ft/uneven surface-QC: 88 Gait Assistive Device: FWW (/c w/c backup) Wheelchair Training Does the Pt Use a Wheelchair?: Yes Distance: 35' Wheel 50 ft with 2 turns (QC): 88 (unable to cover distance due to fatigue.) Wheel 150 ft (QC): 88 Type of Wheelchair: Manual Stair Training 1 Step (curb) (QC): 88 (unsafe - unable to walk further than 2' due to pain/fatigue) 4 Steps (QC): 88 12 Steps (QC): 88 Balance Picking up an Object (QC): 88 (Poor standing balance - needs (B) UE for support with FWW) ADL-Treatment Eating (QC): 5 (Per RN report) Oral Hygiene (QC): 4 (in sitting ) Shower/Bathe Self (QC): 2 Upper Body Dressing (QC): 3 (assist overhead. Pt able to thread arms and pull down chest.) Lower Body Dressing (QC): 1 (assist all parts.) On/Off Footwear (QC): 1 (to don/doff socks) Toileting Hygiene (QC): 2 (completed in standing ) Assessment/Plan Assessment and Plan Assess & Plan/Chief Complaint Assessment: Debility Severe anemia RA on MTX PAF Holding OAC due to anemia ESBL UTI Recent PNA gram negative sepsis Edema Hypokalemia Plan: Monitor labs PT OT Transfuse as necessary Scopes as outpatient 02/27/2023: Monitor hgb PPI Canales cath due to excoriation 02/28/2023: Supportive care Maintain Canales catheter Complete IV antibiotics 03/01/2023: Monitor pain Ambulate (1) Debility Status: Chronic CAROLINE PATRICK DO Mar 01, 2023 10:25
--- NOTE | 2023-03-01 13:44 | Physical Therapy Daily Note ---
PT Daily Note-Current Subjective Pt sitting in w/c in room w/Sp present upon arrival. Pt agrees to PT. Pain Location: Right, Left Location Body Site: Knee Pain Description: Ache Comment: Reports B hip, knee ankle joint pain but not rated. Section J - Health Conditions 1. Rarely or not at all 2. Occasionally 3. Frequently 4. Almost constantly 8. Unable to answer Pain Effect on Sleep: 2 Pain Interference with Therapy: 4 Pain Interference w/Day-to-Day: 4 Mental Status Patient Orientation: Person, Place, Situation Transfers SCALE: Activities may be completed with or without assistive devices. 9-Efqwcxajeq-vqwzetg completes the activity by him/herself with no assistance from a helper. 5-Set-up or Clean-up Assistance-helper sets up or cleans up; patient completes activity. [place] assists only prior to or following the activity. 4-Supervision or Touching Assistance-helper provides verbal cues and/or touching/steadying and/or contact guard assistance as patient completes activ ity. Assistance may be provided throughout the activity or intermittently. 3-Partial/Moderate Assistance-helper does LESS THAN HALF the effort. [place] lifts, holds or supports trunk or limbs, but provides less than half the effort. 2-Substantial/Maximal Assistance-helper does MORE THAN HALF the effort. [place] lifts or holds trunk or limbs and provides more than half the effort. 9-Rgjadjwtz-vpufvs does ALL the effort. Patient does none of the effort to complete the activity. Or, the assistance of 2 or more helpers is required for the patient to complete the activity. If activity was not attempted, code reason: 7-Patient Refused. 9-Not Applicable-not attempted and the patient did not perform the activity before the current illness, exacerbation or injury. 10-Not Attempted due to Environmental Limitations-(lack of equipment, weather restraints, etc.). 88-Not Attempted due to Medical Conditions or Safety Concerns. Sit to Stand (QC): 3 (Min-Mod A dependi on fatigue) Weight Bearing Weight Bearing/Tolerated Weight Bearing/Tolerated Gait Training Distance: 2' Gait Persons Needed: 1 Gait Assistive Device: FWW Very kyphotic posture, hands difficult to hold FWW as pt has RA. Knees, hips & ankle heard popping and grinding as pt walks. Wheelchair Training Does the Pt Use a Wheelchair?: Yes Wheel 50 ft with 2 turns (QC): 3 Type of Wheelchair: Manual Exercises Supine Ex: Ankle pumps, Quad Set, Glut sets, Heel Slides, Short Arc Quads, Straight leg raise, Hip abd/add Supine Reps: 10 Seated Therapy Exercises: Ankle pumps, Long arc quads, Hip flexion, Hamstring Curls, Hip abd/add, Glut set Seated Reps: 10 Treatments Pt propels w/c in hallway. PALLETIZER gives instruction on turns and w/c management. Pt attempts TF to stand and walking but only manages 2' before pain limits and pt sits in w/c following. Pt completes written HEP for Supine & Seated EX to gain strength for improved TF & amb. Pt propels w/c back to room before TF back to bed to lay Supine for protection of sacral wound. All needs met, call light in hand. Assessment Current Status: Fair Progress Weakness and pain limit pt at this time. PT Visual Lead Goals Visual Lead Goals PT Visual Lead Goals Time Frame: Mar 14, 2023 Roll Left & Right (QC): 6 (using bed rail) Sit to Lying (QC): 6 (with bed rail) Lying-Sitting on Side/Bed(QC): 6 (/c bed rail) Sit to Stand (QC): 3 (min (A) -- uses [place] Seat Assist at home) Chair/Noj-zv-Ebshl Xfer(QC): 3 (min (A) consistently /c FWW) Toilet Transfer (QC): 3 (min (A) /c FWW consistently) Car Transfer (QC): 3 (Min (A) /c FWW consistenly.) Does the Patient Walk: Yes Walk 10 feet (QC): 3 (min (A)) Walk 50ft with 2 Turns (QC): 3 (min (A) /c FWW) Walk 150 ft (QC): 9 Walking 10ft on Uneven Surface: 3 (min (A) /c FWW) 1 Step (curb) (QC): 3 (Min (A)) 4 Steps (QC): 3 (mod (A) with railings) 12 Steps (QC): 9 Picking up an Object (QC): 3 (min (A) /c optical laboratory manager) Does the Pt use WC or Scooter?: Yes Wheel 50 feet with 2 turns (QC: 6 (Recommend motorized w/c due to extent of RA) Type: Motorized Wheel 150 feet: 6 Type: Motorized PT Plan Problem List Problem List: Activity Tolerance, Functional Strength, Safety, Gait, Transfer Treatment/Plan Treatment Plan: Continue Plan of Care Treatment Plan: Bed Mobility, Education, Functional Activity Poppy, Functional Strength, Group Therapy, Gait, Safety, Therapeutic Exercise, Transfers, Other (w/c mobility) Treatment Duration: Mar 14, 2023 Frequency: At least 5 of 7 days/Wk (IRF) Estimated Hrs Per Day: 1.5 hours per day Patient and/or Family Agrees t: Yes Safety Risks/Education Patient Education: Gait Training, Transfer Techniques, Issued Written HEP, Correct Positioning, W/C Management, Safety Issues Teaching Recipient: Patient, Significant Other Teaching Methods: Discussion Response to Teaching: Verbalize Understanding Time Time In: 30 Time Out: 1030 DATE: Mar 01, 2023 Total Billed Treatment Time: 60 Total Billed Treatment 1, WCH (20m), GT (10m) & EX x2 (30m) WYATT SUE PALLETIZER Mar 01, 2023 13:44
--- NOTE | 2023-03-01 13:52 | Therapy Group Daily Note ---
Therapy Daily Group Note Patient Education Topic Home Safety Exercises Fine Motor, UE Exercise Session Ratio (pt:therapist): 3:1 Goal of Session: Home Safety Strategies, UE/LE Strengthing Goal Met for this Session: Yes Pt Benefit of Group: Contributions to Others, F/U Use of Strategies @Home, Increased Functional Safety, Increased Functional Strength, Improved Cognition, Recognition of Peers, Socialization Other/Notes Pt transported via w/c to [facility] for OT group. Group consisted of introductions(name, place living, dx), socialization, B UE gross/fine motor tasks and education of home safety. Pt able to introduce self appropriately and actively listened to peers. Pt required modifications due to B UE limited ROM with gross/fine motor tasks. Pt verbalized understanding of educational topic by giving personal examples and matching pictures of topics. After session, pt remained with other participants in [facility] to drink coffee and talk. Nrsg aware. Start Time: 13:05 Stop Time: 13:40 Total Billed Treatment Time: 35 Total Billed Treatment 1-GRP JADA HART Mar 01, 2023 13:52
--- NOTE | 2023-03-01 14:08 | Physical Therapy Daily Note ---
PT Daily Note-Current Subjective Pt laying Supine in bed upon arrival. Sp present. Pt agrees to PT. Pain Location: Right, Left Location Body Site: Knee Pain Description: Ache Comment: Reports but doesn't rate Section J - Health Conditions 1. Rarely or not at all 2. Occasionally 3. Frequently 4. Almost constantly 8. Unable to answer Pain Effect on Sleep: 2 Pain Interference with Therapy: 4 Pain Interference w/Day-to-Day: 4 Mental Status Patient Orientation: Person, Place, Situation Transfers SCALE: Activities may be completed with or without assistive devices. 3-Piyjpkhzug-gqihxrc completes the activity by him/herself with no assistance from a helper. 5-Set-up or Clean-up Assistance-helper sets up or cleans up; patient completes activity. [place] assists only prior to or following the activity. 4-Supervision or Touching Assistance-helper provides verbal cues and/or touching/steadying and/or contact guard assistance as patient completes activity. Assistance may be provided throughout the activity or intermittently. 3-Partial/Moderate Assistance-helper does LESS THAN HALF the effort. [place] lifts, holds or supports trunk or limbs, but provides less than half the effort. 2-Substantial/Maximal Assistance-helper does MORE THAN HALF the effort. [place] lifts or holds trunk or limbs and provides more than half the effort. 0-Cwgrubyef-hkezyg does ALL the effort. Patient does none of the effort to complete the activity. Or, the assistance of 2 or more helpers is required for the patient to complete the activity. If activity was not attempted, code reason: 7-Patient Refused. 9-Not Applicable-not attempted and the patient did not perform the activity before the current illness, exacerbation or injury. 10-Not Attempted due to Environmental Limitations-(lack of equipment, weather restraints, etc.). 88-Not Attempted due to Medical Conditions or Safety Concerns. Weight Bearing Weight Bearing/Tolerated Weight Bearing/Tolerated Exercises Supine Ex: Ankle pumps, Quad Set, Glut sets, Heel Slides, Short Arc Quads, Straight leg raise, Hip abd/add Supine Reps: 10 Treatments Pt completes EX w/several RB as needed for pain & fatigue. Pt resting at end of tx anticipating lunch & Wound Care for Sacral Wound. All needs met, call light in hand. Assessment Current Status: Fair Progress Pain & fatigue limit pt in second session. PT Shelter Goals Shelter Goals PT Shelter Goals Time Frame: Mar 14, 2023 Roll Left & Right (QC): 6 (using bed rail) Sit to Lying (QC): 6 (with bed rail) Lying-Sitting on Side/Bed(QC): 6 (/c bed rail) Sit to Stand (QC): 3 (min (A) -- uses [place] Seat Assist at home) Chair/Ymd-zx-Wyrlp Xfer(QC): 3 (min (A) consistently /c FWW) Toilet Transfer (QC): 3 (min (A) /c FWW consistently) Car Transfer (QC): 3 (Min (A) /c FWW consistenly.) Does the Patient Walk: Yes Walk 10 feet (QC): 3 (min (A)) Walk 50ft with 2 Turns (QC): 3 (min (A) /c FWW) Walk 150 ft (QC): 9 Walking 10ft on Uneven Surface: 3 (min (A) /c FWW) 1 Step (curb) (QC): 3 (Min (A)) 4 Steps (QC): 3 (mod (A) with railings) 12 Steps (QC): 9 Picking up an Object (QC): 3 (min (A) /c certified professional coder) Does the Pt use WC or Scooter?: Yes Wheel 50 feet with 2 turns (QC: 6 (Recommend motorized w/c due to extent of RA) Type: Motorized Wheel 150 feet: 6 Type: Motorized PT Plan Problem List Problem List: Activity Tolerance, Functional Strength Treatment/Plan Treatment Plan: Continue Plan of Care Treatment Plan: Bed Mobility, Education, Functional Activity Poppy, Functional Strength, Group Therapy, Gait, Safety, Therapeutic Exercise, Transfers, Other (w/c mobility) Treatment Duration: Mar 14, 2023 Frequency: At least 5 of 7 days/Wk (IRF) Estimated Hrs Per Day: 1.5 hours per day Patient and/or Family Agrees t: Yes Time Time In: 1130 Time Out: 1200 DATE: Mar 01, 2023 Total Billed Treatment Time: 30 Total Billed Treatment 1, EX x2 (30m) LINETTEWYATT GEOPHYSICAL SUPPORT SPECIALIST Mar 01, 2023 14:08
[2023-03-01 19:33] VITALS: BP 99/56
[2023-03-02] MEDS: MEROPENEM INJECTION 1,000 MG in NS (IVPB) 100 ML 100 ML IV SCH ×3 (06:20→23:13)
[2023-03-02 08:00] VITALS: BP 89/51
[2023-03-02 08:09] VITALS: BP 99/56
[2023-03-02 08:56] VITALS: BP 106/65
[2023-03-02] MEDS ORDERED: PATCH REMOVAL TP SCH (09:00)
[2023-03-02] MEDS ORDERED: BUPRENORPHINE TRANSDERMAL TOP SCH (09:00)
[2023-03-02] MEDS: PANTOPRAZOLE 40 MG TABLET PO SCH ×2 (09:02→21:47)
[2023-03-02] MEDS: POTASSIUM CHLORIDE 20 MEQ TABLET PO SCH ×2 (09:02→19:11)
[2023-03-02] MEDS: ACETAMINOPHEN 325 MG TABLET PO PRN ×2 (09:03→16:22)
[2023-03-02] MEDS: DOCUSATE SODIUM 100 MG CAPSULE PO SCH ×2 (09:08→21:47)
[2023-03-02] MEDS: SENNA W/DOCUSATE TABLET PO SCH ×2 (09:09→21:48)
--- NOTE | 2023-03-02 09:11 | Cardiology Progress Note ---
Subjective Date Seen by Provider: Mar 02, 2023 Time Seen by Provider: 08:35 Subjective/Events-last exam Patient up in room doing ADLs, denies any chest pain Objective-Cardiology Exam Last Set of Vital Signs Vital Signs 03/02/23 03/02/23 03/02/23 03/02/23 03:14 08:00 08:56 09:36 Temp 35.7 Pulse 83 Resp 16 B/P (MAP) 106/65 (79) Pulse Ox 100 O2 Delivery Room Air O2 Flow Rate 0.00 FiO2 21 I&O Intake and Output 03/02/23 00:00 Intake Total 1300 ml Output Total 2100 ml Balance -800 ml Intake Oral 1300 ml Output Urine Total 2100 ml # Bowel Movements 1 General: Alert, Oriented X3 HEENT: Atraumatic, PERRLA Lungs: Clear to Auscultation, Normal Air Movement Heart: Regular Rate Abdomen: Normal Bowel Sounds, Soft Extremities: No Clubbing, No Cyanosis Skin: No Significant Lesion Psych/Mental Status: Mental Status NL, Mood NL Results Lab Laboratory Tests 03/02/23 09:23 A/P-Cardiology Admission Diagnosis Anemia, GIB PAF Peripheral edema ESBL UTI Assessment/Plan GI bleed, severe anemia Patient has history of chronic anemia which has been having episodes of drop in H&H Status post blood transfusion Patient had endoscopy done earlier this year, will require another extensive w ork-up for GI loss in addition I recommended hematology evaluation due to her chronic anemia Continue to monitor H/H Paroxysmal atrial fibrillation, had transient episode of atrial fibrillation Currently in sinus rhythm. Continue to monitor Currently off OAC Peripheral edema, some improvement Probably due to Hypoalbuminemia 2D echo was done earlier in January 2023 with normal LV size, ejection fraction 50 to 55%, PA pressure 35 mmHg moderate mitral regurgitation and dilated left atrium ESBL UTI, management per medical services Hypokalemia, replaced, continue to monitor Labile blood pressure, patient was hypotensive this morning Did not receive any antihypertensive medication I added Florinef 0.1 mg daily Continue with compression socks. Status post recent hospitalization for Gram negative sepsis with lactic acidosis Generalized weakness, debility Rheumatoid arthritis maintained on methotrexate Supervisory-Addendum Brief Supervisory Addendum Participated in pt care: history, MDM, physical Personally performed: exam, history, MDM Care discussed with: EULA Results interpretation: Verified all documentation Notes: Patient was seen and evaluated with Vickie, examination performed, management plan was discussed, agree with the current scribed note, I made few changes to the note using Italic font Patient was seen at bedside, sitting comfortably, feeling better Was hypotensive earlier this morning. I will add Florinef and evaluate tolerance and response. VICKIE NICOLE PA-C Mar 02, 2023 09:11 OTILIO ESQUIVEL MD Mar 02, 2023 10:45
[2023-03-02] MEDS: HYPOCHLOROUS ACID/NaCl WOUND SOLN 250 ML IR SCH (09:12)
[2023-03-02] MEDS: MICONAZOLE 2% POWDER 90 GM TOP SCH ×2 (09:13→21:49)
[2023-03-02 09:32] LABS: BASOPHILS % (AUTO) 1 % (0-10); EOSINOPHILS # (AUTO) 0.3 10^3/uL (0.0-0.3); EOSINOPHILS % (AUTO) 6 % (0-10); HEMATOCRIT 28 % (35-52); HEMOGLOBIN 8.8 g/dL (11.5-16.0); LYMPHOCYTES # (AUTO) 1.5 10^3/uL (1.0-4.0); LYMPHOCYTES % (AUTO) 27 % (12-44); MEAN CORPUSCULAR HEMOGLOBIN 26 pg (25-34); MEAN CORPUSCULAR HGB CONC 32 g/dL (32-36); MEAN CORPUSCULAR VOLUME 82 fL (80-99); MEAN PLATELET VOLUME 8.7 fL (9.0-12.2); MONOCYTES # (AUTO) 0.7 10^3/uL (0.0-1.0); MONOCYTES % (AUTO) 12 % (0-12); NEUTROPHILS % (AUTO) 54 % (42-75); PLATELET COUNT 231 10^3/uL (130-400); WHITE BLOOD COUNT 5.6 10^3/uL (4.3-11.0)
--- NOTE | 2023-03-02 11:18 | Occupational Ther Daily Note ---
OT Current Status-Daily Note Subjective Pt agreeable to therapy tx. Mental Status/Objective Patient Orientation: Normal For Age Attachments: Willard Catheter ADL-Treatment Therapy Code Descriptions/Definitions Functional [place] Measure: 0=Not Assessed/NA 4=Minimal Assistance 1=Total Assistance 5=Supervision or Setup 2=Maximal Assistance 6=Modified [place] 3=Moderate Assistance 7=Complete IndependenceSCALE: Activities may be completed with or without assistive devices. 4-Yrjvyeomse-odrattm completes the activity by him/herself with no assistance from a helper. 5-Set-up or Clean-up Assistance-helper sets up or cleans up; patient completes activity. [place] assists only prior to or following the activity. 4-Supervision or Touching Assistance-helper provides verbal cues and/or touching/steadying and/or contact guard assistance as patient completes activity. Assistance may be provided throughout the activity or intermittently. 3-Partial/Moderate Assistance-helper does LESS THAN HALF the effort. [place] lifts, holds or supports trunk or limbs, but provides less than half the effort. 2-Substantial/Maximal Assistance-helper does MORE THAN HALF the effort. [place] lifts or holds trunk or limbs and provides more than half the effort. 7-Kgaiadhlg-hqtyvu does ALL the effort. Patient does none of the effort to complete the activity. Or, the assistance of 2 or more helpers is required for the patient to complete the activity. If activity was not attempted, code reason: 7-Patient Refused. 9-Not Applicable-not attempted and the patient did not perform the activity before the current illness, exacerbation or injury. 10-Not Attempted due to Environmental Limitations-(lack of equipment, weather restraints, etc.). 88-Not Attempted due to Medical Conditions or Safety Concerns. Lower Body Dressing (QC): 1 On/Off Footwear: 1 Other Treatment OT/PT cotreat due to skill of 2 clinicians required which a rehab services aide could not perform in order to coordinate UE/LEs, decrease fall risk, and due to pt's limitations in pain, mobility, transfers, arthritis, and standing balance. OT focused on UE placement, cues for sequencing and safety and ADLs, PT focused on LE placement, gross overall movement, transfers and mobility. Pt transferred supine to sit EOB, SBA. Pants and footwear donned at EOB, total assist. Pt stood from EOB, min A, then transferred to w/c using her walker from home. B/L p latforms placed on hospital's walker for pt to trial (pt's walker from home not suitable for platforms). Pt stood from w/c, min A, then performed functional mobility 30' with b/l platform walker, CGA. Pt states the platforms feel more comfortable to her. OT Tx: pt propelled w/c to table in ARU common area using BLEs, SBA. Pt participated in UE reaching task, playing "Dominos" at table top. Pt able to use BUEs to reach on table top, noted difficulty with manipulating game pieces due to arthritis, and limited reaching across table due to arthritis. Pt required assistance with placing game pieces in center or across table from where she sat. Pt returned to her room via w/c, propelling with BLEs. Pt requests to stay up in w/c (waffle cushion placed in w/c for pressure relief). OT provided education on importance of getting off of her buttocks in order for wounds to heal, she verbalized understanding. Post tx, pt up in w/c, call light in reach and all needs met, spouse present. Education OT Patient Education: Correct positioning, Energy conservation, Modified ADL techniques, Progress toward Goal/Update tx plan, Purpose of tx/functional activities, Rehab process Teaching Recipient: Patient Teaching Methods: Discussion Response to Teaching: Verbalize Understanding OT Short Term Goals Short Term Goals Time Frame: Mar 07, 2023 Eatin Oral hygiene: 4 Toileting hygiene: 4 Shower/bathe self: 3 Upper body dressin Lower body dressin Putting on/taking off footwear: 2 OT [facility] [employer] [employer] Goals [facility] Goals Time Frame: Mar 18, 2023 Acute change in mental status: 0 Inattention: 0 Disorganized thinkin Altered level of consciousness: 0 Eating (QC): 5 Oral Hygiene (QC): 4 Toileting Hygiene (QC): 4 Shower/Bathe Self (QC): 4 Upper Body Dressing (QC): 6 Lower Body Dressing (QC): 4 (With use of AE) On/Off Footwear (QC): 3 1=Demonstrate adherence to instructed precautions during ADL tasks. 2=Patient will verbalize/demonstrate understanding of assistive d evices/modifications for ADL. 3=Patient will improve strength/tolerance for activity to enable patient to perform ADL's. OT Education/Plan Problem List/Assessment Assessment: Decreased Activ Tolerance, Decreased UE Strength, Impaired Coordination, Impaired Funct Balance, Impaired I ADL's, Impaired Self-Care Skills, Restricted Funct UE ROM Discharge Recommendations Plan/Recommendations: Continue POC Treatment Plan/Plan of Care Patient would benefit from OT for education, treatment and training to promote independence in ADL's, mobility, safety and/or upper extremity function for ADL's. Plan of Care: ADL Retraining, Caregiver Training, Concurrent Therapy, Functional Mobility, Group Exercise/Act as Ind, UE Funct Exercise/Act, UE Neuromus Re-Ed/Coord, W/C Management Training Treatment Duration: Mar 18, 2023 Frequency: At least 5 of 7 days/Wk (IRF) Estimated Hrs Per Day: 1.5 hours per day Agreement: Yes Rehab Potential: Fair Time Start Time: 10:00 Stop Time: 11:00 DATE: Mar 02, 2023 Total Time Billed (hr/min): 60 Billed Treatment Time Cotreat 30'; OT tx 30' 1, ADL (15'), FA 3 (45') AIYANA MILES OT Mar 02, 2023 11:18
--- NOTE | 2023-03-02 11:36 | PM&R Progress Note ---
Subjective HPI/CC On Admission Date Seen by Provider: Mar 02, 2023 Time Seen by Provider: 11:45 Subjective/Events-last exam 03/02/2023: Patient doing much better Pain is controlled at the bedside Canales catheter in place Periarea excoriation is much improved 03/01/2023: Much improved Working with therapy Canales cath still in place due to breakdown in periarea ABx maintained 02/28/2023: Doing much better Took a shower Pain is controlled Labs reviewed 02/27/2023: Patient remains stable nut very frail at bedside will bring the topical spray for pain of her RA Excoriation will requiring canales catheter until healed Meropenem tolerated Review of Systems General: Fatigue, Malaise Objective Exam Vital Signs Vital Signs Date Time Temp Pulse Resp B/P (MAP) Pulse Ox O2 Delivery O2 Flow Rate FiO2 03/02/23 09:36 Room Air 03/02/23 08:56 100 0.00 03/02/23 08:56 83 106/65 (79) 03/02/23 08:00 35.7 16 03/02/23 03:14 21 Capillary Refill : General Appearance: No Apparent Distress, WD/WN, Chronically ill, Thin HEENT: PERRL/EOMI, Normal ENT Inspection, Pharynx Normal Neck: Full Range of Motion, Normal Inspection, Non Tender, Supple, Carotid Bruit Respiratory: Chest Non Tender, Lungs Clear, Normal Breath Sounds, No Accessory Muscle Use, No Respiratory Distress Cardiovascular: Regular Rate, Rhythm, No Edema, No Gallop, No JVD, No Murmur, Normal Peripheral Pulses Gastrointestinal: Normal Bowel Sounds, No Organomegaly, No Pulsatile Mass, Non Tender, Soft Back: Normal Inspection, No CVA Tenderness, No Vertebral Tenderness Extremity: Normal Capillary Refill, Normal Inspection, Normal Range of Motion, Non Tender, No Calf Tenderness, No Pedal Edema Neurologic/Psychiatric: Alert, Oriented x3, No Motor/Sensory Deficits, Depressed Affect, Motor Weakness Skin: Normal Color, Warm/Dry Lymphatic: No Adenopathy Results/Procedures Lab Laboratory Tests 03/02/23 09:23 Patient resulted labs reviewed. FIM Transfers Therapy Code Descriptions/Definitions Functional [place] Measure: 0=Not Assessed/NA 4=Minimal Assistance 1=Total Assistance 5=Supervision or Setup 2=Maximal Assistance 6=Modified [place] 3=Moderate Assistance 7=Complete IndependenceSCALE: Activities may be completed with or without assistive devices. 8-Vcwgzsjhzk-reozdjp completes the activity by him/herself with no assistance from a helper. 5-Set-up or Clean-up Assistance-helper sets up or cleans up; patient completes activity. [place] assists only prior to or following the activity. 4-Supervision or Touching Assistance-helper provides verbal cues and/or touching/steadying and/or contact guard assistance as patient completes activity. Assistance may be provided throughout the activity or intermittently. 3-Partial/Moderate Assistance-helper does LESS THAN HALF the effort. [place] lifts, holds or supports trunk or limbs, but provides less than half the effort. 2-Substantial/Maximal Assistance-helper does MORE THAN HALF the effort. [place] lifts or holds trunk or limbs and provides more than half the effort. 9-Cxrxickpz-sioxqa does ALL the effort. Patient does none of the effort to complete the activity. Or, the assistance of 2 or more helpers is required for the patient to complete the activity. If activity was not attempted, code reason: 7-Patient Refused. 9-Not Applicable-not attempted and the patient did not perform the activity before the current illness, exacerbation or injury. 10-Not Attempted due to Environmental Limitations-(lack of equipment, weather restraints, etc.). 88-Not Attempted due to Medical Conditions or Safety Concerns. Roll Left to Right (QC): 5 (/c bed rail) Sit to Lying (QC): 3 (min (A) with LE's) Sit to Stand (QC): 3 (Min-Mod A dependi on fatigue) Chair/Oph-tb-Vogez Xfer(QC): 3 (min-mod (A) /c v.c. for safety using FWW. As patient fatigues, requires more (A).) Car Transfer (QC): 3 (Mod (A) to lift legs in/out and to ensure safe sitting position) Gait Training Does the Patient Walk?: Yes Distance: 2' Walk 10 feet (QC): 88 (unable to walk 10' due to c/o (R) leg pain and fatigue) Walk 50 ft with 2 Turns(QC): 88 Walk 150 ft (QC): 88 Walking 10ft/uneven surface-QC: 88 Gait Persons Needed: 1 Gait Assistive Device: FWW Wheelchair Training Does the Pt Use a Wheelchair?: Yes Distance: 35' Wheel 50 ft with 2 turns (QC): 3 Wheel 150 ft (QC): 88 Type of Wheelchair: Manual Stair Training 1 Step (curb) (QC): 88 (unsafe - unable to walk further than 2' due to pain/fatigue) 4 Steps (QC): 88 12 Steps (QC): 88 Balance Picking up an Object (QC): 88 (Poor standing balance - needs (B) UE for support with FWW) ADL-Treatment Eating (QC): 5 (Per RN report) Oral Hygiene (QC): 4 (in sitting ) Shower/Bathe Self (QC): 2 Upper Body Dressing (QC): 3 (assist overhead. Pt able to thread arms and pull down chest.) Lower Body Dressing (QC): 1 On/Off Footwear (QC): 1 Toileting Hygiene (QC): 2 (completed in standing ) Assessment/Plan Assessment and Plan Assess & Plan/Chief Complaint Assessment: Debility Severe anemia RA on MTX PAF Holding OAC due to anemia ESBL UTI Recent PNA gram negative sepsis Edema Hypokalemia Plan: Monitor labs PT OT Transfuse as necessary Scopes as outpatient 02/27/2023: Monitor hgb PPI Canales cath due to excoriation 02/28/2023: Supportive care Maintain Canales catheter Complete IV antibiotics 03/01/2023: Monitor pain Ambulate 03/02/2023: Pain control Denies any need for pain pill (1) Debility Status: Chronic CAROLINE PATRICK DO Mar 02, 2023 11:35
--- NOTE | 2023-03-02 11:45 | Physical Therapy Daily Note ---
PT Daily Note-Current Subjective Pt laying in Supine in bed w/Sp present upon arrival. Pt reluctantly agrees to PT. Pt reports B knee pain and doesn't want to get up. MUD LOGGER advises need for movement for strengthening, improved self repositioning to prevent worsening of sacral wound. Pain Location: Right, Left Location Body Site: Knee Pain Description: Ache Comment: Reported but not rated, crepetis heard by MUD LOGGER Section J - Health Conditions 1. Rarely or not at all 2. Occasionally 3. Frequently 4. Almost constantly 8. Unable to answer Pain Effect on Sleep: 2 Pain Interference with Therapy: 4 Pain Interference w/Day-to-Day: 4 Mental Status Patient Orientation: Person, Place, Situation Transfers SCALE: Activities may be completed with or without assistive devices. 0-Ujkybtoayg-dhumnpy completes the activity by him/herself with no assistance from a helper. 5-Set-up or Clean-up Assistance-helper sets up or cleans up; patient completes activity. [place] assists only prior to or following the activity. 4-Supervision or Touching Assistance-helper provides verbal cues and/or touching/steadying and/or contact guard assistance as patient completes activity. Assistance may be provided throughout the activity or intermittently. 3-Partial/Moderate Assistance-helper does LESS THAN HALF the effort. [place] lifts, holds or supports trunk or limbs, but provides less than half the effort. 2-Substantial/Maximal Assistance-helper does MORE THAN HALF the effort. [place] lifts or holds trunk or limbs and provides more than half the effort. 7-Xmoxyevmv-wtgzxe does ALL the effort. Patient does none of the effort to co mplete the activity. Or, the assistance of 2 or more helpers is required for the patient to complete the activity. If activity was not attempted, code reason: 7-Patient Refused. 9-Not Applicable-not attempted and the patient did not perform the activity before the current illness, exacerbation or injury. 10-Not Attempted due to Environmental Limitations-(lack of equipment, weather restraints, etc.). 88-Not Attempted due to Medical Conditions or Safety Concerns. Sit to Stand (QC): 3 (Min A) Weight Bearing Weight Bearing/Tolerated Weight Bearing/Tolerated Gait Training Does the Patient Walk?: Yes Distance: 30' Walk 10 feet (QC): 4 Gait Persons Needed: 1 Gait Assistive Device: Walker Platform Wheelchair Training Does the Pt Use a Wheelchair?: Yes Wheel 50 ft with 2 turns (QC): 4 Type of Wheelchair: Manual Treatments Pt was encouraged to push self as well as advised benefits of movement for stiffness in joints and protection of sacral wound. OT/PT cotreat due to skill of 2 clinicians required which a rehabilitation center manager could not perform in order to coordinate UE/LEs, decrease fall risk, and due to pt's limitations in pain, mobility, transfers, arthritis, and standing balance. OT focused on UE placement, cues for sequencing and safety and ADLs, PT focused on LE placement, gross overall movement, transfers and mobility. Pt transferred supine to sit EOB, SBA. Pants and footwear donned at EOB, total assist. Pt stood from EOB, min A, then transferred to w/c using her walker from home. B/L platforms placed on h ospital's walker for pt to trial (pt's walker from home not suitable for platforms). Pt stood from w/c, min A, then performed functional mobility 30' with b/l platform walker, CGA. Pt states the platforms feel more comfortable to her. MUD LOGGER departs at this time and OT continues tx. Assessment Current Status: Fair Progress Pt needs encouragement to push self to move through pain to prevent stiffness & protect sacral wound. VC given but pt doesn't always retain info given. PT Nursing Home Goals Nursing Home Goals PT Nursing Home Goals Time Frame: Mar 14, 2023 Roll Left & Right (QC): 6 (using bed rail) Sit to Lying (QC): 6 (with bed rail) Lying-Sitting on Side/Bed(QC): 6 (/c bed rail) Sit to Stand (QC): 3 (min (A) -- uses [place] Seat Assist at home) Chair/Xfu-yu-Wdnoj Xfer(QC): 3 (min (A) consistently /c FWW) Toilet Transfer (QC): 3 (min (A) /c FWW consistently) Car Transfer (QC): 3 (Min (A) /c FWW consistenly.) Does the Patient Walk: Yes Walk 10 feet (QC): 3 (min (A)) Walk 50ft with 2 Turns (QC): 3 (min (A) /c FWW) Walk 150 ft (QC): 9 Walking 10ft on Uneven Surface: 3 (min (A) /c FWW) 1 Step (curb) (QC): 3 (Min (A)) 4 Steps (QC): 3 (mod (A) with railings) 12 Steps (QC): 9 Picking up an Object (QC): 3 (min (A) /c neckties painter) Does the Pt use WC or Scooter?: Yes Wheel 50 feet with 2 turns (QC: 6 (Recommend motorized w/c due to extent of RA) Type: Motorized Wheel 150 feet: 6 Type: Motorized PT Plan Problem List Problem List: Activity Tolerance, Functional Strength, Safety, Gait, Transfer, Bed Mobility Treatment/Plan Treatment Plan: Continue Plan of Care Treatment Plan: Bed Mobility, Education, Functional Activity Poppy, Functional Strength, Group Therapy, Gait, Safety, Therapeutic Exercise, Transfers, Other (w/c mobility) Treatment Duration: Mar 14, 2023 Frequency: At least 5 of 7 days/Wk (IRF) Estimated Hrs Per Day: 1.5 hours per day Patient and/or Family Agrees t: Yes Safety Risks/Education Patient Education: Gait Training, Transfer Techniques, Correct Positioning, Instructions to Caregiver, Safety Issues Teaching Recipient: Patient, Significant Other Teaching Methods: Discussion Response to Teaching: Verbalize Understanding Time Time In: 0930 Time Out: 1030 DATE: Mar 02, 2023 Total Billed Treatment Time: 60 Total Billed Treatment 1, FA x2 (30m), [facility] (15m) & GT (15m) WYATT SUE MUD LOGGER Mar 02, 2023 11:45
--- NOTE | 2023-03-02 14:01 | Physical Therapy Daily Note ---
PT Daily Note-Current Subjective Pt sitting in w/c on waffle cushion in room upon arrival. Pt agrees to PT. Pain Location: Right, Left Location Body Site: Knee Pain Description: Ache Comment: Reports but not rated Section J - Health Conditions 1. Rarely or not at all 2. Occasionally 3. Frequently 4. Almost constantly 8. Unable to answer Pain Effect on Sleep: 2 Pain Interference with Therapy: 4 Pain Interference w/Day-to-Day: 4 Mental Status Patient Orientation: Person, Place, Situation Transfers SCALE: Activities may be completed with or without assistive devices. 1-Dqwnyhbgmh-bmohfno completes the activity by him/herself with no assistance from a helper. 5-Set-up or Clean-up Assistance-helper sets up or cleans up; patient completes activity. [place] assists only prior to or following the activity. 4-Supervision or Touching Assistance-helper provides verbal cues and/or touching/steadying and/or contact guard assistance as patient completes activity. Assistance may be provided throughout the activity or intermittently. 3-Partial/Moderate Assistance-helper does LESS THAN HALF the effort. [place] lifts, holds or supports trunk or limbs, but provides less than half the effort. 2-Substantial/Maximal Assistance-helper does MORE THAN HALF the effort. [place] lifts or holds trunk or limbs and provides more than half the effort. 9-Ylipqunsf-goxjib does ALL the effort. Patient does none of the effort to complete the activity. Or, the assistance of 2 or more helpers is required for the patient to complete the activity. If activity was not attempted, code reason: 7-Patient Refused. 9-Not Applicable-not attempted and the patient did not perform the activity before the current illness, exacerbation or injury. 10-Not Attempted due to Environmental Limitations-(lack of equipment, weather restraints, etc.). 88-Not Attempted due to Medical Conditions or Safety Concerns. Sit to Stand (QC): 3 (Mod A) Weight Bearing Weight Bearing/Tolerated Weight Bearing/Tolerated Wheelchair Training Does the Pt Use a Wheelchair?: Yes Wheel 50 ft with 2 turns (QC): 4 (CGA/VC) Wheel 150 ft (QC): 4 (CGA/VC) Type of Wheelchair: Manual Stair Training Stair Training: Handrails/: uses walker #of Steps: 1 1 Step (curb) (QC): 3 Stairs: Pattern: Step to Pain & fatigue limit steps, crepetis heard & felt by FRINGE WEAVER from back, hips & knees Treatments Pt propels w/c in hallway and to Therapy Gym. Pt practices toe tap to stair and since this goes well then completes one step before discontinuing per pt request due to pain & fatigue. OT works w/PT at this time. All needs met. PT Assurance Manager Insurance Goals [facility] Goals PT Assurance Manager Insurance Goals Time Frame: Mar 14, 2023 Roll Left & Right (QC): 6 (using bed rail) Sit to Lying (QC): 6 (with bed rail) Lying-Sitting on Side/Bed(QC): 6 (/c bed rail) Sit to Stand (QC): 3 (min (A) -- uses Uplift Seat Assist at home) Chair/Lak-xd-Tikpz Xfer(QC): 3 (min (A) consistently /c FWW) Toilet Transfer (QC): 3 (min (A) /c FWW consistently) Car Transfer (QC): 3 (Min (A) /c FWW consistenly.) Does the Patient Walk: Yes Walk 10 feet (QC): 3 (min (A)) Walk 50ft with 2 Turns (QC): 3 (min (A) /c FWW) Walk 150 ft (QC): 9 Walking 10ft on Uneven Surface: 3 (min (A) /c FWW) 1 Step (curb) (QC): 3 (Min (A)) 4 Steps (QC): 3 (mod (A) with railings) 12 Steps (QC): 9 Picking up an Object (QC): 3 (min (A) /c associate trainer) Does the Pt use WC or Scooter?: Yes Wheel 50 feet with 2 turns (QC: 6 (Recommend motorized w/c due to extent of RA) Type: Motorized Wheel 150 feet: 6 Type: Motorized PT Plan Problem List Problem List: Activity Tolerance, Functional Strength, Safety, Transfer Treatment/Plan Treatment Plan: Continue Plan of Care Treatment Plan: Bed Mobility, Education, Functional Activity Poppy, Functional Strength, Group Therapy, Gait, Safety, Therapeutic Exercise, Transfers, Other (w/c mobility) Treatment Duration: Mar 14, 2023 Frequency: At least 5 of 7 days/Wk (IRF) Estimated Hrs Per Day: 1.5 hours per day Patient and/or Family Agrees t: Yes Safety Risks/Education Patient Education: Transfer Techniques, Steps, W/C Management Teaching Recipient: Patient Teaching Methods: Discussion Response to Teaching: Verbalize Understanding Time Time In: 1315 Time Out: 1345 DATE: Mar 02, 2023 Total Billed Treatment Time: 30 Total Billed Treatment Indiv. for 15m ([id number]), Co-treat w/OT 15m ([id number]) 1, [facility] (15m) & FA (15m) WYATT SUE PTA Mar 02, 2023 14:01
--- NOTE | 2023-03-02 15:09 | Occupational Ther Daily Note ---
OT Current Status-Daily Note Subjective Pt alert, working with PT. Co-treat with PT [id number], skills of 2 clinicians to decrease fall risk, increase safety during standing balance activities. PT focusing on transfers and ambulation while OT focusing on B UE placement and assisting with stepping up due to weakness and balance concerns. Mental Status/Objective Patient Orientation: Person, Place, Time, Situation ADL-Treatment Therapy Code Descriptions/Definitions Functional [place] Measure: 0=Not Assessed/NA 4=Minimal Assistance 1=Total Assistance 5=Supervision or Setup 2=Maximal Assistance 6=Modified [place] 3=Moderate Assistance 7=Complete IndependenceSCALE: Activities may be completed with or without assistive devices. 7-Xttkqipgbn-qultayu completes the activity by him/herself with no assistance from a helper. 5-Set-up or Clean-up Assistance-helper sets up or cleans up; patient completes activity. [place] assists only prior to or following the activity. 4-Supervision or Touching Assistance-helper provides verbal cues and/or touching/steadying and/or contact guard assistance as patient completes activity. Assistance may be provided throughout the activity or intermittently. 3-Partial/Moderate Assistance-helper does LESS THAN HALF the effort. [place] lifts, holds or supports trunk or limbs, but provides less than half the effort. 2-Substantial/Maximal Assistance-helper does MORE THAN HALF the effort. [place] lifts or holds trunk or limbs and provides more than half the effort. 2-Dbusxkosk-xgfqem does ALL the effort. Patient does none of the effort to complete the activity. Or, the assistance of 2 or more helpers is required for the patient to complete the activity. If activity was not attempted, code reason: 7-Patient Refused. 9-Not Applicable-not attempted and the patient did not perform the activity before the current illness, exacerbation or injury. 10-Not Attempted due to Environmental Limitations-(lack of equipment, weather restraints, etc.). 88-Not Attempted due to Medical Conditions or Safety Concerns. Other Treatment See PT notes for progress on ambulation and stepping up/down from one step. Pt then complete gentle stretch and exercise against gravity to increase strength and upper body mobility. Pt tolerated well and verbalized understanding of exercises. After session, pt left in care of nrsg in room. All needs met. OT Short Term Goals Short Term Goals Time Frame: Mar 07, 2023 Eatin Oral hygiene: 4 Toileting hygiene: 4 Shower/bathe self: 3 Upper body dressin Lower body dressin Putting on/taking off footwear: 2 OT Plow Mechanic Goals Plow Mechanic Goals Time Frame: Mar 18, 2023 Acute change in mental status: 0 Inattention: 0 Disorganized thinkin Altered level of consciousness: 0 Eating (QC): 5 Oral Hygiene (QC): 4 Toileting Hygiene (QC): 4 Shower/Bathe Self (QC): 4 Upper Body Dressing (QC): 6 Lower Body Dressing (QC): 4 (With use of AE) On/Off Footwear (QC): 3 1=Demonstrate adherence to instructed precautions during ADL tasks. 2=Patient will verbalize/demonstrate understanding of assistive devices/modifications for ADL. 3=Patient will improve strength/tolerance for activity to enable patient to perform ADL's. OT Education/Plan Problem List/Assessment Assessment: Decreased Activ Tolerance, Decreased UE Strength, Impaired Funct Balance, Restricted Funct UE ROM Discharge Recommendations Plan/Recommendations: Continue POC Treatment Plan/Plan of Care Patient would benefit from OT for education, treatment and training to promote independence in ADL's, mobility, safety and/or upper extremity function for ADL's. Plan of Care: ADL Retraining, Caregiver Training, Concurrent Therapy, Functional Mobility, Group Exercise/Act as Ind, UE Funct Exercise/Act, UE Neuromus Re-Ed/Coord, W/C Management Training Treatment Duration: Mar 18, 2023 Frequency: At least 5 of 7 days/Wk (IRF) Estimated Hrs Per Day: 1.5 hours per day Agreement: Yes Rehab Potential: Fair Time Start Time: 13:30 Stop Time: 14:00 DATE: Mar 02, 2023 Total Time Billed (hr/min): 30 Billed Treatment Time 1 visit-FA 2 (30 min) [place] with PT [id number], individual [id number] JADA HART Mar 02, 2023 15:09
[2023-03-02 19:56] VITALS: BP 109/65
[2023-03-03 05:49] LABS: BASOPHILS # (AUTO) 0.1 10^3/uL (0.0-0.1); BASOPHILS % (AUTO) 1 % (0-10); EOSINOPHILS # (AUTO) 0.4 10^3/uL (0.0-0.3); EOSINOPHILS % (AUTO) 7 % (0-10); HEMATOCRIT 27 % (35-52); HEMOGLOBIN 8.5 g/dL (11.5-16.0); LYMPHOCYTES # (AUTO) 1.8 10^3/uL (1.0-4.0); LYMPHOCYTES % (AUTO) 32 % (12-44); MEAN CORPUSCULAR HEMOGLOBIN 26 pg (25-34); MEAN CORPUSCULAR HGB CONC 32 g/dL (32-36); MEAN CORPUSCULAR VOLUME 83 fL (80-99); MEAN PLATELET VOLUME 8.7 fL (9.0-12.2); MONOCYTES # (AUTO) 0.6 10^3/uL (0.0-1.0); MONOCYTES % (AUTO) 11 % (0-12); NEUTROPHILS # (AUTO) 2.8 10^3/uL (1.8-7.8); NEUTROPHILS % (AUTO) 49 % (42-75); PLATELET COUNT 225 10^3/uL (130-400); WHITE BLOOD COUNT 5.7 10^3/uL (4.3-11.0)
[2023-03-03 06:08] LABS: ALBUMIN 2.5 GM/DL (3.2-4.5); BILIRUBIN,TOTAL 0.7 MG/DL (0.1-1.0); CALCIUM 8.3 MG/DL (8.5-10.1); CREATININE SERUM 0.54 MG/DL (0.60-1.30); POTASSIUM 4.2 MMOL/L (3.6-5.0); TOTAL PROTEIN 4.9 GM/DL (6.4-8.2)
[2023-03-03] MEDS: MEROPENEM INJECTION 1,000 MG in NS (IVPB) 100 ML 100 ML IV SCH ×3 (07:03→23:24)
[2023-03-03 07:26] VITALS: BP 124/81
--- NOTE | 2023-03-03 07:47 | Cardiology Progress Note ---
Subjective Date Seen by Provider: Mar 03, 2023 Time Seen by Provider: 07:46 Subjective/Events-last exam Patient was seen at bedside, sitting comfortably, feeling better today Objective-Cardiology Exam Last Set of Vital Signs Vital Signs 03/02/23 03/03/23 03:14 07:26 Temp 35.8 Pulse 97 Resp 16 B/P (MAP) 124/81 (95) Pulse Ox 94 O2 Delivery Room Air FiO2 21 I&O Intake and Output 03/03/23 00:00 Intake Total 1120 ml Output Total 1650 ml Balance -530 ml Intake Oral 920 ml IV Total 200 ml Output Urine Total 1650 ml # Bowel Movements 2 General: Alert, Oriented X3 HEENT: Atraumatic, PERRLA Neck: Supple, No JVD Lungs: Clear to Auscultation, Normal Air Movement Heart: Regular Rate, Normal S1, Normal S2 Abdomen: Normal Bowel Sounds, Soft Extremities: No Clubbing, No Cyanosis Skin: No Significant Lesion Neuro: Normal Speech, Sensation Intact Psych/Mental Status: Mental Status NL, Mood NL Results Lab Laboratory Tests 03/02/23 09:23 03/03/23 05:40 A/P-Cardiology Admission Diagnosis Anemia, GIB PAF Peripheral edema ESBL UTI Assessment/Plan GI bleed, severe anemia Patient has history of chronic anemia which has been having episodes of drop in H&H Status post blood transfusion Patient had endoscopy done earlier this year, will require another extensive work-up for GI loss in addition I recommended hematology evaluation due to her chronic anemia Continue to monitor H/H Paroxysmal atrial fibrillation, had transient episode of atrial fibrillation Currently in sinus rhythm. Continue to monitor Currently off OAC Peripheral edema, some improvement Probably due to Hypoalbuminemia 2D echo was done earlier in January 2023 with normal LV size, ejection fraction 50 to 55%, PA pressure 35 mmHg moderate mitral regurgitation and dilated left atrium ESBL UTI, management per medical services Hypokalemia, replaced, continue to monitor Labile blood pressure, patient was hypotensive this morning Did not receive any antihypertensive medication I added Florinef 0.1 mg daily Continue with compression socks. Status post recent hospitalization for Gram negative sepsis with lactic acidosis Generalized weakness, debility Rheumatoid arthritis maintained on methotrexate OTILIO ESQUIVEL MD Mar 03, 2023 07:47
[2023-03-03] MEDS: POTASSIUM CHLORIDE 20 MEQ TABLET PO SCH ×2 (09:26→17:32)
[2023-03-03] MEDS: HYPOCHLOROUS ACID/NaCl WOUND SOLN 250 ML IR SCH (09:26)
[2023-03-03] MEDS: MICONAZOLE 2% POWDER 90 GM TOP SCH ×2 (09:26→20:14)
[2023-03-03] MEDS: PANTOPRAZOLE 40 MG TABLET PO SCH ×2 (09:26→20:14)
[2023-03-03] MEDS: FLUDROCORTISONE 0.1 MG TABLET PO SCH (09:26)
[2023-03-03] MEDS: ACETAMINOPHEN 325 MG TABLET PO PRN ×2 (09:31→18:41)
[2023-03-03] MEDS: DOCUSATE SODIUM 100 MG CAPSULE PO SCH ×2 (10:09→19:40)
[2023-03-03] MEDS: SENNA W/DOCUSATE TABLET PO SCH ×2 (10:10→19:40)
--- NOTE | 2023-03-03 10:18 | Physical Therapy Daily Note ---
PT Daily Note-Current Subjective Pt sitting at EOB with Sp present upon arrival. Pt agrees to PT. Pain Location: Right, Left Location Body Site: Knee Pain Description: Ache Comment: Reports but doesn't rate Section J - Health Conditions 1. Rarely or not at all 2. Occasionally 3. Frequently 4. Almost constantly 8. Unable to answer Pain Effect on Sleep: 2 Pain Interference with Therapy: 4 Pain Interference w/Day-to-Day: 4 Mental Status Patient Orientation: Person, Place, Situation Transfers SCALE: Activities may be completed with or without assistive devices. 7-Hmoexlljkb-jkrnfha completes the activity by him/herself with no assistance from a helper. 5-Set-up or Clean-up Assistance-helper sets up or cleans up; patient completes activity. [place] assists only prior to or following the activity. 4-Supervision or Touching Assistance-helper provides verbal cues and/or touching/steadying and/or contact guard assistance as patient completes activity. Assistance may be provided throughout the activity or intermittently. 3-Partial/Moderate Assistance-helper does LESS THAN HALF the effort. [place] li fts, holds or supports trunk or limbs, but provides less than half the effort. 2-Substantial/Maximal Assistance-helper does MORE THAN HALF the effort. [place] lifts or holds trunk or limbs and provides more than half the effort. 3-Wuhczdclh-zckiaw does ALL the effort. Patient does none of the effort to complete the activity. Or, the assistance of 2 or more helpers is required for the patient to complete the activity. If activity was not attempted, code reason: 7-Patient Refused. 9-Not Applicable-not attempted and the patient did not perform the activity before the current illness, exacerbation or injury. 10-Not Attempted due to Environmental Limitations-(lack of equipment, weather restraints, etc.). 88-Not Attempted due to Medical Conditions or Safety Concerns. Sit to Stand (QC): 3 (Min A) Toilet Transfer (QC): 3 (Mod A) Weight Bearing Weight Bearing/Tolerated Weight Bearing/Tolerated Gait Training Does the Patient Walk?: Yes Distance: 15' x2 Walk 10 feet (QC): 3 (Min A) Gait Persons Needed: 1 Gait Assistive Device: Walker Platform Treatments After Sp completes pt's haircare, pt & sp discuss upcoming d/c home modifications & AD needed. Pt asks to use BR then agrees to dress for talking a walk. Pt TF to Standing using FWW and PROJECT MANAGEMENT SPECIALIST notices BM on bed sheets. As pt begins to walk, pt has BM all the way to the BR. PROJECT MANAGEMENT SPECIALIST and Nurse assist pt w/cleanup of self, floor & bedding. Dressings & Wounds addressed as well. Pt returns to bed after cleanup due to fatigue. All needs met, call light in hand. Assessment Current Status: Fair Progress Pt reports not being able to stop BM once it starts. Pain, crepetis & RA limit movement. PT Prison Goals Equipment Monitor Phototypesetting Goals PT Equipment Monitor Phototypesetting Goals Time Frame: Mar 14, 2023 Roll Left & Right (QC): 6 (using bed rail) Sit to Lying (QC): 6 (with bed rail) Lying-Sitting on Side/Bed(QC): 6 (/c bed rail) Sit to Stand (QC): 3 (min (A) -- uses Uplift Seat Assist at home) Chair/Mbz-xr-[place] Xfer(QC): 3 (min (A) consistently /c FWW) Toilet Transfer (QC): 3 (min (A) /c FWW consistently) Car Transfer (QC): 3 (Min (A) /c FWW consistenly.) Does the Patient Walk: Yes Walk 10 feet (QC): 3 (min (A)) Walk 50ft with 2 Turns (QC): 3 (min (A) /c FWW) Walk 150 ft (QC): 9 Walking 10ft on Uneven Surface: 3 (min (A) /c FWW) 1 Step (curb) (QC): 3 (Min (A)) 4 Steps (QC): 3 (mod (A) with railings) 12 Steps (QC): 9 Picking up an Object (QC): 3 (min (A) /c map plotter) Does the Pt use WC or Scooter?: Yes Wheel 50 feet with 2 turns (QC: 6 (Recommend motorized w/c due to extent of RA) Type: Motorized Wheel 150 feet: 6 Type: Motorized PT Plan Problem List Problem List: Activity Tolerance, Functional Strength Treatment/Plan Treatment Plan: Continue Plan of Care Treatment Plan: Bed Mobility, Education, Functional Activity Poppy, Functional Strength, Group Therapy, Gait, Safety, Therapeutic Exercise, Transfers, Other (w/c mobility) Treatment Duration: Mar 14, 2023 Frequency: At least 5 of 7 days/Wk (IRF) Estimated Hrs Per Day: 1.5 hours per day Patient and/or Family Agrees t: Yes Time Time In: 0800 Time Out: 0915 DATE: Mar 03, 2023 Total Billed Treatment Time: 75 Total Billed Treatment 1, FA x5 (75m) WYATT SUE PROJECT MANAGEMENT SPECIALIST Mar 03, 2023 10:18
--- NOTE | 2023-03-03 12:20 | PM&R Progress Note ---
Subjective HPI/CC On Admission Date Seen by Provider: Mar 03, 2023 Time Seen by Provider: 10:30 Subjective/Events-last exam 03/03/2023: Patient doing well Monitoring closely Reviewed meds and labs Improving 03/02/2023: Patient doing much better Pain is controlled at the bedside Canales catheter in place Periarea excoriation is much improved 03/01/2023: Much improved Working with therapy Canales cath still in place due to breakdown in periarea ABx maintained 02/28/2023: Doing much better Took a shower Pain is controlled Labs reviewed 02/27/2023: Patient remains stable nut very frail at bedside will bring the topical spray for pain of her RA Excoriation will requiring canales catheter until healed Meropenem tolerated Objective Exam Vital Signs Vital Signs Date Time Temp Pulse Resp B/P (MAP) Pulse Ox O2 Delivery O2 Flow Rate FiO2 03/03/23 20:10 Room Air 03/03/23 20:10 36.3 95 16 112/75 (87) 98 03/02/23 08:56 0.00 03/02/23 03:14 21 Capillary Refill : General Appearance: No Apparent Distress, WD/WN, Chronically ill, Thin HEENT: PERRL/EOMI, Normal ENT Inspection, Pharynx Normal Neck: Full Range of Motion, Normal Inspection, Non Tender, Supple, Carotid Bruit Respiratory: Chest Non Tender, Lungs Clear, Normal Breath Sounds, No Accessory Muscle Use, No Respiratory Distress Cardiovascular: Regular Rate, Rhythm, No Edema, No Gallop, No JVD, No Murmur, Normal Peripheral Pulses Gastrointestinal: Normal Bowel Sounds, No Organomegaly, No Pulsatile Mass, Non Tender, Soft Back: Normal Inspection, No CVA Tenderness, No Vertebral Tenderness Extremity: Normal Capillary Refill, Normal Inspection, Normal Range of Motion, Non Tender, No Calf Tenderness, No Pedal Edema Neurologic/Psychiatric: Alert, Oriented x3, No Motor/Sensory Deficits, Depressed Affect, Motor Weakness Skin: Normal Color, Warm/Dry Lymphatic: No Adenopathy Results/Procedures Lab Laboratory Tests 03/03/23 05:40 Patient resulted labs reviewed. FIM Transfers Therapy Code Descriptions/Definitions Functional [place] Measure: 0=Not Assessed/NA 4=Minimal Assistance 1=Total Assistance 5=Supervision or Setup 2=Maximal Assistance 6=Modified [place] 3=Moderate Assistance 7=Complete IndependenceSCALE: Activities may be completed with or without assistive devices. 2-Vmvyotycyr-jjrthch completes the activity by him/herself with no assistance from a helper. 5-Set-up or Clean-up Assistance-helper sets up or cleans up; patient completes activity. [place] assists only prior to or following the activity. 4-Supervision or Touching Assistance-helper provides verbal cues and/or touching/steadying and/or contact guard assistance as patient completes activity. Assistance may be provided throughout the activity or intermittently. 3-Partial/Moderate Assistance-helper does LESS THAN HALF the effort. [place] lifts, holds or supports trunk or limbs, but provides less than half the effort. 2-Substantial/Maximal Assistance-helper does MORE THAN HALF the effort. [place] lifts or holds trunk or limbs and provides more than half the effort. 1-Pnhjongim-mtdbgi does ALL the effort. Patient does none of the effort to complete the activity. Or, the assistance of 2 or more helpers is required for the patient to complete the activity. If activity was not attempted, code reason: 7-Patient Refused. 9-Not Applicable-not attempted and the patient did not perform the activity before the current illness, exacerbation or injury. 10-Not Attempted due to Environmental Limitations-(lack of equipment, weather restraints, etc.). 88-Not Attempted due to Medical Conditions or Safety Concerns. Roll Left to Right (QC): 5 (/c bed rail) Sit to Lying (QC): 3 (min (A) with LE's) Sit to Stand (QC): 3 (Min A) Chair/Xhg-fb-Zfulz Xfer(QC): 3 (min-mod (A) /c v.c. for safety using FWW. As patient fatigues, requires more (A).) Car Transfer (QC): 3 (Mod (A) to lift legs in/out and to ensure safe sitting position) Gait Training Does the Patient Walk?: Yes Distance: 15' x2 Walk 10 feet (QC): 3 (Min A) Walk 50 ft with 2 Turns(QC): 88 Walk 150 ft (QC): 88 Walking 10ft/uneven surface-QC: 88 Gait Persons Needed: 1 Gait Assistive Device: Walker Platform Wheelchair Training Does the Pt Use a Wheelchair?: Yes Distance: 35' Wheel 50 ft with 2 turns (QC): 4 (CGA/VC) Wheel 150 ft (QC): 4 (CGA/VC) Type of Wheelchair: Manual Stair Training Stair Training: Handrails/: uses walker #of Steps: 1 1 Step (curb) (QC): 3 4 Steps (QC): 88 12 Steps (QC): 88 Stairs: Pattern: Step to Balance Picking up an Object (QC): 88 (Poor standing balance - needs (B) UE for support with FWW) ADL-Treatment Eating (QC): 5 (Per RN report) Oral Hygiene (QC): 4 (in sitting ) Shower/Bathe Self (QC): 2 Upper Body Dressing (QC): 3 (assist overhead. Pt able to thread arms and pull down chest.) Lower Body Dressing (QC): 1 On/Off Footwear (QC): 1 Toileting Hygiene (QC): 2 (completed in standing ) Assessment/Plan Assessment and Plan Assess & Plan/Chief Complaint Assessment: Debility Severe anemia RA on MTX PAF Holding OAC due to anemia ESBL UTI Recent PNA gram negative sepsis Edema Hypokalemia Plan: Monitor labs PT OT Transfuse as necessary Scopes as outpatient 02/27/2023: Monitor hgb PPI Canales cath due to excoriation 02/28/2023: Supportive care Maintain Canales catheter Complete IV antibiotics 03/01/2023: Monitor pain Ambulate 03/02/2023: Pain control Denies any need for pain pill 03/03/2023: Monitor closely (1) Debility Status: Chronic CAROLINE PATRICK DO Mar 03, 2023 12:20
--- NOTE | 2023-03-03 13:39 | Occupational Ther Daily Note ---
OT Current Status-Daily Note Subjective Pt was recieved lying supine in bed with spouse at bedside. Pt very pleasant and willing to participate in therapy. Pt reports that she had a large incontinent episode earlier in the day and did not want to do much OOB activity. Educated pt on the importance of participating in OOB activity, though pt continue to refuse OOB activities. Pt was agreeable to EOB and in bed activities. Pain Numeric Pain Scale: 3 Location: Posterior Location Body Site: Sacrum Pain Description: Pressure Mental Status/Objective Patient Orientation: Person, Place, Time, Situation Attachments: Willard Catheter, IV ADL-Treatment Therapy Code Descriptions/Definitions Functional [place] Measure: 0=Not Assessed/NA 4=Minimal Assistance 1=Total Assistance 5=Supervision or Setup 2=Maximal Assistance 6=Modified [place] 3=Moderate Assistance 7=Complete IndependenceSCALE: Activities may be completed with or without assistive devices. 8-Mwlhzqxfsu-muyqhjb completes the activity by him/herself with no assistance from a helper. 5-Set-up or Clean-up Assistance-helper sets up or cleans up; patient completes activity. [place] assists only prior to or following the activity. 4-Supervision or Touching Assistance-helper provides verbal cues and/or touching/steadying and/or contact guard assistance as patient completes activity. Assistance may be provided throughout the activity or intermittently. 3-Partial/Moderate Assistance-helper does LESS THAN HALF the effort. [place] lifts, holds or supports trunk or limbs, but provides less than half the effort. 2-Substantial/Maximal Assistance-helper does MORE THAN HALF the effort. [place] lifts or holds trunk or limbs and provides more than half the effort. 0-Dicnuvevh-laojol does ALL the effort. Patient does none of the effort to complete the activity. Or, the assistance of 2 or more helpers is required for the patient to complete the activity. If activity was not attempted, code reason: 7-Patient Refused. 9-Not Applicable-not attempted and the patient did not perform the activity before the current illness, exacerbation or injury. 10-Not Attempted due to Environmental Limitations-(lack of equipment, weather restraints, etc.). 88-Not Attempted due to Medical Conditions or Safety Concerns. Eating (QC): 3 (Pt requiring assistance opening small packages and help placing smaller foods on utencils. Pt able to bring utensils to mouth and butter bread independently. ) Upper Body Dressing (QC): 3 (to don/doff shirt in sitting) Other Treatment Pt completed hair care sitting EOB with mod A due to decreased ROM in digits and shoulders. Pt completed 3x 10 UE strengthening HEP with yellow theraband, prioritizing shoulder flexion,abduction/adduction and elbow flexion/extension with min Acues for proper positioning and execution. Pt completed functional dynamic sitting activity in unsupported sitting with supervision for ~38mins. Pt completed one functional sit to stand with FWW (with platforms) requiring mod A for balance and mod cues for safety and hand placement. Education OT Patient Education: Correct positioning, Energy conservation, Home exercise program, Instructions to caregiver, Modified ADL techniques, Progress toward Goal/Update tx plan, Purpose of tx/functional activities, Rehab process, Safety issues, Use of adapted equipment Teaching Recipient: Patient, Family Teaching Methods: Demonstration, Discussion Response to Teaching: Verbalize Understanding, Return Demonstration OT Short Term Goals Short Term Goals Time Frame: Mar 07, 2023 Eatin Oral hygiene: 4 Toileting hygiene: 4 Shower/bathe self: 3 Upper body dressin Lower body dressin Putting on/taking off footwear: 2 OT Pharmacy Operations Coordinator Goals Pharmacy Operations Coordinator Goals Time Frame: Mar 18, 2023 Acute change in mental status: 0 Inattention: 0 Disorganized thinkin Altered level of consciousness: 0 Eating (QC): 5 Oral Hygiene (QC): 4 Toileting Hygiene (QC): 4 Shower/Bathe Self (QC): 4 Upper Body Dressing (QC): 6 Lower Body Dressing (QC): 4 (With use of AE) On/Off Footwear (QC): 3 1=Demonstrate adherence to instructed precautions during ADL tasks. 2=Patient will verbalize/demonstrate understanding of assistive devices/modifications for ADL. 3=Patient will improve strength/tolerance for activity to enable patient to perform ADL's. OT Education/Plan Problem List/Assessment Assessment: Decreased Activ Tolerance, Decreased Safety Aware, Decreased UE Strength, Impaired Bed Mobility, Impaired Funct Balance, Impaired I ADL's, Impaired Self-Care Skills, Restricted Funct UE ROM Discharge Recommendations Plan/Recommendations: Continue POC Treatment Plan/Plan of Care Treatment,Training & Education: Yes Patient would benefit from OT for education, treatment and training to promote independence in ADL's, mobility, safety and/or upper extremity function for ADL's. Plan of Care: ADL Retraining, Caregiver Training, Concurrent Therapy, Functional Mobility, Group Exercise/Act as Ind, UE Funct Exercise/Act, UE Neuromus Re-Ed/Coord, W/C Management Training Treatment Duration: Mar 18, 2023 Frequency: At least 5 of 7 days/Wk (IRF) Estimated Hrs Per Day: 1.5 hours per day Agreement: Yes Rehab Potential: Fair Time Start Time: 10:45 Stop Time: 12:15 DATE: Mar 03, 2023 Total Time Billed (hr/min): 90 Billed Treatment Time 1,FA 3, EX2, ADL 1 Caitie Hall OTR/L Mar 03, 2023 13:39
--- NOTE | 2023-03-03 14:23 | Physical Therapy Daily Note ---
PT Daily Note-Current Subjective Pt laying Supine in bed upon arrival. Pt agrees to PT. Pt is still dressed in t-shirt & brief from morning PT session so OIL RIGGER must dress pt to walk in hallway. Pain Location: Right, Left Location Body Site: Knee Pain Description: Ache Comment: Reported but not rated in B knees & hips as well as back Section J - Health Conditions 1. Rarely or not at all 2. Occasionally 3. Frequently 4. Almost constantly 8. Unable to answer Pain Effect on Sleep: 2 Pain Interference with Therapy: 4 Pain Interference w/Day-to-Day: 4 Mental Status Patient Orientation: Person, Place, Situation Transfers SCALE: Activities may be completed with or without assistive devices. 0-Jdmuuwfdeo-yzuaith completes the activity by him/herself with no assistance from a helper. 5-Set-up or Clean-up Assistance-helper sets up or cleans up; patient completes activity. [place] assists only prior to or following the activity. 4-Supervision or Touching Assistance-helper provides verbal cues and/or touching/steadying and/or contact guard assistance as patient completes activity. Assistance may be provided throughout the activity or intermittently. 3-Partial/Moderate Assistance-helper does LESS THAN HALF the effort. [place] lif ts, holds or supports trunk or limbs, but provides less than half the effort. 2-Substantial/Maximal Assistance-helper does MORE THAN HALF the effort. [place] lifts or holds trunk or limbs and provides more than half the effort. 2-Pcdcudzjw-areigy does ALL the effort. Patient does none of the effort to complete the activity. Or, the assistance of 2 or more helpers is required for the patient to complete the activity. If activity was not attempted, code reason: 7-Patient Refused. 9-Not Applicable-not attempted and the patient did not perform the activity before the current illness, exacerbation or injury. 10-Not Attempted due to Environmental Limitations-(lack of equipment, weather restraints, etc.). 88-Not Attempted due to Medical Conditions or Safety Concerns. Sit to Stand (QC): 3 (Min A) Weight Bearing Weight Bearing/Tolerated Weight Bearing/Tolerated Gait Training Does the Patient Walk?: Yes Distance: 68' x2 Walk 10 feet (QC): 4 Walk 50 ft with 2 Turns(QC): 4 Gait Persons Needed: 1 Gait Assistive Device: Walker Platform w/c follows for fatigue Wheelchair Training Does the Pt Use a Wheelchair?: Yes Type of Wheelchair: Manual Treatments Pt TF to EOB to don brief, pants & shirt before standing. Pt stands and OIL RIGGER pulls up brief & pants as pt stands. Pt amb in hallway before taking RB in w/c then amb back to room to rest in recliner. Pt repositioned to comfort, all needs met & call light in hand. Assessment Current Status: Good Progress Pt is making gains with walking distance but limited but pain and fatigue. PT Retirement Goals Stock Shaper Goals PT Retirement Goals Time Frame: Mar 14, 2023 Roll Left & Right (QC): 6 (using bed rail) Sit to Lying (QC): 6 (with bed rail) Lying-Sitting on Side/Bed(QC): 6 (/c bed rail) Sit to Stand (QC): 3 (min (A) -- uses [place] Seat Assist at home) Chair/Dby-tz-Gqyqj Xfer(QC): 3 (min (A) consistently /c FWW) Toilet Transfer (QC): 3 (min (A) /c FWW consistently) Car Transfer (QC): 3 (Min (A) /c FWW consistenly.) Does the Patient Walk: Yes Walk 10 feet (QC): 3 (min (A)) Walk 50ft with 2 Turns (QC): 3 (min (A) /c FWW) Walk 150 ft (QC): 9 Walking 10ft on Uneven Surface: 3 (min (A) /c FWW) 1 Step (curb) (QC): 3 (Min (A)) 4 Steps (QC): 3 (mod (A) with railings) 12 Steps (QC): 9 Picking up an Object (QC): 3 (min (A) /c 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) Does the Pt use WC or Scooter?: Yes Wheel 50 feet with 2 turns (QC: 6 (Recommend motorized w/c due to extent of RA) Type: Motorized Wheel 150 feet: 6 Type: Motorized PT Plan Problem List Problem List: Activity Tolerance, Functional Strength Treatment/Plan Treatment Plan: Continue Plan of Care Treatment Plan: Bed Mobility, Education, Functional Activity [place], Functional Strength, Group Therapy, Gait, Safety, Therapeutic Exercise, Transfers, Other (w/c mobility) Treatment Duration: Mar 14, 2023 Frequency: At least 5 of 7 days/Wk (IRF) Estimated Hrs Per Day: 1.5 hours per day Patient and/or Family Agrees t: Yes Safety Risks/Education Patient Education: Transfer Techniques, Correct Positioning Teaching Recipient: Patient Teaching Methods: Discussion Response to Teaching: Verbalize Understanding Time Time In: 1300 Time Out: 1345 DATE: Mar 03, 2023 Total Billed Treatment Time: 45 Total Billed Treatment 1, FA (20m) & GT x2 (25m) WYATT SUE OIL RIGGER Mar 03, 2023 14:23
[2023-03-03 20:10] VITALS: BP 112/75
[2023-03-04] MEDS: MEROPENEM INJECTION 1,000 MG in NS (IVPB) 100 ML 100 ML IV SCH ×3 (05:57→23:15)
--- NOTE | 2023-03-04 07:04 | PM&R Progress Note ---
Subjective HPI/CC On Admission Date Seen by Provider: Mar 04, 2023 Time Seen by Provider: 10:00 Subjective/Events-last exam 03/04/2023: Dramatically improved at bedside Discontinue catheter 03/03/2023: Patient doing well Monitoring closely Reviewed meds and labs Improving 03/02/2023: Patient doing much better Pain is controlled at the bedside Canales catheter in place Periarea excoriation is much improved 03/01/2023: Much improved Working with therapy Canales cath still in place due to breakdown in periarea ABx maintained 02/28/2023: Doing much better Took a shower Pain is controlled Labs reviewed 02/27/2023: Patient remains stable nut very frail at bedside will bring the topical spray for pain of her RA Excoriation will requiring canales catheter until healed Meropenem tolerated Review of Systems General: Fatigue, Malaise Objective Exam Vital Signs Vital Signs Date Time Temp Pulse Resp B/P (MAP) Pulse Ox O2 Delivery O2 Flow Rate FiO2 03/04/23 20:00 Room Air 03/04/23 19:53 36.8 98 18 110/58 (75) 100 03/04/23 08:28 0.00 03/02/23 03:14 21 Capillary Refill : General Appearance: No Apparent Distress, WD/WN, Chronically ill, Thin HEENT: PERRL/EOMI, Normal ENT Inspection, Pharynx Normal Neck: Full Range of Motion, Normal Inspection, Non Tender, Supple, Carotid Bruit Respiratory: Chest Non Tender, Lungs Clear, Normal Breath Sounds, No Accessory Muscle Use, No Respiratory Distress Cardiovascular: Regular Rate, Rhythm, No Edema, No Gallop, No JVD, No Murmur, Normal Peripheral Pulses Gastrointestinal: Normal Bowel Sounds, No Organomegaly, No Pulsatile Mass, Non Tender, Soft Back: Normal Inspection, No CVA Tenderness, No Vertebral Tenderness Extremity: Normal Capillary Refill, Normal Inspection, Normal Range of Motion, Non Tender, No Calf Tenderness, No Pedal Edema Neurologic/Psychiatric: Alert, Oriented x3, No Motor/Sensory Deficits, Depressed Affect, Motor Weakness Skin: Normal Color, Warm/Dry Lymphatic: No Adenopathy Results/Procedures Lab Patient resulted labs reviewed. FIM Transfers Therapy Code Descriptions/Definitions Functional [place] Measure: 0=Not Assessed/NA 4=Minimal Assistance 1=Total Assistance 5=Supervision or Setup 2=Maximal Assistance 6=Modified [place] 3=Moderate Assistance 7=Complete IndependenceSCALE: Activities may be completed with or without assistive devices. 8-Evukfyqtjy-hvgkkgk completes the activity by him/herself with no assistance from a helper. 5-Set-up or Clean-up Assistance-helper sets up or cleans up; patient completes activity. [place] assists only prior to or following the activity. 4-Supervision or Touching Assistance-helper provides verbal cues and/or touching/steadying and/or contact guard assistance as patient completes activity. Assistance may be provided throughout the activity or intermittently. 3-Partial/Moderate Assistance-helper does LESS THAN HALF the effort. [place] lifts, holds or supports trunk or limbs, but provides less than half the effort. 2-Substantial/Maximal Assistance-helper does MORE THAN HALF the effort. [place] lifts or holds trunk or limbs and provides more than half the effort. 6-Gafehubjf-tfzrbj does ALL the effort. Patient does none of the effort to complete the activity. Or, the assistance of 2 or more helpers is required for the patient to complete the activity. If activity was not attempted, code reason: 7-Patient Refused. 9-Not Applicable-not attempted and the patient did not perform the activity before the current illness, exacerbation or injury. 10-Not Attempted due to Environmental Limitations-(lack of equipment, weather restraints, etc.). 88-Not Attempted due to Medical Conditions or Safety Concerns. Roll Left to Right (QC): 5 (/c bed rail) Sit to Lying (QC): 3 (min (A) with LE's) Sit to Stand (QC): 3 (Min A) Chair/Tde-ci-Briyw Xfer(QC): 3 (min-mod (A) /c v.c. for safety using FWW. As patient fatigues, requires more (A).) Car Transfer (QC): 3 (Mod (A) to lift legs in/out and to ensure safe sitting position) Gait Training Does the Patient Walk?: Yes Distance: 68' x2 Walk 10 feet (QC): 4 Walk 50 ft with 2 Turns(QC): 4 Walk 150 ft (QC): 88 Walking 10ft/uneven surface-QC: 88 Gait Persons Needed: 1 Gait Assistive Device: Walker Platform Wheelchair Training Does the Pt Use a Wheelchair?: Yes Distance: 35' Wheel 50 ft with 2 turns (QC): 4 (CGA/VC) Wheel 150 ft (QC): 4 (CGA/VC) Type of Wheelchair: Manual Stair Training Stair Training: Handrails/: uses walker #of Steps: 1 1 Step (curb) (QC): 3 4 Steps (QC): 88 12 Steps (QC): 88 Stairs: Pattern: Step to Balance Picking up an Object (QC): 88 (Poor standing balance - needs (B) UE for support with FWW) ADL-Treatment Eating (QC): 3 (Pt requiring assistance opening small packages and help placing smaller foods on utencils. Pt able to bring utensils to mouth and butter bread independently. ) Oral Hygiene (QC): 4 (in sitting ) Shower/Bathe Self (QC): 2 Upper Body Dressing (QC): 3 (to don/doff shirt in sitting) Lower Body Dressing (QC): 1 On/Off Footwear (QC): 1 Toileting Hygiene (QC): 2 (completed in standing ) Assessment/Plan Assessment and Plan Assess & Plan/Chief Complaint Assessment: Debility Severe anemia RA on MTX PAF Holding OAC due to anemia ESBL UTI Recent PNA gram negative sepsis Edema Hypokalemia Plan: Monitor labs PT OT Transfuse as necessary Scopes as outpatient 02/27/2023: Monitor hgb PPI Canales cath due to excoriation 02/28/2023: Supportive care Maintain Canales catheter Complete IV antibiotics 03/01/2023: Monitor pain Ambulate 03/02/2023: Pain control Denies any need for pain pill 03/03/2023: Monitor closely 03/04/2023: DC catheter (1) Debility Status: Chronic CAROLINE PATRICK DO Mar 04, 2023 07:04
[2023-03-04] MEDS: FLUDROCORTISONE 0.1 MG TABLET PO SCH (07:39)
[2023-03-04] MEDS: POTASSIUM CHLORIDE 20 MEQ TABLET PO SCH ×2 (07:39→17:05)
[2023-03-04] MEDS: PANTOPRAZOLE 40 MG TABLET PO SCH ×2 (07:39→20:58)
[2023-03-04] MEDS: MICONAZOLE 2% POWDER 90 GM TOP SCH ×2 (07:40→20:59)
[2023-03-04] MEDS: HYPOCHLOROUS ACID/NaCl WOUND SOLN 250 ML IR SCH (07:40)
[2023-03-04] MEDS: DOCUSATE SODIUM 100 MG CAPSULE PO SCH ×2 (07:52→20:20)
[2023-03-04] MEDS: SENNA W/DOCUSATE TABLET PO SCH ×2 (07:52→20:21)
[2023-03-04 08:00] VITALS: BP 134/66
[2023-03-04] MEDS: ACETAMINOPHEN 325 MG TABLET PO PRN (08:18)
--- NOTE | 2023-03-04 09:35 | Occupational Ther Daily Note ---
OT Current Status-Daily Note Subjective Pt agreeable to Cotreatment with PT for family education with pt's spouse. ADL-Treatment Therapy Code Descriptions/Definitions Functional [place] Measure: 0=Not Assessed/NA 4=Minimal Assistance 1=Total Assistance 5=Supervision or Setup 2=Maximal Assistance 6=Modified [place] 3=Moderate Assistance 7=Complete IndependenceSCALE: Activities may be completed with or without assistive devices. 8-Byadcsmawh-wgbfkhn completes the activity by him/herself with no assistance from a helper. 5-Set-up or Clean-up Assistance-helper sets up or cleans up; patient completes activity. [place] assists only prior to or following the activity. 4-Supervision or Touching Assistance-helper provides verbal cues and/or touching/steadying and/or contact guard assistance as patient completes activity. Assistance may be provided throughout the activity or intermittently. 3-Partial/Moderate Assistance-helper does LESS THAN HALF the effort. [place] lifts, holds or supports trunk or limbs, but provides less than half the effort. 2-Substantial/Maximal Assistance-helper does MORE THAN HALF the effort. [place] lifts or holds trunk or limbs and provides more than half the effort. 6-Wskvmprwf-jyvqpt does ALL the effort. Patient does none of the effort to complete the activity. Or, the assistance of 2 or more helpers is required for the patient to complete the activity. If activity was not attempted, code reason: 7-Patient Refused. 9-Not Applicable-not attempted and the patient did not perform the activity before the current illness, exacerbation or injury. 10-Not Attempted due to Environmental Limitations-(lack of equipment, weather restraints, etc.). 88-Not Attempted due to Medical Conditions or Safety Concerns. Lower Body Dressing (QC): 3 (50% assistance. Pt able to thread LLE, assist with initial threading of RLE. Pt able to manage pants up partway, but required assistance with remainder of pant hike.) On/Off Footwear: 1 Other Treatment OT/PT cotreat due to skill of 2 clinicians required which a rn cardiac rehab could not perform in order to coordinate UE/LEs, decrease fall risk, family education with pt's spouse and due to pt's limitations in strength, activity tolerance, mobility, and transfers. OT focused on UE placement, cues for sequencing and safety and ADLs, PT focused on LE placement, gross overall movement, transfers and mobility. Pt seated EOB, donned pants and footwear. Pt stood from EOB to b/l platform walker, transferring to w/c. Pt taken to [facility] common area, used b/l platform FWW to perform functional mobility on even surface, 65', then 136', as well ask side stepping, CGA. Pt performed w/c mobility, completed car transfer, steps attempted but unsafe so task terminated. Pt taken [facility]st [facility] going up/down ramp with b/l platform walker, CGA. Pt's educated and assisted with mobility tasks throughout tx. Education also provided on assistance level required with ADLs, they verbalized understanding. Post tx, pt in w/c, PT present, all needs met. Min A sit to stand, CGA-min A bed/chair, min A into car, CGA out of car Education OT Patient Education: Correct positioning, Energy conservation, Modified ADL techniques, Progress toward Goal/Update tx plan, Purpose of tx/functional activities, Rehab process Teaching Recipient: Patient Teaching Methods: Discussion Response to Teaching: Verbalize Understanding OT Short Term Goals Short Term Goals Time Frame: Mar 07, 2023 Eatin Oral hygiene: 4 Toileting hygiene: 4 Shower/bathe self: 3 Upper body dressin Lower body dressin Putting on/taking off footwear: 2 OT Longterm Goals Longterm Goals Time Frame: Mar 18, 2023 Acute change in mental status: 0 Inattention: 0 Disorganized thinkin Altered level of consciousness: 0 Eating (QC): 5 Oral Hygiene (QC): 4 Toileting Hygiene (QC): 4 Shower/Bathe Self (QC): 4 Upper Body Dressing (QC): 6 Lower Body Dressing (QC): 4 (With use of AE) On/Off Footwear (QC): 3 1=Demonstrate adherence to instructed precautions during ADL tasks. 2=Patient will verbalize/demonstrate understanding of assistive devices/modifications for ADL. 3=Patient will improve strength/tolerance for activity to enable patient to perform ADL's. OT Education/Plan Problem List/Assessment Assessment: Decreased Activ Tolerance, Decreased UE Strength, Impaired Funct Balance, Impaired I ADL's, Impaired Self-Care Skills Discharge Recommendations Plan/Recommendations: Continue POC Treatment Plan/Plan of Care Patient would benefit from OT for education, treatment and training to promote independence in ADL's, mobility, safety and/or upper extremity function for ADL's. Plan of Care: ADL Retraining, Caregiver Training, Concurrent Therapy, Functional Mobility, Group Exercise/Act as Ind, UE Funct Exercise/Act, UE Neuromus Re-Ed/Coord, W/C Management Training Treatment Duration: Mar 18, 2023 Frequency: At least 5 of 7 days/Wk (IRF) Estimated Hrs Per Day: 1.5 hours per day Agreement: Yes Rehab Potential: Fair Time Start Time: 08:00 Stop Time: 09:00 DATE: Mar 04, 2023 Total Time Billed (hr/min): 60 Billed Treatment Time cotreat x60' 1, ADL (15'), FA 3 (45') AIYANA MILES OT Mar 04, 2023 09:35
--- NOTE | 2023-03-04 10:00 | Physical Therapy Daily Note ---
PT Daily Note-Current Subjective Pt rates her (B) knee pain as a 5/10 this date. Co-treatment with OT for family training /c 9-10am. Safety discussion /c re. safe entry into home - recommend ramp or "man lift" that mentioned. Either will be adequate and safe for patient, but reiterated need for either to be installed prior to patient dismissing from ARU. Discussed home exercise and home pedaler options for exercise. Discussed home accessibility issues: w/c measures 26" wide, walker with platforms in 23" wide. states hallways at 36" wide and doorways are 32". States bathroom is too narrow to use - discussed side stepping with walker and states that would work (see below for performance.). now expresses concern that patient will not be able to propel a transport chair. He is correct. Discussed again with patient and that therapy recommends a power w/c due to severity of RA, but if not feasible in home, a manual w/c would allow patient to propel herself in the home whereas a transport chair would not. Pain Section J - Health Conditions 1. Rarely or not at all 2. Occasionally 3. Frequently 4. Almost constantly 8. Unable to answer Pain Effect on Sleep: 2 Pain Interference with Therapy: 3 Pain Interference w/Day-to-Day: 3 Transfers SCALE: Activities may be completed with or without assistive devices. 9-Pdquldvqfx-shvwdeg completes the activity by him/herself with no assistance from a helper. 5-Set-up or Clean-up Assistance-helper sets up or cleans up; patient completes activity. [place] assists only prior to or following the activity. 4-Supervision or Touching Assistance-helper provides verbal cues and/or touching/steadying and/or contact guard assistance as patient completes activity. Assistance may be provided throughout the activity or intermittently. 3-Partial/Moderate Assistance-helper does LESS THAN HALF the effort. [place] lifts, holds or supports trunk or limbs, but provides less than half the effort. 2-Substantial/Maximal Assistance-helper does MORE THAN HALF the effort. [place] lifts or holds trunk or limbs and provides more than half the effort. 2-Ohyebxjje-ggdtac does ALL the effort. Patient does none of the effort to complete the activity. Or, the assistance of 2 or more helpers is required for the patient to complete the activity. If activity was not attempted, code reason: 7-Patient Refused. 9-Not Applicable-not attempted and the patient did not perform the activity before the current illness, exacerbation or injury. 10-Not Attempted due to Environmental Limitations-(lack of equipment, weather restraints, etc.). 88-Not Attempted due to Medical Conditions or Safety Concerns. Sit to Stand (QC): 3 (min (A)) Chair/Txw-mr-Rqxca Xfer(QC): 3 (CGA-min /c assist to control descent to chair, using platform FWW) Car Transfer (QC): 3 (min (A) in, CGA out.) Weight Bearing Weight Bearing/Tolerated Weight Bearing/Tolerated Gait Training Walk 10 feet (QC): 4 (/c (B) platform FWW) Walk 50 ft with 2 Turns(QC): 4 (/c (B) platform FWW) Walk 150 ft (QC): 4 (/c (B) platform FWW) Walking 10ft/uneven surface-QC: 4 (/c (B) platform FWW up/down 15' ramp) 65', 136'. Sidestepping /c (B) platform FWW 6' each direction CGA to simulate in/out of bathroom at home. assisted with all gait activities. Stair Training 1 Step (curb) (QC): 88 (due to knee pain) 4 Steps (QC): 88 (due to knee pain) Exercises Seated HEP prepared to reviewed with patient and . See copies in room. Assessment Current Status: Good Progress (progressing nicely /c (B) platform FWW) PT Usp Goals Usp Goals PT Licensed Surveyor Goals Time Frame: Mar 14, 2023 Roll Left & Right (QC): 6 (using bed rail) Sit to Lying (QC): 6 (with bed rail) Lying-Sitting on Side/Bed(QC): 6 (/c bed rail) Sit to Stand (QC): 3 (min (A) -- uses [place] Seat Assist at home) Chair/Ckz-tu-Mhmuw Xfer(QC): 3 (min (A) consistently /c FWW) Toilet Transfer (QC): 3 (min (A) /c FWW consistently) Car Transfer (QC): 3 (Min (A) /c FWW consistenly.) Does the Patient Walk: Yes Walk 10 feet (QC): 3 (min (A)) Walk 50ft with 2 Turns (QC): 3 (min (A) /c FWW) Walk 150 ft (QC): 9 Walking 10ft on Uneven Surface: 3 (min (A) /c FWW) 1 Step (curb) (QC): 3 (Min (A)) 4 Steps (QC): 3 (mod (A) with railings) 12 Steps (QC): 9 Picking up an Object (QC): 3 (min (A) /c user experience team lead) Does the Pt use WC or Scooter?: Yes Wheel 50 feet with 2 turns (QC: 6 (Recommend motorized w/c due to extent of RA) Type: Motorized Wheel 150 feet: 6 Type: Motorized PT Plan Treatment/Plan Treatment Plan: Continue Plan of Care Treatment Plan: Bed Mobility, Education, Functional Activity Poppy, Functional Strength, Group Therapy, Gait, Safety, Therapeutic Exercise, Transfers, Other (w/c mobility) Treatment Duration: Mar 14, 2023 Frequency: At least 5 of 7 days/Wk (IRF) Estimated Hrs Per Day: 1.5 hours per day Patient and/or Family Agrees t: Yes Time Time In: 800 Time Out: 900 DATE: Mar 04, 2023 Total Billed Treatment Time: 90 Total Billed Treatment co-treat 8-9 am with OT, 9-9:30 individual treatment 3FA, 2 GT, 1 Ex Simona Faria PT Mar 04, 2023 10:00
--- NOTE | 2023-03-04 11:39 | Occupational Ther Daily Note ---
OT Current Status-Daily Note Subjective Pt in bed, agreeable to OT Tx. Pt states RN just removed catheter, does not feel like she needs to void yet. ADL-Treatment Therapy Code Descriptions/Definitions Functional [place] Measure: 0=Not Assessed/NA 4=Minimal Assistance 1=Total Assistance 5=Supervision or Setup 2=Maximal Assistance 6=Modified [place] 3=Moderate Assistance 7=Complete IndependenceSCALE: Activities may be completed with or without assistive devices. 2-Uaolfpaxpb-gbzqtno completes the activity by him/herself with no assistance from a helper. 5-Set-up or Clean-up Assistance-helper sets up or cleans up; patient completes activity. [place] assists only prior to or following the activity. 4-Supervision or Touching Assistance-helper provides verbal cues and/or touching/steadying and/or contact guard assistance as patient completes activity. Assistance may be provided throughout the activity or intermittently. 3-Partial/Moderate Assistance-helper does LESS THAN HALF the effort. [place] lifts, holds or supports trunk or limbs, but provides less than half the effort. 2-Substantial/Maximal Assistance-helper does MORE THAN HALF the effort. [place] lifts or holds trunk or limbs and provides more than half the effort. 6-Sxdjkvlvj-ikuixo does ALL the effort. Patient does none of the effort to complete the activity. Or, the assistance of 2 or more helpers is required for the patient to complete the activity. If activity was not attempted, code reason: 7-Patient Refused. 9-Not Applicable-not attempted and the patient did not perform the activity before the current illness, exacerbation or injury. 10-Not Attempted due to Environmental Limitations-(lack of equipment, weather restraints, etc.). 88-Not Attempted due to Medical Conditions or Safety Concerns. Other Treatment Pt in bed, spouse present. Pt and spouse state no further questions regarding family training session earlier today. OT educated pt on HEP with light resistance theraputty in order to increase fine motor strength. Pt removed x15 beads from theraputty, requiring 1VC to locate last bead. After task, pt felt like her fingers were doing better and had "limbered up". Pt instructed to complete HEP throughout the weekend as tolerated, and instructions provided to terminate activity if it started bothering her RA in her hands and causes increased pain. Post tx, pt in bed, call light in reach and all needs met. Education OT Patient Education: Correct positioning, Energy conservation, Home exercise program, Modified ADL techniques, Progress toward Goal/Update tx plan, Purpose of tx/functional activities, Rehab process Teaching Recipient: Patient Teaching Methods: Discussion Response to Teaching: Verbalize Understanding OT Short Term Goals Short Term Goals Time Frame: Mar 07, 2023 Eatin Oral hygiene: 4 Toileting hygiene: 4 Shower/bathe self: 3 Upper body dressin Lower body dressin Putting on/taking off footwear: 2 OT Circuit Clerk Goals Snf Goals Time Frame: Mar 18, 2023 Acute change in mental status: 0 Inattention: 0 Disorganized thinkin Altered level of consciousness: 0 Eating (QC): 5 Oral Hygiene (QC): 4 Toileting Hygiene (QC): 4 Shower/Bathe Self (QC): 4 Upper Body Dressing (QC): 6 Lower Body Dressing (QC): 4 (With use of AE) On/Off Footwear (QC): 3 1=Demonstrate adherence to instructed precautions during ADL tasks. 2=Patient will verbalize/demonstrate understanding of assistive devices/modifications for ADL. 3=Patient will improve strength/tolerance for activity to enable patient to perform ADL's. OT Education/Plan Problem List/Assessment Assessment: Decreased Activ Tolerance, Decreased UE Strength, Impaired Coordin ation, Impaired Funct Balance, Impaired I ADL's, Impaired Self-Care Skills, Restricted Funct UE ROM Discharge Recommendations Plan/Recommendations: Continue POC Treatment Plan/Plan of Care Patient would benefit from OT for education, treatment and training to promote independence in ADL's, mobility, safety and/or upper extremity function for ADL's. Plan of Care: ADL Retraining, Caregiver Training, Concurrent Therapy, Functional Mobility, Group Exercise/Act as Ind, UE Funct Exercise/Act, UE Neuromus Re-Ed/Coord, W/C Management Training Treatment Duration: Mar 18, 2023 Frequency: At least 5 of 7 days/Wk (IRF) Estimated Hrs Per Day: 1.5 hours per day Agreement: Yes Rehab Potential: Fair Time Start Time: 11:00 Stop Time: 11:30 DATE: Mar 04, 2023 Total Time Billed (hr/min): 30 Billed Treatment Time 1, FA 2 AIYANA MILES OT Mar 04, 2023 11:39
[2023-03-04 19:53] VITALS: BP 110/58
[2023-03-05] MEDS: MEROPENEM INJECTION 1,000 MG in NS (IVPB) 100 ML 100 ML IV SCH ×3 (05:31→22:14)
--- NOTE | 2023-03-05 06:02 | PM&R Progress Note ---
Subjective HPI/CC On Admission Date Seen by Provider: Mar 05, 2023 Time Seen by Provider: 12:00 Subjective/Events-last exam 03/05/2023: Dramatic improvement Walking really well Back to better than baseline 03/04/2023: Dramatically improved at bedside Discontinue catheter 03/03/2023: Patient doing well Monitoring closely Reviewed meds and labs Improving 03/02/2023: Patient doing much better Pain is controlled at the bedside Canales catheter in place Periarea excoriation is much improved 03/01/2023: Much improved Working with therapy Canales cath still in place due to breakdown in periarea ABx maintained 02/28/2023: Doing much better Took a shower Pain is controlled Labs reviewed 02/27/2023: Patient remains stable nut very frail at bedside will bring the topical spray for pain of her RA Excoriation will requiring canales catheter until healed Meropenem tolerated Review of Systems General: Fatigue, Malaise Objective Exam Vital Signs Vital Signs Date Time Temp Pulse Resp B/P (MAP) Pulse Ox O2 Delivery O2 Flow Rate FiO2 03/05/23 21:20 Room Air 03/05/23 21:06 36.3 90 99 21 03/05/23 20:35 20 103/62 (76) 03/04/23 08:28 0.00 Capillary Refill : General Appearance: No Apparent Distress, WD/WN, Chronically ill, Thin HEENT: PERRL/EOMI, Normal ENT Inspection, Pharynx Normal Neck: Full Range of Motion, Normal Inspection, Non Tender, Supple, Carotid Br uit Respiratory: Chest Non Tender, Lungs Clear, Normal Breath Sounds, No Accessory Muscle Use, No Respiratory Distress Cardiovascular: Regular Rate, Rhythm, No Edema, No Gallop, No JVD, No Murmur, Normal Peripheral Pulses Gastrointestinal: Normal Bowel Sounds, No Organomegaly, No Pulsatile Mass, Non Tender, Soft Back: Normal Inspection, No CVA Tenderness, No Vertebral Tenderness Extremity: Normal Capillary Refill, Normal Inspection, Normal Range of Motion, Non Tender, No Calf Tenderness, No Pedal Edema Neurologic/Psychiatric: Alert, Oriented x3, No Motor/Sensory Deficits, Depressed Affect, Motor Weakness Skin: Normal Color, Warm/Dry Lymphatic: No Adenopathy Results/Procedures Lab Patient resulted labs reviewed. FIM Transfers Therapy Code Descriptions/Definitions Functional [place] Measure: 0=Not Assessed/NA 4=Minimal Assistance 1=Total Assistance 5=Supervision or Setup 2=Maximal Assistance 6=Modified [place] 3=Moderate Assistance 7=Complete IndependenceSCALE: Activities may be completed with or without assistive devices. 5-Yayfoxqwwt-svpcpbr completes the activity by him/herself with no assistance from a helper. 5-Set-up or Clean-up Assistance-helper sets up or cleans up; patient completes activity. [place] assists only prior to or following the activity. 4-Supervision or Touching Assistance-helper provides verbal cues and/or touching/steadying and/or contact guard assistance as patient completes activity. Assistance may be provided throughout the activity or intermittently. 3-Partial/Moderate Assistance-helper does LESS THAN HALF the effort. [place] lifts, holds or supports trunk or limbs, but provides less than half the effort. 2-Substantial/Maximal Assistance-helper does MORE THAN HALF the effort. [place] lifts or holds trunk or limbs and provides more than half the effort. 7-Njhcjfypy-afmujt does ALL the effort. Patient does none of the effort to complete the activity. Or, the assistance of 2 or more helpers is required for the patient to complete the activity. If activity was not attempted, code reason: 7-Patient Refused. 9-Not Applicable-not attempted and the patient did not perform the activity before the current illness, exacerbation or injury. 10-Not Attempted due to Environmental Limitations-(lack of equipment, weather restraints, etc.). 88-Not Attempted due to Medical Conditions or Safety Concerns. Roll Left to Right (QC): 5 (/c bed rail) Sit to Lying (QC): 3 (min (A) with LE's) Sit to Stand (QC): 3 (min (A)) Chair/Asv-ty-Xmxow Xfer(QC): 3 (CGA-min /c assist to control descent to chair, using platform FWW) Car Transfer (QC): 3 (min (A) in, CGA out.) Gait Training Does the Patient Walk?: Yes Distance: 68' x2 Walk 10 feet (QC): 4 (/c (B) platform FWW) Walk 50 ft with 2 Turns(QC): 4 (/c (B) platform FWW) Walk 150 ft (QC): 4 (/c (B) platform FWW) Walking 10ft/uneven surface-QC: 4 (/c (B) platform FWW up/down 15' ramp) Gait Persons Needed: 1 Gait Assistive Device: Walker Platform Wheelchair Training Does the Pt Use a Wheelchair?: Yes Distance: 35' Wheel 50 ft with 2 turns (QC): 4 (CGA/VC) Wheel 150 ft (QC): 4 (CGA/VC) Type of Wheelchair: Manual Stair Training Stair Training: Handrails/: uses walker #of Steps: 1 1 Step (curb) (QC): 88 (due to knee pain) 4 Steps (QC): 88 (due to knee pain) 12 Steps (QC): 88 Stairs: Pattern: Step to Balance Picking up an Object (QC): 88 (Poor standing balance - needs (B) UE for support with FWW) ADL-Treatment Eating (QC): 3 (Pt requiring assistance opening small packages and help placing smaller foods on utencils. Pt able to bring utensils to mouth and butter bread independently. ) Oral Hygiene (QC): 4 (in sitting ) Shower/Bathe Self (QC): 2 Upper Body Dressing (QC): 3 (to don/doff shirt in sitting) Lower Body Dressing (QC): 3 (50% assistance. Pt able to thread LLE, assist with initial threading of RLE. Pt able to manage pants up partway, but required assistance with remainder of pant hike.) On/Off Footwear (QC): 1 Toileting Hygiene (QC): 2 (completed in standing ) Assessment/Plan Assessment and Plan Assess & Plan/Chief Complaint Assessment: Debility Severe anemia RA on MTX PAF Holding OAC due to anemia ESBL UTI Recent PNA gram negative sepsis Edema Hypokalemia Plan: Monitor labs PT OT Transfuse as necessary Scopes as outpatient 02/27/2023: Monitor hgb PPI Canales cath due to excoriation 02/28/2023: Supportive care Maintain Canales catheter Complete IV antibiotics 03/01/2023: Monitor pain Ambulate 03/02/2023: Pain control Denies any need for pain pill 03/03/2023: Monitor closely 03/04/2023: DC catheter 03/05/2023: Supportive care Monitor closely (1) Debility Status: Chronic CAROLINE PATRICK DO Mar 05, 2023 06:02
[2023-03-05 07:30] VITALS: BP 113/66
[2023-03-05] MEDS: PANTOPRAZOLE 40 MG TABLET PO SCH ×2 (08:38→21:16)
[2023-03-05] MEDS: POTASSIUM CHLORIDE 20 MEQ TABLET PO SCH ×2 (08:38→17:01)
[2023-03-05] MEDS: FLUDROCORTISONE 0.1 MG TABLET PO SCH (08:38)
[2023-03-05] MEDS: HYPOCHLOROUS ACID/NaCl WOUND SOLN 250 ML IR SCH (08:39)
[2023-03-05] MEDS: SENNA W/DOCUSATE TABLET PO SCH ×2 (08:40→21:19)
[2023-03-05] MEDS: DOCUSATE SODIUM 100 MG CAPSULE PO SCH ×2 (08:40→21:18)
[2023-03-05] MEDS: MICONAZOLE 2% POWDER 90 GM TOP SCH ×2 (08:40→21:16)
[2023-03-05] MEDS: ACETAMINOPHEN 325 MG TABLET PO PRN ×2 (14:02→21:17)
[2023-03-05 20:35] VITALS: BP 103/62
[2023-03-05] MEDS ORDERED: RT-Ipratropium/Albuterol NEB 3 ML VIAL INH PRN (21:15)
[2023-03-06] MEDS: MEROPENEM INJECTION 1,000 MG in NS (IVPB) 100 ML 100 ML IV SCH ×3 (06:00→22:16)
--- NOTE | 2023-03-06 06:13 | PM&R Progress Note ---
Subjective HPI/CC On Admission Date Seen by Provider: Mar 06, 2023 Time Seen by Provider: 12:00 Subjective/Events-last exam 03/06/2023: Dramatic improvement Getting better every day Discharge on Tuesday Finishing up on antibiotic 03/05/2023: Dramatic improvement Walking really well Back to better than baseline 03/04/2023: Dramatically improved at bedside Discontinue catheter 03/03/2023: Patient doing well Monitoring closely Reviewed meds and labs Improving 03/02/2023: Patient doing much better Pain is controlled at the bedside Canales catheter in place Periarea excoriation is much improved 03/01/2023: Much improved Working with therapy Canales cath still in place due to breakdown in periarea ABx maintained 02/28/2023: Doing much better Took a shower Pain is controlled Labs reviewed 02/27/2023: Patient remains stable nut very frail at bedside will bring the topical spray for pain of her RA Excoriation will requiring canales catheter until healed Meropenem tolerated Review of Systems General: Fatigue, Malaise Objective Exam Vital Signs Vital Signs Date Time Temp Pulse Resp B/P (MAP) Pulse Ox O2 Delivery O2 Flow Rate FiO2 03/06/23 09:00 Room Air 03/06/23 08:29 37.1 99 16 109/57 (74) 98 03/05/23 21:06 21 03/04/23 08:28 0.00 Capillary Refill : General Appearance: No Apparent Distress, WD/WN, Chronically ill, Thin HEENT: PERRL/EOMI, Normal ENT Inspection, Pharynx Normal Neck: Full Range of Motion, Normal Inspection, Non Tender, Supple, Carotid Bruit Respiratory: Chest Non Tender, Lungs Clear, Normal Breath Sounds, No Accessory Muscle Use, No Respiratory Distress Cardiovascular: Regular Rate, Rhythm, No Edema, No Gallop, No JVD, No Murmur, Normal Peripheral Pulses Gastrointestinal: Normal Bowel Sounds, No Organomegaly, No Pulsatile Mass, Non Tender, Soft Back: Normal Inspection, No CVA Tenderness, No Vertebral Tenderness Extremity: Normal Capillary Refill, Normal Inspection, Normal Range of Motion, Non Tender, No Calf Tenderness, No Pedal Edema Neurologic/Psychiatric: Alert, Oriented x3, No Motor/Sensory Deficits, Depressed Affect, Motor Weakness Skin: Normal Color, Warm/Dry Lymphatic: No Adenopathy Results/Procedures Lab Patient resulted labs reviewed. FIM Transfers Therapy Code Descriptions/Definitions Functional [place] Measure: 0=Not Assessed/NA 4=Minimal Assistance 1=Total Assistance 5=Supervision or Setup 2=Maximal Assistance 6=Modified [place] 3=Moderate Assistance 7=Complete IndependenceSCALE: Activities may be completed with or without assistive devices. 1-Fsnbfxnlpk-kyziico completes the activity by him/herself with no assistance from a helper. 5-Set-up or Clean-up Assistance-helper sets up or cleans up; patient completes activity. [place] assists only prior to or following the activity. 4-Supervision or Touching Assistance-helper provides verbal cues and/or touching/steadying and/or contact guard assistance as patient completes activity. Assistance may be provided throughout the activity or intermittently. 3-Partial/Moderate Assistance-helper does LESS THAN HALF the effort. [place] lifts, holds or supports trunk or limbs, but provides less than half the effort. 2-Substantial/Maximal Assistance-helper does MORE THAN HALF the effort. [place] lifts or holds trunk or limbs and provides more than half the effort. 8-Mvyvdgvrr-pslikh does ALL the effort. Patient does none of the effort to complete the activity. Or, the assistance of 2 or more helpers is required for the patient to complete the activity. If activity was not attempted, code reason: 7-Patient Refused. 9-Not Applicable-not attempted and the patient did not perform the activity before the current illness, exacerbation or injury. 10-Not Attempted due to Environmental Limitations-(lack of equipment, weather restraints, etc.). 88-Not Attempted due to Medical Conditions or Safety Concerns. Roll Left to Right (QC): 5 (/c bed rail) Sit to Lying (QC): 3 (min (A) with LE's) Sit to Stand (QC): 3 (min (A)) Chair/Nml-pl-Rjlob Xfer(QC): 3 (CGA-min /c assist to control descent to chair, using platform FWW) Car Transfer (QC): 3 (min (A) in, CGA out.) Gait Training Does the Patient Walk?: Yes Distance: 68' x2 Walk 10 feet (QC): 4 (/c (B) platform FWW) Walk 50 ft with 2 Turns(QC): 4 (/c (B) platform FWW) Walk 150 ft (QC): 4 (/c (B) platform FWW) Walking 10ft/uneven surface-QC: 4 (/c (B) platform FWW up/down 15' ramp) Gait Persons Needed: 1 Gait Assistive Device: Walker Platform Wheelchair Training Does the Pt Use a Wheelchair?: Yes Distance: 35' Wheel 50 ft with 2 turns (QC): 4 (CGA/VC) Wheel 150 ft (QC): 4 (CGA/VC) Type of Wheelchair: Manual Stair Training Stair Training: Handrails/: uses walker #of Steps: 1 1 Step (curb) (QC): 88 (due to knee pain) 4 Steps (QC): 88 (due to knee pain) 12 Steps (QC): 88 Stairs: Pattern: Step to Balance Picking up an Object (QC): 88 (Poor standing balance - needs (B) UE for support with FWW) ADL-Treatment Eating (QC): 3 (Pt requiring assistance opening small packages and help placing smaller foods on utencils. Pt able to bring utensils to mouth and butter bread independently. ) Oral Hygiene (QC): 4 (in sitting ) Shower/Bathe Self (QC): 2 Upper Body Dressing (QC): 3 (to don/doff shirt in sitting) Lower Body Dressing (QC): 3 (50% assistance. Pt able to thread LLE, assist with initial threading of RLE. Pt able to manage pants up partway, but required assistance with remainder of pant hike.) On/Off Footwear (QC): 1 Toileting Hygiene (QC): 2 (completed in standing ) Assessment/Plan Assessment and Plan Assess & Plan/Chief Complaint Assessment: Debility Severe anemia RA on MTX PAF Holding OAC due to anemia ESBL UTI Recent PNA gram negative sepsis Edema Hypokalemia Plan: Monitor labs PT OT Transfuse as necessary Scopes as outpatient 02/27/2023: Monitor hgb PPI Canales cath due to excoriation 02/28/2023: Supportive care Maintain Canales catheter Complete IV antibiotics 03/01/2023: Monitor pain Ambulate 03/02/2023: Pain control Denies any need for pain pill 03/03/2023: Monitor closely 03/04/2023: DC catheter 03/05/2023: Supportive care Monitor closely 03/06/2023: Supportive care Complete antibiotic Discharge on Tuesday (1) Debility Status: Chronic CAROLINE PATRICK DO Mar 06, 2023 06:13
[2023-03-06 08:29] VITALS: BP 109/57
[2023-03-06] MEDS: DOCUSATE SODIUM 100 MG CAPSULE PO SCH ×2 (08:39→20:58)
[2023-03-06] MEDS: SENNA W/DOCUSATE TABLET PO SCH ×2 (08:39→20:58)
[2023-03-06] MEDS: POTASSIUM CHLORIDE 20 MEQ TABLET PO SCH ×2 (09:44→18:04)
[2023-03-06] MEDS: FLUDROCORTISONE 0.1 MG TABLET PO SCH (09:44)
[2023-03-06] MEDS: PANTOPRAZOLE 40 MG TABLET PO SCH ×2 (09:44→20:52)
[2023-03-06] MEDS: HYPOCHLOROUS ACID/NaCl WOUND SOLN 250 ML IR SCH (09:45)
[2023-03-06] MEDS: MICONAZOLE 2% POWDER 90 GM TOP SCH ×2 (09:45→20:59)
[2023-03-06] MEDS: ACETAMINOPHEN 325 MG TABLET PO PRN ×2 (09:45→20:57)
[2023-03-06 20:00] VITALS: BP 137/66
--- NOTE | 2023-03-07 05:00 | PM&R Progress Note ---
Subjective HPI/CC On Admission Date Seen by Provider: Mar 07, 2023 Time Seen by Provider: 09:00 Subjective/Events-last exam 03/07/2023: No new issues Ready for DC tomorrow Will complete abx here inpatient 03/06/2023: Dramatic improvement Getting better every day Discharge on Tuesday Finishing up on antibiotic 03/05/2023: Dramatic improvement Walking really well Back to better than baseline 03/04/2023: Dramatically improved at bedside Discontinue catheter 03/03/2023: Patient doing well Monitoring closely Reviewed meds and labs Improving 03/02/2023: Patient doing much better Pain is controlled at the bedside Canales catheter in place Periarea excoriation is much improved 03/01/2023: Much improved Working with therapy Canales cath still in place due to breakdown in periarea ABx maintained 02/28/2023: Doing much better Took a shower Pain is controlled Labs reviewed 02/27/2023: Patient remains stable nut very frail at bedside will bring the topical spray for pain of her RA Excoriation will requiring canales catheter until healed Meropenem tolerated Review of Systems General: Fatigue, Malaise Objective Exam Vital Signs Vital Signs Date Time Temp Pulse Resp B/P (MAP) Pulse Ox O2 Delivery O2 Flow Rate FiO2 03/08/23 09:55 Room Air 03/08/23 08:20 37.1 99 18 120/77 (91) 99 03/06/23 20:00 0.00 0.00 03/05/23 21:06 21 Capillary Refill : General Appearance: No Apparent Distress, WD/WN, Chronically ill, Thin HEENT: PERRL/EOMI, Normal ENT Inspection, Pharynx Normal Neck: Full Range of Motion, Normal Inspection, Non Tender, Supple, Carotid Bruit Respiratory: Chest Non Tender, Lungs Clear, Normal Breath Sounds, No Accessory Muscle Use, No Respiratory Distress Cardiovascular: Regular Rate, Rhythm, No Edema, No Gallop, No JVD, No Murmur, Normal Peripheral Pulses Gastrointestinal: Normal Bowel Sounds, No Organomegaly, No Pulsatile Mass, Non Tender, Soft Back: Normal Inspection, No CVA Tenderness, No Vertebral Tenderness Extremity: Normal Capillary Refill, Normal Inspection, Normal Range of Motion, Non Tender, No Calf Tenderness, No Pedal Edema Neurologic/Psychiatric: Alert, Oriented x3, No Motor/Sensory Deficits, Depressed Affect, Motor Weakness Skin: Normal Color, Warm/Dry Lymphatic: No Adenopathy Results/Procedures Lab Patient resulted labs reviewed. FIM Transfers Therapy Code Descriptions/Definitions Functional [place] Measure: 0=Not Assessed/NA 4=Minimal Assistance 1=Total Assistance 5=Supervision or Setup 2=Maximal Assistance 6=Modified [place] 3=Moderate Assistance 7=Complete IndependenceSCALE: Activities may be completed with or without assistive devices. 8-Dzleghbagr-iasdkki completes the activity by him/herself with no assistance f rom a helper. 5-Set-up or Clean-up Assistance-helper sets up or cleans up; patient completes activity. [place] assists only prior to or following the activity. 4-Supervision or Touching Assistance-helper provides verbal cues and/or touching/steadying and/or contact guard assistance as patient completes activity. Assistance may be provided throughout the activity or intermittently. 3-Partial/Moderate Assistance-helper does LESS THAN HALF the effort. [place] lifts, holds or supports trunk or limbs, but provides less than half the effort. 2-Substantial/Maximal Assistance-helper does MORE THAN HALF the effort. [place] lifts or holds trunk or limbs and provides more than half the effort. 4-Bosexcufa-haincb does ALL the effort. Patient does none of the effort to complete the activity. Or, the assistance of 2 or more helpers is required for the patient to complete the activity. If activity was not attempted, code reason: 7-Patient Refused. 9-Not Applicable-not attempted and the patient did not perform the activity before the current illness, exacerbation or injury. 10-Not Attempted due to Environmental Limitations-(lack of equipment, weather restraints, etc.). 88-Not Attempted due to Medical Conditions or Safety Concerns. Roll Left to Right (QC): 5 (/c bed rail) Sit to Lying (QC): 3 (min (A) with LE's) Sit to Stand (QC): 3 (min (A)) Chair/Amv-wg-Fewih Xfer(QC): 3 (CGA-min /c assist to control descent to chair, using platform FWW) Car Transfer (QC): 3 (min (A) in, CGA out.) Gait Training Does the Patient Walk?: Yes Distance: 68' x2 Walk 10 feet (QC): 4 (/c (B) platform FWW) Walk 50 ft with 2 Turns(QC): 4 (/c (B) platform FWW) Walk 150 ft (QC): 4 (/c (B) platform FWW) Walking 10ft/uneven surface-QC: 4 (/c (B) platform FWW up/down 15' ramp) Gait Persons Needed: 1 Gait Assistive Device: Walker Platform Wheelchair Training Does the Pt Use a Wheelchair?: Yes Distance: 35' Wheel 50 ft with 2 turns (QC): 4 (CGA/VC) Wheel 150 ft (QC): 4 (CGA/VC) Type of Wheelchair: Manual Stair Training Stair Training: Handrails/: uses walker #of Steps: 1 1 Step (curb) (QC): 88 (due to knee pain) 4 Steps (QC): 88 (due to knee pain) 12 Steps (QC): 88 Stairs: Pattern: Step to Balance Picking up an Object (QC): 88 (Poor standing balance - needs (B) UE for support with FWW) ADL-Treatment Eating (QC): 3 (Pt requiring assistance opening small packages and help placing smaller foods on utencils. Pt able to bring utensils to mouth and butter bread independently. ) Oral Hygiene (QC): 4 (in sitting ) Shower/Bathe Self (QC): 2 Upper Body Dressing (QC): 3 (to don/doff shirt in sitting) Lower Body Dressing (QC): 3 (50% assistance. Pt able to thread LLE, assist with initial threading of RLE. Pt able to manage pants up partway, but required assistance with remainder of pant hike.) On/Off Footwear (QC): 1 Toileting Hygiene (QC): 2 (completed in standing ) Assessment/Plan Assessment and Plan Assess & Plan/Chief Complaint Assessment: Debility Severe anemia RA on MTX PAF Holding OAC due to anemia ESBL UTI Recent PNA gram negative sepsis Edema Hypokalemia Plan: Monitor labs PT OT Transfuse as necessary Scopes as outpatient 02/27/2023: Monitor hgb PPI Canales cath due to excoriation 02/28/2023: Supportive care Maintain Canales catheter Complete IV antibiotics 03/01/2023: Monitor pain Ambulate 03/02/2023: Pain control Denies any need for pain pill 03/03/2023: Monitor closely 03/04/2023: DC catheter 03/05/2023: Supportive care Monitor closely 03/06/2023: Supportive care Complete antibiotic Discharge on Tuesday03/07/2023: DC Tuesday (1) Debility Status: Chronic CAROLINE PATRICK DO Mar 07, 2023 05:00
[2023-03-07 05:45] LABS: ALBUMIN 2.5 GM/DL (3.2-4.5); POTASSIUM 3.8 MMOL/L (3.6-5.0)
[2023-03-07 05:47] LABS: CALCIUM 8.4 MG/DL (8.5-10.1)
[2023-03-07 05:48] LABS: TOTAL PROTEIN 5.1 GM/DL (6.4-8.2)
[2023-03-07 05:49] LABS: BILIRUBIN,TOTAL 0.4 MG/DL (0.1-1.0)
[2023-03-07 05:50] LABS: BASOPHILS % (AUTO) 1 % (0-10); EOSINOPHILS # (AUTO) 0.3 10^3/uL (0.0-0.3); EOSINOPHILS % (AUTO) 5 % (0-10); HEMATOCRIT 25 % (35-52); HEMOGLOBIN 7.9 g/dL (11.5-16.0); LYMPHOCYTES # (AUTO) 1.5 10^3/uL (1.0-4.0); LYMPHOCYTES % (AUTO) 32 % (12-44); MEAN CORPUSCULAR HEMOGLOBIN 26 pg (25-34); MEAN CORPUSCULAR HGB CONC 32 g/dL (32-36); MEAN CORPUSCULAR VOLUME 82 fL (80-99); MEAN PLATELET VOLUME 8.6 fL (9.0-12.2); MONOCYTES # (AUTO) 0.4 10^3/uL (0.0-1.0); MONOCYTES % (AUTO) 9 % (0-12); NEUTROPHILS # (AUTO) 2.4 10^3/uL (1.8-7.8); NEUTROPHILS % (AUTO) 53 % (42-75); PLATELET COUNT 261 10^3/uL (130-400); WHITE BLOOD COUNT 4.6 10^3/uL (4.3-11.0)
[2023-03-07 05:52] LABS: CREATININE SERUM 0.5 MG/DL (0.60-1.30)
[2023-03-07] MEDS: MEROPENEM INJECTION 1,000 MG in NS (IVPB) 100 ML 100 ML IV SCH ×3 (05:55→22:38)
[2023-03-07] MEDS: POTASSIUM CHLORIDE 20 MEQ TABLET PO SCH ×2 (07:51→17:10)
[2023-03-07] MEDS: PANTOPRAZOLE 40 MG TABLET PO SCH ×2 (07:51→20:00)
[2023-03-07] MEDS: HYPOCHLOROUS ACID/NaCl WOUND SOLN 250 ML IR SCH (07:51)
[2023-03-07] MEDS: FLUDROCORTISONE 0.1 MG TABLET PO SCH (07:51)
[2023-03-07] MEDS: MICONAZOLE 2% POWDER 90 GM TOP SCH ×2 (07:52→20:00)
[2023-03-07 08:04] VITALS: BP 110/70
--- NOTE | 2023-03-07 08:44 | Occupational Ther Daily Note ---
OT Current Status-Daily Note Subjective 5/10 arthritic pain ion knees and hands. Pt states she is home sick and ready to go home. Mental Status/Objective Patient Orientation: Normal For Age ADL-Treatment Therapy Code Descriptions/Definitions Functional [place] Measure: 0=Not Assessed/NA 4=Minimal Assistance 1=Total Assistance 5=Supervision or Setup 2=Maximal Assistance 6=Modified [place] 3=Moderate Assistance 7=Complete IndependenceSCALE: Activities may be completed with or without assistive devices. 8-Hnzuydaujk-fanpcdb completes the activity by him/herself with no assistance from a helper. 5-Set-up or Clean-up Assistance-helper sets up or cleans up; patient completes activity. [place] assists only prior to or following the activity. 4-Supervision or Touching Assistance-helper provides verbal cues and/or touching/steadying and/or contact guard assistance as patient completes activity. Assistance may be provided throughout the activity or intermittently. 3-Partial/Moderate Assistance-helper does LESS THAN HALF the effort. [place] lifts, holds or supports trunk or limbs, but provides less than half the effort. 2-Substantial/Maximal Assistance-helper does MORE THAN HALF the effort. [place] lifts or holds trunk or limbs and provides more than half the effort. 5-Xrrjggeku-wukbeg does ALL the effort. Patient does none of the effort to complete the activity. Or, the assistance of 2 or more helpers is required for the patient to complete the activity. If activity was not attempted, code reason: 7-Patient Refused. 9-Not Applicable-not attempted and the patient did not perform the activity before the current illness, exacerbation or injury. 10-Not Attempted due to Environmental Limitations-(lack of equipment, weather restraints, etc.). 88-Not Attempted due to Medical Conditions or Safety Concerns. Eating (QC): 6 (IND per pt report) Oral Hygiene (QC): 5 (Set up per pt report in order to reach items on counter.) Shower/Bathe Self (QC): 3 (Min A washing periarea and buttocks) Upper Body Dressing (QC): 3 (min A overhead) Lower Body Dressing (QC): 3 (50% assistance. Pt able to thread LLE, assist with initial threading of RLE. Pt able to manage pants up partway, but required assistance with remainder of pant hike) On/Off Footwear: 3 (Assist to don, pt able to doff) Toileting Hygiene (QC): 2 (Pt able to manage pants down, assist with hygiene and pant hike.) Toilet Transfer (QC): 3 (Min A to sit on standard toilet, mod A to stand) Other Treatment Pt at EOB, completed sponge bath and dressing as outlined above. Pt requests to use toilet, CGA sit to stand from EOB, then CGA-SBA using b/l platform FWW to transfer into bathroom. Pt sat onto toilet with Min A, completed toileting, then stood with mod A. Pt returned to EOB. Pt declined oral care at this time, but per pt report, she is able to complete when items are handed to her. Pt transferred supine with SBA. OT educated pt and spouse on pt's assistance level required with ADLS on this date, they verbalize understanding. Post tx, pt in bed, call light in reach and all needs met. Education OT Patient Education: Correct positioning, Modified ADL techniques, Progress toward Goal/Update tx plan, Purpose of tx/functional activities, Rehab process Teaching Recipient: Patient Teaching Methods: Discussion Response to Teaching: Verbalize Understanding BIMS CAM BIMS Expression of Ideas and Wants: Without Difficulty Understanding Verbal Content: Usually Understands (slight IGIUGIG, requiring occasional repeated instructions) Brief Interview/Mental Status: Yes IRF KARISSA BIMS: IRF KARISSA BIMS Response (Comments) Value Repitition of Three Words Three 3 Recalls Socks Yes, No Cue Required 2 Recalls Blue Yes, No Cue Required 2 Recalls Bed Yes, No Cue Required 2 Year Correct 3 Month Accurate Within 5 Days 2 Day Correct 1 Total 15 Should Staff Asses. Mental St.: No CAM Mental Status Change/Baseline: 0 Inattention: 0 Disorganized thinkin Altered level of consciousness: 0 OT Short Term Goals Short Term Goals Time Frame: Mar 07, 2023 Eatin Oral hygiene: 4 Toileting hygiene: 4 Shower/bathe self: 3 Upper body dressin Lower body dressin Putting on/taking off footwear: 2 OT Penitentiary Goals Penitentiary Goals Time Frame: Mar 18, 2023 Acute change in mental status: 0 Inattention: 0 Disorganized thinkin Altered level of consciousness: 0 Eating (QC): 5 (met) Oral Hygiene (QC): 4 (met) Toileting Hygiene (QC): 4 (not met) Shower/Bathe Self (QC): 4 (not met) Upper Body Dressing (QC): 6 (not met) Lower Body Dressing (QC): 4 (not met) On/Off Footwear (QC): 3 (met) 1=Demonstrate adherence to instructed precautions during ADL tasks. 2=Patient will verbalize/demonstrate understanding of assistive devices/modifications for ADL. 3=Patient will improve strength/tolerance for activity to enable patient to perform ADL's. OT Education/Plan Problem List/Assessment Assessment: Decreased Activ Tolerance, Decreased UE Strength, Impaired Coordination, Impaired Funct Balance, Impaired I ADL's, Impaired Self-Care Skills, Restricted Funct UE ROM Discharge Recommendations Plan/Recommendations: Continue POC Treatment Plan/Plan of Care Patient would benefit from OT for education, treatment and training to promote independence in ADL's, mobility, safety and/or upper extremity function for ADL's. Plan of Care: ADL Retraining, Caregiver Training, Concurrent Therapy, Functional Mobility, Group Exercise/Act as Ind, UE Funct Exercise/Act, UE Neuromus Re-Ed/Coord, W/C Management Training Treatment Duration: Mar 18, 2023 Frequency: At least 5 of 7 days/Wk (IRF) Estimated Hrs Per Day: 1.5 hours per day Agreement: Yes Rehab Potential: Fair Time Start Time: 07:30 Stop Time: 09:00 DATE: Mar 07, 2023 Total Time Billed (hr/min): 90 Billed Treatment Time 1, ADL 6 AIYANA MILES OT Mar 07, 2023 08:44
--- NOTE | 2023-03-07 09:19 | Cardiology Progress Note ---
Subjective Date Seen by Provider: Mar 07, 2023 Time Seen by Provider: 08:20 Subjective/Events-last exam Patient is sitting up at bedside, no new complaints. Denies any chest pain or dyspnea. Objective-Cardiology Exam Last Set of Vital Signs Vital Signs 03/05/23 03/06/23 03/07/23 21:06 20:00 08:04 Temp 37.0 Pulse 94 Resp 18 B/P (MAP) 110/70 (83) Pulse Ox 98 O2 Delivery Room Air O2 Flow Rate 0.00 0.00 FiO2 21 I&O Intake and Output 03/07/23 00:00 Intake Total 1170 ml Output Total 450 ml Balance 720 ml Intake Oral 1070 ml IV Total 100 ml Output Urine Total 450 ml # Voids 1 # Bowel Movements 1 General: Alert, Oriented X3 HEENT: Atraumatic, PERRLA Neck: Supple, No JVD Lungs: Clear to Auscultation, Normal Air Movement Heart: Regular Rate, Normal S1, Normal S2 Abdomen: Normal Bowel Sounds, Soft Extremities: No Clubbing, No Cyanosis Skin: No Significant Lesion Neuro: Normal Speech, Sensation Intact Psych/Mental Status: Mental Status NL, Mood NL Results Lab Laboratory Tests 03/07/23 05:18 A/P-Cardiology Admission Diagnosis Anemia, GIB PAF Peripheral edema ESBL UTI Assessment/Plan GI bleed, severe anemia Patient has history of chronic anemia which has been having episodes of drop in H&H Status post blood transfusion Patient had endoscopy done earlier this year, will require another extensive work-up for GI loss in addition I recommended hematology evaluation due to her chronic anemia Continue to monitor H/H Paroxysmal atrial fibrillation, had transient episode of atrial fibrillation Currently in sinus rhythm. Continue to monitor Currently off OAC Peripheral edema, some improvement Probably due to Hypoalbuminemia 2D echo was done earlier in January 2023 with normal LV size, ejection fraction 50 to 55%, PA pressure 35 mmHg moderate mitral regurgitation and dilated left atrium ESBL UTI, management per medical services Hypokalemia, replaced, continue to monitor Labile blood pressure, started on Florinef. Status post recent hospitalization for Gram negative sepsis with lactic acidosis Generalized weakness, debility Rheumatoid arthritis maintained on methotrexate Supervisory-Addendum Brief Supervisory Addendum Participated in pt care: history, MDM, physical Personally performed: exam, history, MDM Care discussed with: EULA Results interpretation: Verified all documentation Notes: Patient was seen and evaluated with Vickie, examination performed, management plan was discussed, agree with the current scribed note, I made few changes to the note using Italic font Patient was seen at bedside, laying down comfortably, feeling better Slightly worse anemia today Heart rate and blood pressure are stable, continue to monitor VICKIE NICOLE PA-C Mar 07, 2023 09:19 OTILIO ESQUIVEL MD Mar 07, 2023 10:23
[2023-03-07] MEDS: SENNA W/DOCUSATE TABLET PO SCH ×2 (10:21→19:36)
[2023-03-07] MEDS: DOCUSATE SODIUM 100 MG CAPSULE PO SCH ×2 (10:21→19:35)
--- NOTE | 2023-03-07 11:13 | Progress Note ---
BHARATH YUAN 03/07/23 1113: Progress Note Ms. Miller is a 62 y/o female, here for recovery from pneumonia and ESBL UTI. She has a history of anemia, RA, PAF. She is currently able to complete ADLs and transfers with minimal assistance. The goal is to be minimal assist for most ADLs/ transfers. She has no complaints today and reports having a bowel movement overnight. She denies SOB/CP or headache, and is able to walk up to 136 ft with walker. She is on methotrexate for her RA. SHASTA BLANCA DO 03/08/232055: Supervisory-Addendum Brief Verification & Attestation Participated in pt care: history, MDM, physical Personally performed: exam, history, MDM, supervision of care Care discussed with: Medical Student Procedures: n/a Results interpretation: Verified all documentation Verification and Attestation of Medical Student E/M Service A medical student performed and documented this service in my presence. I reviewed and verified all information documented by the medical student and made modifications to such information, when appropriate. I personally performed the physical exam and medical decision making. Shasta Blanca, Mar 08, 2023,20:56 BHARATH YUAN Mar 07, 2023 11:13 SHASTA BLANCA DO Mar 08, 2023 20:56
--- NOTE | 2023-03-07 12:09 | Physical Therapy Daily Note ---
PT Daily Note-Current Subjective Pt presents sitting EOB with B feet on floor. Pt's in room with pt. Pt reports 6/10 pain in R knee. Pt states she is more fatigued and in pain today, secondary to being up/down a lot over the weekend to use the restroom. Pt agrees to tx. Pain Section J - Health Conditions 1. Rarely or not at all 2. Occasionally 3. Frequently 4. Almost constantly 8. Unable to answer Pain Effect on Sleep: 2 Pain Interference with Therapy: 3 Pain Interference w/Day-to-Day: 3 Mental Status Patient Orientation: Person, Place, Time, Situation Transfers SCALE: Activities may be completed with or without assistive devices. 8-Vtluduscvt-vhzckwe completes the activity by him/herself with no assistance from a helper. 5-Set-up or Clean-up Assistance-helper sets up or cleans up; patient completes activity. [place] assists only prior to or following the activity. 4-Supervision or Touching Assistance-helper provides verbal cues and/or touching/steadying and/or contact guard assistance as patient completes activity. Assistance may be provided throughout the activity or intermittently. 3-Partial/Moderate Assistance-helper does LESS THAN HALF the effort. [place] lifts, holds or supports trunk or limbs, but provides less than half the effort. 2-Substantial/Maximal Assistance-helper does MORE THAN HALF the effort. [place] lifts or holds trunk or limbs and provides more than half the effort. 8-Vmruoojzz-jzrrlr does ALL the effort. Patient does none of the effort to complete the activity. Or, the assistance of 2 or more helpers is required for the patient to complete the activity. If activity was not attempted, code reason: 7-Patient Refused. 9-Not Applicable-not attempted and the patient did not perform the activity before the current illness, exacerbation or injury. 10-Not Attempted due to Environmental Limitations-(lack of equipment, weather restraints, etc.). 88-Not Attempted due to Medical Conditions or Safety Concerns. Roll Left & Right (QC): 5 Sit to Lying (QC): 5 Lying to Sitting/Side of Bed(Q: 5 Sit to Stand (QC): 3 (Mark-ModA) Chair/Gdf-gf-Higqa Xfer(QC): 3 (Mark-ModA) Toilet Transfer (QC): 4 Car Transfer (QC): 4 Weight Bearing Weight Bearing/Tolerated Weight Bearing/Tolerated Gait Training Does the Patient Walk?: Yes Walk 10 feet (QC): 4 Walk 50 ft with 2 Turns(QC): 4 Walk 150 ft (QC): 88 (Did not complete secondary to fatigue and R knee pain.) Walking 10ft/uneven surface-QC: 3 (Mark) Gait Assistive Device: Walker Platform Pt amb 108' /c platform FWW, CGA for safety and stabilization. Wheelchair Training Does the Pt Use a Wheelchair?: Yes Wheel 50 ft with 2 turns (QC): 4 Wheel 150 ft (QC): 4 Type of Wheelchair: Manual Pt performed W/C mobility around ARU ~300+'. Pt needed very little vc's to assist with w/c mobility. Stair Training Stair Training: Handrails/: uses walker 1 Step (curb) (QC): 3 (Mark) 4 Steps (QC): 88 12 Steps (QC): 88 Pt completed 1 curb step /c platform FWW, Mark. Pt did not complete more steps secondary to pain and fatigue. Balance Picking up an Object (QC): 5 Special Test Comments Pt used technical planner while sitting in W/C. WIRELESS SALES EXPERT assisted with hand placement for technical planner. Treatments WIRELESS SALES EXPERT conducted Quality Code checks with pt. Pt required multiple rest breaks, secondary to pain and fatigue. Assessment Current Status: Fair Progress Pt was more fatigued and in pain today, secondary to being up/down a lot over the weekend to use the restroom. PT Exit Booth Agent Goals Senior Living Goals PT Senior Living Goals Time Frame: Mar 14, 2023 Roll Left & Right (QC): 6 (using bed rail) Sit to Lying (QC): 6 (with bed rail) Lying-Sitting on Side/Bed(QC): 6 (/c bed rail) Sit to Stand (QC): 3 (min (A) -- uses [place] Seat Assist at home) Chair/Spk-wn-Ugyqq Xfer(QC): 3 (min (A) consistently /c FWW) Toilet Transfer (QC): 3 (min (A) /c FWW consistently) Car Transfer (QC): 3 (Min (A) /c FWW consistenly.) Does the Patient Walk: Yes Walk 10 feet (QC): 3 (min (A)) Walk 50ft with 2 Turns (QC): 3 (min (A) /c FWW) Walk 150 ft (QC): 9 Walking 10ft on Uneven Surface: 3 (min (A) /c FWW) 1 Step (curb) (QC): 3 (Min (A)) 4 Steps (QC): 3 (mod (A) with railings) 12 Steps (QC): 9 Picking up an Object (QC): 3 (min (A) /c technical planner) Does the Pt use WC or Scooter?: Yes Wheel 50 feet with 2 turns (QC: 6 (Recommend motorized w/c due to extent of RA) Type: Motorized Wheel 150 feet: 6 Type: Motorized PT Plan Problem List Problem List: Activity Tolerance, Functional Strength, Transfer Treatment/Plan Treatment Plan: Continue Plan of Care Treatment Plan: Bed Mobility, Education, Functional Activity Poppy, Functional Strength, Group Therapy, Gait, Safety, Therapeutic Exercise, Transfers, Other (w/c mobility) Treatment Duration: Mar 14, 2023 Frequency: At least 5 of 7 days/Wk (IRF) Estimated Hrs Per Day: 1.5 hours per day Patient and/or Family Agrees t: Yes Safety Risks/Education Patient Education: Transfer Techniques Teaching Recipient: Patient Teaching Methods: Discussion Response to Teaching: Verbalize Understanding Discharge Recommendations Plan Pt to D/C on 03/08/2023 per pt POC. Time Time In: 1000 Time Out: 1100 DATE: Mar 07, 2023 Total Billed Treatment Time: 60 Total Billed Treatment 1, WC2 (30m), FA2 (30m) SEBASTIÁN RICKS PTA Mar 07, 2023 12:09
--- NOTE | 2023-03-07 13:04 | Occupational Ther Daily Note ---
OT Current Status-Daily Note Subjective Pt alert, sitting EOB. Pt agrees to therapy. No c/o pain at this time. Mental Status/Objective Patient Orientation: Person, Place, Time, Situation ADL-Treatment Therapy Code Descriptions/Definitions Functional Kirby Measure: 0=Not Assessed/NA 4=Minimal Assistance 1=Total Assistance 5=Supervision or Setup 2=Maximal Assistance 6=Modified Kirby 3=Moderate Assistance 7=Complete IndependenceSCALE: Activities may be completed with or without assistive devices. 1-Owctnewslh-ssbwxja completes the activity by him/herself with no assistance from a helper. 5-Set-up or Clean-up Assistance-helper sets up or cleans up; patient completes activity. [place] assists only prior to or following the activity. 4-Supervision or Touching Assistance-helper provides verbal cues and/or touching/steadying and/or contact guard assistance as patient completes activity. Assistance may be provided throughout the activity or intermittently. 3-Partial/Moderate Assistance-helper does LESS THAN HALF the effort. [place] lifts, holds or supports trunk or limbs, but provides less than half the effort. 2-Substantial/Maximal Assistance-helper does MORE THAN HALF the effort. [place] lifts or holds trunk or limbs and provides more than half the effort. 7-Pxnlarwlu-zzqfej does ALL the effort. Patient does none of the effort to complete the activity. Or, the assistance of 2 or more helpers is required for the patient to complete the activity. If activity was not attempted, code reason: 7-Patient Refused. 9-Not Applicable-not attempted and the patient did not perform the activity before the current illness, exacerbation or injury. 10-Not Attempted due to Environmental Limitations-(lack of equipment, weather restraints, etc.). 88-Not Attempted due to Medical Conditions or Safety Concerns. Other Treatment Pt completed B UE exercises with modifications and skilled instruction due to arthritis throughout B UE's. Theraputty, light resistance theraband, flexbars completed with modifications for hand placement due to arthritis. After therapy, pt sitting on EOB with call light/phone in reach. All needs met in room. OT Short Term Goals Short Term Goals Time Frame: Mar 07, 2023 Eatin Oral hygiene: 4 Toileting hygiene: 4 Shower/bathe self: 3 Upper body dressin Lower body dressin Putting on/taking off footwear: 2 OT Merchandise Appraiser Goals Residential Goals Time Frame: Mar 18, 2023 Acute change in mental status: 0 Inattention: 0 Disorganized thinkin Altered level of consciousness: 0 Eating (QC): 5 (met) Oral Hygiene (QC): 4 (met) Toileting Hygiene (QC): 4 (not met) Shower/Bathe Self (QC): 4 (not met) Upper Body Dressing (QC): 6 (not met) Lower Body Dressing (QC): 4 (not met) On/Off Footwear (QC): 3 (met) 1=Demonstrate adherence to instructed precautions during ADL tasks. 2=Patient will verbalize/demonstrate understanding of assistive devices/modifications for ADL. 3=Patient will improve strength/tolerance for activity to enable patient to perform ADL's. OT Education/Plan Problem List/Assessment Assessment: Decreased Activ Tolerance, Decreased UE Strength Discharge Recommendations Plan/Recommendations: Continue POC Treatment Plan/Plan of Care Patient would benefit from OT for education, treatment and training to promote independence in ADL's, mobility, safety and/or upper extremity function for ADL's. Plan of Care: ADL Retraining, Caregiver Training, Concurrent Therapy, Functional Mobility, Group Exercise/Act as Ind, UE Funct Exercise/Act, UE Neuromus Re-Ed/Coord, W/C Management Training Treatment Duration: Mar 18, 2023 Frequency: At least 5 of 7 days/Wk (IRF) Estimated Hrs Per Day: 1.5 hours per day Agreement: Yes Rehab Potential: Fair Time Start Time: 12:30 Stop Time: 13:00 DATE: Mar 07, 2023 Total Time Billed (hr/min): 30 Billed Treatment Time 1 visit-EX 2 (30 min) JADA HART Mar 07, 2023 13:04
[2023-03-07] MEDS: ACETAMINOPHEN 325 MG TABLET PO PRN (20:00)
[2023-03-07 20:47] VITALS: BP 130/58
[2023-03-08] MEDS: MEROPENEM INJECTION 1,000 MG in NS (IVPB) 100 ML 100 ML IV SCH (06:13)
[2023-03-08 07:38] VITALS: BP 153/72
--- NOTE | 2023-03-08 08:15 | Therapy Team Discharge Summary ---
Therapy Discharge Summary Discharge Recommendations Date of Discharge Therapy D/C Recommendations: Occupational Therapy Home Care Physical Therapy Roll Left to Right (QC): 5 Sit to Lying (QC): 5 Lying to Sitting/Side of Bed(Q: 5 Sit to Stand (QC): 3 (Jones-ModA) Chair/Juy-wl-Uwwpm Xfer(QC): 3 (Jones-ModA) Toilet Transfer (QC): 88 Car Transfer (QC): 4 Does the Patient Walk: Yes Mode of Locomotion: Both Anticipated Mode of Locomotion: Both Walk 10 feet (QC): 4 Walk 50 ft with 2 Turns(QC): 4 Walk 150 ft (QC): 88 (Did not complete secondary to fatigue and R knee pain.) Walking 10ft on uneven surface: 3 (Jones) Distance: 2' Gait Assistive Device: Walker Platform Does the Pt Use a Wheelchair: Yes Wheelchair Distance: 35' Wheel 50 ft with 2 turns (QC): 4 Wheel 150 ft (QC): 4 Type of Wheelchair: Manual #of Steps: 1 1 Step (curb) (QC): 3 (Jones) 4 Steps (QC): 88 12 Steps (QC): 88 Balance Sitting Static: Fair Balance Sitting Dynamic: Fair Balance-Standing Static: Fair Picking up an Object (QC): 5 Occupational Therapy Pt admitted to ARU with debility;GIB. At [facility], pt required some assistance with ADLs and functional mobility. Upon initial evaluation, pt required set up assistance with eating, SBA-CGA oral care, max A showering, LBD, and toileting, partial assistance UBD, and total assist footwear. OT tx focused on increasing BUE strength, ROM and activity tolerance, and increasing safety and independence with ADLs and functional mobility. Pt made progress towards goals, attaining LTGs for eating, oral care and footwear. Pt discharging home with family hooks pport, d/c from OT. Decreased Activ Tolerance, Decreased UE Strength Eating (QC): 6 (IND per pt report) Oral Hygiene (QC): 5 (Set up per pt report in order to reach items on counter.) Shower/Bathe Self (QC): 3 (Min A washing periarea and buttocks) Upper Body Dressing (QC): 3 (min A overhead) Lower Body Dressing (QC): 3 (50% assistance. Pt able to thread LLE, assist with initial threading of RLE. Pt able to manage pants up partway, but required assistance with remainder of pant hike) On/Off Footwear (QC): 3 (Assist to don, pt able to doff) Toileting Hygiene (QC): 2 (Pt able to manage pants down, assist with hygiene and pant hike.) PT [facility] Goals Marine Scientist Goals PT Marine Scientist Goals Time Frame: Mar 14, 2023 Roll Left to Right (QC): 6 (using bed rail) Sit to Lying (QC): 6 (with bed rail) Lying-Sitting on Side/Bed(QC): 6 (/c bed rail) Sit to Stand (QC): 3 (min (A) -- uses Uplift Seat Assist at home) Chair/Myd-ra-Wxtpe Xfer(QC): 3 (min (A) consistently /c FWW) Toilet/Commode Transfer (QC): 3 (min (A) /c FWW consistently) Car Transfer (QC): 3 (Min (A) /c FWW consistenly.) Does the Patient Walk: Yes Walk 10 feet (QC): 3 (min (A)) Walk 10ft-Uneven Surface(QC): 3 (min (A) /c FWW) Walk 50ft with 2 Turns (QC): 3 (min (A) /c FWW) Walk 150 ft (QC): 9 Does the Pt use WC or Scooter?: Yes Wheel 50 feet with 2 turns (QC: 6 (Recommend motorized w/c due to extent of RA) Type: Motorized Wheel 150 feet: 6 Type: Motorized 1 Step (curb) (QC): 3 (Min (A)) 4 Steps (QC): 3 (mod (A) with railings) 12 Steps (QC): 9 Picking up an Object (QC): 3 (min (A) /c health and physical education teacher) OT Marine Scientist Goals Marine Scientist Goals Time Frame: Mar 18, 2023 Acute change in mental status: 0 Inattention: 0 Disorganized thinkin Altered level of consciousness: 0 Eating (QC): 5 (met) Oral Hygiene (QC): 4 (met) Toileting Hygiene (QC): 4 (not met) Shower/Bathe Self (QC): 4 (not met) Upper Body Dressing (QC): 6 (not met) Lower Body Dressing (QC): 4 (not met) On/Off Footwear (QC): 3 (met) 1=Demonstrate adherence to instructed precautions during ADL tasks. 2=Patient will verbalize/demonstrate understanding of assistive devices/modifications for ADL. 3=Patient will improve strength/tolerance for activity to enable patient to perform ADL's. AIYANA MILES OT Mar 08, 2023 08:15
[2023-03-08] MEDS: PANTOPRAZOLE 40 MG TABLET PO SCH (08:16)
[2023-03-08] MEDS: ACETAMINOPHEN 325 MG TABLET PO PRN (08:16)
[2023-03-08] MEDS: POTASSIUM CHLORIDE 20 MEQ TABLET PO SCH (08:16)
[2023-03-08] MEDS: FLUDROCORTISONE 0.1 MG TABLET PO SCH (08:16)
[2023-03-08] MEDS: HYPOCHLOROUS ACID/NaCl WOUND SOLN 250 ML IR SCH (08:18)
[2023-03-08] MEDS: MICONAZOLE 2% POWDER 90 GM TOP SCH (08:18)
--- NOTE | 2023-03-08 08:18 | Cardiology Progress Note ---
Subjective Date Seen by Provider: Mar 08, 2023 Time Seen by Provider: 08:05 Subjective/Events-last exam Patient is sitting up in bed, denies any chest pain or dyspnea Objective-Cardiology Exam Last Set of Vital Signs Vital Signs 03/05/23 03/06/23 03/08/23 21:06 20:00 08:20 Temp 37.1 Pulse 99 Resp 18 B/P (MAP) 120/77 (91) Pulse Ox 99 O2 Delivery Room Air O2 Flow Rate 0.00 0.00 FiO2 21 I&O Intake and Output 03/07/23 23:59 Intake Total 950 ml Balance 950 ml Intake Oral 850 ml IV Total 100 ml # Voids 2 # Urine Diapers 5 # Bowel Movements 1 General: Alert, Oriented X3 HEENT: Atraumatic, PERRLA Neck: Supple, No JVD Lungs: Clear to Auscultation, Normal Air Movement Heart: Regular Rate, Normal S1, Normal S2 Abdomen: Normal Bowel Sounds, Soft Extremities: No Clubbing, No Cyanosis Skin: No Significant Lesion Neuro: Normal Speech, Sensation Intact Psych/Mental Status: Mental Status NL, Mood NL A/P-Cardiology Admission Diagnosis Anemia, GIB PAF Peripheral edema ESBL UTI Assessment/Plan GI bleed, severe anemia Patient has history of chronic anemia which has been having episodes of drop in H&H Status post blood transfusion Patient had endoscopy done earlier this year, will require another extensive work-up for GI loss in addition I recommended hematology evaluation due to her chronic anemia Continue to monitor H/H Paroxysmal atrial fibrillation, had transient episode of atrial fibrillation Currently in sinus rhythm. Continue to monitor Currently off OAC Peripheral edema, some improvement Probably due to Hypoalbuminemia 2D echo was done earlier in January 2023 with normal LV size, ejection fraction 50 to 55%, PA pressure 35 mmHg moderate mitral regurgitation and dilated left atrium ESBL UTI, management per medical services Hypokalemia, replaced, continue to monitor Labile blood pressure, started on Florinef. Status post recent hospitalization for Gram negative sepsis with lactic acidosis Generalized weakness, debility Rheumatoid arthritis maintained on methotrexate Patient was seen by Ritika today, I was informed that she was leaving and being discharged today. On my visit to the floor patient was in the bathroom Okay for discharge from cardiology standpoint, discussed the management plan with Ritika. RITIKA NICOLE PA-C Mar 08, 2023 08:18 OTILIO ESQUIVEL MD Mar 08, 2023 08:43
[2023-03-08 08:20] VITALS: BP 120/77
[2023-03-08] MEDS: DOCUSATE SODIUM 100 MG CAPSULE PO SCH (08:20)
[2023-03-08] MEDS: SENNA W/DOCUSATE TABLET PO SCH (08:20)
--- NOTE | 2023-03-08 09:35 | Therapy Team Discharge Summary ---
Therapy Discharge Summary Discharge Recommendations Date of Discharge Therapy D/C Recommendations: Occupational Therapy Home Care Physical Therapy Patient admitted 02/26/23 to ARU for dx of debility. At time of d/c, her mobility had been dramatically improved with the use of a (B) platform FWW. She was able to ambulate 163' CGA at her max distance. She was also also able to demonstrate sidestepping with her walker 8' (R) and 9' (L) with CGA. She was setup for bed mobility, min (A) for sit>stand and CGA-min(A) for transfers with the walker. She was able to propel her w/c ~300' /c prn cues, but this type of propulsion does cause more shoulder pain than ambulating with a FWW. A w/c and/or transport chair was recommended for community mobility. was to place either a ramp or a "lift" onto the porch of their home, as patient had severe difficulty navigating steps due to her RA/knee pain. She was able to walk up/down a ramp with her walker CGA-min (A). Her Elderly Mobility Score improved from a 3/20 at eval to an 8/20 at dismissal. She will have home health services /p d/c. Roll Left to Right (QC): 5 Sit to Lying (QC): 5 Lying to Sitting/Side of Bed(Q: 5 Sit to Stand (QC): 3 (Jones-ModA) Chair/Alt-id-Jtofn Xfer(QC): 3 (min-CGA /c FWW) Toilet Transfer (QC): 3 (Min (A) - CGA /c FWW including sidestepping /c FWW) Car Transfer (QC): 4 Does the Patient Walk: Yes Mode of Locomotion: Both Anticipated Mode of Locomotion: Both Walk 10 feet (QC): 4 Walk 50 ft with 2 Turns(QC): 4 Walk 150 ft (QC): 4 ( /c (B) platform FWW, CGA to amb 163' at max distance) Walking 10ft on uneven surface: 3 (Jones) Distance: 163' Gait Assistive Device: Walker Platform Does the Pt Use a Wheelchair: Yes Wheelchair Distance: 50' Wheel 50 ft with 2 turns (QC): 4 (prn cues) Wheel 150 ft (QC): 4 (300', prn cues) Type of Wheelchair: Manual #of Steps: 1 1 Step (curb) (QC): 3 (Jones) 4 Steps (QC): 88 12 Steps (QC): 88 Balance Sitting Static: Fair Balance Sitting Dynamic: Fair Balance-Standing Static: Fair Picking up an Object (QC): 5 Occupational Therapy Decreased Activ Tolerance, Decreased UE Strength Eating (QC): 6 (IND per pt report) Oral Hygiene (QC): 5 (Set up per pt report in order to reach items on counter.) Shower/Bathe Self (QC): 3 (Min A washing periarea and buttocks) Upper Body Dressing (QC): 3 (min A overhead) Lower Body Dressing (QC): 3 (50% assistance. Pt able to thread LLE, assist with initial threading of RLE. Pt able to manage pants up partway, but required assistance with remainder of pant hike) On/Off Footwear (QC): 3 (Assist to don, pt able to doff) Toileting Hygiene (QC): 2 (Pt able to manage pants down, assist with hygiene and pant hike.) PT Sales Producer Goals Sales Producer Goals PT [facility] Goals Time Frame: Mar 14, 2023 Roll Left to Right (QC): 6 (using bed rail) Sit to Lying (QC): 6 (with bed rail) Lying-Sitting on Side/Bed(QC): 6 (/c bed rail) Sit to Stand (QC): 3 (min (A) -- uses [place] Seat Assist at home) Chair/Yuz-sy-Nebst Xfer(QC): 3 (min (A) consistently /c FWW) Toilet/Commode Transfer (QC): 3 (min (A) /c FWW consistently) Car Transfer (QC): 3 (Min (A) /c FWW consistenly.) Does the Patient Walk: Yes Walk 10 feet (QC): 3 (min (A)) Walk 10ft-Uneven Surface(QC): 3 (min (A) /c FWW) Walk 50ft with 2 Turns (QC): 3 (min (A) /c FWW) Walk 150 ft (QC): 9 Does the Pt use WC or Scooter?: Yes Wheel 50 feet with 2 turns (QC: 6 (Recommend motorized w/c due to extent of RA) Type: Motorized Wheel 150 feet: 6 Type: Motorized 1 Step (curb) (QC): 3 (Min (A)) 4 Steps (QC): 3 (mod (A) with railings) 12 Steps (QC): 9 Picking up an Object (QC): 3 (min (A) /c director airport) OT Sales Producer Goals [facility] Goals Time Frame: Mar 18, 2023 Acute change in mental status: 0 Inattention: 0 Disorganized thinkin Altered level of consciousness: 0 Eating (QC): 5 (met) Oral Hygiene (QC): 4 (met) Toileting Hygiene (QC): 4 (not met) Shower/Bathe Self (QC): 4 (not met) Upper Body Dressing (QC): 6 (not met) Lower Body Dressing (QC): 4 (not met) On/Off Footwear (QC): 3 (met) 1=Demonstrate adherence to instructed precautions during ADL tasks. 2=Patient will verbalize/demonstrate understanding of assistive devices/modifications for ADL. 3=Patient will improve strength/tolerance for activity to enable patient to perform ADL's. Simona Faria PT Mar 08, 2023 09:35
[2023-03-08] MEDS ORDERED: FLDR.1T PO (10:52)
[2023-03-08] MEDS ORDERED: PANT40TA52 PO (10:52)
--- NOTE | 2023-03-08 10:53 | Discharge Summary ---
Diagnosis/Chief Complaint Date of Admission Feb 26, 2023 at 11:20 Date of Discharge Discharge Date: Mar 08, 2023 Discharge Diagnosis Assessment: Debility Severe anemia RA on MTX PAF Holding OAC due to anemia ESBL UTI Recent PNA gram negative sepsis Edema Hypokalemia Plan: Monitor labs PT OT Transfuse as necessary Scopes as outpatient 02/27/2023: Monitor hgb PPI Willard cath due to excoriation 02/28/2023: Supportive care Maintain Willard catheter Complete IV antibiotics 03/01/2023: Monitor pain Ambulate 03/02/2023: Pain control Denies any need for pain pill 03/03/2023: Monitor closely 03/04/2023: DC catheter 03/05/2023: Supportive care Monitor closely 03/06/2023: Supportive care Complete antibiotic Discharge on Tuesday03/07/2023: DC Tuesday (1) Debility Status: Chronic Discharge Summary Discharge Physical Examination Allergies: Coded Allergies: NKANo Known Allergies (Verified Allergy, Mild, 02/23/23) mushroom (Unverified Allergy, Unknown, 02/23/23) Vitals & I&Os Vital Signs Date Time Temp Pulse Resp B/P (MAP) Pulse Ox O2 Delivery O2 Flow Rate FiO2 03/08/23 12:30 37.1 99 18 120/77 99 Room Air 03/06/23 20:00 0.00 0.00 03/05/23 21:06 21 General Appearance: Alert, Oriented X3, Cooperative Respiratory: Clear to Auscultation Cardiovascular: Regular Rate Psych/Mental Status: Mental Status NL Hospital Course Was the Problem List Reviewed?: Yes Uneventful but extremely productive hospital course following ESBL UTI with severe anemia with Hemoccult positive stools in need of endoscopy as an outpatient. Rheumatoid arthritis pain was managed conservatively. Patient had a dramatic improvement in her function and return back to better than baseline at time of discharge. She will receive home care and care from her spouse. Labs (last 24 hrs) Laboratory Tests 02/27/23 05:15: White Blood Count 4.5, Red Blood Count 3.12L, Hemoglobin 8.3#L, Hematocrit 26L, Mean Corpuscular Volume 82, Mean Corpuscular Hemoglobin 27, Mean Corpuscular Hemoglobin Concent 32, Red Cell Distribution Width 20.8H, Platelet Count 239, Mean Platelet Volume 8.8L, Immature Granulocyte % (Auto) 0, Neutrophils (%) (Auto) 51, Lymphocytes (%) (Auto) 31, Monocytes (%) (Auto) 12, Eosinophils (%) (Auto) 5, Basophils (%) (Auto) 1, Neutrophils # (Auto) 2.3, Lymphocytes # (Auto) 1.4, Monocytes # (Auto) 0.5, Eosinophils # (Auto) 0.2, Basophils # (Auto) 0.0, Immature Granulocyte # (Auto) 0.0, Sodium Level 133L, Potassium Level 4.3, Chloride Level 103, Carbon Dioxide Level 23, Anion Gap 7, Blood Urea Nitrogen 9, Creatinine 0.47L, Estimat Glomerular Filtration Rate 106, BUN/Creatinine Ratio 19, Glucose Level 106H, Calcium Level 7.9L, Corrected Calcium 9.5, Total Bilirubin 1.5H, Aspartate Amino Transf (AST/SGOT) 12, Alanine Aminotransferase (ALT/SGPT) 12, Alkaline Phosphatase 60, Total Protein 4.5L, Albumin 2.0L 03/02/23 09:23: White Blood Count 5.6, Red Blood Count 3.37L, Hemoglobin 8.8L, Hematocrit 28L, Mean Corpuscular Volume 82, Mean Corpuscular Hemoglobin 26, Mean Corpuscular Hemoglobin Concent 32, Red Cell Distribution Width 20.7H, Platelet Count 231, Mean Platelet Volume 8.7L, Immature Granulocyte % (Auto) 0, Neutrophils (%) (Auto) 54, Lymphocytes (%) (Auto) 27, Monocytes (%) (Auto) 12, Eosinophils (%) (Auto) 6, Basophils (%) (Auto) 1, Neutrophils # (Auto) 3.0, Lymphocytes # (Auto) 1.5, Monocytes # (Auto) 0.7, Eosinophils # (Auto) 0.3, Basophils # (Auto) 0.0, Immature Granulocyte # (Auto) 0.0 03/03/23 05:40: White Blood Count 5.7, Red Blood Count 3.26L, Hemoglobin 8.5L, Hematocrit 27L, M javi Corpuscular Volume 83, Mean Corpuscular Hemoglobin 26, Mean Corpuscular Hemoglobin Concent 32, Red Cell Distribution Width 21.0H, Platelet Count 225, Mean Platelet Volume 8.7L, Immature Granulocyte % (Auto) 0, Neutrophils (%) (Auto) 49, Lymphocytes (%) (Auto) 32, Monocytes (%) (Auto) 11, Eosinophils (%) (Auto) 7, Basophils (%) (Auto) 1, Neutrophils # (Auto) 2.8, Lymphocytes # (Auto) 1.8, Monocytes # (Auto) 0.6, Eosinophils # (Auto) 0.4H, Basophils # (Auto) 0.1, Immature Granulocyte # (Auto) 0.0, Sodium Level 134L, Potassium Level 4.2, Chloride Level 104, Carbon Dioxide Level 23, Anion Gap 7, Blood Urea Nitrogen 11, Creatinine 0.54L, Estimat Glomerular Filtration Rate 103, BUN/Creatinine Ratio 20, Glucose Level 98, Calcium Level 8.3L, Corrected Calcium 9.5, Total Bilirubin 0.7, Aspartate Amino Transf (AST/SGOT) 10, Alanine Aminotransferase (ALT/SGPT) 9, Alkaline Phosphatase 72, Total Protein 4.9L, Albumin 2.5L 03/07/23 05:18: White Blood Count 4.6, Red Blood Count 3.05L, Hemoglobin 7.9L, Hematocrit 25L, Mean Corpuscular Volume 82, Mean Corpuscular Hemoglobin 26, Mean Corpuscular Hemoglobin Concent 32, Red Cell Distribution Width 22.0H, Platelet Count 261, Mean Platelet Volume 8.6L, Immature Granulocyte % (Auto) 0, Neutrophils (%) (Auto) 53, Lymphocytes (%) (Auto) 32, Monocytes (%) (Auto) 9, Eosinophils (%) (Auto) 5, Basophils (%) (Auto) 1, Neutrophils # (Auto) 2.4, Lymphocytes # (Auto) 1.5, Monocytes # (Auto) 0.4, Eosinophils # (Auto) 0.3, Basophils # (Auto) 0.0, Immature Granulocyte # (Auto) 0.0, Sodium Level 135, Potassium Level 3.8, Chloride Level 104, Carbon Dioxide Level 24, Anion Gap 7, Blood Urea Nitrogen 18, Creatinine 0.50L, Estimat Glomerular Filtration Rate 105, BUN/Creatinine Ratio 36, Glucose Level 90, Calcium Level 8.4L, Corrected Calcium 9.6, Total Bilirubin 0.4, Aspartate Amino Transf (AST/SGOT) 12, Alanine Aminotransferase (ALT/SGPT) 8, Alkaline Phosphatase 77, Total Protein 5.1L, Albumin 2.5L Pending Labs Laboratory Tests 02/27/23 05:15: White Blood Count 4.5, Red Blood Count 3.12, Hemoglobin 8.3, Hematocrit 26, Mean Corpuscular Volume 82, Mean Corpuscular Hemoglobin 27, Mean Corpuscular Hemoglobin Concent 32, Red Cell Distribution Width 20.8, Platelet Count 239, Mean Platelet Volume 8.8, Immature Granulocyte % (Auto) 0, Neutrophils (%) (Auto) 51, Lymphocytes (%) (Auto) 31, Monocytes (%) (Auto) 12, Eosinophils (%) (Auto) 5, Basophils (%) (Auto) 1, Neutrophils # (Auto) 2.3, Lymphocytes # (Auto) 1.4, Monocytes # (Auto) 0.5, Eosinophils # (Auto) 0.2, Basophils # (Auto) 0.0, Immature Granulocyte # (Auto) 0.0, Sodium Level 133, Potassium Level 4.3, Chloride Level 103, Carbon Dioxide Level 23, Anion Gap 7, Blood Urea Nitrogen 9, Creatinine 0.47, Estimat Glomerular Filtration Rate 106, BUN/Creatinine Ratio 19, Glucose Level 106, Calcium Level 7.9, Corrected Calcium 9.5, Total Bilirubin 1.5, Aspartate Amino Transf (AST/SGOT) 12, Alanine Aminotransferase (ALT/SGPT) 12, Alkaline Phosphatase 60, Total Protein 4.5, Albumin 2.0 03/02/23 09:23: White Blood Count 5.6, Red Blood Count 3.37, Hemoglobin 8.8, Hematocrit 28, Mean Corpuscular Volume 82, Mean Corpuscular Hemoglobin 26, Mean Corpuscular Hem oglobin Concent 32, Red Cell Distribution Width 20.7, Platelet Count 231, Mean Platelet Volume 8.7, Immature Granulocyte % (Auto) 0, Neutrophils (%) (Auto) 54, Lymphocytes (%) (Auto) 27, Monocytes (%) (Auto) 12, Eosinophils (%) (Auto) 6, Basophils (%) (Auto) 1, Neutrophils # (Auto) 3.0, Lymphocytes # (Auto) 1.5, Monocytes # (Auto) 0.7, Eosinophils # (Auto) 0.3, Basophils # (Auto) 0.0, Immature Granulocyte # (Auto) 0.0 03/03/23 05:40: White Blood Count 5.7, Red Blood Count 3.26, Hemoglobin 8.5, Hematocrit 27, Mean Corpuscular Volume 83, Mean Corpuscular Hemoglobin 26, Mean Corpuscular Hemoglobin Concent 32, Red Cell Distribution Width 21.0, Platelet Count 225, Mean Platelet Volume 8.7, Immature Granulocyte % (Auto) 0, Neutrophils (%) (Aut o) 49, Lymphocytes (%) (Auto) 32, Monocytes (%) (Auto) 11, Eosinophils (%) (Auto) 7, Basophils (%) (Auto) 1, Neutrophils # (Auto) 2.8, Lymphocytes # (Auto) 1.8, Monocytes # (Auto) 0.6, Eosinophils # (Auto) 0.4, Basophils # (Auto) 0.1, Immature Granulocyte # (Auto) 0.0, Sodium Level 134, Potassium Level 4.2, Chloride Level 104, Carbon Dioxide Level 23, Anion Gap 7, Blood Urea Nitrogen 11, Creatinine 0.54, Estimat Glomerular Filtration Rate 103, BUN/Creatinine Ratio 20, Glucose Level 98, Calcium Level 8.3, Corrected Calcium 9.5, Total Bilirubin 0.7, Aspartate Amino Transf (AST/SGOT) 10, Alanine Aminotransferase (ALT/SGPT) 9, Alkaline Phosphatase 72, Total Protein 4.9, Albumin 2.5 03/07/23 05:18: White Blood Count 4.6, Red Blood Count 3.05, Hemoglobin 7.9, Hematocrit 25, Mean Corpuscular Volume 82, Mean Corpuscular Hemoglobin 26, Mean Corpuscular Hemoglobin Concent 32, Red Cell Distribution Width 22.0, Platelet Count 261, Mean Platelet Volume 8.6, Immature Granulocyte % (Auto) 0, Neutrophils (%) (Auto) 53, Lymphocytes (%) (Auto) 32, Monocytes (%) (Auto) 9, Eosinophils (%) (Auto) 5, Basophils (%) (Auto) 1, Neutrophils # (Auto) 2.4, Lymphocytes # (Auto) 1.5, Monocytes # (Auto) 0.4, Eosinophils # (Auto) 0.3, Basophils # (Auto) 0.0, Immature Granulocyte # (Auto) 0.0, Sodium Level 135, Potassium Level 3.8, Chloride Level 104, Carbon Dioxide Level 24, Anion Gap 7, Blood Urea Nitrogen 18, Creatinine 0.50, Estimat Glomerular Filtration Rate 105, BUN/Creatinine Ratio 36, Glucose Level 90, Calcium Level 8.4, Corrected Calcium 9.6, Total Bilirubin 0.4, Aspartate Amino Transf (AST/SGOT) 12, Alanine Aminotransferase (ALT/SGPT) 8, Alkaline Phosphatase 77, Total Protein 5.1, Albumin 2.5 Discharge Home Medications: Active Scripts Active Fludrocortisone Acetate 0.1 Mg Tab 0.1 Mg PO DAILY Pantoprazole Sodium 40 Mg Tablet.dr 40 Mg PO BID Reported Methotrexate (Methotrexate Sodium) 2.5 Mg Tablet 20 Mg PO TUESDAY TAKES 8 (2.5MG) TABLETS Buprenorphine 20 Mcg/Hour Patch.tdwk 20 Mcg TD WED Folic Acid 1 Mg Tablet 1 Mg PO 1900 Paroxetine HCl 20 Mg Tablet 20 Mg PO 1900 Nadolol 40 Mg Tablet 40 Mg PO 1900 Instructions to patient/family Please see electronic discharge instructions given to patient. Diagnosis/Problems Diagnosis/Problems (1) Debility Status: Chronic CAROLINE PATRICK DO Mar 08, 2023 10:53
--- NOTE | 2023-03-08 10:53 | D/C HH Face to Face Order ---
D/C Face to Face Orders Reconcile Patient Problems Problems Reviewed?: Yes Instructions for Patient Via [facility], Patient Instructions/FollowUp: PCP 1 week Physician to follow Patient: [facility] Discharge Diet for Home: No Restrictions Patient Problems: Debility Anemia Patient Data-Allergies,Ht & Wt Patient Allergies: Coded Allergies: NKANo Known Allergies (Verified Allergy, Mild, 02/23/23) mushroom (Unverified Allergy, Unknown, 02/23/23) Height (Feet): 5 Height (Inches): 3.00 Weight (Pounds): 196 Weight (Ounces): 0.0 Home Health Need/Face to Face Date of Face to Face: Mar 08, 2023 Clinical Findings: Generalized weakness and fatigue, Muscle weakness I have seen Pt [id number]: Yes Discharged To: Home Diagnosis/Conditions: Anemia Patient is Homebound due to: Nicolette fall risk due to instabilty, Muscle weakness Homebound Status Due to the above stated illness, injury or surgical procedure (medical condition or diagnosis) and associated clinical findings, the patient is homebound because of his/her inability to leave home except with aid of a supportive device and/or person AND leaving the home requires a considerable and taxing effort or is medically contraindicated. Pt req the following assistanc: Walker Home Health Nursing Orders Home Health Services Order: Nursing Services, Diabetes Physician-Evaluate & Treat, Physical Therapy-Evaluate & Treat Certify Stmt I certify that this patient is under my care and that I, a nurse practitioner or a physician; a permit review assistant working with me, had a face to face encounter that - meets the physician face to face encounter requirements with this patient as dated. CAROLINE PATRICK DO Mar 08, 2023 10:53
--- NOTE | 2023-03-08 12:29 | Physical Therapy Progress Note ---
Therapy Progress Note Patient has mobility limitation that significantly impairs her ability to participate in one or more mobility-related activities of daily living (MRADL) in the home. The patient is able to safely use the double platform walker and functional mobility deficit can be sufficiently resolved with use of a double platform walker that cannot be corrected with use of wheelchair or any other form of walker. WYATT SUE SEAM STAYER Mar 08, 2023 12:29
[2023-03-08 12:30] VITALS: BP 120/77
== END 2023-03-08 12:45 | disposition home health service (06) | DRG 812 ==
PROVIDERS: ADMIT Internal Medicine; ATTEND Internal Medicine
DX: D64.9 Anemia, unspecified (principal); N39.0 Urinary tract infection, site not specified; Z16.12 Extended spectrum beta lactamase (ESBL) resistance; M06.9 Rheumatoid arthritis, unspecified; E87.6 Hypokalemia; I48.0 Paroxysmal atrial fibrillation; I10 Essential (primary) hypertension; K21.9 Gastro-esophageal reflux disease without esophagitis; M19.90 Unspecified osteoarthritis, unspecified site; M54.9 Dorsalgia, unspecified; G89.29 Other chronic pain; H54.3 Unqualified visual loss, both eyes; H91.90 Unspecified hearing loss, unspecified ear; B96.20 Unspecified Escherichia coli [E. coli] as the cause of diseases classified elsewhere; Z79.01 Long term (current) use of anticoagulants; Z79.899 Other long term (current) drug therapy; Z23 Encounter for immunization; L89.329 Pressure ulcer of left buttock, unspecified stage; L89.319 Pressure ulcer of right buttock, unspecified stage; L89.159 Pressure ulcer of sacral region, unspecified stage; I34.0 Nonrheumatic mitral (valve) insufficiency; I95.9 Hypotension, unspecified; R60.9 Edema, unspecified
CPT/HCPCS: 36415; 80053; 85025; 90686; 94760